=== PATIENT | female | born 1955 | race Caucasian/White ===

== ENCOUNTER 2019-04-07 22:53 | Inpatient (IN) | payer OTHER, SELFPAY ==
--- NOTE | ~2019-04-07 | CT_ITS ---
EXAMINATION: CT abdomen pelvis w con DATE: 04/08/2019 06:42 INDICATION: Generalized abdominal pain. TECHNIQUE: Computed tomography (CT) of the abdomen and pelvis was performed with 100 mL Omnipaque 350 intravenous contrast. Automated exposure control and iterative reconstruction technique were employe d. The dose-length product was 931.82 mGy-cm. COMPARISON: CT abdomen and pelvis 07/30/2013 FINDINGS: The visualized portions of the lung bases demonstrate mild atelectasis. No pleural effusion . The heart size is normal. No pericardial effusion. There is diffuse hepatic steatosis. There are ch anges of cholecystectomy. The spleen, pancreas, and adrenal glands are normal. There is cortical thin kaylen of the kidneys. There is diverticulosis of the colon without evidence of diverticulitis. The smooth endix is not visualized. There is a small volume of ascites. There are no pathologically enlarged lym ph nodes. There is ectasia of distal descending aorta measuring 3.8 cm. There is moderate stenosis of right common iliac artery. There is a burst fracture of T12 with 2/5 loss of height and retropulsion of bone 2 mm into central spinal canal. IMPRESSION: 1. Small volume of ascites. 2. Moderate stenosis of right common iliac artery. 3. Burst fracture of T12, likely acute or subacute. 4. Diffuse hepatic steatosis. Reviewed, dictated and finalized at location A. LER OPERATOR
--- NOTE | ~2019-04-07 | XR_ITS ---
EXAMINATION: XR chest 1V portable 04/07/2019 23:25 INDICATION: Cough PROCEDURE: 2 view chest COMPARISON: Comparison to multiple prior studies sequentially, with oldest reviewed study dated 05/2009. FINDINGS: The lungs are clear. The cardiomediastinal silhouette is within normal limits. There are no pleural effusions. There is no pneumothorax suspected. There is side plate and screws transfixin g the proximal aspect of the left humerus. IMPRESSION: 1: NO ACUTE CARDIOPULMONARY DISEASE. Reviewed, dictated and finalized at location A. ERY PACKER
--- NOTE | ~2019-04-07 | US_ITS ---
EXAMINATION: US abdomen limited EXAM DATE: 04/10/2019 14:03 INDICATION: Bloating. Looking for ascites. TECHNIQUE: Frontal upright projection of the upper abdomen, frontal projection of the lower abdomen f or interpretation. Comparison is made to prior examination from 11/24/2017. FINDINGS: Small pocket of ascites demonstrated in the right lower quadrant, not enough for paracente sis. No fluid in the other 3 quadrants. IMPRESSION: Small pocket right lower quadrant ascites. Reviewed, dictated and finalized at location A. Y PLAN SALES DIRECTOR
[2019-04-07 22:54] VITALS: BP 137/118; PULSE 124; RESP 21; TEMP 36.9; O2SAT 98
--- NOTE | 2019-04-07 23:08 | ED.ABDPAIN ---
HPI - Abdominal Pain General Chief Complaint: Abdominal Pain Stated Complaint: abd Time Seen by Provider: 04/07/19 22:58 Source: patient and RN notes reviewed Mode of arrival: EMS Limitations: no limitations History of Present Illness HPI narrative: Pt is a 63 y/o female who presents to the ED, via EMS, with c/o constant upper abdominal pain that began yesterday (04/06/19). Pt has a hx of EtOH abuse and she notes that she drank an entire fifth of Fireball BEE RAISER. Pt also reports a cough and left chronic shoulder pain, but denies wheezing, nausea, and vomiting. Pt notes that she saw her PCP August 2018. MD elicited complaint: abdominal pain Pain Consistency: constant Location: other (upper abdomen) Associated symptoms: other (cough, left chronic shoulder pain) Related Data Home Medications Medication Instructions Recorded Confirmed ranitidine HCl 150 mg PO BID 01/05/19 04/08/19 Allergies Allergy/AdvReac Type Severity Reaction Status Date / Time No Known Allergies Allergy Unknown Unverified 01/04/19 05:39 Review of Systems Review of Systems: All systems reviewed & are unremarkable except as noted in HPI and below Respiratory: Respiratory: Reports cough and Denies wheezing Gastrointestinal: Gastrointestinal: Reports abdominal pain (upper), Denies nausea and Denies vomiting Musculoskeletal: Musculoskeletal: Reports other (chronic left shoulder pain) PMFSH Social History Social History Smoking packs per day: 1.5 Smoking cigarettes per day: 30.0 Years smoked: 40 Smoking pack-years: 60.00 Smoking status: Heavy tobacco smoker Tobacco type: cigarettes Second hand tobacco smoke exposure: Yes Alcohol intake: current Drinks per week: 1 Alcohol use details: Pt has a hx of EtOH abuse. Substance use: current Substance use type: does not use Other substance usage details: states she uses 1 pint a day Last use: 04/07/2019 Gender identity (if verbalized by the patient): Female Spiritual care concerns: No Agree to blood products: Yes Exam Const: General: healthy appearing and no acute distress Nutritional Appearance: well nourished HENMT: Mouth: Yes lip normal and Yes moist mucous membranes Eyes: Conjunctivae: conjunctivae normal Pupils: Equal, round and reactive pupils present Resp: Effort & Inspection: normal respiratory effort Auscultation: clear to auscultation bilaterally Cardio: Rate: tachycardic Rhythm: regular rhythm GI: Inspection: distended GI Palp: Yes abdominal tenderness (epigastric) and Yes Soft to palpation Auscultation: normal bowel sounds Back/Spine/Pelvis: Back: other (Full ROM) Skin: General skin exam: normal color, dry skin and other (warm) Neuro: General: patient oriented x3 and other (alert) Speech: normal speech Extrem: General: full ROM Left upper extremity: shoulder/upper arm (left axilla: ) abnormal to inspection other (skin breakdown with erythema to surrounding areas, thick white discharge) and swelling other (to surrounding areas) Psych: Mental Status: mental status grossly normal Affect: normal affect Course Consultations Consultation #1: Discussed case with Dr. Junior (Hospitalist). Accepts admission. Date: 04/08/19 Time: 03:11 Vital Signs Vital signs: Vital Signs Temperature 36.9 C 04/07/19 22:54 Pulse Rate 124 H 04/07/19 22:54 Respiratory Rate 21 H 04/07/19 22:54 Blood Pressure 137/118 H 04/07/19 22:54 Pulse Oximetry 98 04/07/19 22:54 Temperature 37.2 C 04/08/19 04:09 Pulse Rate 122 H 04/08/19 04:32 Respiratory Rate 22 H 04/08/19 04:09 Blood Pressure 122/99 H 04/08/19 04:09 Pulse Oximetry 96 04/08/19 04:09 MDM - Abdominal Pain Differential Diagnosis Differential diagnosis: Likely constipation, pancreatitis and other (cirrhosis, gastritis, cutaneous candidiasis, alcohol abuse) Medical Records Attestation: I reviewed the patient's medical records.
[2019-04-07] MEDS: MICONAZOLE NITRATE 2% CREAM 30 GM TUBE 1 APPLIC TOPICAL (23:41)
[2019-04-07 23:53] LABS: Basophils Percent Auto 0.3 % (0.2-1.2); Eosinophils Percent Auto 0.1 % (0-4.4); Hematocrit 31.2 % (37.0-47.0); Hemoglobin 10.7 g/dL (12.0-15.0); Immature Granulocyte Absolute 0.02 K/mm3 (0.00-0.031); Immature Granulocyte Percent A 0.3 % (0-0.5); Lymphocytes Absolute Auto 1.55 K/mm3 (0.9-3.2); Lymphocytes Percent Auto 21.8 % (18.3-44.2); Mean Corpuscular HGB Conc 34.3 g/dl (32-36); Mean Corpuscular Hemoglobin 36.6 pg (26-34); Mean Corpuscular Volume 106.8 fl (80-100); Mean Platelet Volume 9.5 fl (7.4-10.4); Monocytes Absolute Auto 0.6 K/mm3 (0.1-0.6); Monocytes Percent Auto 7.9 % (2.6-8.5); Neutrophils Percent Auto 69.6 % (45.5-73.1); Platelet Count Result 139 k/mm3 (150-375); Red Blood Count 2.92 M/mm3 (4.2-5.4); Red Cell Distribution Width 17.3 % (11.5-14.5); White Blood Count 7.1 K/mm3 (4.5-10.0)
[2019-04-08] VITALS (11 sets, daily range): BP systolic 98–183; BP diastolic 60–99; PULSE 61–122; RESP 12–22; TEMP 36.1–37.2; O2SAT 96–100; BMI 27.9
--- NOTE | 2019-04-08 | PC.NURSE ---
pt states she cannot use the bathroom at this time. edp notified
--- NOTE | 2019-04-08 | PC.NURSE ---
pt requesting something for anxiety and pain. edp notified.
[2019-04-08 00:23] LABS: Alanine Aminotransferase 30 U/L (4-35); Albumin Level 2.5 g/dL (3.5-5.1); Alkaline Phosphatase 378 U/L (38-126); Aspartate Amino Transferase 84 U/L (14-36); Bilirubin,Total 0.6 mg/dL (0.2-1.3); Calcium 7.7 mg/dL (8.4-10.2); Carbon Dioxide 25 mmol/L (22-30); Chloride 89 mmol/L (98-107); Estimated Glomerular Filt Rate > 60; Glucose 116 mg/dL (65-105); Lipase 121 U/L (23-300); Potassium 2.3 mmol/L (3.4-5.0); Sodium 132 mmol/L (137-145)
[2019-04-08 00:31] LABS: Blood Urea Nitrogen < 2 mg/dL (7-17)
[2019-04-08] MEDS: POTASSIUM CHLORIDE 20 MEQ PACKET (FOR LIQUID) 40 MEQ PO (00:48)
[2019-04-08] MEDS: SODIUM CHLORIDE 0.9% IV 1,000 ML 999 ML IV CONT (00:48)
[2019-04-08 00:55] LABS: Ethanol 329 mg/dL (<10)
--- NOTE | 2019-04-08 01:15 | PC.NURSE ---
pt requesting medication for pain and anxiety. edp notified. no further orders.
[2019-04-08 03:15] LABS: Add Urine Microscopic? YES; Appearance Urine Cloudy (Clear); Bacteria Urine 4+ /hpf; Bilirubin Urine Negative (Negative); Blood Urine 1+ (Negative); Color Urine Yellow (Yellow); Glucose Urine UA Negative (Negative); Ketones Urine Negative (Negative); Leukocyte Esterase Ur 3+ LEU/UL (Negative); Mucus Urine Rare /lpf; Nitrate Urine Negative (Negative); Protein Urine Negative (Negative); Specific Grav Ur 1.009 (1.001-1.035); Squamous Epithelial Cell Urine Few /hpf (Few); Urobilinogen Urine Negative mg/dL (<2.0); WBC Clumps Urine Present /HPF; WBC Urine >75 /hpf
[2019-04-08] MEDS: MORPHINE SULFATE 2 MG/ML INJ IV PUSH ×5 (05:16→20:27)
[2019-04-08 08:37] LABS: Albumin Level 2.2 g/dL (3.5-5.1); Calcium 7.1 mg/dL (8.4-10.2); Carbon Dioxide 23 mmol/L (22-30); Chloride 90 mmol/L (98-107); Estimated CRCL calculation 100 ml/min; Estimated Glomerular Filt Rate > 60; Glucose 98 mg/dL (65-105); Magnesium 1.2 mg/dL (1.6-2.3); Potassium 2.7 mmol/L (3.4-5.0); Sodium 128 mmol/L (137-145)
[2019-04-08 08:40] LABS: Blood Urea Nitrogen < 2 mg/dL (7-17)
[2019-04-08] MEDS: POTASSIUM CHLORIDE 20 MEQ TABLET 40 MEQ PO ×2 (10:39→17:12)
[2019-04-08] MEDS: PANTOPRAZOLE SODIUM IV 40 MG VIAL IV PUSH ×2 (10:41→20:20)
[2019-04-08] MEDS: THIAMINE HCL 200 MG/2 ML VIAL 100 MG IV PUSH (10:43)
[2019-04-08] MEDS: TOLNAFTATE 1% POWDER 45 GM BTL 1 APPLIC TOPICAL ×2 (10:44→20:20)
[2019-04-08] MEDS: MAGNESIUM SULFATE 3GM/D5W100ML 3 GM/100 ML BAG IVPB (12:11)
--- NOTE | 2019-04-08 12:32 | PM.IMHP ---
H&P: HPI History of Present Illness Chief complaint: hypokalemia, alcohol intoxication Narrative: Date of visit 04/08/2019. 1030. Shannon Rao is a 63 year old white female alcoholic smoker with hypertension presented to the emergency room with 1-2 day history brother sudden-onset med upper abdominal discomfort. Feels bloated and not eating. States she had some diarrhea but no vomiting no hematemesis no melena hematochezia States never had discomfort like this in the past. CT of the abdomen revealed a T12 compression fracture age indeterminate and she relates chronic back pain but no recent falls. Status post cholecystectomy in the distant past. With pain persisted and she is admitted for evaluation treatment of the same Review of Systems Review of Systems: Narrative: Constitutional: Weight is steady appetite unchanged no fever no chills Eye no double vision scotoma Mouth throat though sore Pulmonary no increased shortness of breath wheezing or cough CV no chest pain or palpitations or pedal edema GI as per present illness no dysuria no hematuria Muscle skeletal no particular joint discomfort as stated chronic back pain Integument no skin breakdown rashes Neuro no seizures no syncope Psych affect appears appropriate [facility] Social History Social History Smoking packs per day: 1.5 Smoking cigarettes per day: 30.0 Years smoked: 40 Smoking pack-years: 60.00 Smoking status: Heavy tobacco smoker Tobacco type: cigarettes Second hand tobacco smoke exposure: Yes Alcohol intake: current Drinks per week: 1 Alcohol use details: Pt has a hx of EtOH abuse. Substance use: current Substance use type: does not use Other substance usage details: states she uses 1 pint a day Last use: 04/07/2019 Gender identity (if verbalized by the patient): Female Spiritual care concerns: No Agree to blood products: Yes Meds Home Medications and Allergies Home Medications Medication Instructions Recorded Confirmed Type ranitidine HCl 150 mg PO BID 01/05/19 04/08/19 History albuterol sulfate [ProAir HFA] 1 - 2 puff INHALATION Q4H PRN #8.5 01/06/19 04/08/19 Rx gm fluticasone propion-salmeterol 1 inh INHALATION Q12H #1 device 01/06/19 04/08/19 Rx [Advair Diskus] lisinopril 10 mg PO DAILY #30 tablet 11/01/19 02/01/20 Rx sertraline 100 mg PO HS #30 tablet 01/06/19 04/08/19 Rx tolnaftate 1 applic TOPICAL Q12HR #45 gm 01/06/19 04/08/19 Rx trazodone 150 mg PO HS #30 tablet 01/06/19 04/08/19 Rx Allergies Allergy/AdvReac Type Severity Reaction Status Date / Time No Known Allergies Allergy Unknown Unverified 01/04/19 05:39 Vital Signs Vital Signs - 24 hr 04/07/19 22:54 04/08/19 01:00 04/08/19 03:18 Temperature 36.9 C Pulse Rate 124 H 115 H 120 H Respiratory Rate 21 H 12 20 Blood Pressure 137/118 H 108/65 98/83 L Pulse Oximetry 98 98 99 04/08/19 03:34 04/08/19 04:09 04/08/19 04:18 Temperature 37.2 C Pulse Rate 117 H 122 H 122 H Respiratory Rate 13 22 H Blood Pressure 109/67 122/99 H Pulse Oximetry 97 96 04/08/19 04:32 04/08/19 06:00 04/08/19 06:02 Temperature 37.2 C Pulse Rate 122 H 122 H Respiratory Rate 22 H Blood Pressure 122/99 H 120/60 Pulse Oximetry 96 Exam Narrative: Exam Narrative: Blood pressure 126/76 pulse is 110 saturating 96% on room air afebrile Pupils equal reactive to light sclera anicteric Mouth normal low bit erythema soft palate [place] mouth Neck supple no adenopathy thyromegaly carotid bruits Lungs are clear CV tachy no murmurs Abdomen is soft sounds are present there is diffuse tenderness in the upper abdomen and epigastric area primarily Extremities without edema dorsalis pedis posterior tibial 2+ symmetrical no clubbing Neuro alert oriented x3 no focal deficits Integument no skin breakdown or rashes Psych appears appropriate H&P: Results Labs Labs: Short CBC 04/07/19 Range/
[2019-04-08] MEDS: CHLORDIAZEPOXIDE 25 MG CAPSULE 50 MG PO ×3 (12:54→23:40)
[2019-04-08] MEDS: NICOTINE (*PBKC) 21 MG PATCH 1 PATCH TRANSDERM (12:54)
[2019-04-08] MEDS: SODIUM CHLORIDE 0.9% IV 1,000 ML 125 ML IV CONT ×2 (12:57→23:39)
[2019-04-08] MEDS: ENOXAPARIN 40 MG/0.4 ML SYRINGE SUB-Q (20:19)
[2019-04-08] MEDS: TOBRAMYCIN 0.3% OPHTH SOLN 5 ML 1 DROP EACH EYE ×2 (20:20→23:41)
[2019-04-09] MEDS: MORPHINE SULFATE 2 MG/ML INJ IV PUSH ×3 (00:55→12:39)
[2019-04-09] MEDS: CHLORDIAZEPOXIDE 25 MG CAPSULE 50 MG PO ×4 (05:48→23:56)
[2019-04-09] MEDS: TOBRAMYCIN 0.3% OPHTH SOLN 5 ML 1 DROP EACH EYE ×5 (05:48→21:56)
[2019-04-09 06:00] VITALS: BP 150/76; PULSE 110; RESP 18; TEMP 36.4; O2SAT 100
[2019-04-09 07:31] LABS: Basophils Percent Auto 0.2 % (0.2-1.2); Eosinophils Percent Auto 0.5 % (0-4.4); Hemoglobin 8.3 g/dL (12.0-15.0); Immature Granulocyte Absolute 0.03 K/mm3 (0.00-0.031); Immature Granulocyte Percent A 0.7 % (0-0.5); Lymphocytes Absolute Auto 1.38 K/mm3 (0.9-3.2); Lymphocytes Percent Auto 34.4 % (18.3-44.2); Mean Corpuscular HGB Conc 34.6 g/dl (32-36); Mean Corpuscular Hemoglobin 37.6 pg (26-34); Mean Corpuscular Volume 108.6 fl (80-100); Mean Platelet Volume 9.1 fl (7.4-10.4); Monocytes Absolute Auto 0.2 K/mm3 (0.1-0.6); Neutrophils Absolute Auto 2.3 K/mm3 (1.3-6.7); Neutrophils Percent Auto 58.2 % (45.5-73.1); Platelet Count Result 83 k/mm3 (150-375); Red Blood Count 2.21 M/mm3 (4.2-5.4)
[2019-04-09 07:46] LABS: Alanine Aminotransferase 25 U/L (4-35); Alkaline Phosphatase 340 U/L (38-126); Aspartate Amino Transferase 62 U/L (14-36); Bilirubin,Total 0.9 mg/dL (0.2-1.3); Blood Urea Nitrogen 3 mg/dL (7-17); Calcium 7.3 mg/dL (8.4-10.2); Carbon Dioxide 30 mmol/L (22-30); Chloride 94 mmol/L (98-107); Estimated CRCL calculation 122 ml/min; Estimated Glomerular Filt Rate > 60; Glucose 85 mg/dL (65-105); Magnesium 1.6 mg/dL (1.6-2.3); Potassium 3.5 mmol/L (3.4-5.0); Sodium 127 mmol/L (137-145)
[2019-04-09] MEDS: NICOTINE (*PBKC) 21 MG PATCH 1 PATCH TRANSDERM (09:16)
[2019-04-09] MEDS: THIAMINE HCL 100 MG TABLET PO (09:16)
[2019-04-09] MEDS: PANTOPRAZOLE SODIUM IV 40 MG VIAL IV PUSH ×2 (09:16→21:56)
[2019-04-09] MEDS: TOLNAFTATE 1% POWDER 45 GM BTL 1 APPLIC TOPICAL ×2 (09:17→21:57)
[2019-04-09] MEDS: SODIUM CHLORIDE 0.9% IV 1,000 ML 125 ML IV CONT (09:18)
[2019-04-09] MEDS: POTASSIUM CHLORIDE 20 MEQ TABLET 40 MEQ PO (09:32)
--- NOTE | 2019-04-09 13:29 | PM.IMPN ---
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 Pain is higher than would expect from a T12 compression and her abdomen is tender to palpation suggesting intra-abdominal process. She has good bowel sounds so will continue Q 12 hour proton pump inhibitor. Now history of dark stool and with Hgb dropping contact GI for probable EGD. Serial H&H and stool guaiacs (2) Alcohol abuse: Code(s): F10.10 - Alcohol abuse, uncomplicated Status: Acute Assessment and Plan: Thiamin and watch for signs of withdrawal. Empirically treat with the benzo diazepam with her tachycardia Still alert with no hallucinations or confusion (3) Hypokalemia: Code(s): E87.6 - Hypokalemia Status: Acute Assessment and Plan: Replace potassium , 3.5 this a.m.. Magnesium up to 1.6 (4) COPD (chronic obstructive pulmonary disease): Code(s): J44.9 - Chronic obstructive pulmonary disease, unspecified Status: Acute Assessment and Plan: P.rrasheed sidhu (5) Thrombocytopenia: Code(s): D69.6 - Thrombocytopenia, unspecified Status: Acute Assessment and Plan: Mild and been present in the past probably secondary to ETOH and/or ETOH liver disease. CT revealed fatty infiltration but no cirrhosis. Continue to monitor 83 K today (6) DVT prophylaxis: Code(s): Z29.9 - Encounter for prophylactic measures, unspecified Status: Acute Assessment and Plan: Changed to mechanical with probable GI blood loss and with lower platelets (7) Conjunctivitis: Code(s): H10.9 - Unspecified conjunctivitis Status: Acute Assessment and Plan: Started tobramycin eyedrops 04/08 (8) Hypertension, essential: Code(s): I10 - Essential (primary) hypertension Status: Acute Assessment and Plan: Pressure is slowly rising but continue to hold VELASQUEZ-inhibitor with the lower hemoglobin Subjective Date/time seen: 04/09/19 13:29 Interval history: Date of visit 04/09/2019. 63-year-old hypertensive alcoholic admitted with epigastric pain diarrhea rule last several days. Continues have pain no feels better than yesterday. CT abdomen unremarkable as is her lipase Has had some frequency of urination, stools last night were reported as dark Exam Narrative: Exam Narrative: Blood pressure 150/76 pulse is 110 saturating 96% on room air afebrile Pupils equal reactive to light sclera anicteric but conjunctiva erythematous and purelent crusting Mouth normal low bit erythema soft palate [place] mouth Neck supple Lungs are clear CV tachy no murmurs Abdomen is soft , bowel sounds are present there is diffuse tenderness in the upper abdomen and epigastric area primarily Extremities without edema dorsalis pedis posterior tibial 2+ symmetrical no clubbing Neuro alert oriented x3 no focal deficits Objective Data Vital Signs Vital Signs: Vital Signs - 24 hr 04/08/19 14:00 04/08/19 18:15 04/08/19 22:00 Temperature 36.3 C L 36.1 C L Pulse Rate 61 117 H 112 H Respiratory Rate 18 21 H Blood Pressure 183/86 H 128/66 Pulse Oximetry 96 100 04/09/19 06:00 Temperature 36.4 C Pulse Rate 110 H Respiratory Rate 18 Blood Pressure 150/76 H Pulse Oximetry 100 Intake/Output Intake/Output: Intake & Output 04/06/19 04/07/19 04/08/19 04/09/19 23:59 23:59 23:59 23:59 Intake Total 3350 1400 Output Total 1050 Balance 2300 1400 Meds/Results Medications: Active Medications Generic Name Dose Route Start Last Admin Trade Name Freq PRN Reason Stop Dose Admin Albuterol 5 mg 04/08/19 07:52 Albuterol Sulf Neb 2.5mg/0.5ml INHALATION Q
[2019-04-09 14:00] VITALS: BP 100/62; PULSE 114; RESP 22; TEMP 36.6; O2SAT 100
--- NOTE | 2019-04-09 14:09 | WPDGICN ---
Assessment and Plan Additional Plan This is a 63-year-old white female patient I am asked to see for abdominal pain. Patient presents to the emergency room complaining of a 2 day history of upper abdominal discomfort and bloating. She feels distended and has poor appetite. She describes some nausea. She denies any vomiting. In the emergency room and CT scan revealed at T12 compression fracture. And ascites. She had mets to rather frequent ongoing alcohol intake. Typically she will drink 1 pt of alcohol a day. Family history is noncontributory. Past medical history is significant for alcoholism, anxiety, COPD, GE reflux disease, hypertension,. She has previously had hepatitis and pancreatitis. Previous surgery includes cholecystectomy. Medications at home include albuterol. Lisinopril. Ranitidine. Sertraline. Trazodone. She has no known drug allergies. Physical exam reveals her to be alert. She has redness to her eyes consistent with a viral syndrome. She is anicteric. Lungs are clear to auscultation and percussion. Heart is without murmur or extra sounds. Abdominal exam bowel sounds are present soft nontender with no hepatosplenomegaly. Rectal exam is deferred. Laboratory findings reveal a white count of 4.0. Hemoglobin 8.3. Hematocrit 21. MCV 108. Total bilirubin 0.9. AST 62. ALT 25. Alk-phos 340. In CT scan of the abdomen suggest ascites. Impression 1. Abdominal distention. I suspect this is related to her ascites. Would recommend low-salt diet. Consider diuretics if possible such as Aldactone. 2. Alcoholism. 3. Elevated liver function test consistent with alcoholic liver disease. 4. Macrocytic anemia. This appears to be consistent with her known alcoholic liver disease. 5. Scleritis appears to suggest she has a viral syndrome. Plan is to continue supportive care low-salt diet is advised low-dose diuretics may be of some benefit. Diet can be advanced as tolerated. Alcohol avoidance strongly encourage. GI Consult Note Consult date/time: 04/09/19 14:09 HPI: Shannon Rao is a 63 year old female [facility] Social History Social History Smoking packs per day: 1.5 Smoking cigarettes per day: 30.0 Years smoked: 40 Smoking pack-years: 60.00 Smoking status: Heavy tobacco smoker Tobacco type: cigarettes Second hand tobacco smoke exposure: Yes Alcohol intake: current Drinks per week: 1 Alcohol use details: Pt has a hx of EtOH abuse. Substance use: current Substance use type: does not use Other substance usage details: states she uses 1 pint a day Last use: 04/07/2019 Gender identity (if verbalized by the patient): Female Spiritual care concerns: No Agree to blood products: Yes Meds Home Medications and Allergies Home Medications Medication Instructions Recorded Confirmed Type ranitidine HCl 150 mg PO BID 01/05/19 04/08/19 History albuterol sulfate [ProAir HFA] 1 - 2 puff INHALATION Q4H PRN #8.5 01/06/19 04/08/19 Rx gm fluticasone propion-salmeterol 1 inh INHALATION Q12H #1 device 01/06/19 04/08/19 Rx [Advair Diskus] lisinopril 10 mg PO DAILY #30 tablet 01/06/19 04/08/19 Rx sertraline 100 mg PO HS #30 tablet 01/06/19 04/08/19 Rx tolnaftate 1 applic TOPICAL Q12HR #45 gm 01/06/19 04/08/19 Rx trazodone 150 mg PO HS #30 tablet 01/06/19 04/08/19 Rx Allergies Allergy/AdvReac Type Severity Reaction Status Date / Time No Known Allergies Allergy Unknown Unverified 01/04/19 05:39 Vital Signs Vital Signs - 24 hr 04/08/19 18:15 04/08/19 22:00 04/09/19 06:00 Temperature 36.1 C L 36.4 C Pulse Rate 117 H 112 H 110 H Respiratory Rate 21 H 18 Blood Pressure 128/66 150/76 H Pulse Oximetry 100 100 Results Labs CBC & Chem 7: 04/09/19 07:26 04/09/19 07:26 Labs: Short CBC 04/09/19 Range/Units 07:26 WBC 4.0 L (4.5-10.0) K/mm3 Hgb 8.3 L (12.0-15.
[2019-04-09 16:08] LABS: Hematocrit 23.1 % (37.0-47.0); Hemoglobin 7.9 g/dL (12.0-15.0); Mean Corpuscular HGB Conc 34.2 g/dl (32-36); Mean Corpuscular Hemoglobin 38.2 pg (26-34); Mean Corpuscular Volume 111.6 fl (80-100); Mean Platelet Volume 9.9 fl (7.4-10.4); Platelet Count Result 94 k/mm3 (150-375); Red Blood Count 2.07 M/mm3 (4.2-5.4); Red Cell Distribution Width 17.9 % (11.5-14.5); White Blood Count 4.2 K/mm3 (4.5-10.0)
[2019-04-09 16:19] LABS: Albumin Level 1.9 g/dL (3.5-5.1); Blood Urea Nitrogen 2 mg/dL (7-17); Calcium 7.2 mg/dL (8.4-10.2); Carbon Dioxide 28 mmol/L (22-30); Chloride 98 mmol/L (98-107); Estimated CRCL calculation 100 ml/min; Estimated Glomerular Filt Rate > 60; Glucose 87 mg/dL (65-105); Phosphorus 2.1 mg/dL (2.5-4.5); Potassium 3.6 mmol/L (3.4-5.0); Sodium 130 mmol/L (137-145)
[2019-04-09 16:36] LABS: IFOB Positive Control Positive; Immunochemical Fecal Occult Bl Negative (N)
[2019-04-09] MEDS: SPIRONOLACTONE 25 MG TABLET PO (17:41)
[2019-04-09] MEDS: POTASSIUM CHLORIDE 20 MEQ TABLET PO (17:41)
[2019-04-09] MEDS: MORPHINE SULFATE 2 MG/ML INJ 1 MG IV PUSH (20:03)
[2019-04-09 21:52] VITALS: BP 117/56; PULSE 109; RESP 20; TEMP 36; O2SAT 99
[2019-04-10] VITALS (8 sets, daily range): BP systolic 110–115; BP diastolic 54–64; PULSE 99–107; RESP 16–18; TEMP 35.9–36.5; O2SAT 95–99
[2019-04-10] MEDS: TOBRAMYCIN 0.3% OPHTH SOLN 5 ML 1 DROP EACH EYE ×6 (01:15→20:09)
[2019-04-10] MEDS: MORPHINE SULFATE 2 MG/ML INJ 1 MG IV PUSH (04:14)
[2019-04-10] MEDS: GUAIFENESIN/DEXTROMETHORPHAN 10 ML UDC 5 ML PO (04:56)
[2019-04-10] MEDS: CHLORDIAZEPOXIDE 25 MG CAPSULE 50 MG PO ×3 (05:41→17:18)
[2019-04-10 07:27] LABS: Basophils Percent Auto 0.2 % (0.2-1.2); Eosinophils Percent Auto 0.4 % (0-4.4); Hematocrit 24.9 % (37.0-47.0); Hemoglobin 8.5 g/dL (12.0-15.0); Immature Granulocyte Absolute 0.03 K/mm3 (0.00-0.031); Immature Granulocyte Percent A 0.6 % (0-0.5); Lymphocytes Absolute Auto 1.55 K/mm3 (0.9-3.2); Lymphocytes Percent Auto 29.9 % (18.3-44.2); Mean Corpuscular HGB Conc 34.1 g/dl (32-36); Mean Corpuscular Hemoglobin 37.9 pg (26-34); Mean Corpuscular Volume 111.2 fl (80-100); Mean Platelet Volume 10.1 fl (7.4-10.4); Monocytes Absolute Auto 0.2 K/mm3 (0.1-0.6); Monocytes Percent Auto 4.6 % (2.6-8.5); Neutrophils Absolute Auto 3.3 K/mm3 (1.3-6.7); Neutrophils Percent Auto 64.3 % (45.5-73.1); Platelet Count Result 106 k/mm3 (150-375); Red Blood Count 2.24 M/mm3 (4.2-5.4); Red Cell Distribution Width 18.1 % (11.5-14.5); White Blood Count 5.2 K/mm3 (4.5-10.0)
[2019-04-10 07:33] LABS: Magnesium 1.4 mg/dL (1.6-2.3)
[2019-04-10 07:34] LABS: Albumin Level 2.3 g/dL (3.5-5.1); Blood Urea Nitrogen 2 mg/dL (7-17); Calcium 7.7 mg/dL (8.4-10.2); Carbon Dioxide 26 mmol/L (22-30); Chloride 96 mmol/L (98-107); Estimated CRCL calculation 100 ml/min; Estimated Glomerular Filt Rate > 60; Glucose 80 mg/dL (65-105); Potassium 3.4 mmol/L (3.4-5.0); Sodium 129 mmol/L (137-145)
[2019-04-10] MEDS: PANTOPRAZOLE SODIUM IV 40 MG VIAL IV PUSH ×2 (07:45→20:09)
[2019-04-10] MEDS: NICOTINE (*PBKC) 21 MG PATCH 1 PATCH TRANSDERM (07:45)
--- NOTE | 2019-04-10 07:46 | WPDGIPROGNO ---
Progress Note: A&P Additional Plan Patient alert this morning. She feels less bloated. She denies any evidence of GI blood loss. She does report dark his stools however. Physical exam reveals her to be alert. Bowel sounds are present. Abdomen is somewhat softer this morning. Laboratory work reveals CBC hemoglobin 8.5. Hematocrit 24.9. MCV 111.2. Hemoglobin has declined since admission. Impression 1. Epigastric pain. 2. Anemia. Progressive decline in hemoglobin noted. Suspicious for GI blood loss. 3. Abdominal distention. Ascites noted on CT scan. 4. Alcohol abuse. This is ongoing. She appears to have alcoholic liver disease. 5. Scleritis. Inflamed eyes appear most consistent with viral syndrome. Plan is for IV Protonix. Follow hematocrit. Guaiac stools. An EGD will be performed in the morning. Subjective Date/time seen: 04/10/19 07:46 Objective Data Vital Signs Vital Signs: Vital Signs - 24 hr 04/09/19 14:00 04/09/19 21:52 04/10/19 05:52 Temperature 36.6 C 36.0 C L 36.1 C L Pulse Rate 114 H 109 H 107 H Respiratory Rate 22 H 20 18 Blood Pressure 100/62 117/56 L 110/56 L Pulse Oximetry 100 99 99 Intake/Output Intake/Output: Intake & Output 04/07/19 04/08/19 04/09/19 04/10/19 23:59 23:59 23:59 23:59 Intake Total 3350 3000 950 Output Total 1050 1300 1600 Balance 2300 1700 -650 Meds/Results Medications: Active Medications Generic Name Dose Route Start Last Admin Trade Name Freq PRN Reason Stop Dose Admin Albuterol 5 mg 04/08/19 07:52 Albuterol Sulf Neb 2.5mg/0.5ml INHALATION Q6HRT PRN Shortness Of Breath Chlordiazepoxide HCl 50 mg 04/08/19 12:00 04/10/19 05:41 Librium Po PO 50 mg Q6HR ELLA Administration Guaifenesin/Dextromethorphan 5 ml 04/10/19 04:45 04/10/19 04:56 Robitussin-Dm Syrup PO 04/10/19 12:00 5 ml Q4H PRN Administration Cough Ceftriaxone Sodium/Dextrose 1 gm in 50 mls @ 100 mls/hr 04/09/19 06:00 04/10/19 05:41 Rocephin 1 Gm/D5w 50 Ml IVPB 100 mls/hr Q24H ELLA Administration Morphine Sulfate 1 mg 04/09/19 16:56 04/10/19 04:14 Morphine Sulfate Inj IV PUSH 1 mg Q6H PRN Administration Pain Rated 7-10 Nicotine 1 patch 04/08/19 09:00 04/09/19 09:16 Nicoderm Cq 21 Mg TRANSDERM 1 patch QAM ELLA Administration Ondansetron HCl 4 mg 04/08/19 03:12 Zofran Inj IV PUSH Q4H PRN Nausea Pantoprazole Sodium 40 mg 04/08/19 21:00 04/09/19 21:56 Protonix Iv IV PUSH 40 mg Q12HR ELLA Administration Fluticasone/Salmeterol 2 puff 04/08/19 08:00 04/09/19 20:12 Advair Hfa 115-21 Mcg Inhaler (*Sp) INHALATION 2 puff Q12HRT ELLA Administration Spironolactone 25 mg 04/09/19 17:00 04/09/19 17:41 Aldactone PO 25 mg BID ELLA Administration Thiamine HCl 100 mg 04/09/19 09:00 04/09/19 09:16 Vitamin B-1 PO 100 mg QAM ELLA Administration Tobramycin Sulfate 1 drop 04/08/19 21:00 04/10/19 04:56 Tobramycin Sulf Ophth Unique EACH EYE 1 drop Q4HR ELLA Administration Tolnaftate 1 applic 04/08/19 09:00 04/09/19 21:57 Tolnaftate 1% Powder TOPICAL 1 applic Q12HR ELLA Administration Radiology Results: ITS Impressions Chest X-Ray 04/07/19 23:33 IMPRESSION: 1: NO ACUTE CARDIOPULMONARY DISEASE. Abdomen/Pelvis CT 04/08/19 07:59 IMPRESSION: 1. Small volume of ascites. 2. Moderate stenosis of right common iliac artery. 3. Burst fracture of T12, likely acute or subacute. 4. Diffuse hepatic steatosis. Labs Labs: Laboratory Results - last 24 hr 04/09/19 04/09/19 04/09/19 07:26 07:26 11:34 WBC 4.0 L RBC 2.21 L Hgb 8.3 L Hct 24.0 L MCV 108.6 H MCH 37.6 H MCHC 34.6 RDW 18.0 H Plt Count 83 L MPV 9.1 Immature Gran % (Auto) 0.7 H Neut % (Auto) 58.2 Lymph % (Auto) 34.4 [place] % (Auto) 6.0 Eos % (Auto) 0.5 Baso % (Auto) 0.2 Lymph # (Auto) 1.38 [place] # (Auto) 0.2 Eos # (Auto
[2019-04-10] MEDS: THIAMINE HCL 100 MG TABLET PO (07:47)
[2019-04-10] MEDS: SPIRONOLACTONE 25 MG TABLET PO ×2 (07:48→17:18)
[2019-04-10] MEDS: TOLNAFTATE 1% POWDER 45 GM BTL 1 APPLIC TOPICAL ×2 (07:50→20:08)
[2019-04-10] MEDS: MAGNESIUM SULFATE 3GM/D5W100ML 3 GM/100 ML BAG IVPB (09:23)
[2019-04-10] MEDS: POTASSIUM PHOS,M-BASIC-D-BASIC 20 MMOL in SODIUM CHLORIDE 0.9% IV 250 ML 62.5 MMOL IVPB (10:29)
--- NOTE | 2019-04-10 15:08 | PM.IMPN ---
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 Pain is higher than would expect from a T12 compression and her abdomen is tender to palpation suggesting intra-abdominal process. She has good bowel sounds so will continue Q 12 hour proton pump inhibitor. Now history of dark stool and with Hgb dropped but stable today EGD 2/ per GI (2) Alcohol abuse: Code(s): F10.10 - Alcohol abuse, uncomplicated Status: Acute Assessment and Plan: Thiamin and watch for signs of withdrawal. Empirically treat with the benzo diazepam with her tachycardia Still alert with no hallucinations or confusion (3) Hypokalemia: Code(s): E87.6 - Hypokalemia Status: Acute Assessment and Plan: Replace potassium , 3.5 this a.m.. Magnesium and phos also (4) COPD (chronic obstructive pulmonary disease): Code(s): J44.9 - Chronic obstructive pulmonary disease, unspecified Status: Acute Assessment and Plan: P.rrasheed sidhu (5) Thrombocytopenia: Code(s): D69.6 - Thrombocytopenia, unspecified Status: Acute Assessment and Plan: Mild and been present in the past probably secondary to ETOH and/or ETOH liver disease. CT revealed fatty infiltration but no cirrhosis. Continue to monitor 106 K today (6) DVT prophylaxis: Code(s): Z29.9 - Encounter for prophylactic measures, unspecified Status: Acute Assessment and Plan: Changed to mechanical with probable GI blood loss and with lower platelets (7) Conjunctivitis: Code(s): H10.9 - Unspecified conjunctivitis Status: Acute Assessment and Plan: Started tobramycin eyedrops 04/08 (8) Hypertension, essential: Code(s): I10 - Essential (primary) hypertension Status: Acute Assessment and Plan: Pressure is slowly rising but continue to hold VELASQUEZ-inhibitor for now Subjective Date/time seen: 04/10/19 15:08 Interval history: Date of visit 04/10/2019. 63-year-old hypertensive alcoholic admitted with epigastric pain diarrhea last several days prior to admission. Continues have pain no feels better each. CT abdomen unremarkable as is her lipase Has had some frequency of urination, stools last 04/07 were reported as dark and hgb dropped some still complains of bloating Exam Narrative: Exam Narrative: Blood pressure 114/72 pulse is 94 saturating 96% on room air afebrile Pupils equal reactive to light sclera anicteric but conjunctiva erythematous and less crusting Mouth normal now Neck supple Lungs are clear CV tachy no murmurs Abdomen is soft , bowel sounds are present there is diffuse tenderness in the upper abdomen and epigastric area primarily and less so today Extremities without edema dorsalis pedis posterior tibial 2+ symmetrical no clubbing Neuro alert oriented x3 no focal deficits Objective Data Vital Signs Vital Signs: Vital Signs - 24 hr 04/09/19 21:52 04/10/19 05:52 04/10/19 08:00 Temperature 36.0 C L 36.1 C L Pulse Rate 109 H 107 H 107 H Respiratory Rate 20 18 18 Blood Pressure 117/56 L 110/56 L 110/56 L Pulse Oximetry 99 99 99 04/10/19 12:00 04/10/19 14:00 Temperature 36.5 C Pulse Rate 106 H Respiratory Rate 16 Blood Pressure 110/56 L 114/54 L Pulse Oximetry 97 Intake/Output Intake/Output: Intake & Output 04/07/19 04/08/19 04/09/19 04/10/19 23:59 23:59 23:59 23:59 Intake Total 3350 3000 1290 Output Total 1050 1300 1600 Balance 2300 1700 -310 Meds/Results Medications: Active Medications Generic Name Dose Route Start Last Admin Trade Name Antq PRN Reason Stop Dose Admin Albuterol 5 mg 04/08/19 07:52
--- NOTE | 2019-04-10 16:40 | ECG_ITS ---
Measurements Intervals [place] Rate: 105 P: 25 MS: 139 QRS: 16 QRSD: 77 T: 45 QT: 380 QTc: 502 Interpretive Statements SINUS TACHYCARDIA LOW QRS VOLTAGE IN PRECORDIAL LEADS ABNORMAL ECG Electronically Signed On 04-10-2019 16:57:52 RESERVATION MANAGER by Jose Garcia D.O.
--- NOTE | 2019-04-10 16:41 | WPDANESEPP ---
Anes - Eval Pre Procedure Procedure: EGD Operation Date: 04/11/19 08:30 Proposed Procedures p Esophagogastroduodenoscopy - Ricky Ricketts MD Date/Time: 04/10/19 16:41 Surgeon: Jamarcus Preop Diagnosis: Anemia Pre Op Diagnosis: hypokalemia, alcohol intoxication Patient Data Age: 63 Gender: F Height: 5 ft 6 in Weight: 78.6 kg Last Vital Signs Temp 97.7 F 04/10/19 14:00 Pulse 106 H 04/10/19 14:00 Resp 16 04/10/19 14:00 BP 114/54 L 04/10/19 14:00 Pulse Ox 97 04/10/19 14:00 Allergies Allergy/AdvReac Type Severity Reaction Status Date / Time No Known Allergies Allergy Unknown Unverified 01/04/19 05:39 Home Medications Medication Instructions Recorded Confirmed Type ranitidine HCl 150 mg PO BID 01/05/19 04/08/19 History albuterol sulfate [ProAir HFA] 1 - 2 puff INHALATION Q4H PRN #8.5 01/06/19 04/08/19 Rx gm fluticasone propion-salmeterol 1 inh INHALATION Q12H #1 device 01/06/19 04/08/19 Rx [Advair Diskus] lisinopril 10 mg PO DAILY #30 tablet 01/06/19 04/08/19 Rx sertraline 100 mg PO HS #30 tablet 01/06/19 04/08/19 Rx tolnaftate 1 applic TOPICAL Q12HR #45 gm 01/06/19 04/08/19 Rx trazodone 150 mg PO HS #30 tablet 01/06/19 04/08/19 Rx Laboratory Tests 04/10/19 04/10/19 04/10/19 07:15 07:15 07:15 WBC 5.2 K/mm3 K/mm3 (4.5-10.0) RBC 2.24 M/mm3 L M/mm3 (4.2-5.4) Hgb 8.5 g/dL L g/dL (12.0-15.0) Hct 24.9 % L % (37.0-47.0) MCV 111.2 fl H fl (80-100) MCH 37.9 pg H pg (26-34) MCHC 34.1 g/dl g/dl (32-36) RDW 18.1 % H % (11.5-14.5) Plt Count 106 k/mm3 L k/mm3 (150-375) MPV 10.1 fl fl (7.4-10.4) Immature Gran % (Auto) 0.6 % H % (0-0.5) Neut % (Auto) 64.3 % % (45.5-73.1) Lymph % (Auto) 29.9 % % (18.3-44.2) [place] % (Auto) 4.6 % % (2.6-8.5) Eos % (Auto) 0.4 % % (0-4.4) Baso % (Auto) 0.2 % % (0.2-1.2) Lymph # (Auto) 1.55 K/mm3 K/mm3 (0.9-3.2) [place] # (Auto) 0.2 K/mm3 K/mm3 (0.1-0.6) Eos # (Auto) 0.0 K/mm3 K/mm3 (0-0.3) Baso # (Auto) 0.0 K/mm3 K/mm3 (0.0-0.1) Abs Immat Gran (auto) 0.03 K/mm3 K/mm3 (0.00-0.031) Absolute Neuts (auto) 3.3 K/mm3 K/mm3 (1.3-6.7) Absolute Nucleated RBC 0.0 K/mm3 K/mm3 (0.0-0.012) Nucleated RBC % 0.0 % % (0.0-0.2) Sodium 129 mmol/L L mmol/L (137-145) Potassium 3.4 mmol/L mmol/L (3.4-5.0) Chloride 96 mmol/L L mmol/L (98-107) Carbon Dioxide 26 mmol/L mmol/L (22-30) BUN 2 mg/dL L mg/dL (7-17) Creatinine 0.50 mg/dL L mg/dL (0.7-1.0) Estim Creat Clear Calc 100 ml/min ml/min Estimated GFR > 60 (59 - ) Glucose 80 mg/dL mg/dL (65-105) Calcium 7.7 mg/dL L mg/dL (8.4-10.2) Phosphorus 2.0 mg/dL L mg/dL (2.5-4.5) Magnesium 1.4 mg/dL L mg/dL (1.6-2.3) Albumin 2.3 g/dL L g/dL (3.5-5.1) Patient hx anesthesia problems: none Family hx anesthesia problems: none [facility] Past Medical History Medical History Alcoholism Anxiety Arthritis Closed fracture of left proximal humerus COPD (chronic obstructive pulmonary disease) DDD (degenerative disc disease) Depression GERD (gastroesophageal reflux disease) Headache Hepatitis HTN (hypertension) Hypertension, essential Pancreatitis Previous known suicide attempt Rectal polyp Seasonal allergies Tobacco dependence Surgical History Surgical History History of tubal ligation Hx of cholecystectomy Hx of lumpectomy Social History Social History Smoking packs per day: 1.5 Smoking cigarettes per day: 30.0 Years smoked: 40 Smoking pack-years:
[2019-04-10] MEDS: POTASSIUM CHLORIDE 20 MEQ TABLET 40 MEQ PO (17:18)
[2019-04-11] VITALS (9 sets, daily range): BP systolic 95–153; BP diastolic 52–90; PULSE 84–103; RESP 16–28; TEMP 35.7–36.6; O2SAT 95–100
[2019-04-11] MEDS: CHLORDIAZEPOXIDE 25 MG CAPSULE 50 MG PO ×4 (00:08→18:21)
[2019-04-11] MEDS: TOBRAMYCIN 0.3% OPHTH SOLN 5 ML 1 DROP EACH EYE ×6 (00:08→20:14)
[2019-04-11 05:52] LABS: IFOB Positive Control Positive; Immunochemical Fecal Occult Bl Negative (N)
[2019-04-11 06:21] LABS: Eosinophils Percent Auto 0.5 % (0-4.4); Hematocrit 26.2 % (37.0-47.0); Hemoglobin 8.7 g/dL (12.0-15.0); Immature Granulocyte Absolute 0.03 K/mm3 (0.00-0.031); Immature Granulocyte Percent A 0.7 % (0-0.5); Lymphocytes Absolute Auto 1.41 K/mm3 (0.9-3.2); Lymphocytes Percent Auto 33.4 % (18.3-44.2); Mean Corpuscular HGB Conc 33.2 g/dl (32-36); Mean Corpuscular Hemoglobin 37.8 pg (26-34); Mean Corpuscular Volume 113.9 fl (80-100); Mean Platelet Volume 10.1 fl (7.4-10.4); Monocytes Absolute Auto 0.3 K/mm3 (0.1-0.6); Monocytes Percent Auto 6.4 % (2.6-8.5); Neutrophils Absolute Auto 2.5 K/mm3 (1.3-6.7); Platelet Count Result 102 k/mm3 (150-375); Red Cell Distribution Width 18.1 % (11.5-14.5); White Blood Count 4.2 K/mm3 (4.5-10.0)
[2019-04-11 06:32] LABS: Alanine Aminotransferase 23 U/L (4-35); Albumin Level 2.1 g/dL (3.5-5.1); Alkaline Phosphatase 270 U/L (38-126); Aspartate Amino Transferase 45 U/L (14-36); Bilirubin,Total 0.6 mg/dL (0.2-1.3); Calcium 7.6 mg/dL (8.4-10.2); Carbon Dioxide 27 mmol/L (22-30); Chloride 101 mmol/L (98-107); Estimated CRCL calculation 100 ml/min; Estimated Glomerular Filt Rate > 60; Glucose 75 mg/dL (65-105); Phosphorus 3.1 mg/dL (2.5-4.5); Potassium 3.5 mmol/L (3.4-5.0); Sodium 131 mmol/L (137-145)
[2019-04-11 06:33] LABS: Blood Urea Nitrogen < 2 mg/dL (7-17)
--- NOTE | 2019-04-11 07:23 | PC.NURSE ---
To GI lab per garo
--- NOTE | 2019-04-11 08:01 | WPDANESEPPF ---
Anes - Initial Pre Proc Eval Procedure: Operation Date: 04/11/19 08:30 Proposed Procedures p Esophagogastroduodenoscopy - Ricky Ricketts MD Date/Time: 04/11/19 08:01 Surgeon: Gurvinder Junior MD Pre Op Diagnosis: hypokalemia, alcohol intoxication Patient Data Age: 63 Gender: F Height: 1.68 m Weight: 78.6 kg Last Vital Signs Temp 36.6 C 04/11/19 07:30 Pulse 101 H 04/11/19 07:30 Resp 16 04/11/19 07:30 BP 142/90 H 04/11/19 07:30 Pulse Ox 99 04/11/19 07:30 Allergies Allergy/AdvReac Type Severity Reaction Status Date / Time No Known Allergies Allergy Unknown Unverified 04/11/19 07:43 Home Medications Medication Instructions Recorded Confirmed Type ranitidine HCl 150 mg PO BID 01/05/19 04/08/19 History albuterol sulfate [ProAir HFA] 1 - 2 puff INHALATION Q4H PRN #8.5 01/06/19 04/08/19 Rx gm fluticasone propion-salmeterol 1 inh INHALATION Q12H #1 device 01/06/19 04/08/19 Rx [Advair Diskus] lisinopril 10 mg PO DAILY #30 tablet 01/06/19 04/08/19 Rx sertraline 100 mg PO HS #30 tablet 01/06/19 04/08/19 Rx tolnaftate 1 applic TOPICAL Q12HR #45 gm 01/06/19 04/08/19 Rx trazodone 150 mg PO HS #30 tablet 01/06/19 04/08/19 Rx Laboratory Tests 04/11/19 04/11/19 04/11/19 05:08 05:27 05:27 WBC 4.2 K/mm3 L K/mm3 (4.5-10.0) RBC 2.30 M/mm3 L M/mm3 (4.2-5.4) Hgb 8.7 g/dL L g/dL (12.0-15.0) Hct 26.2 % L % (37.0-47.0) MCV 113.9 fl H fl (80-100) MCH 37.8 pg H pg (26-34) MCHC 33.2 g/dl g/dl (32-36) RDW 18.1 % H % (11.5-14.5) Plt Count 102 k/mm3 L k/mm3 (150-375) MPV 10.1 fl fl (7.4-10.4) Immature Gran % (Auto) 0.7 % H % (0-0.5) Neut % (Auto) 59.0 % % (45.5-73.1) Lymph % (Auto) 33.4 % % (18.3-44.2) [place] % (Auto) 6.4 % % (2.6-8.5) Eos % (Auto) 0.5 % % (0-4.4) Baso % (Auto) 0.0 % L % (0.2-1.2) Lymph # (Auto) 1.41 K/mm3 K/mm3 (0.9-3.2) [place] # (Auto) 0.3 K/mm3 K/mm3 (0.1-0.6) Eos # (Auto) 0.0 K/mm3 K/mm3 (0-0.3) Baso # (Auto) 0.0 K/mm3 K/mm3 (0.0-0.1) Abs Immat Gran (auto) 0.03 K/mm3 K/mm3 (0.00-0.031) Absolute Neuts (auto) 2.5 K/mm3 K/mm3 (1.3-6.7) Absolute Nucleated RBC 0.0 K/mm3 K/mm3 (0.0-0.012) Nucleated RBC % 0.0 % % (0.0-0.2) Sodium 131 mmol/L L mmol/L (137-145) Potassium 3.5 mmol/L mmol/L (3.4-5.0) Chloride 101 mmol/L mmol/L (98-107) Carbon Dioxide 27 mmol/L mmol/L (22-30) BUN < 2 mg/dL L mg/dL (7-17) Creatinine 0.50 mg/dL L mg/dL (0.7-1.0) Estim Creat Clear Calc 100 ml/min ml/min Estimated GFR > 60 (59 - ) Glucose 75 mg/dL mg/dL (65-105) Calcium 7.6 mg/dL L mg/dL (8.4-10.2) Phosphorus 3.1 mg/dL mg/dL (2.5-4.5) Total Bilirubin 0.6 mg/dL mg/dL (0.2-1.3) Direct Bilirubin 0.0 mg/dL mg/dL (0-0.3) AST 45 U/L H U/L (14-36) ALT 23 U/L U/L (4-35) Alkaline Phosphatase 270 U/L H U/L (38-126) Total Protein 5.0 g/dL L g/dL (6.3-8.2) Albumin 2.1 g/dL L g/dL (3.5-5.1) Stl Occult Blood (IFOB) Negative (N) Patient hx anesthesia problems: none Family hx anesthesia problems: none PMFSH Past Medical History Medical History Alcoholism Anxiety Arthritis Closed fracture of left proximal humerus COPD (chronic obstructive pulmonary disease) DDD (degenerative disc disease) Depression GERD (gastroesophageal reflux disease) Headache Hepatitis HTN (hypertension) Hypertension, essential Pancreatitis Previous known suicide attempt Rectal polyp Seasonal allergies Tobacco dependence Surgical History Surgical History (Reviewed 04/10/19 @ 16:43 by Guanaco Washburn
[2019-04-11] MEDS: LACTATED RINGERS 1,000 ML 150 ML IV CONT (08:30)
[2019-04-11] MEDS: SIMETHICONE ORAL SUSPENSION 20 MG/0.3 ML 30 ML BOTTLE 0.6 ML PO (09:07)
--- NOTE | 2019-04-11 09:55 | PC.NURSE ---
Return from GI lab per garo
[2019-04-11] MEDS: FAMOTIDINE 20 MG TABLET PO ×2 (10:05→20:15)
[2019-04-11] MEDS: NICOTINE (*PBKC) 21 MG PATCH 1 PATCH TRANSDERM (10:07)
[2019-04-11] MEDS: SPIRONOLACTONE 25 MG TABLET PO ×2 (10:07→18:21)
[2019-04-11] MEDS: THIAMINE HCL 100 MG TABLET PO (10:07)
[2019-04-11] MEDS: TOLNAFTATE 1% POWDER 45 GM BTL 1 APPLIC TOPICAL ×2 (10:09→20:13)
[2019-04-11 14:46] LABS: IFOB Positive Control Positive; Immunochemical Fecal Occult Bl Negative (N)
--- NOTE | 2019-04-11 16:59 | PM.IMPN ---
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 Pain is higher than would expect from a T12 compression and her abdomen is tender to palpation suggesting intra-abdominal process. She has good bowel sounds so will continue Q 12 hour proton pump inhibitor. Now history of dark stool and with Hgb dropped 04/07-04/09. EGD 04/11 with HH. No evidence of further bleeding. Likely discharge 04/12 with resources for alcohol rehab as well as PPI rx. (2) Alcohol abuse: Code(s): F10.10 - Alcohol abuse, uncomplicated Status: Acute Assessment and Plan: Thiamin and watch for signs of withdrawal. Empirically treat with the benzo diazepam with her tachycardia Still alert with no hallucinations or confusion Would benefit from rehab. (3) Hypokalemia: Code(s): E87.6 - Hypokalemia Status: Acute Assessment and Plan: 3.5 04/11. (4) COPD (chronic obstructive pulmonary disease): Qualifiers: COPD type: unspecified COPD Qualified Code(s): J44.9 - Chronic obstructive pulmonary disease, unspecified Code(s): J44.9 - Chronic obstructive pulmonary disease, unspecified Status: Acute Assessment and Plan: P.mauri sidhu (5) Thrombocytopenia: Code(s): D69.6 - Thrombocytopenia, unspecified Status: Acute Assessment and Plan: Mild and been present in the past probably secondary to ETOH and/or ETOH liver disease. CT revealed fatty infiltration but no cirrhosis. Continue to monitor: 04/11 102 (6) DVT prophylaxis: Code(s): Z29.9 - Encounter for prophylactic measures, unspecified Status: Acute Assessment and Plan: Changed to mechanical with probable GI blood loss and with lower platelets (7) Conjunctivitis: Qualifiers: Conjunctivitis type: unspecified Laterality: left Qualified Code(s): H10.9 - Unspecified conjunctivitis Code(s): H10.9 - Unspecified conjunctivitis Status: Acute Assessment and Plan: Started tobramycin eyedrops 04/08 (8) Hypertension, essential: Code(s): I10 - Essential (primary) hypertension Status: Acute Assessment and Plan: Pressure is slowly rising but continue to hold VELASQUEZ-inhibitor for now Subjective Date/time seen: 04/11/19 16:59 Interval history: Loose stools. Less abdominal pain, bloating. Tolerated diet. Review of Systems Review of Systems: All systems reviewed & are unremarkable except as noted in HPI and below Exam Narrative: Exam Narrative: HEENT: EOMI, PERRL, pharyngeal mucosa pink and intact NECK: No JVD CHEST: Coarse BS with incr APD HEART: NL S1/S2, regular, no murmur ABDOMEN: BS+, soft, mildly tender epigstric to upper quadrants, no mass or bruits EXTREMITIES: No cyanosis, edema, or clubbing NEUROLOGIC: CN intact and symmetric to inspection. MUSCULOSKELETAL: Tone and strength symmetric. PSYCH: Alert. Oriented to person, place, and time. Objective Data Vital Signs Vital Signs: Vital Signs - 24 hr 04/10/19 20:00 04/10/19 22:03 04/10/19 22:19 Temperature 96.7 F L Pulse Rate 106 H 99 Respiratory Rate 16 18 Blood Pressure 114/54 L 115/64 Pulse Oximetry 97 95 04/11/19 05:58 04/11/19 07:30 04/11/19 09:13 Temperature 96.3 F L 97.8 F Pulse Rate 101 H 101 H 99 Respiratory Rate 20 16 21 H Blood Pressure 139/67 142/90 H 97/52 L Pulse Oximetry 100 99 95 04/11/19 09:23 04/11/19 09:33 04/11/19 09:43 Temperature Pulse Rate 98 101 H 97 Respiratory Rate 21 H 23 H 21 H Blood Pressure 95/55 L 114/63 119/67 Pulse Oximetry 96 95 96 04/11/19 14:00 Temperature 97.8 F Pulse Rate 103 H Respiratory Rate 28 H Blood Pr
[2019-04-12] MEDS: CHLORDIAZEPOXIDE 25 MG CAPSULE 50 MG PO ×2 (05:14)
[2019-04-12] MEDS: TOBRAMYCIN 0.3% OPHTH SOLN 5 ML 1 DROP EACH EYE ×3 (05:14→08:17)
[2019-04-12 06:12] VITALS: BP 148/92; PULSE 106; RESP 20; TEMP 36.4; O2SAT 99
[2019-04-12 06:17] LABS: Alanine Aminotransferase 23 U/L (4-35); Albumin Level 2.2 g/dL (3.5-5.1); Alkaline Phosphatase 234 U/L (38-126); Aspartate Amino Transferase 44 U/L (14-36); Bilirubin,Total 0.6 mg/dL (0.2-1.3); Calcium 7.6 mg/dL (8.4-10.2); Carbon Dioxide 24 mmol/L (22-30); Chloride 102 mmol/L (98-107); Estimated CRCL calculation 122 ml/min; Estimated Glomerular Filt Rate > 60; Glucose 74 mg/dL (65-105); Potassium 3.4 mmol/L (3.4-5.0); Sodium 132 mmol/L (137-145)
--- NOTE | 2019-04-12 06:26 | WPDCDIQUERY2 ---
CDI Query Clarification Request 1) On 04/07 H&H 10.7/31.2. On 04/09 H&H 7.9/23.1. On 04/10 H&H 8.7/26.2 Please clarify if there is a corresponding diagnosis for above findings. 2) CT of the abdomen today is unremarkable showing old aneurysm and a T12 compression fracture. -Coders cannot code from documentation of Xray or CT findings. If you agree with CT findings of T12 compression fracture, please document as a diagnosis. <Dayan Solorio RN - Last Filed: 04/12/19 06:33>
[2019-04-12 06:58] LABS: Blood Urea Nitrogen < 2 mg/dL (7-17)
[2019-04-12] MEDS: FAMOTIDINE 20 MG TABLET PO (08:16)
[2019-04-12] MEDS: THIAMINE HCL 100 MG TABLET PO (08:16)
[2019-04-12] MEDS: SPIRONOLACTONE 25 MG TABLET PO (08:16)
[2019-04-12] MEDS: TOLNAFTATE 1% POWDER 45 GM BTL 1 APPLIC TOPICAL (08:17)
--- NOTE | 2019-04-12 08:37 | PM.DS ---
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 Pain is higher than would expect from a T12 compression and her abdomen is tender to palpation suggesting intra-abdominal process. She has good bowel sounds so will continue Q 12 hour proton pump inhibitor. Now history of dark stool but no observed bleeding or hme positive stool and with Hgb dropped 04/07-04/09. EGD 04/11 with HH. No evidence of further bleeding. Likely discharge 04/12 with resources for alcohol rehab as well as PPI rx. (2) Alcohol abuse: Code(s): F10.10 - Alcohol abuse, uncomplicated Status: Acute Assessment and Plan: Thiamin and watch for signs of withdrawal. Empirically treat with the benzo diazepam with her tachycardia Still alert with no hallucinations or confusion Would benefit from rehab. (3) Hypokalemia: Code(s): E87.6 - Hypokalemia Status: Acute Assessment and Plan: 3.5 04/11. (4) COPD (chronic obstructive pulmonary disease): Qualifiers: COPD type: unspecified COPD Qualified Code(s): J44.9 - Chronic obstructive pulmonary disease, unspecified Code(s): J44.9 - Chronic obstructive pulmonary disease, unspecified Status: Acute Assessment and Plan: P.rrasheed sidhu (5) Thrombocytopenia: Code(s): D69.6 - Thrombocytopenia, unspecified Status: Acute Assessment and Plan: Mild and been present in the past probably secondary to ETOH and/or ETOH liver disease. CT revealed fatty infiltration but no cirrhosis. Continue to monitor: 04/11 102 (6) DVT prophylaxis: Code(s): Z29.9 - Encounter for prophylactic measures, unspecified Status: Acute Assessment and Plan: Changed to mechanical with probable GI blood loss and with lower platelets (7) Conjunctivitis: Qualifiers: Conjunctivitis type: unspecified Laterality: left Qualified Code(s): H10.9 - Unspecified conjunctivitis Code(s): H10.9 - Unspecified conjunctivitis Status: Acute Assessment and Plan: Started tobramycin eyedrops 2/1 (8) Hypertension, essential: Code(s): I10 - Essential (primary) hypertension Status: Acute Assessment and Plan: resume meds per discharge orders (9) T12 compression fracture: Code(s): S22.080A - Wedge compression fracture of T11-T12 vertebra, initial encounter for closed fracture Status: Acute Assessment and Plan: likely old (10) Anemia, unspecified: Code(s): D64.9 - Anemia, unspecified Status: Acute Assessment and Plan: likely due to dilution and phlebotomies, without sign of acute blood loss or hemolysis DS: Summary Hospital Course Reason for hospitalization: abdominal pain Hospital Course: Admitted due to abdominal pain. CT as noted. Treated with bowel rest, ivf, PPI iv. Pain gradually improved. EGD 04/11 revealed HH w/o gastritis or PUD. Pt was counselled on alcohol and smoking cessation. Phone numbers for rehab provided. By day of discharge she was up and about without difficulty, without pain, tolerating diet, and wished to go home. Status at Discharge Functional status at discharge: independent ambulation Overall status at discharge: patient is back to baseline Time Spent with Patient Time attestation: Total time spent providing and/or coordinating discharge services:35 min Time spent: Greater than 30 minutes Exam Narrative: Exam Narrative: HEENT: EOMI, PERRL, pharyngeal mucosa pink and intact NECK: No JVD CHEST: Coarse BS with incr APD HEART: NL S1/S2, regular, no murmur ABDOMEN: BS+, sof
== END 2019-04-12 08:53 | disposition home or self-care (01) | DRG 392 ==
LOC: ANHED 04-08 03:16 → ANH2MED 04-10 07:25
PROVIDERS: Internal Medicine; Internal Medicine Gastroenterology; Admitting Provider Family Medicine; Emergency Provider Emergency Medicine; PCP Family Medicine; Visit Provider Internal Medicine
PROC: 0DJ08ZZ Inspection of Upper Intestinal Tract, Via Natural or Artificial Opening Endoscopic (ICD-10-PCS; CPT 43235; principal; 2019-04-11 08:30)
DX: R10.84 Generalized abdominal pain (principal); F10.10 Alcohol abuse, uncomplicated; E87.6 Hypokalemia; J44.9 Chronic obstructive pulmonary disease, unspecified; D69.6 Thrombocytopenia, unspecified; H10.9 Unspecified conjunctivitis; I10 Essential (primary) hypertension; Z90.49 Acquired absence of other specified parts of digestive tract; K21.9 Gastro-esophageal reflux disease without esophagitis; H15.093 Other scleritis, bilateral; F41.8 Other specified anxiety disorders; Z87.19 Personal history of other diseases of the digestive system; Z91.5 Personal history of self-harm; M19.90 Unspecified osteoarthritis, unspecified site; F17.210 Nicotine dependence, cigarettes, uncomplicated; K44.9 Diaphragmatic hernia without obstruction or gangrene; M43.9 Deforming dorsopathy, unspecified; D64.9 Anemia, unspecified
CPT/HCPCS: 36415; 51701; 71045; 74177; 76705; 80048; 80053; 80069; 80076; 80307; 81001; 82274; 82607; 83690; 83735; 85025; 85027; 87081; 87086; 87088; 93005; 94640; 96360; 96361; 99285; A9270; C9113; J0696; J1650; J2270; J2704; J3411; J3475; J3480; J7030; J7050; J7120; Q9967

== ENCOUNTER 2019-08-13 18:40 | Inpatient (IN) | payer OTHER, SELFPAY ==
[2019-08-13] VITALS (8 sets, daily range): BP systolic 105–119; BP diastolic 51–64; PULSE 88–118; RESP 12–20; TEMP 36.7–36.8; O2SAT 94–95; BMI 22.8
--- NOTE | ~2019-08-13 | US_ITS ---
EXAMINATION: US venous doppler UE LT DATE: 08/19/2019 14:02 INDICATION: Left upper extremity swelling TECHNIQUE: Grayscale ultrasound images without and with compression and Doppler ultrasound images of the left upper extremity veins were obtained. COMPARISON: None. FINDINGS: The left internal jugular vein, subclavian vein, axillary vein, brachial veins, basilic vein, cephali c vein, radial vein, and ulnar vein are patent. IMPRESSION: 1. No evidence of deep venous thrombosis. Reviewed, dictated and finalized at location A.
--- NOTE | ~2019-08-13 | XR_ITS ---
EXAMINATION: XR chest 2V EXAM DATE: 08/13/2019 19:19 INDICATION: Weakness, high blood pressure, COPD. Unable to lift left arm. TECHNIQUE: Frontal and lateral projections of the chest obtained and reviewed. Comparison is made to prior examination from 04/07/2019. Correlation was made with chest CT 12/11/2016. FINDINGS: There is thoracic aortic arch aneurysm, was determined to be 4.6 cm on a prior chest CT in 2017. Diameter appears to be large enough to consider surgical treatment. Patient should be schedule d for a nonemergent follow-up CT chest with contrast. No confluent consolidation, pneumothorax or pleural effusion suspected. Heart is normal in size. Left humeral hardware bridging humeral neck fracture. IMPRESSION: 1. No acute cardiac pulmonary findings. 2. Aortic arch aneurysm; patient is due for follow-up assuming this has not been reimaged at outside institution. Reviewed, dictated and finalized at location A. IMPRESSION: 1. No acute cardiac pulmonary findings. 2. Aortic arch aneurysm; patient is due for follow-up assuming this has not be en reimaged at outside institution.
--- NOTE | ~2019-08-13 | CT_ITS ---
EXAMINATION: CT abdomen pelvis wo con DATE: 08/14/2019 12:31 INDICATION: Abdominal pain. Pancytopenia. Diarrhea. TECHNIQUE: Computed tomography (CT) of the abdomen and pelvis was performed without intravenous contr ast. Automated exposure control and iterative reconstruction technique were employed. The dose-length product was 583.22 mGy-cm. COMPARISON: 04/08/2019 FINDINGS: Mild bronchial wall thickening along with small centrilobular nodules and groundglass opacity along w ith tree-in-bud pattern in the right lower lobe consistent with endobronchial spread of disease. Mild compressive atelectasis in the medial left lower lobe along side the tortuous thoracic aorta. Aorta is ectatic at the thoracic hiatus where it measures up to 3.6 cm in maximal diameter. Heart size is n ormal. No pericardial or pleural effusion. Decreased attenuation of the blood pool relative to the my ocardium consistent with anemia. Diffuse hepatic steatosis. Cholecystectomy clips at the gallbladder fossa. Couple splenic calcifications consistent with old granulomatous disease. Bilateral adrenal gla nds and kidneys are normal. Inflammatory stranding and haziness to the fat surrounding the pancreas c onsistent with acute interstitial pancreatitis. Normal appendix. There is mild colonic diverticulosis with a sigmoid predominance. There is no adjacent inflammatory change to suggest diverticulitis. N o obstruction. 4.5 x 3.4 x 4.3 cm chronic loculated retroperitoneal fluid collection along the anteri or margin of the right ureter and psoas muscle. Bladder, anteverted uterus and bilateral adnexa are u nremarkable. Small amount of ascites in the pelvis. No abscess or free intraperitoneal gas. No pathol ogically enlarged abdominal or pelvic lymphadenopathy. Mild lumbar dextroscoliosis. Chronic T12 compr ession fracture with one third anterior vertebral body height loss. IMPRESSION: 1. Peripancreatic stranding suspicious for acute interstitial pancreatitis. Correlate with amylase an d lipase levels. 2. Small amount of ascites. 3. Bronchial wall thickening and centrilobular groundglass nodules and tree-in-bud opacities in the r ight lower lobe consistent with endobronchial spread of disease including pneumonia and aspiration. 4. Chronic 4.5 x 3.4 x 4.3 cm loculated right retroperitoneal fluid collection which could represent a pseudocyst, seroma or lymphangioma. 5. No significant change in a 3.6 cm suprarenal aortic aneurysm. 6. Diffuse hepatic steatosis. Reviewed, dictated and finalized at location A. IMPRESSION: 1. Peripancreatic stranding suspicious for acute interstitial pancreatitis. Cor relate with amylase and lipase levels. 2. Small amount of ascites. 3. Bronchial wall thickening and centrilobular groundglass nodules and tree-in- bud opacities in the right lower lobe consistent with endobronchial spread of d isease including pneumonia and aspiration. 4. Chronic 4.5 x 3.4 x 4.3 cm loculated right retroperitoneal fluid collection which could represent a pseudocyst, seroma or lymphangioma. 5. No significant change in a 3.6 cm suprarenal aortic aneurysm. 6. Diffuse hepatic steatosis.
--- NOTE | 2019-08-13 18:48 | ECG_ITS ---
Measurements Intervals [place] Rate: 109 P: 63 [place]: 245 QRS: 11 QRSD: 92 T: 95 QT: 384 QTc: 518 Interpretive Statements SINUS TACHYCARDIA BORDERLINE ST-T WAVE ABNORMALITY- DIFFUSE LEADS ABNORMAL ECG Electronically Signed On 08-13-2019 19:34:42 CDT by Jose Garcia D.O.
[2019-08-13 19:05] LABS: Basophils Percent Auto 0.2 % (0.2-1.2); Eosinophils Percent Auto 0.4 % (0-4.4); Hematocrit 24.7 % (37.0-47.0); Hemoglobin 8.5 g/dL (12.0-15.0); Immature Granulocyte Absolute 0.03 K/mm3 (0.00-0.031); Immature Granulocyte Percent A 0.6 % (0-0.5); Immature Platelet Fraction Pct 3.5 % (0.9-11.2); Lymphocytes Absolute Auto 1.42 K/mm3 (0.9-3.2); Mean Corpuscular HGB Conc 34.4 g/dl (32-36); Mean Corpuscular Volume 92.9 fl (80-100); Mean Platelet Volume 11.7 fl (7.4-10.4); Monocytes Absolute Auto 0.4 K/mm3 (0.1-0.6); Monocytes Percent Auto 7.8 % (2.6-8.5); Neutrophils Absolute Auto 3.4 K/mm3 (1.3-6.7); Platelet Count Result 34 k/mm3 (150-375); Red Blood Count 2.66 M/mm3 (4.2-5.4); White Blood Count 5.3 K/mm3 (4.5-10.0)
--- NOTE | 2019-08-13 19:10 | PC.NURSE ---
Called lab to add on PT INR, C-Reactive Prot, ESR
[2019-08-13 19:18] LABS: Ethanol 267 mg/dL (<10)
[2019-08-13 19:23] LABS: Alanine Aminotransferase 10 U/L (4-35); Albumin Level 2.6 g/dL (3.5-5.1); Alkaline Phosphatase 239 U/L (38-126); Aspartate Amino Transferase 26 U/L (14-36); Bilirubin,Total 0.5 mg/dL (0.2-1.3); Blood Urea Nitrogen 6 mg/dL (7-17); Calcium 7.9 mg/dL (8.4-10.2); Carbon Dioxide 33 mmol/L (22-30); Chloride 86 mmol/L (98-107); Estimated CRCL calculation 64 ml/min; Estimated Glomerular Filt Rate > 60; Glucose 93 mg/dL (65-105); Potassium 2.4 mmol/L (3.4-5.0); Sodium 132 mmol/L (137-145)
[2019-08-13 19:25] LABS: Prothrombin Time 13.2 Seconds (11.1-14.7)
--- NOTE | 2019-08-13 19:29 | ED.WEAKNESS ---
HPI - Weakness General Chief complaint: Weakness Stated complaint: weak Time Seen by Provider: 08/13/19 19:01 History of Present Illness HPI Narrative: Patient presents via EMS for generalized weakness, left shoulder pain, bilateral foot pain. She lives alone and drinks whiskey daily. She has been having trouble walking because she says her feet hurt too much. She had shoulder surgery a year ago and she said it has not healed up well. She takes medication for wheezing and blood pressure. She continues to smoke and drink alcohol. She gets up twice a night to urinate. She has not been having stools because she has not been eating. She denies illness fever chills or sweats. She denies urinary urgency or pain. Complaint: generalized weakness Onset (ago): day(s) Duration: constant Location: generalized Severity scale (1-10): 8 Related Data Allergies Allergy/AdvReac Type Severity Reaction Status Date / Time No Known Allergies Allergy Unknown Verified 08/13/19 18:54 Review of Systems Review of Systems: Narrative: CONSTITUTIONAL: Denies fever, chills, or sweats. EYES: Denies visual changes, redness, or discharge. ENT: Denies rhinorrhea, congestion, sore throat, or otalgia. CARDIOVASCULAR: Denies chest pain, palpitations, or edema. RESPIRATORY: Denies cough or dyspnea. GASTROINTESTINAL: Denies abdominal pain, nausea, vomiting, or diarrhea. GENITOURINARY: Denies dysuria or hematuria. SKIN: Denies rash or itching. MUSCULOSKELETAL: Denies back pain, but she does have left shoulder pain and bilateral foot pain. NEUROLOGIC: She has numbness in both feet. PSYCHIATRIC: Denies anxiety or depression. [facility] Past Medical History Medical History Alcoholism Anxiety Arthritis Closed fracture of left proximal humerus COPD (chronic obstructive pulmonary disease) DDD (degenerative disc disease) Depression GERD (gastroesophageal reflux disease) Headache Hepatitis HTN (hypertension) Hypertension, essential Pancreatitis Previous known suicide attempt Rectal polyp Seasonal allergies T12 compression fracture Tobacco dependence Surgical History Surgical History History of tubal ligation Hx of cholecystectomy Hx of lumpectomy Social History Social History Smoking packs per day: 1.5 Smoking cigarettes per day: 30.0 Years smoked: 40 Smoking pack-years: 60.00 Smoking status: Heavy tobacco smoker Tobacco type: cigarettes Second hand tobacco smoke exposure: Yes Alcohol intake: current Drinks per week: 1 Substance use: current Substance use type: does not use Other substance usage details: states she uses 1 pint a day Last use: 04/07/2019 Gender identity (if verbalized by the patient): Female Spiritual care concerns: No Agree to blood products: Yes Exam Narrative: Exam Narrative: GENERAL: Disheveled, dry,, diffuse wheezing, bilateral foot swelling. HEAD: Normocephalic, atraumatic. EYES: PERRLA and EOMI. ENT: Nares clear, no rhinorrhea or epistaxis. Mucous membranes moist. NECK: Supple. CHEST: Diffuse wheezing and mild retractions. HEART: Regular rate and rhythm. No murmur heard. Normal peripheral pulses. ABDOMEN: Soft, nontender, nondistended, normal active bowel sounds. EXTREMITIES: Normal range of motion. No edema. Well-healed scars on the left shoulder. SKIN: Warm, dry, no rash. NEURO: No focal deficits. Alert and oriented x3. PSYCH: Normal mood and affect. Course Consultations Consultation #1: Call Dr. Junior and he accepts the patient. Date: 08/13/19 Time: 20:43 Vital Signs Vital signs: Vital Signs Temperature 98.3 F 08/13/19 18:48 Pulse Rate 118 H 08/13/19 18:48 Respiratory Rate 20 08/13/19 18:48 Blood Pressure 105/59 L 08/13/19 18:48 Pulse Oximetry 95 08/13/19 18:48 Temperature 98.3 F 08/13/19 18:48 Puls
[2019-08-13 19:39] LABS: Erythrocyte Sedimentation Rate 58 mm/hr (0-20)
[2019-08-13] MEDS: ALBUTEROL SULFATE NEB 2.5 MG/0.5 ML INH 5 MG INHALATION (19:51)
[2019-08-13] MEDS: KCL 20 MEQ/SW 100 ML 100 ML 50 MEQ IVPB ×2 (20:11→22:50)
[2019-08-13] MEDS: POTASSIUM CHLORIDE 20 MEQ PACKET (FOR LIQUID) PO (20:26)
--- NOTE | 2019-08-13 22:05 | ADMGEN ---
This patient, Shannon Rao, was admitted to Medical Room 344-01. Patient/family oriented to hospital policies and general routines including ID bracelet, bed and alarms, visiting hours, pain management, procedures, bathroom and other care routines, personal items, smoking policy, room service/diet, and visiting hours. Valuables list has been completed. Information on how to activate the Rapid Response Team has been discussed. Patient/Family are encouraged to report perceived risks to care and to ask questions if they do not understand what they are told or what they should do.
[2019-08-13] MEDS: SODIUM CHLORIDE 0.9% IV 1,000 ML 125 ML IV CONT (22:50)
--- NOTE | 2019-08-13 23:13 | PM.IMHP ---
H&P: HPI History of Present Illness Chief complaint: weakness, hypokalemia, alcoholic, dehydration Narrative: Shannon Rao is a 63 year old female with a long history of alcoholism. The patient came to the emergency room for generalized weakness and left shoulder pain. The patient stated she was having difficulty walking today. The patient stated that her legs gave out and she fell today. She the patient is wheezing today and coughing and her blood pressures up as well. She the patient had diarrhea today. She last drank whiskey this morning. She also has been urinating on herself. Patient stated she is a binge drinker. Her H&H is 8.5 and 24.7. Potassium is 2.4. Platelets are 34. Was read as no acute cardiopulmonary findings. Aortic arch aneurysm. The patient was ordered [place], and 2 max of potassium. She was also given a banana bag. Patient is complaining of having some numbness and tingling to her feet and that she cannot walk on her feet. She also has a history of depression. She stated that she has been drinking more that she is depressed. She is depressed over the situation with the right eye it is and covid 19. Date of service 08/13/2019 Review of Systems Review of Systems: All systems reviewed & are unremarkable except as noted in HPI and below Constitutional: Constitutional: Reports as per HPI and Reports no additional constitutional complaints Eyes: Eyes: Reports as per HPI and Reports no additional eye complaints ENT: Reports system reviewed and no additional complaints, except as documented and Reports Normal hearing present Cardiovascular: Cardiovascular: Reports no additional cardiovascular complaints Respiratory: Respiratory: Reports no additional respiratory complaints and Reports no additional respiratory complaints Gastrointestinal: Gastrointestinal: Reports as per HPI and Reports no additional gastrointestinal complaints Musculoskeletal: Musculoskeletal: Reports no additional musculoskeletal complaints Integumentary/Breasts: Skin/Breast: Reports system reviewed and no additional complaints, except as docu and Reports as per HPI Neurologic: Reports system reviewed and no additional complaints, except as documented, Reports as per HPI and Reports Normal hearing present Psychiatric: Psychiatric: Reports no additional psychiatric complaints and Reports as per HPI Endocrine: Endocrine: Reports no additional endocrine complaints Hematologic/Lymphatic: Hematologic/Lymphatic: Reports no additional hematologic/lymphatic complaints Allergic/Immunologic: Allergic/Immunologic: Reports no additional allergic/immunologic complaints FORMERLY [facility], 1928–1983 Past Medical History Medical History (Updated 08/13/19 @ 23:30 by Lizzy Payne NP) Alcohol intoxication Alcoholism Anxiety Arthritis Closed fracture of left proximal humerus Conjunctivitis COPD (chronic obstructive pulmonary disease) DDD (degenerative disc disease) Depression Elevated sed rate GERD (gastroesophageal reflux disease) Headache Hepatitis Hiatal hernia HTN (hypertension) Hypertension, essential Hypokalemia Hypokalemia Left humeral fracture Pancreatitis Previous known suicide attempt Patient denies Rectal polyp S/P ORIF (open reduction internal fixation) fracture Left humerus fracture Seasonal allergies Skin yeast infection T12 compression fracture Tobacco dependence Surgical History Surgical History History of tubal ligation Hx of cholecystectomy Hx of lumpectomy Family History Family History (Updated 08/13/19 @ 23:25 by Lizzy Payne NP) Mother Chronic kidney disease Alzheimer's dementia Father Cerebrovascular accident Brain cancer Sibling Cancer Social History Social History (Updated 08/13/19 @ 23:26 by Lizzy Payne NP) Social History: The patient stated that she is from her . She has 2 children. Her 1 son who is 40 years old is living with
[2019-08-13] MEDS: LORAZEPAM INJ 2 MG/ML VIAL 0.5 MG IV PUSH (23:38)
[2019-08-13] MEDS: GABAPENTIN 100 MG CAPSULE PO (23:39)
[2019-08-13] MEDS: NICOTINE (*PBKC) 21 MG PATCH 1 PATCH TRANSDERM (23:39)
[2019-08-13] MEDS: SERTRALINE HCL 50 MG TABLET 100 MG PO (23:39)
[2019-08-14] VITALS (18 sets, daily range): BP systolic 105–136; BP diastolic 60–74; PULSE 68–111; RESP 12–19; TEMP 36.6–37.1; O2SAT 92–99; BMI 22.8
[2019-08-14] MEDS: CHLORDIAZEPOXIDE 25 MG CAPSULE PO ×5 (00:30→23:12)
[2019-08-14 01:02] LABS: Add Urine Microscopic? YES; Appearance Urine Clear (Clear); Bacteria Urine Trace /hpf; Bilirubin Urine Negative (Negative); Blood Urine 1+ (Negative); Color Urine Yellow (Yellow); Glucose Urine UA Negative (Negative); Ketones Urine Negative (Negative); Leukocyte Esterase Ur 2+ LEU/UL (Negative); Nitrate Urine Negative (Negative); Protein Urine Negative (Negative); Specific Grav Ur 1.009 (1.001-1.035); Squamous Epithelial Cell Urine Occasional /hpf (Few); Urobilinogen Urine Negative mg/dL (<2.0); WBC Urine 0-3 /hpf
[2019-08-14 02:15] LABS: Basophils Percent Auto 0.2 % (0.2-1.2); Eosinophils Percent Auto 0.2 % (0-4.4); Immature Granulocyte Absolute 0.02 K/mm3 (0.00-0.031); Immature Granulocyte Percent A 0.5 % (0-0.5); Immature Platelet Fraction Pct 3.5 % (0.9-11.2); Lymphocytes Absolute Auto 1.09 K/mm3 (0.9-3.2); Lymphocytes Percent Auto 27.1 % (18.3-44.2); Mean Corpuscular HGB Conc 34.3 g/dl (32-36); Mean Corpuscular Hemoglobin 32.4 pg (26-34); Mean Corpuscular Volume 94.4 fl (80-100); Mean Platelet Volume 9.9 fl (7.4-10.4); Monocytes Absolute Auto 0.3 K/mm3 (0.1-0.6); Monocytes Percent Auto 7.2 % (2.6-8.5); Neutrophils Absolute Auto 2.6 K/mm3 (1.3-6.7); Neutrophils Percent Auto 64.8 % (45.5-73.1); Red Blood Count 2.13 M/mm3 (4.2-5.4)
[2019-08-14 02:30] LABS: Sodium 129 mmol/L (137-145)
[2019-08-14 02:36] LABS: Blood Urea Nitrogen 6 mg/dL (7-17); Calcium 7.1 mg/dL (8.4-10.2); Carbon Dioxide 29 mmol/L (22-30); Chloride 91 mmol/L (98-107); Estimated CRCL calculation 75 ml/min; Estimated Glomerular Filt Rate > 60; Glucose 83 mg/dL (65-105); Hematocrit 20.1 % (37.0-47.0); Hemoglobin 6.9 g/dL (12.0-15.0); Magnesium 1.8 mg/dL (1.6-2.3); Platelet Count Result 23 k/mm3 (150-375); Potassium 2.6 mmol/L (3.4-5.0)
[2019-08-14 02:37] LABS: Hypochromasia 1+ (NORMAL); Platelet Estimate Decreased (Adequate)
[2019-08-14] MEDS: SODIUM CHLORIDE 0.9% IV 1,000 ML 125 ML IV CONT (05:39)
[2019-08-14] MEDS: FLUTICASONE/SALMETEROL 230-21 MCG INHALER 1 PUFF 2 PUFF INHALATION ×2 (07:13→19:56)
[2019-08-14] MEDS: SODIUM CHLORIDE 0.9% IV 250 ML 30 ML IV CONT (08:40)
[2019-08-14] MEDS: POTASSIUM CHLORIDE 20 MEQ TABLET 40 MEQ PO ×2 (08:40→15:48)
[2019-08-14] MEDS: lisinopriL 10 MG TABLET PO (08:41)
[2019-08-14] MEDS: NICOTINE (*PBKC) 21 MG PATCH 1 PATCH TRANSDERM (08:41)
[2019-08-14] MEDS: THIAMINE HCL 100 MG TABLET PO (08:41)
[2019-08-14] MEDS: GABAPENTIN 100 MG CAPSULE PO ×3 (08:41→17:45)
[2019-08-14] MEDS: FOLIC ACID 1 MG TABLET PO (08:43)
[2019-08-14 10:45] LABS: IFOB Positive Control Positive; Immunochemical Fecal Occult Bl Negative (N)
[2019-08-14 10:45] LABS: Lactate Dehydrogenase 339 U/L (313-618)
[2019-08-14 10:52] LABS: Transferrin 110 mg/dL (206-381)
[2019-08-14 11:11] LABS: Iron 137 ug/dL (37-170)
--- NOTE | 2019-08-14 11:12 | PM.IMPN ---
Progress Note: A&P Assessment and Plan (1) Anemia, unspecified: Qualifiers: Anemia type: unspecified type Qualified Code(s): D64.9 - Anemia, unspecified Code(s): D64.9 - Anemia, unspecified Status: Acute Assessment and Plan: H&H 6.9, 20.1% this AM. Receiving 1 unit packed RBC; repeat Hgb after transfusion 7.7. Acute on chronic anemia, may be GI loss? Alcoholism likely contributing to chronic component. Patient reports black bowel movements and diffuse abdominal cramping. Start IV protonix. Obtain stool occult blood; iron studies. LDH is normal. Obtain Vitamin B12 and Folate levels. Last EGD/colonoscopy in 2015. Dr Ricketts consulted in the setting of questionable GI bleeding - appreciate his recommendations. (2) Thrombocytopenia: Code(s): D69.6 - Thrombocytopenia, unspecified Status: Chronic Assessment and Plan: Platelets noted to be chronically low based on review of old labs, but down to 28,000 today. Hepatic dysfunction from alcoholism likely contributes to this but given her pancytopenia, will consult heme. Dr Grove consulted in this setting - appreciate any input. (3) Abdominal pain: Qualifiers: Abdominal location: generalized Qualified Code(s): R10.84 - Generalized abdominal pain Code(s): R10.9 - Unspecified abdominal pain Status: Acute Assessment and Plan: Patient's abdomen is diffusely tender. She says bloating and pain comes and goes . Has been eating less lately, weight loss noted compared to April in the EMR and if these weights are accurate it's about 30 lbs lost. Loose BM today without vomiting. Will obtain abd/pelv CT to evaluate for any underlying malignancy or other etiologies contributing to symptoms. Edit: Abdominal CT demonstrates evidence of acute pancreatitis, lipase is pending. Cut back to NPO and continue supportive care with IV hydration and antiemetics. Chronic retroperitoneal fluid collection is noted, discussed case with Dr Angulo who noted this collection dating back to 2013 and would not be appropriate for any type of drainage. (4) Pneumonia: Qualifiers: Pneumonia type: due to unspecified organism Laterality: right Lung location: unspecified part of lung Qualified Code(s): J18.9 - Pneumonia, unspecified organism Code(s): J18.9 - Pneumonia, unspecified organism Status: Acute Assessment and Plan: Not appreciated on CXR but noted on abdominal CT. Will cover for aspiration pneumonia, start IV zosyn. Can draw blood cultures first. ST bedside eval appreciated. (5) Hypokalemia: Code(s): E87.6 - Hypokalemia Status: Acute Assessment and Plan: Potassium 2.4 on arrival; replaced IV and orally. Mag 1.8. GI loss may be contributing. Repeat BMP + Mg after next K rider finished and continue to replace as needed. (6) Hypertension, essential: Code(s): I10 - Essential (primary) hypertension Status: Chronic Assessment and Plan: Blood pressure low normal/stable on home lisinopril. Monitor BP and adjust treatment as needed. (7) Alcohol abuse: Code(s): F10.10 - Alcohol abuse, uncomplicated Status: Acute Assessment and Plan: Patient drinks 1 pint per day of whiskey. Monitor with CIWA protocol; scheduled Librium, folic acid and thiamine. Tremor noted this AM, will monitor for further withdrawal symptoms. She notes she has had withdrawal symptoms in the past but has never experienced a seizure. (8) Anxiety: Code(s): F41.9 - Anxiety disorder, unspecified Status: Chronic Assessment and Plan: Depression and anxiety. Flat. Continue with her home medications. Told another provider she has been drinking more lately due to feeling
[2019-08-14 11:22] LABS: Percent Iron Saturation 86 % (20-50)
[2019-08-14 11:52] LABS: Folic Acid 6.5 ng/mL (2.76->20)
[2019-08-14] MEDS: PANTOPRAZOLE SODIUM IV 40 MG VIAL IV PUSH (11:54)
[2019-08-14 14:08] LABS: Blood Urea Nitrogen 7 mg/dL (7-17); Calcium 7.4 mg/dL (8.4-10.2); Carbon Dioxide 33 mmol/L (22-30); Chloride 93 mmol/L (98-107); Estimated CRCL calculation 89 ml/min; Estimated Glomerular Filt Rate > 60; Glucose 90 mg/dL (65-105); Magnesium 1.6 mg/dL (1.6-2.3); Potassium 3.5 mmol/L (3.4-5.0); Sodium 129 mmol/L (137-145)
[2019-08-14 15:33] LABS: Hematocrit 22.4 % (37.0-47.0); Hemoglobin 7.7 g/dL (12.0-15.0); Immature Platelet Fraction Pct 4.7 % (0.9-11.2); Mean Corpuscular HGB Conc 34.4 g/dl (32-36); Mean Corpuscular Hemoglobin 31.8 pg (26-34); Mean Corpuscular Volume 92.6 fl (80-100); Mean Platelet Volume 10.8 fl (7.4-10.4); Red Blood Count 2.42 M/mm3 (4.2-5.4); Red Cell Distribution Width 16.4 % (11.5-14.5); White Blood Count 4.8 K/mm3 (4.5-10.0)
[2019-08-14 15:41] LABS: Lipase 220 U/L (23-300)
[2019-08-14 15:47] LABS: Platelet Count Result 22 k/mm3 (150-375)
[2019-08-14] MEDS: MAGNESIUM SULF 2 GM/WATER 50ML 2 GM/50 ML BAG IVPB (15:49)
--- NOTE | 2019-08-14 16:33 | WPDGICN ---
Assessment and Plan Assessment and plan (1) Alcoholism: Code(s): F10.20 - Alcohol dependence, uncomplicated Status: Chronic Assessment and Plan: Long history of alcoholism. Patient has been drinking up until the time of admission. We need to watch for signs of alcohol withdrawal in this patient. Agree with sedation as or already ordered. It is quite likely pancytopenia and peripheral neuropathy in fatty liver all around the basis of alcoholism. Alcohol rehab strongly encouraged after discharge. (2) Thrombocytopenia: Code(s): D69.6 - Thrombocytopenia, unspecified Status: Chronic Assessment and Plan: Patient has pancytopenia but very low platelet count. Agree with Hematology evaluation. Suspect this is from alcohol affect. Enlarged spleen not described on the CT scan but could contribute. (3) Pancytopenia: Code(s): D61.818 - Other pancytopenia Status: Acute Assessment and Plan: Pancytopenia is suspected to be on the basis of alcohol toxic of fat to the bone marrow. Agree with Hematology evaluation to exclude other conditions. No obvious signs of GI blood loss. In fact stool Hemoccult is negative. EGD earlier this year was unremarkable. Is been several years since colonoscopy. Plan is to continue to monitor hemoglobin closely. At the present time no invasive testing is anticipated. (4) Alcohol abuse: Code(s): F10.10 - Alcohol abuse, uncomplicated Status: Acute (5) COPD (chronic obstructive pulmonary disease): Qualifiers: COPD type: unspecified COPD Qualified Code(s): J44.9 - Chronic obstructive pulmonary disease, unspecified Code(s): J44.9 - Chronic obstructive pulmonary disease, unspecified Status: Chronic (6) Fatty liver, alcoholic: Code(s): K70.0 - Alcoholic fatty liver Status: Acute Assessment and Plan: Fatty liver identified on CT scan most consistent with secondary to alcohol effect. There is no description of cirrhosis but alcoholic liver disease is strongly suspected. (7) Pancreatitis: Code(s): K85.90 - Acute pancreatitis without necrosis or infection, unspecified Status: Acute Assessment and Plan: CT scan suggest inflammation around the pancreas. Patient does have epigastric discomfort. Pancreatitis on the basis of alcoholic ingestion is felt likely. Agree with conservative therapy. Advance diet slowly as tolerated. Will continue to monitor. At the present time lipase level is normal. GI Consult Note Consult date/time: 08/14/19 16:33 HPI: Shannon Rao is a 63 year old female seen in evaluation at the request of the hospitalist service. Patient is long history of alcoholism. She presented to the hospital because of difficulty ambulating in now with numbness in her feet over the last several weeks. She drinks heavily on a daily basis. I was asked to see her because of a decline in hemoglobin and a history of dark stools. Upon questioning patient denies any obvious signs of bleeding. She denies any blood in her stools nor bruises nor blood in her urine no evidence of nose bleeds et cetera. She does notice vague abdominal discomfort. Patient states she has been very depressed with her home situation which contributes to drinking heavily. Patient last had a colonoscopy in 2016. An EGD performed in April of this year was unremarkable. Her family history is noncontributory. Review of Systems Review of Systems: All systems reviewed & are unremarkable except as noted in HPI and below PMFSH Past Medical History Medical History Alcohol intoxication Alcoholism Anxiety Arthritis Closed fracture of left proximal humerus Conjunctivitis COPD (chronic obstructive pulmonary disease) DDD (degenerative disc disease) Depression Elevated sed rate GERD (gastroesophageal reflux disease) Headache Hepatitis Hiatal hernia HTN (hype
--- NOTE | 2019-08-14 20:27 | CONS_ITS ---
DATE OF CONSULTATION: 08/14/2019 REASON FOR CONSULTATION: Pancytopenia. HISTORY OF PRESENTING ILLNESS: This is a 63-year-old female with history of alcohol abuse along with history of depression and COPD, came into the hospital with generalized weakness to the degree that she could not walk. She has been having episode of binge drinking. She also had episode of diarrhea prior to coming to the hospital. She has a history of intermittent heavy drinking. Her hemoglobin was found to be 8.5 and platelets were 34,000. She denies any history of malignancy, but has a history of liver disease secondary to previous history of drinking. She denies any bleeding and bruising. She denies any other new complaints. REVIEW OF SYSTEMS: A 12-point review of system was reviewed and as per HPI and otherwise negative. PAST MEDICAL HISTORY: History of alcoholism, anxiety, arthritis, COPD, degenerative disk disease, depression, GERD, hypertension, left humeral fracture, and T12 compression fracture. PAST SURGICAL HISTORY: History of cholecystectomy, tubal ligation, lumpectomy, and ORIF of left humerus fracture. FAMILY HISTORY: Father had stroke and brain cancer. SOCIAL HISTORY: The patient is from her , has 1 son and 1 daughter, but lives by herself. She has a history of intermittent heavy drinking. She also has a history of smoking one and half pack per day for more than 30 years duration. She is retired and is on disability. HOME MEDICATIONS: Reviewed. ALLERGIES: REVIEWED. PHYSICAL EXAMINATION: GENERAL: This patient is a well-developed, well-nourished female, alert and oriented. VITAL SIGNS: Per nursing note. HEENT: Normocephalic and atraumatic. Clear oropharynx. LUNGS: Clear to auscultation bilaterally. CARDIOVASCULAR: Regular rate and rhythm. No murmurs. ABDOMEN: Soft, nontender, and nondistended. Bowel sounds are positive in all 4 quadrants. No hepatosplenomegaly. EXTREMITIES: No edema. NEUROLOGIC: Grossly intact. LABORATORY DATA: Creatinine 0.5, iron 137, iron saturation 86%, ferritin 566, vitamin B12 of 973, LDH 339, WBC 4.8, hemoglobin 7.7, MCV 92.6, platelet 22,000, neutrophils 64%, and lymphocytes 27%. ASSESSMENT AND PLAN: Normocytic anemia with thrombocytopenia. The patient is a 63-year-old female, who has a history of alcoholism with episode of intermittent binge drinking as well as history of chronic obstructive pulmonary disease and depression. She has been with her and lives by herself. Came into the hospital with extreme weakness with particular weakness in the lower extremities. She denies any bleeding and bruising. Denies any fevers and chills. She has episodes of diarrhea as well. CT abdomen and pelvis done on August 13 showed diffuse hepatic steatosis. There was finding of acute interstitial pancreatitis, bronchial wall thickening, and ground-glass nodules in the right lower lobe consistent with pneumonia. There was 4.5 x 3.4 x 4.3 cm right retroperitoneal fluid collection representing pseudocysts/seroma or lymphangioma. I have discussed this finding with the patient. These findings are quite consistent with alcohol-induced bone marrow suppression and hepatic steatosis and possible splenic sequestration contributing to thrombocytopenia and anemia. Labs showed elevated iron levels, which are again consistent with liver disease and alcoholism. No indication of hemolysis on the lab. I would continue to transfuse as needed. No need for blood transfusion and platelet transfusion at this moment. I do not see need for bone marrow aspiration and biopsy at this time. We will continue to observe. I have discussed this with the patient in detail.
[2019-08-14] MEDS: SERTRALINE HCL 50 MG TABLET 100 MG PO (20:45)
[2019-08-14 23:14] LABS: Hematocrit 22.6 % (37.0-47.0); Hemoglobin 7.8 g/dL (12.0-15.0)
[2019-08-15] VITALS (13 sets, daily range): BP systolic 114–132; BP diastolic 60–72; PULSE 68–103; RESP 14–18; TEMP 36.6–37.1; O2SAT 98–99
[2019-08-15] MEDS: LORAZEPAM INJ 2 MG/ML VIAL 0.5 MG IV PUSH (00:34)
[2019-08-15] MEDS: SODIUM CHLORIDE 0.9% IV 1,000 ML 80 ML IV CONT ×2 (02:40→15:06)
[2019-08-15 03:05] LABS: Sodium Urine Random 99 meq/L
[2019-08-15] MEDS: CHLORDIAZEPOXIDE 25 MG CAPSULE PO ×4 (05:05→23:21)
[2019-08-15 06:27] LABS: Alanine Aminotransferase 8 U/L (4-35); Albumin Level 2.3 g/dL (3.5-5.1); Alkaline Phosphatase 183 U/L (38-126); Ammonia < 9 umol/L (9-30); Aspartate Amino Transferase 24 U/L (14-36); Bilirubin,Total 1.3 mg/dL (0.2-1.3); Blood Urea Nitrogen 5 mg/dL (7-17); Calcium 7.5 mg/dL (8.4-10.2); Carbon Dioxide 30 mmol/L (22-30); Chloride 97 mmol/L (98-107); Estimated CRCL calculation 89 ml/min; Estimated Glomerular Filt Rate > 60; Glucose 90 mg/dL (65-105); Lipase 108 U/L (23-300); Magnesium 1.8 mg/dL (1.6-2.3); Phosphorus 2.1 mg/dL (2.5-4.5); Potassium 3.3 mmol/L (3.4-5.0); Sodium 127 mmol/L (137-145)
[2019-08-15] MEDS: FLUTICASONE/SALMETEROL 230-21 MCG INHALER 1 PUFF 2 PUFF INHALATION (07:20)
[2019-08-15 08:40] LABS: Basophils Percent Auto 0.5 % (0.2-1.2); Eosinophils Absolute Auto 0.1 K/mm3 (0-0.3); Eosinophils Percent Auto 2.7 % (0-4.4); Hematocrit 23.2 % (37.0-47.0); Hemoglobin 7.7 g/dL (12.0-15.0); Immature Granulocyte Absolute 0.01 K/mm3 (0.00-0.031); Immature Granulocyte Percent A 0.2 % (0-0.5); Lymphocytes Absolute Auto 1.39 K/mm3 (0.9-3.2); Lymphocytes Percent Auto 34.2 % (18.3-44.2); Mean Corpuscular HGB Conc 33.2 g/dl (32-36); Mean Corpuscular Hemoglobin 31.2 pg (26-34); Mean Corpuscular Volume 93.9 fl (80-100); Mean Platelet Volume 11.8 fl (7.4-10.4); Monocytes Absolute Auto 0.3 K/mm3 (0.1-0.6); Monocytes Percent Auto 7.4 % (2.6-8.5); Neutrophils Absolute Auto 2.2 K/mm3 (1.3-6.7); Red Blood Count 2.47 M/mm3 (4.2-5.4); Red Cell Distribution Width 17.1 % (11.5-14.5); White Blood Count 4.1 K/mm3 (4.5-10.0)
[2019-08-15 08:42] LABS: Platelet Count Result 25 k/mm3 (150-375)
[2019-08-15] MEDS: POTASSIUM PHOS,M-BASIC-D-BASIC 20 MMOL in SODIUM CHLORIDE 0.9% IV 250 ML 64 MMOL IVPB (09:44)
--- NOTE | 2019-08-15 09:48 | WPDGIPROGNO ---
Progress Note: A&P Additional Plan Patient is alert more comfortable today. No signs of GI blood loss. Tolerating liquid diet. Physical exam reveals patient to be alert. Vital signs are stable. She is anicteric. Lungs are clear to auscultation and percussion. Heart is without murmur or extra sounds. Abdominal exam bowel sounds are present soft nontender with no organomegaly. Labs reveal hemoglobin 7.7, hematocrit 23, MCV 93. Platelets are pending. WBC 4.1 K. LFTs are normal. Impression 1. Alcohol abuse. Patient likely will need alcohol rehab. 2. Pancytopenia. Etiology unclear. His stool is heme-negative. Hematology service is following patient. I suspect bone marrow suppression secondary to alcohol use. 3. Fatty liver on CT scan most likely from alcohol use. Suspect underlying alcoholic liver disease. Her albumin is quite low and elevated iron is supportive of this. Subjective Date/time seen: 08/15/19 09:48 Objective Data Vital Signs Vital Signs: Vital Signs - 24 hr 08/14/19 10:10 08/14/19 10:25 08/14/19 11:25 Temperature 36.8 C 36.8 C 37.1 C Pulse Rate 109 H 111 H 107 H Pulse Rate [Right Radial Palpation] Respiratory Rate 18 18 18 Blood Pressure 105/60 113/63 110/69 Pulse Oximetry 98 99 96 08/14/19 11:54 08/14/19 12:00 08/14/19 12:25 Temperature 37.1 C Pulse Rate 104 H 85 Pulse Rate [Right Radial Palpation] 100 Respiratory Rate 18 Blood Pressure 112/74 Pulse Oximetry 96 08/14/19 13:10 08/14/19 14:00 08/14/19 16:00 Temperature 36.8 C 36.8 C Pulse Rate 100 100 100 Pulse Rate [Right Radial Palpation] Respiratory Rate 18 18 Blood Pressure 116/72 116/72 Pulse Oximetry 98 98 08/14/19 16:11 08/14/19 19:42 08/14/19 19:57 Temperature 37.1 C Pulse Rate 94 91 Pulse Rate [Right Radial Palpation] 68 Respiratory Rate 18 12 Blood Pressure 107/63 Pulse Oximetry 94 08/14/19 20:00 08/14/19 20:48 08/15/19 00:00 Temperature Pulse Rate 96 95 Pulse Rate [Right Radial Palpation] 91 Respiratory Rate Blood Pressure Pulse Oximetry 08/15/19 00:06 08/15/19 04:15 08/15/19 04:19 Temperature Pulse Rate 97 Pulse Rate [Right Radial Palpation] 95 98 Respiratory Rate Blood Pressure Pulse Oximetry 08/15/19 05:16 Temperature 37.1 C Pulse Rate 99 Pulse Rate [Right Radial Palpation] Respiratory Rate 18 Blood Pressure 125/68 Pulse Oximetry 99 Intake/Output Intake/Output: Intake & Output 08/12/19 08/13/19 08/14/19 08/15/19 23:59 23:59 23:59 23:59 Intake Total 1113.2 3602 2000 Output Total 1175 100 Balance 1113.2 7362 1900 Meds/Results Medications: Active Medications Generic Name Dose Route Start Last Admin Trade Name Freq PRN Reason Stop Dose Admin Albuterol 2 puff 08/14/19 16:26 Proventil Hfa INHALATION QIDRT PRN Shortness Of Breath Chlordiazepoxide HCl 25 mg 08/14/19 00:00 08/15/19 05:05 Librium Po PO 25 mg Q6HR ELLA Administration Folic Acid 1 mg 08/14/19 09:00 08/14/19 08:43 Folic Acid PO 1 mg DAILY ELLA Administration Gabapentin 100 mg 08/13/19 23:10 08/14/19 17:45 Neurontin PO 100 mg TID ELLA Administration Sodium Chloride 1,000 mls @ 80 mls/hr 08/13/19 20:20 08/15/19 02:40 Normal Saline Iv IV CONT 80 mls/hr .[id number] ELLA Administration Piperacillin/Tazobactam/Dextrose 3.375 gm in 50 mls @ 100 mls/hr 08/14/19 18:00 08/15/19 05:35 Zosyn 3.375 Gm/D5w 50ml Pm IVPB Infused Q6H ELLA Infusion Potassium Phosphate 20 mmol/ 256.6667 mls @ 64 mls/hr 08/15/19 08:24 Sodium Chloride IVPB 08/15/19 12:24 ONCE ONE Lisinopril 10 mg 08/14/19 09:00 08/14/19 08:41 Prinivil PO 10 mg DAILY ELLA Administration Lorazepam 0.5 mg 08/13/19 23:03 08/15/19 00:34 Ativan Inj IV PUSH 0.5 mg Q6H PRN Administration Anxiety Magnesium Oxide 200 mg 08/15/19 09:00 Mag-Ox PO Q12HR ELLA Nicotine 1 patch 08/13/19 23
[2019-08-15] MEDS: FOLIC ACID 1 MG TABLET PO (09:49)
[2019-08-15] MEDS: GABAPENTIN 100 MG CAPSULE PO ×3 (09:49→17:23)
[2019-08-15] MEDS: MAGNESIUM OXIDE 200 MG TABLET PO ×2 (09:49→21:01)
[2019-08-15] MEDS: lisinopriL 10 MG TABLET PO (09:49)
[2019-08-15] MEDS: THIAMINE HCL 100 MG TABLET PO (09:49)
[2019-08-15] MEDS: PANTOPRAZOLE SODIUM IV 40 MG VIAL IV PUSH (09:50)
[2019-08-15] MEDS: NICOTINE (*PBKC) 21 MG PATCH 1 PATCH TRANSDERM (09:50)
[2019-08-15] MEDS: POTASSIUM CHLORIDE 20 MEQ TABLET 40 MEQ PO (09:53)
[2019-08-15 10:31] LABS: Hypochromasia 2+ (NORMAL); Platelet Estimate Decreased (Adequate)
[2019-08-15 10:32] LABS: Stomatocytes 2+ (NORMAL)
--- NOTE | 2019-08-15 15:50 | PM.IMPN ---
Progress Note: A&P Assessment and Plan (1) Anemia, unspecified: Qualifiers: Anemia type: unspecified type Qualified Code(s): D64.9 - Anemia, unspecified Code(s): D64.9 - Anemia, unspecified Status: Acute Assessment and Plan: H&H 6.9, 20.1% this AM. Receiving 1 unit packed RBC; repeat Hgb after transfusion 7.7. Acute on chronic anemia, may be GI loss? Alcoholism likely contributing to chronic component. Patient reports black bowel movements and diffuse abdominal cramping. Start IV protonix. Obtain stool occult blood; iron studies. LDH is normal. Obtain Vitamin B12 and Folate levels. Last EGD/colonoscopy in 2016. Dr Ricketts consulted in the setting of questionable GI bleeding - appreciate his recommendations. Patient is 63-year-old female with history of alcohol abuse, history of depression and his symptoms have been worse since he has been from her and lives alone, is states he drinks on and off and sometime heavily on average patient drinks 15 drinks a week, patient presented emergency department with a complaint of feeling tired difficulty with ambulation fell nausea poor appetite, patient is found to anemia, thrombocytopenia, and alcoholic hepatitis as well as hyponatremia, patient was seen by stamper blocker suspect thrombocytopenia as well anemia most likely secondary to alcohol abuse resulting in bone marrow suppression, liver cirrhosis and splenomegaly. Patient is being treated with CIWA protocol with Librium and Ativan as needed Today patient states feeling little better her appetite is improving, patient denies any bleeding or bruising. (2) Thrombocytopenia: Code(s): D69.6 - Thrombocytopenia, unspecified Status: Chronic Assessment and Plan: Platelets noted to be chronically low based on review of old labs, but down to 28,000 today. Hepatic dysfunction from alcoholism likely contributes to this but given her pancytopenia, will consult heme. Dr Grove consulted in this setting - appreciate any input. (3) Abdominal pain: Qualifiers: Abdominal location: generalized Qualified Code(s): R10.84 - Generalized abdominal pain Code(s): R10.9 - Unspecified abdominal pain Status: Acute Assessment and Plan: Patient's abdomen is diffusely tender. She says bloating and pain comes and goes . Has been eating less lately, weight loss noted compared to April in the EMR and if these weights are accurate it's about 30 lbs lost. Loose BM today without vomiting. Will obtain abd/pelv CT to evaluate for any underlying malignancy or other etiologies contributing to symptoms. Edit: Abdominal CT demonstrates evidence of acute pancreatitis, lipase is pending. Cut back to NPO and continue supportive care with IV hydration and antiemetics. Chronic retroperitoneal fluid collection is noted, discussed case with Dr Angulo who noted this collection dating back to 2013 and would not be appropriate for any type of drainage. (4) Pneumonia: Qualifiers: Pneumonia type: due to unspecified organism Laterality: right Lung location: unspecified part of lung Qualified Code(s): J18.9 - Pneumonia, unspecified organism Code(s): J18.9 - Pneumonia, unspecified organism Status: Acute Assessment and Plan: Not appreciated on CXR but noted on abdominal CT. Will cover for aspiration pneumonia, start IV zosyn. Can draw blood cultures first. ST bedside eval appreciated. (5) Hypokalemia: Code(s): E87.6 - Hypokalemia Status: Acute Assessment and Plan: Potassium 2.4 on arrival; replaced IV and orally. Mag 1.8. GI loss may be contributing. Repeat BMP + Mg after next K rider finished and continue to replace as needed. (6) Hypertension, essential: Code(s): I10 - Essential (primary) hypertens
--- NOTE | 2019-08-15 18:02 | WPDONCPN ---
Progress Note: A/P - Additional Plan Pancytopenia. 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 No need for bone marrow biopsy testing. Platelet count is slowly improving. Hemoglobin is stable. I have provided patient my office information. She will follow-up with me in the office for repeat blood check. - Time Spent With Patient Total time spent is greater than 50% in coordination of care (as documented) at patient's floor/unit and/or counseling patient: 15 - 25 minutes Subjective Interval history: Pancytopenia Alcohol abuse Review of Systems - Review of Systems Patient is feeling better today. she denies any bleeding and bruising. She denies any fevers and chills. She has mild mid abdominal pain. - Neurologic Reports system reviewed and no additional complaints, except as documented, Reports hearing normal Exam Vital signs: Temp Pulse Resp BP Pulse Ox 36.6 C 98 14 125/68 98 08/15/19 14:00 08/15/19 16:00 08/15/19 14:00 08/15/19 16:00 08/15/19 14:00 Lungs are clear to auscultation bilaterally Cardiovascular regular rate rhythm no murmurs Abdomen mild epigastric tenderness bowel sounds are positive Extremities no edema PN: Objective Data - Labs CBC & Chem 7: 08/15/19 08:28 08/15/19 06:04 Labs: Laboratory Results - last 24 hr 08/14/19 08/14/19 08/15/19 05:08 23:08 02:13 WBC RBC Hgb 7.8 L Hct 22.6 L MCV MCH MCHC RDW Plt Count MPV Immature Gran % (Auto) Neut % (Auto) Lymph % (Auto) [place] % (Auto) Eos % (Auto) Baso % (Auto) Lymph # (Auto) [place] # (Auto) Eos # (Auto) Baso # (Auto) Abs Immat Gran (auto) Absolute Neuts (auto) Absolute Nucleated RBC Nucleated RBC % Platelet Estimate % Immature Plt Fraction Hypochromasia Stomatocytes Sodium Potassium Chloride Carbon Dioxide BUN Creatinine Estim Creat Clear Calc Estimated GFR Glucose Calcium Phosphorus Magnesium Total Bilirubin AST ALT Alkaline Phosphatase Ammonia Total Protein Albumin Lipase Ur Random Sodium 99 Crossmatch See Detail 08/15/19 08/15/19 08/15/19 06:04 06:04 08:28 WBC 4.1 L RBC 2.47 L Hgb 7.7 L Hct 23.2 L MCV 93.9 MCH 31.2 MCHC 33.2 RDW 17.1 H Plt Count 25 L MPV 11.8 H Immature Gran % (Auto) 0.2 Neut % (Auto) 55.0 Lymph % (Auto) 34.2 [place] % (Auto) 7.4 Eos % (Auto) 2.7 Baso % (Auto) 0.5 Lymph # (Auto) 1.39 [place] # (Auto) 0.3 Eos # (Auto) 0.1 Baso # (Auto) 0.0 Abs Immat Gran (auto) 0.01 Absolute Neuts (auto) 2.2 Absolute Nucleated RBC 0.0 Nucleated RBC % 0.0 Platelet Estimate Decreased % Immature Plt Fraction 5.0 Hypochromasia 2+ Stomatocytes 2+ Sodium 127 L Potassium 3.3 L Chloride 97 L Carbon Dioxide 30 BUN 5 L Creatinine 0.50 L Estim Creat Clear Calc 89 Estimated GFR > 60 Glucose 90 Calcium 7.5 L Phosphorus 2.1 L Magnesium 1.8 Total Bilirubin 1.3 AST 24 ALT 8 Alkaline Phosphatase 183 H Ammonia < 9 L Total Protein 5.0 L Albumin 2.3 L Lipase 108 Ur Random Sodium Crossmatch
[2019-08-15] MEDS: SERTRALINE HCL 50 MG TABLET 100 MG PO (21:01)
[2019-08-16] VITALS (21 sets, daily range): BP systolic 112–126; BP diastolic 52–72; PULSE 68–105; RESP 12–18; TEMP 36.2–37.3; O2SAT 93–100
[2019-08-16] MEDS: SODIUM CHLORIDE 0.9% IV 1,000 ML 80 ML IV CONT (04:26)
[2019-08-16] MEDS: LORAZEPAM INJ 2 MG/ML VIAL 0.5 MG IV PUSH (04:28)
[2019-08-16] MEDS: CHLORDIAZEPOXIDE 25 MG CAPSULE PO ×3 (05:35→21:24)
[2019-08-16 06:23] LABS: Alanine Aminotransferase 8 U/L (4-35); Albumin Level 2.1 g/dL (3.5-5.1); Alkaline Phosphatase 155 U/L (38-126); Aspartate Amino Transferase 20 U/L (14-36); Bilirubin,Total 0.5 mg/dL (0.2-1.3); Blood Urea Nitrogen 3 mg/dL (7-17); Calcium 7.6 mg/dL (8.4-10.2); Carbon Dioxide 26 mmol/L (22-30); Chloride 101 mmol/L (98-107); Estimated CRCL calculation 89 ml/min; Estimated Glomerular Filt Rate > 60; Glucose 85 mg/dL (65-105); Magnesium 1.4 mg/dL (1.6-2.3); Potassium 3.6 mmol/L (3.4-5.0); Sodium 128 mmol/L (137-145)
[2019-08-16 06:29] LABS: Basophils Percent Auto 0.2 % (0.2-1.2); Eosinophils Absolute Auto 0.1 K/mm3 (0-0.3); Eosinophils Percent Auto 3.1 % (0-4.4); Hematocrit 21.3 % (37.0-47.0); Hemoglobin 7.4 g/dL (12.0-15.0); Immature Granulocyte Absolute 0.02 K/mm3 (0.00-0.031); Immature Granulocyte Percent A 0.5 % (0-0.5); Lymphocytes Absolute Auto 1.32 K/mm3 (0.9-3.2); Lymphocytes Percent Auto 31.7 % (18.3-44.2); Mean Corpuscular HGB Conc 34.7 g/dl (32-36); Mean Corpuscular Hemoglobin 31.9 pg (26-34); Mean Corpuscular Volume 91.8 fl (80-100); Mean Platelet Volume 13.2 fl (7.4-10.4); Monocytes Absolute Auto 0.3 K/mm3 (0.1-0.6); Neutrophils Absolute Auto 2.4 K/mm3 (1.3-6.7); Neutrophils Percent Auto 57.5 % (45.5-73.1); Red Blood Count 2.32 M/mm3 (4.2-5.4); Red Cell Distribution Width 16.8 % (11.5-14.5); White Blood Count 4.2 K/mm3 (4.5-10.0)
[2019-08-16 06:54] LABS: Platelet Count Result 16 k/mm3 (150-375)
[2019-08-16] MEDS: SODIUM CHLORIDE 0.9% IV 250 ML 30 ML IV CONT ×2 (08:09→13:56)
[2019-08-16] MEDS: GABAPENTIN 100 MG CAPSULE PO ×3 (08:34→16:52)
[2019-08-16] MEDS: FOLIC ACID 1 MG TABLET PO (08:34)
[2019-08-16] MEDS: MAGNESIUM OXIDE 200 MG TABLET PO ×2 (08:34→20:30)
[2019-08-16] MEDS: THIAMINE HCL 100 MG TABLET PO (08:34)
[2019-08-16] MEDS: lisinopriL 10 MG TABLET PO (08:34)
[2019-08-16] MEDS: NICOTINE (*PBKC) 21 MG PATCH 1 PATCH TRANSDERM (08:35)
[2019-08-16] MEDS: FLUTICASONE/SALMETEROL 230-21 MCG INHALER 1 PUFF 2 PUFF INHALATION ×2 (09:36→20:11)
[2019-08-16] MEDS: PANTOPRAZOLE 40 MG TABLET PO (09:56)
[2019-08-16] MEDS: POTASSIUM CHLORIDE 20 MEQ TABLET 40 MEQ PO (09:56)
--- NOTE | 2019-08-16 10:32 | WPDGIPROGNO ---
Progress Note: A&P Additional Plan Patient continues to complain of diarrhea. Diarrhea started after admission the hospital. He did she denies any blood loss. Physical exam reveals her to be alert. HEENT exam unremarkable. She is anicteric. Lungs are clear. Heart without murmur. Abdomen is soft and nontender. Stool has been heme-negative. Impression 1. Alcohol abuse. Fatty liver on CT scan. Patient likely has underlying alcoholic liver disease. 2. Pancytopenia. Likely related to bone marrow suppression from alcohol. 3. Profound thrombocytopenia. Hematology service is following. 4. Diarrhea. Etiology unclear. Will repeat stool cultures. Try Lomotil to control her diarrhea. Subjective Date/time seen: 08/16/19 10:32 Objective Data Vital Signs Vital Signs: Vital Signs - 24 hr 08/15/19 12:00 08/15/19 14:00 08/15/19 16:00 Temperature 36.6 C Pulse Rate 103 H 68 90 Pulse Rate [Right Radial Palpation] 98 98 Respiratory Rate 14 Blood Pressure 125/68 132/60 125/68 Pulse Oximetry 98 08/15/19 19:44 08/15/19 20:00 08/15/19 20:22 Temperature 36.6 C Pulse Rate 91 101 H Pulse Rate [Right Radial Palpation] 94 Respiratory Rate 16 Blood Pressure 114/72 Pulse Oximetry 99 08/16/19 00:00 08/16/19 00:41 08/16/19 03:29 Temperature Pulse Rate 97 Pulse Rate [Right Radial Palpation] 105 H 93 Respiratory Rate Blood Pressure Pulse Oximetry 08/16/19 04:00 08/16/19 05:42 08/16/19 08:00 Temperature 37.1 C Pulse Rate 100 96 105 H Pulse Rate [Right Radial Palpation] Respiratory Rate 18 Blood Pressure 114/72 Pulse Oximetry 99 08/16/19 08:15 Temperature 36.9 C Pulse Rate 103 H Pulse Rate [Right Radial Palpation] Respiratory Rate 16 Blood Pressure 112/66 Pulse Oximetry 100 Intake/Output Intake/Output: Intake & Output 08/13/19 08/14/19 08/15/19 08/16/19 23:59 23:59 23:59 23:59 Intake Total 1113.2 3602 4631.9997 1648 Output Total 1175 550 2 Balance 1113.2 2427 4081.9997 1646 Meds/Results Medications: Active Medications Generic Name Dose Route Start Last Admin Trade Name Freq PRN Reason Stop Dose Admin Albuterol 2 puff 08/14/19 16:26 Proventil Hfa INHALATION QIDRT PRN Shortness Of Breath Chlordiazepoxide HCl 25 mg 08/14/19 00:00 08/16/19 05:35 Librium Po PO 25 mg Q6HR ELLA Administration Folic Acid 1 mg 08/14/19 09:00 08/16/19 08:34 Folic Acid PO 1 mg DAILY ELLA Administration Gabapentin 100 mg 08/13/19 23:10 08/16/19 08:34 Neurontin PO 100 mg TID ELLA Administration Sodium Chloride 1,000 mls @ 80 mls/hr 08/13/19 20:20 08/16/19 08:08 Normal Saline Iv IV CONT 0 mls/hr .[id number] ELLA Infusion Piperacillin/Tazobactam/Dextrose 3.375 gm in 50 mls @ 100 mls/hr 08/14/19 18:00 08/16/19 06:05 Zosyn 3.375 Gm/D5w 50ml Pm IVPB Infused Q6H ELLA Infusion Sodium Chloride 250 mls @ 30 mls/hr 08/16/19 07:08 08/16/19 08:09 Normal Saline Iv IV CONT 08/16/19 15:27 30 mls/hr .[id number] STA Administration Lisinopril 10 mg 08/14/19 09:00 08/16/19 08:34 Prinivil PO 10 mg DAILY ELLA Administration Lorazepam 0.5 mg 08/13/19 23:03 08/16/19 04:28 Ativan Inj IV PUSH 0.5 mg Q6H PRN Administration Anxiety Magnesium Oxide 200 mg 08/15/19 09:00 08/16/19 08:34 Mag-Ox PO 200 mg Q12HR ELLA Administration Magnesium Oxide 400 mg 08/17/19 09:00 Mag-Ox PO QAM ELLA Nicotine 1 patch 08/13/19 23:10 08/16/19 08:35 Nicoderm Cq 21 Mg TRANSDERM 1 patch QAM ELLA Administration Ondansetron HCl 4 mg 08/13/19 20:16 Zofran Inj IV PUSH Q4H PRN Nausea Pantoprazole Sodium 40 mg 08/16/19 09:00 08/16/19 09:56 Protonix PO 40 mg QAM ELLA Administration Fluticasone/Salmeterol 2 puff 08/14/19 08:00 08/16/19 09:36 Advair Hfa 230-21 Mcg Inhaler (*Sp) INHALATION 2 puff Q12HRT ELLA Administration Sertraline HCl 100 mg
[2019-08-16] MEDS: MAGNESIUM SULF 2 GM/WATER 50ML 2 GM/50 ML BAG IVPB (11:12)
[2019-08-16 12:32] LABS: Immature Platelet Fraction Pct 3.5 % (0.9-11.2); Mean Corpuscular HGB Conc 33.2 g/dl (32-36); Mean Corpuscular Hemoglobin 32.1 pg (26-34); Mean Corpuscular Volume 96.7 fl (80-100); Mean Platelet Volume 10.5 fl (7.4-10.4); Platelet Count Result 80 k/mm3 (150-375); Red Blood Count 2.12 M/mm3 (4.2-5.4); Red Cell Distribution Width 17.1 % (11.5-14.5); White Blood Count 5.8 K/mm3 (4.5-10.0)
[2019-08-16 12:35] LABS: Hematocrit 20.5 % (37.0-47.0); Hemoglobin 6.8 g/dL (12.0-15.0)
--- NOTE | 2019-08-16 15:54 | PM.IMPN ---
Progress Note: A&P Assessment and Plan (1) Anemia, unspecified: Qualifiers: Anemia type: unspecified type Qualified Code(s): D64.9 - Anemia, unspecified Code(s): D64.9 - Anemia, unspecified Status: Acute Assessment and Plan: 08/16/19 15:54 H&H 6.9, 20.1% this AM. Receiving 1 unit packed RBC; repeat Hgb after transfusion 7.7. Acute on chronic anemia, may be GI loss? Alcoholism likely contributing to chronic component. Patient reports black bowel movements and diffuse abdominal cramping. Start IV protonix. Obtain stool occult blood; iron studies. LDH is normal. Obtain Vitamin B12 and Folate levels. Last EGD/colonoscopy in 2016. Dr Ricketts consulted in the setting of questionable GI bleeding - appreciate his recommendations. Patient is 63-year-old female with history of alcohol abuse, history of depression and his symptoms have been worse since he has been from her and lives alone, is states he drinks on and off and sometime heavily on average patient drinks 15 drinks a week, patient presented emergency department with a complaint of feeling tired difficulty with ambulation fell nausea poor appetite, patient is found to anemia, thrombocytopenia, and alcoholic hepatitis as well as hyponatremia, patient was seen by architect intern suspect thrombocytopenia as well anemia most likely secondary to alcohol abuse resulting in bone marrow suppression, liver cirrhosis and splenomegaly. Patient is being treated with CIWA protocol with Librium 25mg q6 and Ativan as needed, ealier today nursing staff staff called that patient has more bruising and developing hematoma and her platelets count is 16, will give 1 units of platelates and monitor, currently stats feeling better has several loose BM seen by GI, etiology is uncetain, lomitil is ordered will monitor, patient is clinically stable and does not show any sign of withdrawl will taper librium to q8 from q6 will monitor and aidan her librium. (2) Thrombocytopenia: Code(s): D69.6 - Thrombocytopenia, unspecified Status: Chronic Assessment and Plan: Platelets noted to be chronically low based on review of old labs, but down to 16,000 today. and brusing and has developed hematoma, will give 1 unit of platlets, Hepatic dysfunction from alcoholism likely contributes to this but given her pancytopenia, will consult heme. Dr Grove consulted in this setting - appreciate any input. (3) Abdominal pain: Qualifiers: Abdominal location: generalized Qualified Code(s): R10.84 - Generalized abdominal pain Code(s): R10.9 - Unspecified abdominal pain Status: Acute Assessment and Plan: Patient's abdomen is diffusely tender. She says bloating and pain comes and goes . Has been eating less lately, weight loss noted compared to April in the EMR and if these weights are accurate it's about 30 lbs lost. Loose BM today without vomiting. Will obtain abd/pelv CT to evaluate for any underlying malignancy or other etiologies contributing to symptoms. Edit: Abdominal CT demonstrates evidence of acute pancreatitis, lipase is pending. Cut back to NPO and continue supportive care with IV hydration and antiemetics. Chronic retroperitoneal fluid collection is noted, discussed case with Dr Angulo who noted this collection dating back to 2013 and would not be appropriate for any type of drainage. (4) Pneumonia: Qualifiers: Laterality: right Lung location: unspecified part of lung Pneumonia type: due to unspecified organism Qualified Code(s): J18.9 - Pneumonia, unspecified organism Code(s): J18.9 - Pneumonia, unspecified organism Status: Acute Assessment and Plan: Not appreciated on CXR but noted on abdominal CT. Will cover for aspiration pneumonia, start IV zosyn. Can draw blood cultures first. ST bedside eval appreciated.
[2019-08-16 16:15] LABS: Immunochemical Fecal Occult Bl Positive (N)
[2019-08-16 16:19] LABS: IFOB Positive Control Positive
[2019-08-16 20:01] LABS: Hematocrit 24.7 % (37.0-47.0); Hemoglobin 8.5 g/dL (12.0-15.0)
[2019-08-16] MEDS: SERTRALINE HCL 50 MG TABLET 100 MG PO (20:30)
[2019-08-17] VITALS (10 sets, daily range): BP systolic 138–144; BP diastolic 80–83; PULSE 88–109; RESP 16–20; TEMP 35.9–36.6; O2SAT 99–100
[2019-08-17] MEDS: SODIUM CHLORIDE 0.9% IV 1,000 ML 80 ML IV CONT (01:44)
[2019-08-17] MEDS: CHLORDIAZEPOXIDE 25 MG CAPSULE PO ×3 (05:04→21:10)
[2019-08-17 05:30] LABS: Basophils Percent Auto 0.5 % (0.2-1.2); Eosinophils Absolute Auto 0.2 K/mm3 (0-0.3); Eosinophils Percent Auto 2.6 % (0-4.4); Hematocrit 27.1 % (37.0-47.0); Hemoglobin 9.2 g/dL (12.0-15.0); Immature Granulocyte Absolute 0.04 K/mm3 (0.00-0.031); Immature Granulocyte Percent A 0.7 % (0-0.5); Lymphocytes Absolute Auto 1.33 K/mm3 (0.9-3.2); Lymphocytes Percent Auto 23.3 % (18.3-44.2); Mean Corpuscular HGB Conc 33.9 g/dl (32-36); Mean Corpuscular Hemoglobin 30.7 pg (26-34); Mean Corpuscular Volume 90.3 fl (80-100); Mean Platelet Volume 9.9 fl (7.4-10.4); Monocytes Absolute Auto 0.4 K/mm3 (0.1-0.6); Monocytes Percent Auto 7.5 % (2.6-8.5); Neutrophils Absolute Auto 3.7 K/mm3 (1.3-6.7); Neutrophils Percent Auto 65.4 % (45.5-73.1); Platelet Count Result 92 k/mm3 (150-375); Red Cell Distribution Width 17.4 % (11.5-14.5); White Blood Count 5.7 K/mm3 (4.5-10.0)
[2019-08-17 05:56] LABS: Alanine Aminotransferase 9 U/L (4-35); Albumin Level 2.6 g/dL (3.5-5.1); Alkaline Phosphatase 171 U/L (38-126); Aspartate Amino Transferase 24 U/L (14-36); Bilirubin,Total 0.4 mg/dL (0.2-1.3); Calcium 8.1 mg/dL (8.4-10.2); Carbon Dioxide 24 mmol/L (22-30); Chloride 103 mmol/L (98-107); Estimated CRCL calculation 89 ml/min; Estimated Glomerular Filt Rate > 60; Glucose 85 mg/dL (65-105); Magnesium 1.7 mg/dL (1.6-2.3); Potassium 3.3 mmol/L (3.4-5.0); Sodium 129 mmol/L (137-145)
[2019-08-17 06:00] LABS: Blood Urea Nitrogen < 2 mg/dL (7-17)
[2019-08-17] MEDS: NICOTINE (*PBKC) 21 MG PATCH 1 PATCH TRANSDERM (08:51)
[2019-08-17] MEDS: GABAPENTIN 100 MG CAPSULE PO ×3 (08:52→16:27)
[2019-08-17] MEDS: MAGNESIUM OXIDE 200 MG TABLET PO ×2 (08:52→21:11)
[2019-08-17] MEDS: FOLIC ACID 1 MG TABLET PO (08:52)
[2019-08-17] MEDS: THIAMINE HCL 100 MG TABLET PO (08:52)
[2019-08-17] MEDS: MAGNESIUM OXIDE 400 MG TABLET PO (08:52)
[2019-08-17] MEDS: PANTOPRAZOLE 40 MG TABLET PO (08:52)
[2019-08-17] MEDS: POTASSIUM CHLORIDE 20 MEQ TABLET 40 MEQ PO (08:57)
[2019-08-17] MEDS: lisinopriL 10 MG TABLET PO (09:00)
--- NOTE | 2019-08-17 10:33 | WPDGIPROGNO ---
Progress Note: A&P Additional Plan Patient remains weak. She denies any obvious blood in her stools. States she strained at stools yesterday. Physical exam reveals patient to be alert. Lungs are clear. Heart without murmur. Abdomen is soft and nontender. Labs reveal stool Hemoccult positive. All previous testing was negative. Pancytopenia appreciated on laboratory testing. Platelet count now 92 K. After platelet transfusion yesterday. Heme low been 9.2 after transfusion. Impression 1. Pancytopenia. Suspect this is from bone marrow suppression from alcohol use. Hematology following. 2. Occult blood in stool. May be related to hemorrhoidal bleeding given her low platelet count. Plan is to proceed with GI evaluation because of severe anemia. To exclude GI blood loss. 3. Alcohol abuse. 4. Alcoholic liver disease. Fatty liver identified on CT scan. Subjective Date/time seen: 08/17/19 10:33 Objective Data Vital Signs Vital Signs: Vital Signs - 24 hr 08/16/19 10:40 08/16/19 10:50 08/16/19 12:00 Temperature 36.8 C 37.2 C Pulse Rate 98 102 H 100 Respiratory Rate 16 16 Blood Pressure 126/62 126/65 Pulse Oximetry 96 99 08/16/19 14:00 08/16/19 14:30 08/16/19 15:30 Temperature 37.3 C 37.3 C 37.0 C Pulse Rate 100 100 98 Respiratory Rate 14 14 16 Blood Pressure 117/71 117/71 113/67 Pulse Oximetry 100 100 100 08/16/19 16:00 08/16/19 16:16 08/16/19 16:30 Temperature 37.1 C 37.1 C Pulse Rate 103 H 68 101 H Respiratory Rate 14 14 Blood Pressure 112/52 L 118/72 Pulse Oximetry 100 100 08/16/19 17:35 08/16/19 20:00 08/16/19 20:04 Temperature 37.0 C 36.2 C L Pulse Rate 100 94 93 Respiratory Rate 14 12 Blood Pressure 112/70 118/67 Pulse Oximetry 100 100 08/17/19 00:00 08/17/19 03:56 08/17/19 04:00 Temperature 36.6 C Pulse Rate 94 88 91 Respiratory Rate 16 Blood Pressure 140/80 Pulse Oximetry 100 08/17/19 08:00 Temperature Pulse Rate 101 H Respiratory Rate Blood Pressure Pulse Oximetry Intake/Output Intake/Output: Intake & Output 08/14/19 08/15/19 08/16/19 08/17/19 23:59 23:59 23:59 23:59 Intake Total 3602 4631.9997 5864 840 Output Total 1175 550 102 400 Balance 2427 4081.9993 5762 440 Meds/Results Medications: Active Medications Generic Name Dose Route Start Last Admin Trade Name Freq PRN Reason Stop Dose Admin Albuterol 2 puff 08/14/19 16:26 Proventil Hfa INHALATION QIDRT PRN Shortness Of Breath Chlordiazepoxide HCl 25 mg 08/16/19 22:00 08/17/19 05:04 Librium Po PO 25 mg Q8HR ELLA Administration Diphenoxylate HCl/Atropine 1 tablet 08/16/19 10:35 08/17/19 07:38 Lomotil Tab 2.5 Mg PO 1 tablet PRN PRN Administration diarrhea Folic Acid 1 mg 08/14/19 09:00 08/17/19 08:52 Folic Acid PO 1 mg DAILY ELLA Administration Gabapentin 100 mg 08/13/19 23:10 08/17/19 08:52 Neurontin PO 100 mg TID ELLA Administration Sodium Chloride 1,000 mls @ 80 mls/hr 08/13/19 20:20 08/17/19 05:05 Normal Saline Iv IV CONT 80 mls/hr .[id number] ELLA Infusion Lisinopril 10 mg 08/14/19 09:00 08/17/19 09:00 Prinivil PO 10 mg DAILY ELLA Administration Lorazepam 0.5 mg 08/13/19 23:03 08/16/19 04:28 Ativan Inj IV PUSH 0.5 mg Q6H PRN Administration Anxiety Magnesium Oxide 200 mg 08/15/19 09:00 08/17/19 08:52 Mag-Ox PO 200 mg Q12HR ELLA Administration Magnesium Oxide 400 mg 08/17/19 09:00 08/17/19 08:52 Mag-Ox PO 400 mg QAM ELLA Administration Nicotine 1 patch 08/13/19 23:10 08/17/19 08:51 Nicoderm Cq 21 Mg TRANSDERM 1 patch QAM ELLA Administration Ondansetron HCl 4 mg 08/13/19 20:16 Zofran Inj IV PUSH Q4H PRN Nausea Pantoprazole Sodium 40 mg 08/16/19 09:00 08/17/19 08:52 Protonix PO 40 mg QAM ELLA Administration Fluticasone/Salmeterol 2 puff 08/14/19 08:00 08/16/19 20:11 Advair Hfa 230-21 Mcg Inhaler (*Sp) IN
[2019-08-17] MEDS: PEG (High)/E-LYTE SOLN 4,000 ML BTL 4000 ML PO (12:46)
--- NOTE | 2019-08-17 14:31 | PCPTNOTE ---
The PT treatment was held today due to patient prepping for procedure tomorrow. Will continue per Plan of Care frequency and duration.
--- NOTE | 2019-08-17 17:12 | PM.IMPN ---
Progress Note: A&P Assessment and Plan (1) Anemia, unspecified: Qualifiers: Anemia type: unspecified type Qualified Code(s): D64.9 - Anemia, unspecified Code(s): D64.9 - Anemia, unspecified Status: Acute Assessment and Plan: 08/17/19 17:12 H&H 6.9, 20.1% this AM. Receiving 1 unit packed RBC; repeat Hgb after transfusion 7.7. Acute on chronic anemia, may be GI loss? Alcoholism likely contributing to chronic component. Patient reports black bowel movements and diffuse abdominal cramping. Start IV protonix. Obtain stool occult blood; iron studies. LDH is normal. Obtain Vitamin B12 and Folate levels. Last EGD/colonoscopy in 2016. Dr Ricketts consulted in the setting of questionable GI bleeding - appreciate his recommendations. Patient is 63-year-old female with history of alcohol abuse, history of depression and his symptoms have been worse since he has been from her and lives alone, is states he drinks on and off and sometime heavily on average patient drinks 15 drinks a week, patient presented emergency department with a complaint of feeling tired difficulty with ambulation fell nausea poor appetite, patient is found to anemia, thrombocytopenia, and alcoholic hepatitis as well as hyponatremia, patient was seen by architecture instructor suspect thrombocytopenia as well anemia most likely secondary to alcohol abuse resulting in bone marrow suppression, liver cirrhosis and splenomegaly. Patient is being treated with CIWA protocol with Librium 25mg q6 and Ativan as needed, ealier today nursing staff staff called that patient has more bruising and developing hematoma and her platelets count is 16, will give 1 units of platelates and monitor, currently stats feeling better has several loose BM seen by GI, etiology is uncetain, lomitil is ordered will monitor, on 08/15 patient was clinically stable and does not show any sign of withdrawl tapered librium to q8 from q6, today patient states feeling better however 1 of the stool sample is positive for blood patient is seen by GI recommending EGD further evaluate, patient will have EGD tomorrow, patient platelets have improved substantially and hemoglobin is stable will continue to monitor.____ (2) Thrombocytopenia: Code(s): D69.6 - Thrombocytopenia, unspecified Status: Chronic Assessment and Plan: Platelets noted to be chronically low based on review of old labs, but down to 16,000 today. and brusing and has developed hematoma, will give 1 unit of platlets, Hepatic dysfunction from alcoholism likely contributes to this but given her pancytopenia, will consult heme. Dr Grove consulted in this setting - appreciate any input. plan is above (3) Abdominal pain: Qualifiers: Abdominal location: generalized Qualified Code(s): R10.84 - Generalized abdominal pain Code(s): R10.9 - Unspecified abdominal pain Status: Acute Assessment and Plan: Patient's abdomen is diffusely tender. She says bloating and pain comes and goes . Has been eating less lately, weight loss noted compared to April in the EMR and if these weights are accurate it's about 30 lbs lost. Loose BM today without vomiting. Will obtain abd/pelv CT to evaluate for any underlying malignancy or other etiologies contributing to symptoms. Edit: Abdominal CT demonstrates evidence of acute pancreatitis, lipase is pending. Cut back to NPO and continue supportive care with IV hydration and antiemetics. Chronic retroperitoneal fluid collection is noted, discussed case with Dr Angulo who noted this collection dating back to 2013 and would not be appropriate for any type of drainage. Patient is seen GI and is scheduled for EGD tomorrow (4) Pneumonia: Qualifiers: Pneumonia type: due to unspecified organism Laterality: right Lung location: unspecified part of lung Qualified Code(s): J18.9 - Pneumonia, unspe
--- NOTE | 2019-08-17 17:14 | PCDIET ---
Nutrition Follow-Up Complete: Inadequate Oral Intake as related to Ab Pain/Diarrhea as evidenced by reported poor po intake. Adequate Intake of at least 50% of meals Goal:Goal met. Continue goal. Pt current nutrition is Regular. Nutrition recommendation: Agree Last recorded weight is 64.4 kg (recommend new wt) Bowel Motility: 08/16 (currently prepping for colonoscopy) Labs Reviewed:Protein 6.0, K 3.3 Albumin 2.6 Meds Noted: Additional Notes: Pt prepping for colonoscopy tomorrow. She is eating better, with average of 68% of meals. Denies pain with eating. Pt was drinking ensure clear and liking. Continued PO intake encouraged to meet needs while inpatient. With fatty liver, pt may benefit from reduced carb intake. We will continue to follow every five days.
[2019-08-17] MEDS: FLUTICASONE/SALMETEROL 230-21 MCG INHALER 1 PUFF 2 PUFF INHALATION (20:36)
[2019-08-17] MEDS: SERTRALINE HCL 50 MG TABLET 100 MG PO (21:10)
[2019-08-18] VITALS (12 sets, daily range): BP systolic 97–138; BP diastolic 53–78; PULSE 80–104; RESP 14–20; TEMP 36.1–37.2; O2SAT 97–100
--- NOTE | 2019-08-18 04:58 | PC.NURSE ---
Addendum entered by CHIDI Linder 08/18/19 04:59: pt has bowel prep Original Note: intake before midnoc
[2019-08-18] MEDS: CHLORDIAZEPOXIDE 25 MG CAPSULE PO ×3 (05:14→21:08)
[2019-08-18 05:43] LABS: Basophils Percent Auto 0.4 % (0.2-1.2); Eosinophils Absolute Auto 0.1 K/mm3 (0-0.3); Eosinophils Percent Auto 2.2 % (0-4.4); Hematocrit 26.5 % (37.0-47.0); Hemoglobin 9.1 g/dL (12.0-15.0); Immature Granulocyte Absolute 0.04 K/mm3 (0.00-0.031); Immature Granulocyte Percent A 0.7 % (0-0.5); Lymphocytes Absolute Auto 1.05 K/mm3 (0.9-3.2); Lymphocytes Percent Auto 19.4 % (18.3-44.2); Mean Corpuscular HGB Conc 34.3 g/dl (32-36); Mean Corpuscular Hemoglobin 30.7 pg (26-34); Mean Corpuscular Volume 89.5 fl (80-100); Mean Platelet Volume 10.1 fl (7.4-10.4); Monocytes Absolute Auto 0.5 K/mm3 (0.1-0.6); Monocytes Percent Auto 9.1 % (2.6-8.5); Neutrophils Absolute Auto 3.7 K/mm3 (1.3-6.7); Neutrophils Percent Auto 68.2 % (45.5-73.1); Platelet Count Result 112 k/mm3 (150-375); Red Blood Count 2.96 M/mm3 (4.2-5.4); Red Cell Distribution Width 17.5 % (11.5-14.5); White Blood Count 5.4 K/mm3 (4.5-10.0)
[2019-08-18 06:19] LABS: Alanine Aminotransferase 10 U/L (4-35); Albumin Level 2.6 g/dL (3.5-5.1); Alkaline Phosphatase 165 U/L (38-126); Aspartate Amino Transferase 21 U/L (14-36); Bilirubin,Total 0.3 mg/dL (0.2-1.3); Calcium 8.3 mg/dL (8.4-10.2); Carbon Dioxide 23 mmol/L (22-30); Chloride 102 mmol/L (98-107); Estimated CRCL calculation 108 ml/min; Estimated Glomerular Filt Rate > 60; Glucose 85 mg/dL (65-105); Magnesium 1.5 mg/dL (1.6-2.3); Potassium 2.8 mmol/L (3.4-5.0); Sodium 132 mmol/L (137-145)
[2019-08-18 06:30] LABS: Blood Urea Nitrogen < 2 mg/dL (7-17)
[2019-08-18] MEDS: MAGNESIUM SULF 4 GM/WATER100ML 4 GM/100 ML BAG IVPB (08:10)
[2019-08-18] MEDS: NICOTINE (*PBKC) 21 MG PATCH 1 PATCH TRANSDERM (08:17)
[2019-08-18] MEDS: FLUTICASONE/SALMETEROL 230-21 MCG INHALER 1 PUFF 2 PUFF INHALATION ×2 (08:52→21:19)
--- NOTE | 2019-08-18 09:30 | WPDANESEPPF ---
Anes - Initial Pre Proc Eval Procedure: Operation Date: 08/18/19 10:00 Proposed Procedures p Esophagogastroduodenoscopy & Colonoscopy - Ricky Ricketts MD Date/Time: 08/18/19 09:30 Surgeon: Isabelle Veronica PA-C Pre Op Diagnosis: weakness, hypokalemia, alcoholic, dehydration Patient Data Age: 63 Gender: F Height: 5 ft 6 in Weight: 64.4 kg Last Vital Signs Temp 36.7 C 08/18/19 05:00 Pulse 91 08/18/19 08:00 Resp 16 08/18/19 05:00 BP 138/78 08/18/19 05:00 Pulse Ox 100 08/18/19 05:00 Allergies Allergy/AdvReac Type Severity Reaction Status Date / Time No Known Allergies Allergy Unknown Verified 08/13/19 18:54 Home Medications Medication Instructions Recorded Confirmed Type lisinopril 10 mg PO DAILY #30 tablet 01/06/19 08/13/19 Rx sertraline 100 mg PO HS #30 tablet 01/06/19 08/13/19 Rx fluticasone propion-salmeterol 2 inh INHALATION BID 08/13/19 08/13/19 History [Advair HFA] Laboratory Tests 08/18/19 08/18/19 05:01 05:01 WBC 5.4 K/mm3 K/mm3 (4.5-10.0) RBC 2.96 M/mm3 L M/mm3 (4.2-5.4) Hgb 9.1 g/dL L g/dL (12.0-15.0) Hct 26.5 % L % (37.0-47.0) MCV 89.5 fl fl (80-100) MCH 30.7 pg pg (26-34) MCHC 34.3 g/dl g/dl (32-36) RDW 17.5 % H % (11.5-14.5) Plt Count 112 k/mm3 L k/mm3 (150-375) MPV 10.1 fl fl (7.4-10.4) Immature Gran % (Auto) 0.7 % H % (0-0.5) Neut % (Auto) 68.2 % % (45.5-73.1) Lymph % (Auto) 19.4 % % (18.3-44.2) [place] % (Auto) 9.1 % H % (2.6-8.5) Eos % (Auto) 2.2 % % (0-4.4) Baso % (Auto) 0.4 % % (0.2-1.2) Lymph # (Auto) 1.05 K/mm3 K/mm3 (0.9-3.2) [place] # (Auto) 0.5 K/mm3 K/mm3 (0.1-0.6) Eos # (Auto) 0.1 K/mm3 K/mm3 (0-0.3) Baso # (Auto) 0.0 K/mm3 K/mm3 (0.0-0.1) Abs Immat Gran (auto) 0.04 K/mm3 H K/mm3 (0.00-0.031) Absolute Neuts (auto) 3.7 K/mm3 K/mm3 (1.3-6.7) Absolute Nucleated RBC 0.0 K/mm3 K/mm3 (0.0-0.012) Nucleated RBC % 0.0 % % (0.0-0.2) Sodium 132 mmol/L L mmol/L (137-145) Potassium 2.8 mmol/L L* mmol/L (3.4-5.0) Chloride 102 mmol/L mmol/L (98-107) Carbon Dioxide 23 mmol/L mmol/L (22-30) BUN < 2 mg/dL L mg/dL (7-17) Creatinine 0.40 mg/dL L mg/dL (0.7-1.0) Estim Creat Clear Calc 108 ml/min ml/min Estimated GFR > 60 (59 - ) Glucose 85 mg/dL mg/dL (65-105) Calcium 8.3 mg/dL L mg/dL (8.4-10.2) Magnesium 1.5 mg/dL L mg/dL (1.6-2.3) Total Bilirubin 0.3 mg/dL mg/dL (0.2-1.3) AST 21 U/L U/L (14-36) ALT 10 U/L U/L (4-35) Alkaline Phosphatase 165 U/L H U/L (38-126) Total Protein 6.0 g/dL L g/dL (6.3-8.2) Albumin 2.6 g/dL L g/dL (3.5-5.1) Patient hx anesthesia problems: none Family hx anesthesia problems: none [facility] [place] Past Medical History Medical History Alcohol intoxication Alcoholism Anxiety Arthritis Closed fracture of left proximal humerus Conjunctivitis COPD (chronic obstructive pulmonary disease) DDD (degenerative disc disease) Depression Elevated sed rate GERD (gastroesophageal reflux disease) Headache Hepatitis Hiatal hernia HTN (hypertension) Hypertension, essential Hypokalemia Hypokalemia Left humeral fracture Pancreatitis Previous known suicide attempt Patient denies Rectal polyp S/P ORIF (open reduction internal fixation) fracture Left humerus fracture Seasonal allergies Skin yeast infection T12 compression fracture Tobacco dependence Surgical History Surgical History History of tubal ligation Hx of cholecystectomy Hx of lumpectomy Family History Family History Mother Chronic kidney disease Alzheimer's d
[2019-08-18] MEDS: LACTATED RINGERS 1,000 ML 150 ML IV CONT (09:42)
[2019-08-18] MEDS: BENZOCAINE (*SP) 60 ML SPRAY CAN (HURRICAINE) 1 SPRAY MUCOUS MEM (10:37)
--- NOTE | 2019-08-18 10:50 | PCOTNOTE ---
Attempted to see patient this am, however patient off floor for testing.
[2019-08-18] MEDS: SIMETHICONE ORAL SUSPENSION 20 MG/0.3 ML 30 ML BOTTLE 0.6 ML PO (10:56)
[2019-08-18] MEDS: GABAPENTIN 100 MG CAPSULE PO ×2 (12:04→16:38)
[2019-08-18] MEDS: THIAMINE HCL 100 MG TABLET PO (12:04)
[2019-08-18] MEDS: lisinopriL 10 MG TABLET PO (12:04)
[2019-08-18] MEDS: MAGNESIUM OXIDE 400 MG TABLET PO (12:05)
[2019-08-18] MEDS: MAGNESIUM OXIDE 200 MG TABLET PO ×2 (12:05→20:38)
[2019-08-18] MEDS: FOLIC ACID 1 MG TABLET PO (12:05)
[2019-08-18] MEDS: POTASSIUM CHLORIDE 20 MEQ TABLET 40 MEQ PO ×2 (13:02→18:49)
--- NOTE | 2019-08-18 13:41 | PM.IMPN ---
Progress Note: A&P Assessment and Plan (1) Anemia, unspecified: Qualifiers: Anemia type: unspecified type Qualified Code(s): D64.9 - Anemia, unspecified Code(s): D64.9 - Anemia, unspecified Status: Acute Assessment and Plan: 08/18/19 13:41 H&H 6.9, 20.1% this AM. Receiving 1 unit packed RBC; repeat Hgb after transfusion 7.7. Acute on chronic anemia, may be GI loss? Alcoholism likely contributing to chronic component. Patient reports black bowel movements and diffuse abdominal cramping. Start IV protonix. Obtain stool occult blood; iron studies. LDH is normal. Obtain Vitamin B12 and Folate levels. Last EGD/colonoscopy in 2016. Dr Ricketts consulted in the setting of questionable GI bleeding - appreciate his recommendations. Patient is 63-year-old female with history of alcohol abuse, history of depression and his symptoms have been worse since he has been from her and lives alone, is states he drinks on and off and sometime heavily on average patient drinks 15 drinks a week, patient presented emergency department with a complaint of feeling tired difficulty with ambulation fell nausea poor appetite, patient is found to anemia, thrombocytopenia, and alcoholic hepatitis as well as hyponatremia, patient was seen by ammunition storekeeper suspect thrombocytopenia as well anemia most likely secondary to alcohol abuse resulting in bone marrow suppression, liver cirrhosis and splenomegaly. Patient is being treated with CIWA protocol with Librium 25mg q6 and Ativan as needed, ealier today nursing staff staff called that patient has more bruising and developing hematoma and her platelets count is 16, will give 1 units of platelates and monitor, currently stats feeling better has several loose BM seen by GI, etiology is uncetain, lomitil is ordered will monitor, on 08/15 patient was clinically stable and does not show any sign of withdrawl tapered librium to q8 from q6, today patient states feeling better however 1 of the stool sample is positive for blood, on 08/16 patient was seen by GI recommending EGD further evaluate, patient will have EGD and colonoscopy, today patient was seen by GI and taken to the GI lab had a EGD a and colonoscopy he did not show any source of bleeding, patient is clinically stable patient platelets have improved substantially and hemoglobin is stable will continue to monitor. Will taper patient Librium to 25 mg b.i.d. ____ (2) Thrombocytopenia: Code(s): D69.6 - Thrombocytopenia, unspecified Status: Chronic Assessment and Plan: Platelets noted to be chronically low based on review of old labs, but down to 16,000 today. and brusing and has developed hematoma, will give 1 unit of platlets, Hepatic dysfunction from alcoholism likely contributes to this but given her pancytopenia, will consult heme. Dr Grove consulted in this setting - appreciate any input. plan is above (3) Abdominal pain: Qualifiers: Abdominal location: generalized Qualified Code(s): R10.84 - Generalized abdominal pain Code(s): R10.9 - Unspecified abdominal pain Status: Acute Assessment and Plan: Patient's abdomen is diffusely tender. She says bloating and pain comes and goes . Has been eating less lately, weight loss noted compared to April in the EMR and if these weights are accurate it's about 30 lbs lost. Loose BM today without vomiting. Will obtain abd/pelv CT to evaluate for any underlying malignancy or other etiologies contributing to symptoms. Edit: Abdominal CT demonstrates evidence of acute pancreatitis, lipase is pending. Cut back to NPO and continue supportive care with IV hydration and antiemetics. Chronic retroperitoneal fluid collection is noted, discussed case with Dr Angulo who noted this collection dating back to 2013 and would not be appropriate for any type of drainage. Patient is seen GI and is scheduled for EGD tomorrow
--- NOTE | 2019-08-18 13:51 | PCOTNOTE ---
Attempted to see patient this pm, however patient just starting with physical therapy.
[2019-08-18 15:01] LABS: Calcium 7.9 mg/dL (8.4-10.2); Carbon Dioxide 23 mmol/L (22-30); Chloride 101 mmol/L (98-107); Estimated CRCL calculation 108 ml/min; Estimated Glomerular Filt Rate > 60; Glucose 107 mg/dL (65-105); Magnesium 2.1 mg/dL (1.6-2.3); Potassium 2.9 mmol/L (3.4-5.0); Sodium 130 mmol/L (137-145)
[2019-08-18 15:08] LABS: Blood Urea Nitrogen < 2 mg/dL (7-17)
[2019-08-18 17:19] LABS: Potassium 2.9 mmol/L (3.4-5.0)
[2019-08-18] MEDS: SERTRALINE HCL 50 MG TABLET 100 MG PO (20:39)
[2019-08-19] VITALS (8 sets, daily range): BP systolic 112–140; BP diastolic 75–78; PULSE 77–96; RESP 15–18; TEMP 36.1–36.5; O2SAT 99–100
[2019-08-19] MEDS: CHLORDIAZEPOXIDE 25 MG CAPSULE PO ×3 (05:24→22:56)
[2019-08-19 06:45] LABS: Basophils Percent Auto 0.8 % (0.2-1.2); Eosinophils Absolute Auto 0.1 K/mm3 (0-0.3); Eosinophils Percent Auto 2.1 % (0-4.4); Hematocrit 27.5 % (37.0-47.0); Hemoglobin 8.9 g/dL (12.0-15.0); Immature Granulocyte Absolute 0.02 K/mm3 (0.00-0.031); Immature Granulocyte Percent A 0.5 % (0-0.5); Lymphocytes Absolute Auto 0.96 K/mm3 (0.9-3.2); Mean Corpuscular HGB Conc 32.4 g/dl (32-36); Mean Corpuscular Hemoglobin 30.3 pg (26-34); Mean Corpuscular Volume 93.5 fl (80-100); Mean Platelet Volume 9.9 fl (7.4-10.4); Monocytes Absolute Auto 0.5 K/mm3 (0.1-0.6); Neutrophils Absolute Auto 2.3 K/mm3 (1.3-6.7); Neutrophils Percent Auto 58.6 % (45.5-73.1); Platelet Count Result 131 k/mm3 (150-375); Red Blood Count 2.94 M/mm3 (4.2-5.4); Red Cell Distribution Width 18.6 % (11.5-14.5); White Blood Count 3.8 K/mm3 (4.5-10.0)
[2019-08-19 06:59] LABS: Alanine Aminotransferase 10 U/L (4-35); Albumin Level 2.6 g/dL (3.5-5.1); Alkaline Phosphatase 149 U/L (38-126); Aspartate Amino Transferase 20 U/L (14-36); Bilirubin,Total 0.4 mg/dL (0.2-1.3); Calcium 8.4 mg/dL (8.4-10.2); Carbon Dioxide 23 mmol/L (22-30); Chloride 103 mmol/L (98-107); Estimated CRCL calculation 108 ml/min; Estimated Glomerular Filt Rate > 60; Glucose 88 mg/dL (65-105); Magnesium 1.8 mg/dL (1.6-2.3); Potassium 3.4 mmol/L (3.4-5.0); Sodium 130 mmol/L (137-145)
[2019-08-19 07:39] LABS: Blood Urea Nitrogen < 2 mg/dL (7-17)
[2019-08-19] MEDS: FLUTICASONE/SALMETEROL 230-21 MCG INHALER 1 PUFF 2 PUFF INHALATION ×2 (07:49→21:18)
--- NOTE | 2019-08-19 07:56 | WPDGIPROGNO ---
Progress Note: A&P Additional Plan Patient alert and comfortable this morning. She remains very weak. Physical exam reveals her to be alert. Comfortable at rest. Tolerating diet. Passing stools. Physical exam reveals abdomen to be soft and nontender with no organomegaly. Impression 1. Alcohol abuse. 2. Pancytopenia. Improving. Likely from alcohol abuse. GI endoscopy revealed internal hemorrhoids which may account for occult blood in stool. Plan to increase activity and ambulation. She may need some assistance. Regular diet. Outpatient follow-up encourage. She needs to abstain from alcohol. Subjective Date/time seen: 08/19/19 07:56 Objective Data Vital Signs Vital Signs: Vital Signs - 24 hr 08/18/19 08:00 08/18/19 09:37 08/18/19 11:09 Temperature 37.2 C Pulse Rate 91 88 82 Respiratory Rate 20 14 Blood Pressure 132/72 97/53 L Pulse Oximetry 99 98 08/18/19 11:19 08/18/19 11:29 08/18/19 12:00 Temperature Pulse Rate 91 91 88 Respiratory Rate 20 20 Blood Pressure 116/70 136/78 Pulse Oximetry 97 100 08/18/19 16:00 08/18/19 20:00 08/18/19 21:49 Temperature 36.1 C L Pulse Rate 80 87 88 Respiratory Rate 18 Blood Pressure 126/68 Pulse Oximetry 100 08/19/19 00:00 08/19/19 04:00 08/19/19 06:00 Temperature 36.1 C L Pulse Rate 88 90 96 Respiratory Rate 18 Blood Pressure 140/78 Pulse Oximetry 100 Intake/Output Intake/Output: Intake & Output 08/16/19 08/17/19 08/18/19 08/19/19 23:59 23:59 23:59 23:59 Intake Total 5864 5522 2010 350 Output Total 102 475 252 0454 Balance 5764 8002 1410 1150 Meds/Results Medications: Active Medications Generic Name Dose Route Start Last Admin Trade Name Freq PRN Reason Stop Dose Admin Albuterol 2 puff 08/14/19 16:26 Proventil Hfa INHALATION QIDRT PRN Shortness Of Breath Chlordiazepoxide HCl 25 mg 08/16/19 22:00 08/19/19 05:24 Librium Po PO 25 mg Q8HR ELLA Administration Diphenoxylate HCl/Atropine 1 tablet 08/16/19 10:35 08/19/19 07:54 Lomotil Tab 2.5 Mg PO 1 tablet PRN PRN Administration diarrhea Folic Acid 1 mg 08/14/19 09:00 08/18/19 12:05 Folic Acid PO 1 mg DAILY ELLA Administration Gabapentin 100 mg 08/13/19 23:10 08/18/19 16:38 Neurontin PO 100 mg TID ELLA Administration Lisinopril 10 mg 08/14/19 09:00 08/18/19 12:04 Prinivil PO 10 mg DAILY ELLA Administration Lorazepam 0.5 mg 08/13/19 23:03 08/16/19 04:28 Ativan Inj IV PUSH 0.5 mg Q6H PRN Administration Anxiety Magnesium Oxide 200 mg 08/15/19 09:00 08/18/19 20:38 Mag-Ox PO 200 mg Q12HR ELLA Administration Magnesium Oxide 400 mg 08/17/19 09:00 08/18/19 12:05 Mag-Ox PO 400 mg QAM ELLA Administration Nicotine 1 patch 08/13/19 23:10 08/18/19 08:17 Nicoderm Cq 21 Mg TRANSDERM 1 patch QAM ELLA Administration Ondansetron HCl 4 mg 08/13/19 20:16 Zofran Inj IV PUSH Q4H PRN Nausea Fluticasone/Salmeterol 2 puff 08/14/19 08:00 08/19/19 07:49 Advair Hfa 230-21 Mcg Inhaler (*Sp) INHALATION 2 puff Q12HRT ELLA Administration Sertraline HCl 100 mg 08/13/19 23:15 08/18/19 20:39 Zoloft PO 100 mg HS [facility] Administration Simethicone 0.6 ml 08/18/19 10:56 08/18/19 10:56 Mylicon Infants Drops PO 0.6 ml ONCE PRN Administration Gas Discomfort Thiamine HCl 100 mg 08/14/19 09:00 08/18/19 12:04 Vitamin B-1 PO 100 mg QAM ELLA Administration Tramadol HCl 25 mg 08/13/19 23:12 08/19/19 06:02 Ultram PO 25 mg Q4H PRN Administration Pain Rated 4-6 Radiology Results: ITS Impressions Chest X-Ray 08/13/19 19:25 IMPRESSION: 1. No acute cardiac pulmonary findings. 2. Aortic arch aneurysm; patient is due for follow-up assuming this has not been reimaged at outside institution. Abdomen/Pelvis CT 08/14/19 14:35 IMPRESSION: 1. Peripancreatic stranding suspicious for
[2019-08-19] MEDS: GABAPENTIN 100 MG CAPSULE PO ×3 (07:57→17:12)
[2019-08-19] MEDS: FOLIC ACID 1 MG TABLET PO (07:58)
[2019-08-19] MEDS: THIAMINE HCL 100 MG TABLET PO (07:58)
[2019-08-19] MEDS: MAGNESIUM OXIDE 200 MG TABLET PO ×2 (07:58→20:54)
[2019-08-19] MEDS: lisinopriL 10 MG TABLET PO (07:58)
[2019-08-19] MEDS: MAGNESIUM OXIDE 400 MG TABLET PO (07:59)
[2019-08-19] MEDS: NICOTINE (*PBKC) 21 MG PATCH 1 PATCH TRANSDERM (07:59)
[2019-08-19] MEDS: POTASSIUM CHLORIDE 20 MEQ TABLET 40 MEQ PO (10:28)
--- NOTE | 2019-08-19 10:53 | WPDANESPN ---
Anes - Prog Note Post-Op Date/Time: 08/19/19 10:53 Cardiovascular status: normal Respiratory status: normal Airway patency: baseline Mental status: baseline Post-Op hydration status: normal Vital Signs: Last Vital Signs Temp 36.1 C L 08/19/19 06:00 Pulse 96 08/19/19 06:00 Resp 18 08/19/19 06:00 BP 140/78 08/19/19 06:00 Pulse Ox 100 08/19/19 06:00 I/O: Intake & Output 08/18/19 08/19/19 08/19/19 23:59 07:59 15:59 Intake Total 1560 350 240 Output Total 600 1500 Balance 960 -1150 240 Laboratory Tests 08/19/19 06:24 08/19/19 06:24 08/18/19 08/18/19 08/19/19 14:42 16:49 06:24 WBC 3.8 L RBC 2.94 L Hgb 8.9 L Hct 27.5 L MCV 93.5 MCH 30.3 MCHC 32.4 RDW 18.6 H Plt Count 131 L MPV 9.9 Immature Gran % (Auto) 0.5 Neut % (Auto) 58.6 Lymph % (Auto) 25.0 [place] % (Auto) 13.0 H Eos % (Auto) 2.1 Baso % (Auto) 0.8 Lymph # (Auto) 0.96 [place] # (Auto) 0.5 Eos # (Auto) 0.1 Baso # (Auto) 0.0 Abs Immat Gran (auto) 0.02 Absolute Neuts (auto) 2.3 Absolute Nucleated RBC 0.0 Nucleated RBC % 0.0 Sodium 130 L Potassium 2.9 L 2.9 L Chloride 101 Carbon Dioxide 23 BUN < 2 L Creatinine 0.40 L Estim Creat Clear Calc 108 Estimated GFR > 60 Glucose 107 H Calcium 7.9 L Magnesium 2.1 Total Bilirubin AST ALT Alkaline Phosphatase Total Protein Albumin 08/19/19 06:24 WBC RBC Hgb Hct MCV MCH MCHC RDW Plt Count MPV Immature Gran % (Auto) Neut % (Auto) Lymph % (Auto) [place] % (Auto) Eos % (Auto) Baso % (Auto) Lymph # (Auto) [place] # (Auto) Eos # (Auto) Baso # (Auto) Abs Immat Gran (auto) Absolute Neuts (auto) Absolute Nucleated RBC Nucleated RBC % Sodium 130 L Potassium 3.4 Chloride 103 Carbon Dioxide 23 BUN < 2 L Creatinine 0.40 L Estim Creat Clear Calc 108 Estimated GFR > 60 Glucose 88 Calcium 8.4 Magnesium 1.8 Total Bilirubin 0.4 AST 20 ALT 10 Alkaline Phosphatase 149 H Total Protein 6.0 L Albumin 2.6 L Microbiology 08/16/19 15:57 Stool Stool for WBCs - Final 08/16/19 15:57 Stool Escherichia coli Shiga Toxins - Final 08/16/19 15:57 Stool Salmonella/Shigella Culture - Final 08/16/19 15:57 Stool Cryptosporidium Exam - Final 08/16/19 15:57 Stool Giardia Antigen (HATTIE) - Final Post-procedural complaints: none Patient Feedback: Patient satisfied with anesthetic care.
--- NOTE | 2019-08-19 14:59 | PM.IMPN ---
Progress Note: A&P Assessment and Plan (1) Anemia, unspecified: Qualifiers: Anemia type: unspecified type Qualified Code(s): D64.9 - Anemia, unspecified Code(s): D64.9 - Anemia, unspecified Status: Acute Assessment and Plan: 08/19/19 14:59 H&H 6.9, 20.1% this AM. Receiving 1 unit packed RBC; repeat Hgb after transfusion 7.7. Acute on chronic anemia, may be GI loss? Alcoholism likely contributing to chronic component. Patient reports black bowel movements and diffuse abdominal cramping. Start IV protonix. Obtain stool occult blood; iron studies. LDH is normal. Obtain Vitamin B12 and Folate levels. Last EGD/colonoscopy in 2015. Dr Ricketts consulted in the setting of questionable GI bleeding - appreciate his recommendations. 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 Patient is being treated with CIWA protocol with Librium 25mg q6 and Ativan as needed, ealier today nursing staff staff called that patient has more bruising and developing hematoma and her platelets count is 16, will give 1 units of platelates and monitor, currently stats feeling better has several loose BM seen by GI, etiology is uncetain, lomitil is ordered will monitor, on 08/15 patient was clinically stable and does not show any sign of withdrawl tapered librium to q8 from q6, today patient states feeling better however 1 of the stool sample is positive for blood, on 08/16 patient was seen by GI recommending EGD further evaluate, patient will have EGD and colonoscopy, on 08/17 patient was seen by GI and taken to the GI lab had a EGD a and colonoscopy did show internal hemorrhoid possible source of bleeding, however patient hemoglobin is now stable, today patient complains of left upper arm swelling most likely IV infiltrates however to further evaluate will do the upper extremity Doppler rule out DVT, patient is clinically stable patient platelets have improved substantially and hemoglobin is stable will continue to monitor. Will taper patient Librium to 25 mg b.i.d. (2) Thrombocytopenia: Code(s): D69.6 - Thrombocytopenia, unspecified Status: Chronic Assessment and Plan: Platelets noted to be chronically low based on review of old labs, but down to 16,000 today. and brusing and has developed hematoma, will give 1 unit of platlets, Hepatic dysfunction from alcoholism likely contributes to this but given her pancytopenia, will consult heme. Dr Grove consulted in this setting - appreciate any input. plan is above (3) Abdominal pain: Qualifiers: Abdominal location: generalized Qualified Code(s): R10.84 - Generalized abdominal pain Code(s): R10.9 - Unspecified abdominal pain Status: Acute Assessment and Plan: Patient's abdomen is diffusely tender. She says bloating and pain comes and goes . Has been eating less lately, weight loss noted compared to April in the EMR and if these weights are accurate it's about 30 lbs lost. Loose BM today without vomiting. Will obtain abd/pelv CT to evaluate for any underlying malignancy or other etiologies contributing to symptoms. Edit: Abdominal CT demonstrates evidence of acute pancreatitis, lipase is pending. Cut back to NPO and continue supportive care with IV hydration and antiemetics. Chronic retroperitoneal fluid co
--- NOTE | 2019-08-19 16:19 | PCPTNOTE ---
The patient treatment was not able to be completed on 08/19/19 due to beiong of the floor for test. Will plan to continue treatment per plan of care.
[2019-08-19] MEDS: SERTRALINE HCL 50 MG TABLET 100 MG PO (20:14)
[2019-08-20] VITALS: PULSE 75
[2019-08-20 04:24] VITALS: BP 126/76; PULSE 89; RESP 16; TEMP 36.1; O2SAT 100
[2019-08-20 04:35] VITALS: PULSE 80
--- NOTE | 2019-08-20 07:51 | WPDGIPROGNO ---
Progress Note: A&P Additional Plan Patient alert comfortable this morning. Still somewhat weak. Remains in the chair most of the day. No signs of significant bleeding. No abdominal pain. Tolerating diet. Physical exam reveals patient to be alert. Vital signs stable. Lungs are clear. Heart without murmur. Abdomen is soft and nontender. Labs revealed WBC 3.8, hemoglobin 8.9, platelets 131 K. Impression 1. Alcohol abuse. 2. Pancytopenia. [place] to be secondary to bone marrow suppression. Hematology following. 3. Pancreatitis suspected by CT scan. Not evident clinically. Lipase is normal. She may benefit from a follow-up CT scan in several months. No additional therapy warranted at this time. 4. Occult blood in stool. Likely secondary to hemorrhoids. No significant GI bleeding evident. GI workup endoscopy otherwise unremarkable. Plan is for rehab. She needs to be stronger. She may be discharged with assistance at home from my perspective. Subjective Date/time seen: 08/20/19 07:51 Objective Data Vital Signs Vital Signs: Vital Signs - 24 hr 08/19/19 08:00 08/19/19 12:00 08/19/19 14:00 Temperature 36.5 C Pulse Rate 92 95 92 Respiratory Rate 16 16 Blood Pressure 112/75 Pulse Oximetry 100 100 08/19/19 19:28 08/19/19 20:00 08/20/19 00:00 Temperature 36.2 C L Pulse Rate 88 77 75 Respiratory Rate 15 Blood Pressure 139/75 Pulse Oximetry 99 08/20/19 04:24 08/20/19 04:35 Temperature 36.1 C L Pulse Rate 89 80 Respiratory Rate 16 Blood Pressure 126/76 Pulse Oximetry 100 Intake/Output Intake/Output: Intake & Output 08/17/19 08/18/19 08/19/19 08/20/19 23:59 23:59 23:59 23:59 Intake Total 5522 2009 1929 450 Output Total 203 083 0188 Balance 5122 1410 -220 450 Meds/Results Medications: Active Medications Generic Name Dose Route Start Last Admin Trade Name Freq PRN Reason Stop Dose Admin Albuterol 2 puff 08/14/19 16:26 Proventil Hfa INHALATION QIDRT PRN Shortness Of Breath Chlordiazepoxide HCl 25 mg 08/16/19 22:00 08/19/19 22:56 Librium Po PO 25 mg Q8HR ELLA Administration Diphenoxylate HCl/Atropine 1 tablet 08/16/19 10:35 08/19/19 07:54 Lomotil Tab 2.5 Mg PO 1 tablet PRN PRN Administration diarrhea Folic Acid 1 mg 08/14/19 09:00 08/19/19 07:58 Folic Acid PO 1 mg DAILY ELLA Administration Gabapentin 100 mg 08/13/19 23:10 08/19/19 17:12 Neurontin PO 100 mg TID ELLA Administration Lidocaine 2 patch 08/20/19 09:00 Lidoderm TRANSDERM DAILY ELLA Lisinopril 10 mg 08/14/19 09:00 08/19/19 07:58 Prinivil PO 10 mg DAILY ELLA Administration Lorazepam 0.5 mg 08/13/19 23:03 08/16/19 04:28 Ativan Inj IV PUSH 0.5 mg Q6H PRN Administration Anxiety Magnesium Oxide 200 mg 08/15/19 09:00 08/19/19 20:54 Mag-Ox PO 200 mg Q12HR ELLA Administration Magnesium Oxide 400 mg 08/17/19 09:00 08/19/19 07:59 Mag-Ox PO 400 mg QAM ELLA Administration Nicotine 1 patch 08/13/19 23:10 08/19/19 07:59 Nicoderm Cq 21 Mg TRANSDERM 1 patch QAM [facility] Administration Ondansetron HCl 4 mg 08/13/19 20:16 Zofran Inj IV PUSH Q4H PRN Nausea Fluticasone/Salmeterol 2 puff 08/14/19 08:00 08/19/19 21:18 Advair Hfa 230-21 Mcg Inhaler (*Sp) INHALATION 2 puff Q12HRT ELLA Administration Sertraline HCl 100 mg 08/13/19 23:15 08/19/19 20:14 Zoloft PO 100 mg HS [facility] Administration Simethicone 0.6 ml 08/18/19 10:56 08/18/19 10:56 Mylicon Infants Drops PO 0.6 ml ONCE PRN Administration Gas Discomfort Thiamine HCl 100 mg 08/14/19 09:00 08/19/19 07:58 Vitamin B-1 PO 100 mg QAM [facility] Administration Tramadol HCl 25 mg 08/13/19 23:12 08/20/19 07:33 Ultram PO 25 mg Q4H PRN Administration Pain Rated 4-6 Radiology Results: ITS Impressions Chest X-Ray 08/13/19 19:25 IMPRESSION: 1. No acute cardiac
[2019-08-20 08:00] VITALS: PULSE 80; RESP 16; O2SAT 100
[2019-08-20] MEDS: CHLORDIAZEPOXIDE 25 MG CAPSULE PO (08:09)
[2019-08-20] MEDS: LIDOCAINE 5% PATCH 2 PATCH TRANSDERM (08:14)
[2019-08-20] MEDS: MAGNESIUM OXIDE 400 MG TABLET PO (08:19)
[2019-08-20] MEDS: NICOTINE (*PBKC) 21 MG PATCH 1 PATCH TRANSDERM (08:19)
[2019-08-20] MEDS: THIAMINE HCL 100 MG TABLET PO (08:20)
[2019-08-20] MEDS: FOLIC ACID 1 MG TABLET PO (08:21)
[2019-08-20] MEDS: GABAPENTIN 100 MG CAPSULE PO ×2 (08:21→12:50)
[2019-08-20] MEDS: lisinopriL 10 MG TABLET PO (08:22)
[2019-08-20 09:54] LABS: Basophils Percent Auto 0.2 % (0.2-1.2); Eosinophils Absolute Auto 0.1 K/mm3 (0-0.3); Eosinophils Percent Auto 1.7 % (0-4.4); Hematocrit 25.6 % (37.0-47.0); Hemoglobin 8.3 g/dL (12.0-15.0); Immature Granulocyte Absolute 0.01 K/mm3 (0.00-0.031); Immature Granulocyte Percent A 0.2 % (0-0.5); Lymphocytes Absolute Auto 1.01 K/mm3 (0.9-3.2); Lymphocytes Percent Auto 24.3 % (18.3-44.2); Mean Corpuscular HGB Conc 32.4 g/dl (32-36); Mean Corpuscular Hemoglobin 30.4 pg (26-34); Mean Corpuscular Volume 93.8 fl (80-100); Mean Platelet Volume 9.9 fl (7.4-10.4); Monocytes Absolute Auto 0.6 K/mm3 (0.1-0.6); Monocytes Percent Auto 13.5 % (2.6-8.5); Neutrophils Absolute Auto 2.5 K/mm3 (1.3-6.7); Neutrophils Percent Auto 60.1 % (45.5-73.1); Platelet Count Result 133 k/mm3 (150-375); Red Blood Count 2.73 M/mm3 (4.2-5.4); Red Cell Distribution Width 19.2 % (11.5-14.5); White Blood Count 4.2 K/mm3 (4.5-10.0)
[2019-08-20] MEDS: FLUTICASONE/SALMETEROL 230-21 MCG INHALER 1 PUFF 2 PUFF INHALATION (09:57)
[2019-08-20 10:11] LABS: Alanine Aminotransferase 11 U/L (4-35); Albumin Level 2.5 g/dL (3.5-5.1); Alkaline Phosphatase 130 U/L (38-126); Aspartate Amino Transferase 22 U/L (14-36); Bilirubin,Total 0.3 mg/dL (0.2-1.3); Calcium 8.1 mg/dL (8.4-10.2); Carbon Dioxide 25 mmol/L (22-30); Chloride 105 mmol/L (98-107); Estimated CRCL calculation 89 ml/min; Estimated Glomerular Filt Rate > 60; Glucose 91 mg/dL (65-105); Magnesium 1.7 mg/dL (1.6-2.3); Potassium 3.6 mmol/L (3.4-5.0); Sodium 133 mmol/L (137-145)
[2019-08-20 10:35] LABS: Blood Urea Nitrogen < 2 mg/dL (7-17)
[2019-08-20] MEDS: POTASSIUM CHLORIDE 20 MEQ TABLET 40 MEQ PO (11:07)
--- NOTE | 2019-08-20 14:04 | PM.DS ---
DS: Admitting Diagnosis Admitting Diagnosis Admitting Diagnosis: Hypokalemia DS: Discharge Diagnosis Discharge Diagnosis (1) Anemia, unspecified: Qualifiers: Anemia type: unspecified type Qualified Code(s): D64.9 - Anemia, unspecified Code(s): D64.9 - Anemia, unspecified Status: Acute Assessment and Plan: 08/19/19 14:59 H&H 6.9, 20.1% this AM. Receiving 1 unit packed RBC; repeat Hgb after transfusion 7.7. Acute on chronic anemia, may be GI loss? Alcoholism likely contributing to chronic component. Patient reports black bowel movements and diffuse abdominal cramping. Start IV protonix. Obtain stool occult blood; iron studies. LDH is normal. Obtain Vitamin B12 and Folate levels. Last EGD/colonoscopy in 2015. Dr Ricketts consulted in the setting of questionable GI bleeding - appreciate his recommendations. Patient is 63-year-old female with history of alcohol abuse, history of depression and his symptoms have been worse since he has been from her and lives alone, is states he drinks on and off and sometime heavily on average patient drinks 15 drinks a week, patient presented emergency department with a complaint of feeling tired difficulty with ambulation fell nausea poor appetite, patient is found to anemia, thrombocytopenia, and alcoholic hepatitis as well as hyponatremia, patient was seen by field director suspect thrombocytopenia as well anemia most likely secondary to alcohol abuse resulting in bone marrow suppression, liver cirrhosis and splenomegaly. Patient is being treated with CIWA protocol with Librium 25mg q6 and Ativan as needed, ro[place] today nursing staff staff called that patient has more bruising and developing hematoma and her platelets count is 16, will give 1 units of platelates and monitor, currently stats feeling better has several loose BM seen by GI, etiology is uncetain, lomitil is ordered will monitor, on 08/15 patient was clinically stable and does not show any sign of withdrawl tapered librium to q8 from q6, today patient states feeling better however 1 of the stool sample is positive for blood, on 08/16 patient was seen by GI recommending EGD further evaluate, patient will have EGD and colonoscopy, on 08/17 patient was seen by GI and taken to the GI lab had a EGD a and colonoscopy did show internal hemorrhoid possible source of bleeding, however patient hemoglobin is now stable, today patient complains of left upper arm swelling most likely IV infiltrates however to further evaluate will do the upper extremity Doppler rule out DVT, patient is clinically stable patient platelets have improved substantially and hemoglobin is stable will continue to monitor. Will taper patient Librium to 25 mg b.i.d. (2) Thrombocytopenia: Code(s): D69.6 - Thrombocytopenia, unspecified Status: Chronic Assessment and Plan: Platelets noted to be chronically low based on review of old labs, but down to 16,000 today. and brusing and has developed hematoma, will give 1 unit of platlets, Hepatic dysfunction from alcoholism likely contributes to this but given her pancytopenia, will consult heme. Dr Grove consulted in this setting - appreciate any input. plan is above (3) Abdominal pain: Qualifiers: Abdominal location: generalized Qualified Code(s): R10.84 - Generalized abdominal pain Code(s): R10.9 - Unspecified abdominal pain Status: Acute Assessment and Plan: Patient's abdomen is diffusely tender. She says bloating and pain comes and goes . Has been eating less lately, weight loss noted compared to April in the EMR and if these weights are accurate it's about 30 lbs lost. Loose BM today without vomiting. Will obtain abd/pelv CT to evaluate for any underlying malignancy or other etiologies contributing to symptoms. Edit: Abdominal CT demonstrates evidence of acute pancreatitis, lipase is pending. Cut back to NPO and con
[2019-08-20 14:15] VITALS: BP 125/69; PULSE 93; RESP 16; TEMP 36.4; O2SAT 100
--- NOTE | 2019-08-21 06:30 | WPDCDIQUERY2 ---
CDI Query Clarification Request - Abdominal pain on problem list - Edit: Abdominal CT demonstrates evidence of acute pancreatitis, lipase is pending. Cut back to NPO and continue supportive care with IV hydration and antiemetics. Documented - Coders cannot code from CT findings Please clarify if acute pancreatitis was ruled in or ruled out. <Dayan Solorio RN - Last Filed: 08/21/19 06:31> Clarified Diagnosis (1) Pancreatitis: Code(s): K85.90 - Acute pancreatitis without necrosis or infection, unspecified <Dayan Solorio RN - Last Filed: 08/21/19 06:31> Status: Acute <Dayan Solorio RN - Last Filed: 08/21/19 06:31> Assessment and Plan: Patient CT scan showed interstitial pancreatitis however there was no elevation of amylase or lipase patient remained clinically stable acute pancreatitis was ruled out <Lara Pierce MD - Last Filed: 08/25/19 17:53>
== END 2019-08-20 15:10 | disposition home or self-care (01) | DRG 808 ==
LOC: ANHED 20:43 → ANH3MED 20:49
PROVIDERS: Emergency Medicine; Internal Medicine Gastroenterology; Nurse Practitioner; Physician Assistant; Admitting Provider Family Medicine; Emergency Provider Emergency Medicine; PCP Family Medicine; Visit Provider Family Medicine
PROC: 0DJ08ZZ Inspection of Upper Intestinal Tract, Via Natural or Artificial Opening Endoscopic (ICD-10-PCS; CPT 43235; principal; 2019-08-18 10:00)
DX: D61.818 Other pancytopenia (principal); K85.20 Alcohol induced acute pancreatitis without necrosis or infection; E87.1 Hypo-osmolality and hyponatremia; K70.30 Alcoholic cirrhosis of liver without ascites; K64.8 Other hemorrhoids; D62 Acute posthemorrhagic anemia; K70.10 Alcoholic hepatitis without ascites; K70.0 Alcoholic fatty liver; E87.6 Hypokalemia; F10.20 Alcohol dependence, uncomplicated; K44.9 Diaphragmatic hernia without obstruction or gangrene; K57.30 Diverticulosis of large intestine without perforation or abscess without bleeding; R19.5 Other fecal abnormalities; J44.9 Chronic obstructive pulmonary disease, unspecified; G62.9 Polyneuropathy, unspecified; F32.9 Major depressive disorder, single episode, unspecified; F41.9 Anxiety disorder, unspecified; M19.90 Unspecified osteoarthritis, unspecified site; K21.9 Gastro-esophageal reflux disease without esophagitis; I10 Essential (primary) hypertension; F17.210 Nicotine dependence, cigarettes, uncomplicated; Z90.49 Acquired absence of other specified parts of digestive tract
CPT/HCPCS: 36415; 36430; 71046; 74176; 80048; 80053; 80307; 81001; 82140; 82274; 82607; 82728; 82746; 83540; 83550; 83615; 83690; 83735; 84100; 84132; 84300; 84443; 84466; 85014; 85018; 85025; 85027; 85055; 85610; 85652; 86140; 86850; 86900; 86901; 86923; 87015; 87040; 87045; 87046; 87269; 87272; 87427; 89055; 93005; 93971; 94640; 96361; 96365; 96366; 96368; 96375; 97110; 97116; 97161; 97165; 97530; 97535; 99285; A9270; C9113; G0378; J2060; J2543; J2704; J3411; J3475; J3480; J7030; J7050; J7120; P9016; P9034

== ENCOUNTER 2019-11-12 17:16 | Inpatient (IN) | payer MEDICARE, MEDICAID, SELFPAY ==
[2019-11-12] VITALS (8 sets, daily range): BP systolic 81–118; BP diastolic 42–68; PULSE 71–122; RESP 18–29; TEMP 37.4; O2SAT 93–100
--- NOTE | ~2019-11-12 | XR_ITS ---
EXAMINATION: XR chest 1V portable DATE: 11/16/2019 06:16 INDICATION: COPD exacerbation. Pneumonia. TECHNIQUE: frontal view of the chest was obtained. COMPARISON: Chest radiograph dated 11/13/2019 FINDINGS: Interval progression of scattered patchy airspace opacities throughout both lungs. No pleural effusio n or pneumothorax. Heart size is normal. Tortuous thoracic aorta with aneurysmal arch measuring up to 4.8 cm in diameter. Plate and screw fixation of an old healed proximal left humeral fracture. There are also a few old left-sided rib fractures. IMPRESSION: 1. Worsening bilateral lung disease consistent with given history of pneumonia with differential incl uding pulmonary edema. 2. Aneurysmal aortic arch measuring up to 4.8 cm diameter. Reviewed, dictated and finalized at location A. IMPRESSION: 1. Worsening bilateral lung disease consistent with given history of pneumonia with differential including pulmonary edema. 2. Aneurysmal aortic arch measuring up to 4.8 cm diameter.
--- NOTE | ~2019-11-12 | CT_ITS ---
EXAMINATION: CT cervical spine wo con DATE: 11/13/2019 15:48 INDICATION: Fall. Neck pain. TECHNIQUE: Computed tomography (CT) of the cervical spine was performed without intravenous contrast. Automated exposure control and iterative reconstruction technique were employed. Exam dose: 194.94 mGy-cm total exam DLP. COMPARISON: None FINDINGS: C1 and C2 are normally aligned and the odontoid process is intact. No fracture or dislocati on or locked facet or prevertebral soft tissue swelling. There is reversal of cervical curvature. There is severe degenerative disc disease at C3-4, C4-5, C5-6. There is associated minimal retrolisth esis at C5-6. There is degenerative change at the apophyseal joints and at the uncovertebral joints at C3-4, C4-5, C5-6. Incidentally noted is groundglass infiltrate and/or scarring in the right apical area and mild left a pical scarring.. IMPRESSION: Reversal of cervical curvature Degenerative changes No fracture or dislocation Reviewed, dictated and finalized at Location [facility]. Reviewed, dictated and finalized at location A.
--- NOTE | ~2019-11-12 | XR_ITS ---
EXAMINATION: XR chest 1V portable EXAM DATE: 11/21/2019 05:51 INDICATION: Respiratory failure. TECHNIQUE: Portable AP frontal chest x-ray was obtained. Comparison is made to prior examination from 11/20/2019. FINDINGS: Endotracheal tube tip is 1-2 centimeters above the karissa (ideal range is between 2 to 5 cm ). There is right-sided subclavian venous line. There is a nasogastric tube seen with tip collimated off the study, but below the left hemidiaphragm. There is moderate amount of bilateral acute airspace disease, probably edema and/or infection There are no sizable pleural effusions. There is no pneumothorax suspected. Cardiomediastinal silhouett e is normal. Left humeral hardware. There is no significant interval change compared to prior exam. IMPRESSION: 1. ET tube aerating both lungs but could safely be retracted 1 cm. 2. Stable moderate acute airspace disease. Reviewed, dictated and finalized at location A.
--- NOTE | ~2019-11-12 | XR_ITS ---
EXAMINATION: XR chest ET placement, XR abdomen NG/feed tube insert DATE: 11/17/2019 09:52 INDICATION: Endotracheal tube placement. Orogastric tube placement. TECHNIQUE: 1. Frontal view of the chest was obtained. 2. Portable AP upright view of the abdomen was obtained. COMPARISON: Chest radiograph dated 11/17/2019 at 8:13 AM FINDINGS: Chest: Endotracheal tube tip 2.8 cm above the karissa. Right subclavian central venous catheter with distal t ip at the caudal superior vena cava. Diffuse bilateral interstitial and groundglass opacities throughout both lungs. No pleural effusion o r pneumothorax. Heart size is normal. Tortuous and atherosclerotic thoracic aorta. Plate and screw fi xation of a comminuted fractures of the proximal left humerus. ABDOMEN: Nasogastric tube with distal tip in proximal side port in the body of the stomach. Cholecystectomy c lips in right upper quadrant. Normal bowel gas pattern. Mild S-shaped thoracolumbar scoliosis with mo derate spondylosis. IMPRESSION: 1. Lines and tubes in expected position. 2. Diffuse bilateral interstitial and airspace opacities which could represent pneumonia and/or pulmo nary edema. Reviewed, dictated and finalized at location A. IMPRESSION: 1. Lines and tubes in expected position. 2. Diffuse bilateral interstitial and airspace opacities which could represent pneumonia and/or pulmonary edema.
--- NOTE | ~2019-11-12 | XR_ITS ---
XR chest 1V portable 11/18/2019 07:01 Indication: Pneumonia. Acute respiratory failure. Procedure: AP portable chest Comparison: Comparison to multiple prior studies sequentially, with oldest reviewed study dated 09/2019. Findings: Endotracheal tube tip 1.9 cm above the karissa. NG tube in the stomach, tip not evaluated. C entral line tip in the SVC. No pneumothorax. Diffuse bilateral airspace disease unchanged. Stable car diomediastinal silhouette. There is atherosclerosis of the aorta. Side plate and screws transfixing t he left humeral neck. No acute osseous abnormality. Impression: 1: Persistent diffuse bilateral airspace disease, edema versus pneumonia. Reviewed, dictated and finalized at location A. Impression: 1: Persistent diffuse bilateral airspace disease, edema versus pneumonia.
--- NOTE | ~2019-11-12 | XR_ITS ---
XR chest 1V portable 11/19/2019 06:00 Indication: Acute respiratory failure. Pneumonia. Procedure: AP portable chest Comparison: Comparison to multiple prior studies sequentially, with oldest reviewed study dated 11/15. Findings: Endotracheal tube tip 1.7 cm above the karissa. NG tube in the stomach, tip not evaluated. R ight subclavian central line tip in the SVC. Cardiomegaly. Persistent bilateral interstitial infiltra tion, slightly improved. No pleural effusion or pneumothorax. Impression: 1: Persistent bilateral airspace disease, slightly improved, most likely edema. Pneumonia less favore d. Reviewed, dictated and finalized at location A. Impression: 1: Persistent bilateral airspace disease, slightly improved, most likely edema. Pneumonia less favored.
--- NOTE | ~2019-11-12 | XR_ITS ---
XR chest 1V portable DATE: 11/20/2019 05:57 INDICATION: Acute respiratory failure, pneumonia TECHNIQUE: Portable AP chest on 11/20/2019 at 0529 hours COMPARISON: 11/19/2019 portable AP chest at 0535 hours FINDINGS: ET tube tip is approximately 1 cm above karissa; ideal range is 205 cm. NG tube in stomach. Right subclavian central venous catheter tip overlies the superior vena cava. No pneumothorax. Borderline or increased heart size. Aortic calcification, ectasia and unfolding. There is pulmonary vascular congestion. There are bilateral central and lower lung zone infiltrates s uggesting pulmonary edema and/or pneumonia. Infiltrates are increased since 11/19/2019. Plate and screws of the proximal left humerus. Diffuse osteopenia. IMPRESSION: Increased bilateral pulmonary infiltrates since 11/19/2019, suggesting pulmonary edema and /or pneumonia ET tube tip 1 cm above karissa; ideal range is 2-5 cm Reviewed, dictated and finalized at location A. IMPRESSION: Increased bilateral pulmonary infiltrates since 11/19/2019, suggesti ng pulmonary edema and/or pneumonia ET tube tip 1 cm above karissa; ideal range is 2-5 cm
--- NOTE | ~2019-11-12 | XR_ITS ---
EXAMINATION: XR chest 1V portable DATE: 11/27/2019 06:43 INDICATION: Respiratory failure. TECHNIQUE: A single frontal view of the chest was obtained. COMPARISON: Chest single view 11/26/2019 FINDINGS: There is mild elevation of right hemidiaphragm. There are airspace and interstitial opaciti es throughout the lungs bilaterally. No pleural effusion or pneumothorax. The heart size is normal. T he endotracheal tube tip is 5.7 cm above the karissa. The nasogastric tube tip is in the stomach. Surg ical clips in the right upper quadrant are likely from cholecystectomy. A right subclavian central ve nous catheter is seen with tip in the superior vena cava. There is plate and screw fixation of proxim al left humerus. IMPRESSION: 1. Worsened severe diffuse lung disease, consistent with pulmonary edema versus pneumonia versus acut e respiratory distress syndrome (ARDS). Reviewed, dictated and finalized at location A. IMPRESSION: 1. Worsened severe diffuse lung disease, consistent with pulmonary edema versus pneumonia versus acute respiratory distress syndrome (ARDS).
--- NOTE | ~2019-11-12 | XR_ITS ---
EXAMINATION: XR chest 1V portable EXAM DATE: 11/22/2019 05:54 INDICATION: Respiratory failure. TECHNIQUE: Portable AP frontal chest x-ray was obtained. Comparison is made to prior examination from 11/21/2019, 11/19, 11/18. FINDINGS: Endotracheal tube tip is 3 centimeters above the karissa (ideal range is between 2 to 5 cm). There is right-sided subclavian venous line. There is a nasogastric tube seen with tip collimated o ff the study, but below the left hemidiaphragm. There is moderate amount of bilateral acute airspace disease, probably edema and/or infection There are no sizable pleural effusions. There is no pneumothorax suspected. Cardiomediastinal silhouett e is normal. Left humeral hardware. Comparing to last several days, slightly more opacification heather pected in the affected areas, mild progression of disease. IMPRESSION: 1. Tubes and line in position. 2. Mild interval progression in moderate amount of bilateral acute airspace disease. Reviewed, dictated and finalized at location A. IMPRESSION: 1. Tubes and line in position. 2. Mild interval progression in moderate amount of bilateral acute airspace di sease.
--- NOTE | ~2019-11-12 | XR_ITS ---
XR chest 1V portable DATE: 11/26/2019 05:35 INDICATION: Respiratory failure TECHNIQUE: Portable AP chest on 11/26/2019 0523 hours COMPARISON: 07/25/2019 portable AP chest at 1915 hours FINDINGS: There are extensive diffuse patchy bilateral pulmonary infiltrates, increased since 11/25/19 20 at 1915 hours. No pleural effusion or pneumothorax is evident. ET tube is in satisfactory position 2.5 cm above karissa. NG tube in stomach. Right-sided central veno us catheter tip overlies the superior vena cava near the superior cavoatrial junction. Aortic calcification. Diffuse osteopenia. Plate and screws of the proximal left humerus. IMPRESSION: Increased extensive bilateral infiltrates since 11/25/2019 Reviewed, dictated and finalized at location A.
--- NOTE | ~2019-11-12 | XR_ITS ---
XR abdomen NG/feed tube insert INDICATION: Evaluate NG tube position. TECHNIQUE: Limited KUB perform for evaluating NG tube . COMPARISON: 11/17/2019 FINDINGS: NG tube tip in the stomach. Visualized bowel gas pattern is unremarkable. IMPRESSION: 1: NG tube tip in the stomach. Reviewed, dictated and finalized at location B.
--- NOTE | ~2019-11-12 | XR_ITS ---
EXAMINATION: XR chest 1V portable INDICATION: Tachypnea TECHNIQUE: Portable AP chest at 0813 hours COMPARISON: 11/16/2019 FINDINGS: A right subclavian central venous catheter ends with its tip at the distal superior vena ca va. Patchy opacities throughout all lung zones persist without significant change. There is no pleura l effusion or pneumothorax. The cardiomediastinal silhouette is normal. Surgical changes are noted in the proximal left humerus. IMPRESSION: 1. Diffuse lung disease without significant change, consistent with atelectasis and/or pneumonia and/ or pulmonary edema. Reviewed, dictated and finalized at location B. IMPRESSION: 1. Diffuse lung disease without significant change, consistent with atelectasis and/or pneumonia and/or pulmonary edema.
--- NOTE | ~2019-11-12 | XR_ITS ---
XR chest 1V portable DATE: 11/12/2019 19:08 INDICATION: Shortness of breath, paresis. Unable to walk. Found on ground today. TECHNIQUE: Portable supine AP view on 11/12/2019 at 1900 hours COMPARISON: 08/13/2019 AP and lateral chest FINDINGS: Heart size is within normal range. There is aortic calcification, ectasia and tortuosity. There is infiltrate and/atelectasis in the lower lung zones. There is moderate elevation of the right leaf of the diaphragm. Diffuse osteopenia. Hardware is noted in the proximal left humerus. IMPRESSION: Bilateral lower lung infiltrate and/or atelectasis Aortic calcification, ectasia and tortuosity Reviewed, dictated and finalized at location A.
--- NOTE | ~2019-11-12 | XR_ITS ---
EXAMINATION: XR chest port-a-cath/central INDICATION: Central line insertion TECHNIQUE: Portable AP chest at 0101 hours COMPARISON: 11/12/2019 FINDINGS: A right subclavian central venous catheter has been inserted. No pneumothorax is identified . Airspace opacities have developed in the right lung base. There is a questionable right pleural eff usion. The cardiomediastinal silhouette is normal. Internal stabilization hardware is noted in the le ft humerus. IMPRESSION: 1. Right subclavian central venous catheter insertion. No pneumothorax. 2. Development of right basilar airspace opacity, likely atelectasis. 3. Questionable right pleural effusion. Reviewed, dictated and finalized at location A.
--- NOTE | ~2019-11-12 | XR_ITS ---
XR chest 1V portable DATE: 11/25/2019 06:12 INDICATION: Respiratory failure TECHNIQUE: Portable AP chest on 11/25/2019 at 0530 hours COMPARISON: 11/22/2019 portable AP chest at 0527 hours FINDINGS: ET tube tip is 2.1 cm above karissa, in satisfactory position. Nasogastric tube is noted in the distal stomach. Right-sided central venous catheter tip overlies the superior vena cava. No pneumothorax is evident. Extensive bilateral pulmonary infiltrates, more prominent centrally, suggesting pulmonary edema. Pneu monia is another consideration. The infiltrates are stable or mildly increased since 11/22/2019. Surgical clips, right upper quadrant, consistent with cholecystectomy. IMPRESSION: Extensive bilateral pulmonary infiltrates, stable or mildly increased since 11/22/2019 Reviewed, dictated and finalized at location A. IMPRESSION: Extensive bilateral pulmonary infiltrates, stable or mildly increas ed since 11/22/2019
--- NOTE | ~2019-11-12 | CT_ITS ---
EXAMINATION: CT brain wo con DATE: 11/13/2019 15:48 INDICATION: Fall. Head and neck pain. TECHNIQUE: Computed tomography (CT) of the head was performed without intravenous contrast. The mA wa s adjusted according to patient size. Iterative reconstruction technique was employed. Exam dose: 60 5.33 mGy-cm total exam DLP. COMPARISON: None FINDINGS: No intracranial mass lesion or hemorrhage or cerebrovascular accident is evident. There is no midline shift or mass effect. There is no subdural or epidural hematoma. There is moderate cerebra l cortical atrophy, predominating in the frontal regions. No fracture or bone destruction of the cranial vault. There is a small mucus retention cyst or polyp in the posterior aspect of the lower left sphenoid sin us. The included paranasal sinuses and mastoid air cells are otherwise unremarkable. No fracture or bone destruction of the cranial vault. IMPRESSION: No skull fracture or acute intracranial finding Reviewed, dictated and finalized at Location A. Reviewed, dictated and finalized at location A.
--- NOTE | ~2019-11-12 | XR_ITS ---
MODIFIED ESOPHAGRAM HISTORY: Dysphagia. TECHNIQUE: Modified barium esophagram was performed on 11/14/2019. I administered fluoroscopy and perfo rmed the exam with speech pathologist. Patient was seated for lateral fluoroscopic imaging for inges tion of thin liquids, pudding, solids and quantified amounts, followed by thin liquids in uncontrolle d amounts. This was recorded on tape. A single fluoroscopic spot image was also recorded. The DAP for this procedure was 2.4 Gycm2. The amount of fluoroscopy time used during this procedure was 3.3 renato cathy. FINDINGS: Oral stage: Adequate function. Pharyngeal stage: Laryngeal penetration reaching the cords but without fay aspiration. Cervical/esophageal stage: Single episode of brief reflux of esophageal contrast into the hypopharynx suggesting possibility of esophageal dysmotility. IMPRESSION: 1. Laryngeal penetration without fay aspiration. Please correlate with speech pathologist findings and specific feeding recommendations. 2. Single episode of brief reflux of esophageal contrast into the hypopharynx suggesting possibility of esophageal dysmotility. Reviewed, dictated and finalized at location A. IMPRESSION: 1. Laryngeal penetration without fay aspiration. Please correlate with speec h pathologist findings and specific feeding recommendations. 2. Single episode of brief reflux of esophageal contrast into the hypopharynx s uggesting possibility of esophageal dysmotility.
--- NOTE | ~2019-11-12 | XR_ITS ---
EXAMINATION: XR chest ET placement DATE: 11/25/2019 19:19 INDICATION: Intubation. TECHNIQUE: A single frontal view of the chest was obtained. COMPARISON: Chest single view at 5:28 AM FINDINGS: The patient is rotated to her right. There are airspace and interstitial opacities in all l sudha zones bilaterally. No pleural effusion or pneumothorax. The heart size is normal. The endotrachea l tube tip is 3.5 cm above the karissa. The nasogastric tube tip is beyond the inferior margin of the radiograph, but at least to the stomach. A right subclavian central venous catheter is seen with tip in the superior vena cava. There is plate and screw fixation of proximal left humerus. IMPRESSION: 1. Diffuse lung disease with slight improvement, consistent with pulmonary edema versus pneumonia. Reviewed, dictated and finalized at location A. IMPRESSION: 1. Diffuse lung disease with slight improvement, consistent with pulmonary cathy a versus pneumonia.
--- NOTE | 2019-11-12 17:23 | ECG_ITS ---
Measurements Intervals [place] Rate: 125 P: 45 DE: 145 QRS: 15 QRSD: 94 T: 59 QT: 403 QTc: 582 Interpretive Statements SINUS TACHYCARDIA ST-T WAVE ABNORMALITY IN ANTEROLATERAL LEADS- CONSIDER ISCHEMIA BASELINE WANDER- V1, V4-V6 ABNORMAL ECG Electronically Signed On 11-13-2019 8:17:47 CDT by Jose Garcia D.O.
[2019-11-12 17:52] LABS: Basophils Absolute Auto 0.1 K/mm3 (0.0-0.1); Basophils Percent Auto 0.2 % (0.2-1.2); Hematocrit 35.4 % (37.0-47.0); Hemoglobin 12.1 g/dL (12.0-15.0); Immature Granulocyte Absolute 0.33 K/mm3 (0.00-0.031); Immature Granulocyte Percent A 1.1 % (0-0.5); Lymphocytes Absolute Auto 3.12 K/mm3 (0.9-3.2); Lymphocytes Percent Auto 10.6 % (18.3-44.2); Mean Corpuscular HGB Conc 34.2 g/dl (32-36); Mean Corpuscular Hemoglobin 30.5 pg (26-34); Mean Corpuscular Volume 89.2 fl (80-100); Mean Platelet Volume 9.9 fl (7.4-10.4); Monocytes Absolute Auto 1.7 K/mm3 (0.1-0.6); Monocytes Percent Auto 5.8 % (2.6-8.5); Neutrophils Absolute Auto 24.2 K/mm3 (1.3-6.7); Neutrophils Percent Auto 82.3 % (45.5-73.1); Platelet Count Result 258 k/mm3 (150-375); Red Blood Count 3.97 M/mm3 (4.2-5.4); Red Cell Distribution Width 15.9 % (11.5-14.5); White Blood Count 29.4 K/mm3 (4.5-10.0)
[2019-11-12] MEDS: dilTIAZem HCl INJ 25 MG/5 ML VIAL 20 MG IV PUSH (18:04)
[2019-11-12] MEDS: FUROSEMIDE INJ 40 MG/4 ML VIAL IV PUSH (18:05)
--- NOTE | 2019-11-12 18:08 | PC.NURSE ---
Called lab to add on BNP
[2019-11-12 18:10] LABS: Alanine Aminotransferase 22 U/L (4-35); Albumin Level 2.9 g/dL (3.5-5.1); Alkaline Phosphatase 147 U/L (38-126); Anion Gap 14 mmol/L (8-16); Aspartate Amino Transferase 54 U/L (14-36); Bilirubin,Total 1.6 mg/dL (0.2-1.3); Blood Urea Nitrogen 9 mg/dL (7-17); Calcium 7.6 mg/dL (8.4-10.2); Carbon Dioxide 24 mmol/L (22-30); Chloride 94 mmol/L (98-107); Estimated CRCL calculation 46 ml/min; Estimated Glomerular Filt Rate 56; Glucose 158 mg/dL (65-105); Potassium < 2.0 mmol/L (3.4-5.0); Sodium 132 mmol/L (137-145)
[2019-11-12] MEDS: MORPHINE SULFATE 4 MG/ML INJ IV PUSH (18:11)
[2019-11-12] MEDS: IPRATROPIUM BR 0.02% INH SOLN 0.5 MG/2.5 ML VIAL INHALATION (18:12)
[2019-11-12] MEDS: ALBUTEROL SULFATE NEB 2.5 MG/0.5 ML INH 5 MG INHALATION (18:12)
[2019-11-12 18:13] LABS: NT Pro B Type Natriuretic Pept 463 PG/ML (5-100)
--- NOTE | 2019-11-12 18:20 | ECG_ITS ---
Measurements Intervals [place] Rate: 110 P: 33 NC: 145 QRS: 32 QRSD: 86 T: 141 QT: 355 QTc: 481 Interpretive Statements SINUS TACHYCARDIA ATRIAL PREMATURE COMPLEXES LOW QRS VOLTAGE IN PRECORDIAL LEADS ST-T WAVE ABNORMALITY IN ANTEROLATERAL LEADS- CONSIDER ISCHEMIA BASELINE ARTIFACT- I, III, AVR, AVL, AVF, V1-V2 ABNORMAL ECG Electronically Signed On 11-17-2019 12:41:54 CDT by Jose Garcia D.O.
[2019-11-12 18:40] LABS: Alveolar/Arterial O2 Gradient 94.6 mmHg; Base Excess ABG -0.8 mEq/l (+/-2.0); Fractional Inspired Oxygen 32 %; HCO3 ABG 26.9 mEq/l (22.0-26.0); Oxygen Content ABG 14.9 %vol (16.0-22.0); Oxygen Saturation ABG 90.1 % (95.0-100.0); Oxyhemoglobin 84.7 % THb (90.0-100.0); PCO2 ABG 58.1 mmHg (35.0-45.0); PO2 ABG 65.6 mmHg (80.0-100.0); PO2 FiO2 Ratio Arterial Blood 2.05 %; Total Hemoglobin 12.5 g/dL (12.0-18.0)
[2019-11-12 18:43] LABS: Device NASAL CANNULA; Site Drawn LEFT BRACHIAL; pH ABG 7.283 (7.350-7.450)
--- NOTE | 2019-11-12 19:01 | PC.NURSE ---
Guilherme DURBIN and technology methodology consultant tried to straight cath pt. No urine output. Xray here to do chest xray
[2019-11-12 19:33] LABS: Magnesium 1.1 mg/dL (1.6-2.3)
[2019-11-12] MEDS: SODIUM CHLORIDE 0.9% IV 1,000 ML 999 ML IV CONT (19:35)
--- NOTE | 2019-11-12 21:33 | ED.GENADULT ---
HPI - General Adult General Chief complaint: Weakness Stated complaint: WEAKNESS Time Seen by Provider: 11/12/19 17:18 Source: patient Mode of arrival: EMS Limitations: no limitations History of Present Illness HPI narrative: 64-year-old with a history of hypertension, COPD, alcoholism, hypokalemia and hypomagnesemia here with complaints of marked weakness, chest pain, shortness of breath for past few days. She denies any fever. She states that the pain in the chest is constant in nature. No history of nausea or vomiting. She denies any abdominal pain or rectal bleeding. Onset (ago): day(s) (1) Severity: moderate Pain Consistency: constant Exacerbating factors: none Related Data Home Medications Medication Instructions Recorded Confirmed Advair HFA 2 inh INHALATION BID 08/13/19 08/13/19 Allergies Allergy/AdvReac Type Severity Reaction Status Date / Time No Known Allergies Allergy Unknown Verified 08/18/19 09:33 Review of Systems Review of Systems: All systems reviewed & are unremarkable except as noted in HPI and below Constitutional: Constitutional: Reports no additional constitutional complaints Eyes: Eyes: Reports no additional eye complaints ENT: Reports system reviewed and no additional complaints, except as documented Cardiovascular: Cardiovascular: Reports no additional cardiovascular complaints Respiratory: Respiratory: Reports no additional respiratory complaints Gastrointestinal: Gastrointestinal: Reports no additional gastrointestinal complaints Musculoskeletal: Musculoskeletal: Reports no additional musculoskeletal complaints PMF Surgical History Surgical History History of tubal ligation Hx of cholecystectomy Hx of lumpectomy Family History Family History Mother Chronic kidney disease Alzheimer's dementia Father Cerebrovascular accident Brain cancer Sibling Cancer Social History Social History Social History: The patient stated that she is from her . She has 2 children. Her 1 son who is 40 years old is living with her. She told me that she drinks fire balls up to a pt a day. Patient does not have a durable power regulatory attorney and wishes to be a full code. She smokes up to a pack and half a cigarettes a day. She desires a nicotine patch. She denies any marijuana or street drugs. She is not working and states that she does not get disability but is on SSI Smoking packs per day: 1.5 Smoking cigarettes per day: 30.0 Years smoked: 40 Smoking pack-years: 60.00 Smoking status: Current every day smoker Tobacco type: cigarettes Second hand tobacco smoke exposure: Yes Alcohol intake: current Drinks per week: 10 Substance use: current Substance use type: does not use Other substance usage details: STATES DRANK HALF PINT OF VODKA AND WHISKEY THIS A.M. INTERMITTENT BINGEING Last use: 04/07/2019 Gender identity (if verbalized by the patient): Female Spiritual care concerns: No Agree to blood products: Yes Exam Narrative: Exam Narrative: GENERAL:Ill-appearing, in mild respiratory distress HEAD: Normocephalic, atraumatic. EYES: PERRLA and EOMI. ENT: Nares clear, no rhinorrhea or epistaxis. Mucous membranes moist. NECK: Supple. CHEST: Crackles , Mild resp distress. HEART: Tachycardic ABDOMEN: Soft, nontender, nondistended, normal active bowel sounds. EXTREMITIES: Normal range of motion. No edema. SKIN: Warm, dry, no rash. NEURO: No focal deficits. Alert and oriented x3. PSYCH: Normal mood and affect. Course Vital Signs Vital signs: Vital Signs Temperature 37.4 C 11/12/19 17:13 Pulse Rate 122 H 11/12/19 17:13 Respiratory Rate 24 H 11/12/19 17:13 Pulse Oximetry 93 11/12/19 17:13 Temperature 37.4 C 11/12/19 17:13 Pulse Rate 71 11/12/19 20:35 Resp
[2019-11-12 21:57] LABS: Add Urine Microscopic? YES; Amorphous Sediment Urine Few; Appearance Urine Cloudy (Clear); Bacteria Urine 1+ /hpf; Bilirubin Urine Negative (Negative); Blood Urine 1+ (Negative); Color Urine Yellow (Yellow); Glucose Urine UA Negative (Negative); Ketones Urine Negative (Negative); Leukocyte Esterase Ur 3+ LEU/UL (Negative); Mucus Urine Rare /lpf; Nitrate Urine Negative (Negative); Protein Urine Negative (Negative); RBC Urine 0-2 /hpf (0-2); Specific Grav Ur 1.009 (1.001-1.035); Squamous Epithelial Cell Urine Many /hpf (Few); Urobilinogen Urine Negative mg/dL (<2.0); WBC Clumps Urine Present /HPF; WBC Urine 51-75 /hpf
[2019-11-12 22:19] LABS: Prothrombin Time 12.4 Seconds (11.1-14.7)
--- NOTE | 2019-11-12 22:36 | PM.IMHP ---
H&P: HPI History of Present Illness Date/Time: 11/12/19 21:40 Chief complaint: chest pain, shortness of breath Narrative: The patient reports that she has been short of breath for a couple of days. She has developed chest pain that is worse with deep breathing. She has had a mild cough that is nonproductive mid and is largely unchanged from baseline. She has continued to smoke a pack and half a cigarettes per day. She denies any recent ill contacts and lives at home with her adult son. She has had marked weakness and has been unable to get out of bed Zoila Rao is a 64 year old female with a past medical history of alcoholism, hypokalemia, hypo magnesium E a, and COPD who presented to the ER complaining of shortness of breath and chest pain. she reports that the pain is there even without the deep breathing. She has not had any nausea or vomiting , hematemesis or coffee-ground emesis. She denies any palpitations. She has continued to drink alcohol in drink 3 shots of whiskey prior to coming to the ER. she has been having intermittent black stools on and off for the last week or so. She has been having 2-3 loose stools a day that are watery and or mushy. she has been taking ibuprofen for her body aches and chest discomfort. she denies having any fevers or chills. She denies any dysuria or changes in urinary frequency. She has been lightheaded with standing up. Review of Systems Review of Systems: Narrative: 12 systems were reviewed with pertinent positives and negatives per HPI. Except as documented in the HPI, all other systems were reviewed and are negative. [facility] Past Medical History Medical History (Updated 11/13/19 @ 01:30 by Yara Farley DO) Alcoholism Anxiety Arthritis COPD (chronic obstructive pulmonary disease) DDD (degenerative disc disease) Depression Fatty liver, alcoholic GERD (gastroesophageal reflux disease) Hepatitis Hiatal hernia Hypertension, essential Hyponatremia chronic with sodiums ranging between 127 and 132 Pancreatitis Pancytopenia chronic Peripheral neuropathy Previous known suicide attempt Patient denies Rectal polyp Seasonal allergies T12 compression fracture Tobacco dependence Surgical History Surgical History (Updated 11/13/19 @ 01:30 by Yara Farley DO) Closed fracture of left proximal humerus status post ORIF History of tubal ligation Hx of cholecystectomy Hx of lumpectomy Family History Family History Mother Chronic kidney disease Alzheimer's dementia Father Cerebrovascular accident Brain cancer Sibling Cancer Social History Social History (Updated 11/13/19 @ 01:34 by Yara Farley DO) Social History: The patient stated that she is from her . She has 2 sons. Her 1 son who is 40 years old is living with her. She told me that she drinks fire balls up to a pt a day. She smokes up to a pack and half a cigarettes a day. She denies any marijuana or street drugs. She is not working and states that she does not get disability but is on SSI. Primary care physician: Dr. Nura Puente Code status: Full code She does not have a durable power of corporate attorney for healthcare. Smoking packs per day: 1.5 Smoking cigarettes per day: 30.0 Years smoked: 40 Smoking pack-years: 60.00 Smoking status: Heavy tobacco smoker Tobacco type: cigarettes Second hand tobacco smoke exposure: Yes Alcohol intake: current Alcohol use details: The patient has a long history of alcohol abuse. She states that she drinks whiskey, usually fireball. Substance use: never Additional occupation/education comments: She was a homemaker And raised 2 sons. Gender identity (if verbalized by the patient): Female Spiritual care concerns: No Agree to blood products: Yes Meds Home Medications and Allergies Home Medications Medication Instructions Recor
[2019-11-12] MEDS: MAGNESIUM SULF 4 GM/WATER100ML 4 GM/100 ML BAG IVPB (22:40)
[2019-11-12 22:49] LABS: Reflex Lactic Acid Yes or No Add Lactic
[2019-11-12 23:11] LABS: Lactic Acid 3.3 mmol/L (0.7-2.1)
[2019-11-12 23:19] LABS: NT Pro B Type Natriuretic Pept 827 PG/ML (5-100)
[2019-11-13] VITALS (42 sets, daily range): BP systolic 79–134; BP diastolic 46–73; PULSE 81–105; RESP 16–28; TEMP 36.4–37.1; O2SAT 94–100; BMI 22.7
--- NOTE | 2019-11-13 00:16 | ADMIMU ---
This patient, Shannon Rao, was admitted to ICU status, and placed in Intensive Care Unit-1 at 2353. Patient/family oriented to hospital policies and general routines including ID bracelet, bed and alarms, visiting hours, pain management, procedures, bathroom and other care routines, personal items, smoking policy, room service/diet, and visiting hours. Valuables list has been completed. Information on how to activate the Rapid Response Team has been discussed. Patient/Family are encouraged to report perceived risks to care and to ask questions if they do not understand what they are told or what they should do.
--- NOTE | 2019-11-13 00:30 | ADMGEN ---
This patient, Shannon Rao, was admitted to Intensive Care Unit-1. Patient/family oriented to hospital policies and general routines including ID bracelet, bed and alarms, visiting hours, pain management, procedures, bathroom and other care routines, personal items, smoking policy, room service/diet, and visiting hours. Valuables list has been completed. Information on how to activate the Rapid Response Team has been discussed. Patient/Family are encouraged to report perceived risks to care and to ask questions if they do not understand what they are told or what they should do.
[2019-11-13] MEDS: NOREPINEPHRINE 8 MG/D5W 250 ML 8 MG/250 ML BAG 7.5 MG IV CONT ×2 (01:00→23:36)
[2019-11-13] MEDS: POTASSIUM CHLORIDE 20 MEQ PACKET (FOR LIQUID) 40 MEQ PO (01:34)
[2019-11-13] MEDS: SODIUM CHLORIDE 0.9% IV 1,000 ML 100 ML IV CONT ×2 (01:55→17:28)
[2019-11-13 02:00] LABS: Lactic Acid Reflex 2.8 mmol/L (0.7-2.1)
[2019-11-13 02:11] LABS: Anion Gap 4 mmol/L (8-16); Blood Urea Nitrogen 10 mg/dL (7-17); Calcium 6.4 mg/dL (8.4-10.2); Carbon Dioxide 28 mmol/L (22-30); Chloride 99 mmol/L (98-107); Estimated CRCL calculation 46 ml/min; Estimated Glomerular Filt Rate 56; Glucose 134 mg/dL (65-105); Magnesium 2.2 mg/dL (1.6-2.3); Potassium < 2.0 mmol/L (3.4-5.0); Sodium 131 mmol/L (137-145)
[2019-11-13 02:19] LABS: Troponin I 0.225 ng/mL (0.000-0.034)
--- NOTE | 2019-11-13 02:30 | P.PCNBED_ITS ---
Procedures Central Line Placement Right SC: Central Line Date: 11/13/19 Central Line Time: 00:06 Discussed w/ the patient/family/POA,the placement of a central venous catheter, including its clinical necessity/indication & associated potential risks, benifits and alternatives.: Yes The patient/family/POA understand(s) and acknowledge(s) the need to proceed with central venous catheter insertion as an important element of the patient's clinical management.: Yes Time Out Performed: Yes Patient Position: trendelenburg Patient placed on monitor/pulse ox: Yes Provider Prep: mask, sterile gown, sterile gloves, Max. sterile barrier precautions, cap and hand hygiene with conventional soap/water or alcohol based hand rub Central line prep: 2% Chlorhexidine scrub Local anesthesia used: lidocaine 1% Amount of anesthesia used (ml): 3 Sterile US Technique with sterile gel/sterile probe covers: No ( Landmarks used for placement) Central line lumen inserted: triple Ukrainian: 7 Length (cm): 16 Depth of Insertion (cm): 15 Post procedure: sutured in place, good blood return, all ports aspirated, flushed, capped, tegaderm, hemostatic disc and aseptic technique maintained throughout procedure Post procedure x-ray: tip of catheter in good position and no pneumothorax seen Patient tolerated procedure: well Complications: none
[2019-11-13] MEDS: POTASSIUM CHLORIDE 20 MEQ PACKET (FOR LIQUID) 80 MEQ PO (02:43)
[2019-11-13] MEDS: ACETAMINOPHEN 325 MG TABLET 650 MG PO (04:18)
[2019-11-13] MEDS: THIAMINE HCL 200 MG/2 ML VIAL 100 MG IV PUSH (04:18)
[2019-11-13 07:15] LABS: Anion Gap 4 mmol/L (8-16); Blood Urea Nitrogen 11 mg/dL (7-17); Calcium 6.4 mg/dL (8.4-10.2); Carbon Dioxide 26 mmol/L (22-30); Chloride 101 mmol/L (98-107); Estimated CRCL calculation 46 ml/min; Estimated Glomerular Filt Rate 56; Glucose 135 mg/dL (65-105); Phosphorus 1.7 mg/dL (2.5-4.5); Potassium 2.4 mmol/L (3.4-5.0); Sodium 131 mmol/L (137-145)
[2019-11-13 07:27] LABS: Troponin I 0.162 ng/mL (0.000-0.034)
[2019-11-13 07:34] LABS: Basophils Absolute Auto 0.1 K/mm3 (0.0-0.1); Basophils Percent Auto 0.2 % (0.2-1.2); Hematocrit 27.3 % (37.0-47.0); Hemoglobin 9.7 g/dL (12.0-15.0); Immature Granulocyte Absolute 0.65 K/mm3 (0.00-0.031); Immature Granulocyte Percent A 2.8 % (0-0.5); Lymphocytes Absolute Auto 1.92 K/mm3 (0.9-3.2); Lymphocytes Percent Auto 8.1 % (18.3-44.2); Mean Corpuscular HGB Conc 35.5 g/dl (32-36); Mean Corpuscular Hemoglobin 30.8 pg (26-34); Mean Corpuscular Volume 86.7 fl (80-100); Mean Platelet Volume 9.8 fl (7.4-10.4); Monocytes Absolute Auto 1.2 K/mm3 (0.1-0.6); Monocytes Percent Auto 5.1 % (2.6-8.5); Neutrophils Absolute Auto 19.8 K/mm3 (1.3-6.7); Neutrophils Percent Auto 83.8 % (45.5-73.1); Platelet Count Result 204 k/mm3 (150-375); Red Blood Count 3.15 M/mm3 (4.2-5.4); Red Cell Distribution Width 15.9 % (11.5-14.5); White Blood Count 23.6 K/mm3 (4.5-10.0)
[2019-11-13] MEDS: POTASSIUM CHLORIDE 20 MEQ TABLET 40 MEQ PO (08:21)
[2019-11-13] MEDS: CALCIUM GLUC 2,000 MG/NS 100ML 2,000 MG/100 ML BAG 100 MG IVPB (08:22)
[2019-11-13] MEDS: PANTOPRAZOLE SODIUM IV 40 MG VIAL IV PUSH ×2 (08:28→19:58)
[2019-11-13] MEDS: NICOTINE (*PBKC) 21 MG PATCH 1 PATCH TRANSDERM (08:31)
--- NOTE | 2019-11-13 09:22 | WPDCNINT ---
Assessment and Plan Assessment and plan (1) Septic shock: Code(s): A41.9 - Sepsis, unspecified organism; R65.21 - Severe sepsis with septic shock Status: Acute Assessment and Plan: Septic shock secondary to pneumonia and UTI culture sent and pending IV fluid bolus administered on admission will continue infusion continue Levophed Continue fluid resuscitation and frequent evaluation for titration of the vasopressors to maintain perfusion of vital organs and prevent end organ ischemia and Goal MAP > 65 Blood culture and urine culture pending COVID-19 testing pending patient is on airborne isolation. A right subclavian central line has been placed in the patient has been initiated on Levophed. She is currently on 4 mics with blood pressures a 96/58 them map of 71. monitor lactic acid level (2) Urinary tract infection: Qualifiers: Hematuria presence: without hematuria Urinary tract infection type: site unspecified Qualified Code(s): N39.0 - Urinary tract infection, site not specified Code(s): N39.0 - Urinary tract infection, site not specified Status: Acute Assessment and Plan: Patient is on broad-spectrum antibiotic therapy Will narrow antibiotic coverage depending on culture results (3) Pneumonia: Qualifiers: Laterality: bilateral Lung location: unspecified part of lung Pneumonia type: due to unspecified organism Qualified Code(s): J18.9 - Pneumonia, unspecified organism Code(s): J18.9 - Pneumonia, unspecified organism Status: Acute Assessment and Plan: community-acquired pneumonia versus aspiration continue vancomycin switch cefepime to Zosyn (4) Candidiasis of breast: Code(s): B37.89 - Other sites of candidiasis Status: Acute Assessment and Plan: Antifungal cream has been ordered (5) Electrolyte abnormality: Code(s): E87.8 - Other disorders of electrolyte and fluid balance, not elsewhere classified Status: Acute Assessment and Plan: will give IV potassium phosphate, calcium gluconate. Recheck electrolytes later in the day (6) COPD exacerbation: Code(s): J44.1 - Chronic obstructive pulmonary disease with (acute) exacerbation Status: Acute Assessment and Plan: steroids bronchodilators (7) Alcoholism: Code(s): F10.20 - Alcohol dependence, uncomplicated Status: Chronic Assessment and Plan: patient has history of chronic alcohol abuse and dependence folic acid and thiamine monitor for signs and symptoms of withdrawal (8) Dysphagia: Code(s): R13.10 - Dysphagia, unspecified Status: Acute Assessment and Plan: Patient failed her bedside swallow eval. Continue NPO modified barium swallow (9) Suspected COVID-19 virus infection: Code(s): Z20.828 - Contact with and (suspected) exposure to other viral communicable diseases Status: Acute Assessment and Plan: COVID-19 suspected. SARS-CoV-2 PCR sent and results pending Patient is in Airborne, Droplet and Contact Isolation (10) Neck pain: Code(s): M54.2 - Cervicalgia Status: Acute Assessment and Plan: checked CT of C-spine Patient also has chronic it is cervical spine related pain which is worse now. Patient has had this pain for few days now and has no evidence on history suggestive of spinal cord injury. I do not think cervical immobilization with C-collar is indicated at this time (11) Fall: Code(s): W19.XXXA - Unspecified fall, initial encounter Status: Acute Assessment and Plan: check head CT (12) Chest pain: Code(s): R07.9 - Chest pain, unspecified Status: Acute (13) Elevated troponin: Code(s): R79.89 - Other specified abnormal findings of blood chemistry Status: Acute Assessment and Plan: patient's chest pain appears to be pleuritic in nature fro
[2019-11-13] MEDS: ALBUTEROL SULFATE (*SP) AEROSOL 1 PUFF 6 PUFF INHALATION (09:45)
--- NOTE | 2019-11-13 09:59 | PCSTNOTE ---
Spoke with Nursing; wait for MBS until tomorrow (11/13) due to patient's medical condition.
--- NOTE | 2019-11-13 10:36 | PM.CNCAR ---
Assessment and Plan Assessment and plan (1) Elevated troponin: Code(s): R79.89 - Other specified abnormal findings of blood chemistry Status: Acute Assessment and Plan: likely type 2 infarction. She was hypotensive and troponins are likely secondary to sepsis. She does not describe pain to me but she was markedly short of breath. COVID workup pending. Continue antibiotics. Continue to trend troponins. 2D echocardiogram with Doppler. No aspirin because she is guaiac-positive. Resume lisinopril when able. continue pressors for now (2) Electrolyte abnormality: Code(s): E87.8 - Other disorders of electrolyte and fluid balance, not elsewhere classified Status: Acute Assessment and Plan: Will repeat an EKG now. Continue to replace electrolytes to a potassium greater than 4 and magnesium greater than 2. Magnesium is replaced at this point but potassium is still low. She did have aggressive potassium supplementation earlier today though. Repeat potassium at noon and replace accordingly. (3) Alcoholism: Code(s): F10.20 - Alcohol dependence, uncomplicated Status: Chronic Assessment and Plan: Ongoing (4) Septic shock: Code(s): A41.9 - Sepsis, unspecified organism; R65.21 - Severe sepsis with septic shock Status: Acute Assessment and Plan: urosepsis +/- pneumonia COVID pending History of Present Illness History of Present Illness Consult date/time: 11/13/19 10:36 Requesting physician: Dequan Beard MD Consult reason: Other (NSTEMi) Reason For Visit: chest pain, shortness of breath Narrative: date of service 11/13/2019 Reason for consultation: Positive troponins, non-STEMI, shortness of breath History: Patient is a 64-year-old female who has a history of alcoholism, COPD, tobacco abuse, hypertension, pancytopenia is who presented to the hospital because of severe weakness, shortness of breath. View of the history, there was some complaints of chest pain that was pleuritic in nature. I personally talked to the patient today and she states that she did not have any chest pain at all and she predominantly with describing shortness of breath. She states she was quite short of breath starting about 2:00 p.m. yesterday afternoon. She is coughing also. She is severely hypokalemic and severely hypomagnesemic. As she also shows signs of sepsis. Possible pneumonia and definitely UTI. She denies any recent syncope, paroxysmal nocturnal dyspnea, orthopnea. She does have intermittent swelling which comes and goes and is nothing new. She has some symptoms of orthostasis if she stands up too quickly. No COVID contacts that she is aware of Review of Systems Review of Systems: All systems reviewed & are unremarkable except as noted in HPI and below Constitutional: Constitutional: Reports fatigue, Reports lethargy and Reports weakness Eyes: Eyes: Denies blurry vision ENT: Reports Normal hearing present Cardiovascular: Cardiovascular: Denies chest pain Respiratory: Respiratory: Reports cough and Reports dyspnea Gastrointestinal: Gastrointestinal: Denies abdominal pain Genitourinary: Genitourinary: Denies hematuria Musculoskeletal: Musculoskeletal: Denies neck pain Integumentary/Breasts: Skin/Breast: Denies dry skin Neurologic: Denies confusion Psychiatric: Psychiatric: Denies behavioral changes Endocrine: Endocrine: Denies excessive sweating Hematologic/Lymphatic: Hematologic/Lymphatic: Denies easy bleeding Allergic/Immunologic: Allergic/Immunologic: Denies GI upset with certain foods PMFSH Past Medical History Medical History Alcoholism Anxiety Arthritis COPD (chronic obstructive pulmonary disease) DDD (degenerative disc disease) Depression Fatty liver, alcoholic GERD (gastroesophageal reflux disease) Hepatitis Hiatal hernia Hypertension, essential Hyponatremia chr
[2019-11-13] MEDS: methylPREDNISolone SOD SUCC 125 MG VIAL 60 MG IV PUSH (10:53)
[2019-11-13 11:39] LABS: SARS-CoV-2 RNA PCR Negative
--- NOTE | 2019-11-13 12:00 | ECG_ITS ---
Measurements Intervals [place] Rate: 96 P: 7 WA: 97 QRS: 31 QRSD: 86 T: 52 QT: 452 QTc: 573 Interpretive Statements SINUS RHYTHM WITH SHORT WA INTERVAL LOW QRS VOLTAGE IN PRECORDIAL LEADS ST-T WAVE ABNORMALITY IN ANTEROLATERAL LEADS- CONSIDER ISCHEMIA BASELINE ARTIFACT- I, II, III, AVF, V4-V6 ABNORMAL ECG Electronically Signed On 11-13-2019 15:49:48 CDT by Jose Garcia D.O.
[2019-11-13 13:46] LABS: Hematocrit 26.9 % (37.0-47.0); Hemoglobin 9.4 g/dL (12.0-15.0)
[2019-11-13 13:57] LABS: Magnesium 1.7 mg/dL (1.6-2.3); Phosphorus 4.7 mg/dL (2.5-4.5)
[2019-11-13 14:23] LABS: Anion Gap 5 mmol/L (8-16); Blood Urea Nitrogen 11 mg/dL (7-17); Calcium 6.9 mg/dL (8.4-10.2); Carbon Dioxide 25 mmol/L (22-30); Chloride 104 mmol/L (98-107); Estimated CRCL calculation 46 ml/min; Estimated Glomerular Filt Rate 56; Glucose 140 mg/dL (65-105); Potassium 2.7 mmol/L (3.4-5.0); Sodium 134 mmol/L (137-145)
--- NOTE | 2019-11-13 15:08 | WPDGICN ---
Assessment and Plan Assessment and plan (1) Anemia, unspecified: Qualifiers: Anemia type: unspecified type Qualified Code(s): D64.9 - Anemia, unspecified Code(s): D64.9 - Anemia, unspecified Status: Acute Assessment and Plan: Patient with anemia. Current hemoglobin is very similar to the last several admissions. Appears that she has chronic anemia. Likely secondary to alcoholism bone marrow suppression. Hemoglobin was slightly elevated at the time admission which may be from volume contraction. Given her occult blood in stool follow-up EGD will be planned. tomorrow or within the next several days patient will be maintained on proton pump inhibitor therapy. Previous GI workup in August was essentially unremarkable however a hiatal hernia diverticulosis and hemorrhoids were identified. Plan is to continue monitor hemoglobin. Will follow with you. (2) Occult blood in stools: Code(s): R19.5 - Other fecal abnormalities Status: Acute Assessment and Plan: Patient with occult positive stool. Stool is brown in nature. No obvious bleeding noted occult blood was also identified in August of this year. Attributed to hemorrhoids at that time. Plan is to continue to monitor hemoglobin. No overt bleeding noted currently. (3) Pneumonia: Qualifiers: Laterality: bilateral Lung location: unspecified part of lung Pneumonia type: due to unspecified organism Qualified Code(s): J18.9 - Pneumonia, unspecified organism Code(s): J18.9 - Pneumonia, unspecified organism Status: Acute Assessment and Plan: Patient admitted with shortness of breath active pneumonia. Significant leukocytosis. Likely accounts for her septic shock at the time of presentation. (4) Alcoholism: Code(s): F10.20 - Alcohol dependence, uncomplicated Status: Chronic Assessment and Plan: Patient has ongoing alcohol abuse. Heavy intake noted. Elevated LFTs pancytopenia last admission was attributed to alcoholism. Anemia likely on this basis. Will continue to encourage alcohol rehab. (5) COPD (chronic obstructive pulmonary disease): Qualifiers: COPD type: unspecified COPD Qualified Code(s): J44.9 - Chronic obstructive pulmonary disease, unspecified Code(s): J44.9 - Chronic obstructive pulmonary disease, unspecified Status: Chronic GI Consult Note Consult date/time: 11/13/19 15:08 HPI: Shannon Rao is a 64 year old female Seen in evaluation at the request of the academic advisement director service. Patient Was found to be chronically anemic with Hemoccult-positive stools. Patient has a long history of alcoholism. she states she has been progressively short of breath and upon presenting to the emergency room found to be anemic. Ultimately felt to be in septic shock and transferred to the intensive care unit with low blood pressure. she denies any obvious signs of GI bleeding although stool was found to be Hemoccult positive. Her current hemoglobin is very similar to previous admissions most recently in August of this year. In August patient was found to have anemia with occult blood in the stools an EGD revealed a hiatal hernia colonoscopy revealed internal hemorrhoids and diverticulosis. Patient has no significant active bleeding. She denies any bruising. She has had no visible blood in her urine or stools. Patient admits to ongoing heavy regular alcohol use. Family history is noncontributory. Review of Systems Review of Systems: All systems reviewed & are unremarkable except as noted in HPI and below PMFSH Past Medical History Medical History Alcoholism Anxiety Arthritis COPD (chronic obstructive pulmonary disease) DDD (degenerative disc disease) Depression Fatty liver, alcoholic GERD (gastroesophageal reflux disease) Hepatitis Hiatal hernia Hypertension, essential Hyponatremia chronic with sodi
[2019-11-13] MEDS: CALCIUM CHLOR 1,000MG/100ML NS 1,000 MG/100 ML BAG 100 MG IVPB (15:17)
--- NOTE | 2019-11-13 16:01 | PM.IMPN ---
Progress Note: A&P Assessment and Plan (1) Septic shock: Code(s): A41.9 - Sepsis, unspecified organism; R65.21 - Severe sepsis with septic shock Status: Acute Assessment and Plan: Septic shock supported by clinical factors of hypotension unresponsive to IV fluids, persistent lactic acidosis, elevated bilirubin, marked leukocytosis, and initial tachycardia that has subsequently resolved. possibly due to pneumonia or UTI. Blood culture and urine culture pending COVID-19 testing pending patient is on airborne isolation. The patient received 3 L of isotonic fluids in the ER which is nearly double her 30 mL/kilos recommended amount. Her cheetah score was 1.9 % indicating she is not fluid responsive. She remains hypotensive. A right subclavian central line has been placed in the patient has been initiated on Levophed. She is currently on 4 mics with blood pressures a 96/58 them map of 71. The patient is usually pancytopenic but has marked leukocytosis at this time. She continues to have lactic acidosis a repeat lactic acid level has been ordered. 11/13/19 16:01 patient is 64-year-old female with a history of alcohol abuse and had a 3 drinks before coming to emergency department with complaint of tired fatigue was unable to ambulate patient also complains of chest pain and black tarry stools and has anemia initially patient was admitted in IMU however patient developed hypotension most likely secondary to severe sepsis as patient has elevated leukocytosis, and lactic acid tachycardia tachypnea and possibly source of infection pneumonia and UTI, patient is on Levophed patient is ICU seen by plate mill hand, patient with complaint of chest and elevated tropes seen by Cardiology service suspect type 2 moderately infarcts most likely secondary to shortness of breath and sepsis unlikely secondary to acute coronary syndrome,, and patient with anemia black tarry stool she is seen by GI to further evaluate recommending EGD possibly and couple of days once clinically stable. (2) Urinary tract infection: Qualifiers: Hematuria presence: without hematuria Urinary tract infection type: site unspecified Qualified Code(s): N39.0 - Urinary tract infection, site not specified Code(s): N39.0 - Urinary tract infection, site not specified Status: Acute Assessment and Plan: Patient is on broad-spectrum antibiotic therapy with cefepime and vancomycin. Will narrow antibiotic coverage depending on culture results (3) Pneumonia: Qualifiers: Laterality: bilateral Lung location: unspecified part of lung Pneumonia type: due to unspecified organism Qualified Code(s): J18.9 - Pneumonia, unspecified organism Code(s): J18.9 - Pneumonia, unspecified organism Status: Acute Assessment and Plan: after IV fluid hydration the patient's right lower lobe looks much more suspicious for pneumonia compared to previous. (4) Candidiasis of breast: Code(s): B37.89 - Other sites of candidiasis Status: Acute Assessment and Plan: Antifungal cream has been ordered (5) Hypomagnesemia: Code(s): E83.42 - Hypomagnesemia Status: Acute Assessment and Plan: the patient received to 4 gram magnesium sulfate rider in the ER. Stat repeat labs have been ordered. (6) Hypokalemia: Code(s): E87.6 - Hypokalemia Status: Acute Assessment and Plan: Severe hypokalemia most likely due to the patient's heavy alcohol use and poor nutrition. The patient has already received 40 mEq of potassium chloride IV and 40 mEq p.o.. Repeat potassium levels pending. Additional Plan 75 minutes spent in critical care activities excluding procedures. Due to a high probability of clinically significant, life threatening deterioration, the patient required my highest level of preparedness to intervene emergently and I personally spent this critical ca
[2019-11-13] MEDS: MAGNESIUM SULF 2 GM/WATER 50ML 2 GM/50 ML BAG IVPB (17:05)
[2019-11-13 19:46] LABS: IFOB Positive Control Positive; Immunochemical Fecal Occult Bl Positive (N)
[2019-11-13] MEDS: ALBUTEROL SULFATE NEB 2.5 MG/0.5 ML INH INHALATION (21:06)
[2019-11-13 21:18] LABS: Hematocrit 23.8 % (37.0-47.0); Hemoglobin 8.3 g/dL (12.0-15.0)
[2019-11-13 21:31] LABS: Anion Gap 1 mmol/L (8-16); Blood Urea Nitrogen 11 mg/dL (7-17); Calcium 7.6 mg/dL (8.4-10.2); Carbon Dioxide 24 mmol/L (22-30); Chloride 109 mmol/L (98-107); Estimated CRCL calculation 51 ml/min; Estimated Glomerular Filt Rate > 60; Glucose 133 mg/dL (65-105); Potassium 3.4 mmol/L (3.4-5.0); Sodium 134 mmol/L (137-145)
[2019-11-14] VITALS (24 sets, daily range): BP systolic 92–117; BP diastolic 49–79; PULSE 20–114; RESP 11–83; TEMP 36.3–36.6; O2SAT 93–100; BMI 23.5
--- NOTE | 2019-11-14 | ECHO_ITS ---
Patient Info Name: Shannon Rao Age: 64 years : 1955 Gender: Female Ht: 66 in Wt: 142 lbs BSA: 1.74 m2 HR: 97 bpm BP: 117 / 62 mmHg Heart Rhythm: Sinus Rhythm Technical Quality: Good Exam Date: 11/14/2019 9:38 AM Exam Location: [facility] Patient Status: Inpatient Admit Date: 11/12/2019 Staff Ordering Physician: Dequan Beard MD Blister Pack Operator: Trell Mccurdy RDCS, RT Attending Provider: Yara Farley DO Exam Type: CA echo dop color flow w con Study Info Indications I50.9 - Heart failure, unspecified Complete two-dimensional, color flow and Doppler transthoracic echocardiogram is performed with contrast to opacify the left ventricle and to improve the deliniation of the left ventricle endocardial borders. Summary 1. Left ventricular systolic function is normal, estimated at 60-65%. 2. There is mildly increased left ventricular wall thickness. 3. The left ventricular diastolic function is grade I diastolic dysfunction. 4. 1.5 x 1.2 cm fixed echogenic mass within the right atrium on the interatrial septum. Consider KENDALL. Clinical correlation advised. 5. There is trace mitral valve regurgitation. 6. There is mild tricuspid valve regurgitation. 7. No pulmonary hypertension, estimated pulmonary arterial systolic pressure is 33 mmHg. 8. There is small pericardial effusion. Left Ventricle Left ventricular chamber dimension is normal. Left ventricular systolic function is normal, estimated at 60-65%. There is mildly increased left ventricular wall thickness. The left ventricular diastolic function is grade I diastolic dysfunction. Right Ventricle Right ventricular chamber dimension is normal. Right ventricular systolic function is normal. Left Atria Left atrial chamber dimension is normal. Right Atria Right atrial chamber dimension is normal. Atrial Septum 1.5 x 1.2 cm fixed echogenic mass within the right atrium on the interatrial septum. Consider KENDALL. Clinical correlation advised. Aortic Valve The aortic valve is not well visualized. There is no aortic valve stenosis. There is no aortic valve regurgitation. Pulmonic Valve The pulmonic valve is not well visualized. Mitral Valve The mitral valve has normal leaflets. There is trace mitral valve regurgitation. There is mild mitral valve calcification. Tricuspid Valve The tricuspid valve leaflets are normal. There is mild tricuspid valve regurgitation. No pulmonary hypertension, estimated pulmonary arterial systolic pressure is 33 mmHg. Pericardium/Pleural The pericardium appears normal. There is small pericardial effusion. Inferior Vena Cava Normal inferior vena cava with >50% collapse upon inspiration consistent with normal right atrial pressure, 5 mmHg. Aorta The aortic root size at the sinus of Valsalva is normal. Left Ventricular Outflow Tract Name Value Normal LVOT 2D LVOT Diameter 2.09 cm LVOT Doppler LVOT Peak Gradient 3 mmHg LVOT Mean Gradient 1 mmHg LVOT VTI 14.68 cm LVOT VTI/AV VTI Ratio 0.
[2019-11-14] MEDS: ALBUTEROL SULFATE NEB 2.5 MG/0.5 ML INH INHALATION ×4 (02:16→21:36)
[2019-11-14] MEDS: SODIUM CHLORIDE 0.9% IV 1,000 ML 100 ML IV CONT (03:18)
[2019-11-14 03:30] LABS: Hematocrit 23.9 % (37.0-47.0); Hemoglobin 8.4 g/dL (12.0-15.0); Mean Corpuscular HGB Conc 35.1 g/dl (32-36); Mean Corpuscular Hemoglobin 31.2 pg (26-34); Mean Corpuscular Volume 88.8 fl (80-100); Mean Platelet Volume 10.1 fl (7.4-10.4); Platelet Count Result 153 k/mm3 (150-375); Red Blood Count 2.69 M/mm3 (4.2-5.4); Red Cell Distribution Width 16.3 % (11.5-14.5)
[2019-11-14 03:48] LABS: Alanine Aminotransferase 16 U/L (4-35); Albumin Level 1.9 g/dL (3.5-5.1); Alkaline Phosphatase 105 U/L (38-126); Anion Gap 3 mmol/L (8-16); Aspartate Amino Transferase 21 U/L (14-36); Bilirubin,Total 1.1 mg/dL (0.2-1.3); Blood Urea Nitrogen 11 mg/dL (7-17); Calcium 7.4 mg/dL (8.4-10.2); Carbon Dioxide 24 mmol/L (22-30); Chloride 108 mmol/L (98-107); Estimated CRCL calculation 51 ml/min; Estimated Glomerular Filt Rate > 60; Glucose 108 mg/dL (65-105); Magnesium 2.1 mg/dL (1.6-2.3); Phosphorus 2.6 mg/dL (2.5-4.5); Potassium 2.8 mmol/L (3.4-5.0); Sodium 135 mmol/L (137-145)
--- NOTE | 2019-11-14 08:08 | WPDGIPROGNO ---
Progress Note: A&P Additional Plan Patient alert this morning. Breathing easier. Still remains on pressor agents. No obvious active bleeding described by nursing staff. Physical exam reveals patient to be alert. She is anicteric. Lungs with few rhonchi. Heart without murmur. Abdomen soft nontender with no hepatosplenomegaly. Labs reveal hemoglobin 8.4, hematocrit 23.9,. Stool heme positive. Impression 1. Chronic anemia. Slight decline in hemoglobin identified. Stool Hemoccult positive. EGD 2 months ago unremarkable. Will plan to repeat EGD over the next 1-2 days hopefully when she no longer requires pressor agents. 2. Pneumonia. Patient with septic shock apparently on this basis. Remains on pressor agents at this time. 3. Alcohol abuse. Patient will need to avoid alcohol. Subjective Date/time seen: 11/14/19 08:08 Objective Data Vital Signs Vital Signs: Vital Signs - 24 hr 11/13/19 10:00 11/13/19 10:14 11/13/19 11:00 Temperature Pulse Rate 99 Pulse Rate [Bilateral Pedal (Dorsalis Pedis) Palpation] Pulse Rate [Monitor] Respiratory Rate 20 Blood Pressure 103/59 L 83/52 L Pulse Oximetry 99 96 11/13/19 12:00 11/13/19 13:00 11/13/19 14:00 Temperature 98 F Pulse Rate 98 93 Pulse Rate [Bilateral Pedal (Dorsalis Pedis) Palpation] Pulse Rate [Monitor] Respiratory Rate 18 18 Blood Pressure 94/57 L 106/65 100/55 L Pulse Oximetry 99 100 11/13/19 16:00 11/13/19 17:00 11/13/19 18:00 Temperature 98.8 F Pulse Rate 95 94 Pulse Rate [Bilateral Pedal (Dorsalis Pedis) Palpation] Pulse Rate [Monitor] Respiratory Rate 20 18 Blood Pressure 106/68 126/73 116/67 Pulse Oximetry 98 99 11/13/19 19:00 11/13/19 19:41 11/13/19 20:00 Temperature 97.5 F L Pulse Rate 94 90 Pulse Rate [Bilateral Pedal (Dorsalis Pedis) Palpation] 90 Pulse Rate [Monitor] 90 Respiratory Rate 21 H 21 H Blood Pressure 118/46 L 106/66 Pulse Oximetry 100 100 11/13/19 21:00 11/13/19 21:07 09/07/20 21:14 Temperature Pulse Rate 82 82 81 Pulse Rate [Bilateral Pedal (Dorsalis Pedis) Palpation] Pulse Rate [Monitor] Respiratory Rate 18 18 16 Blood Pressure 96/58 L Pulse Oximetry 100 11/13/19 21:15 11/13/19 22:00 11/13/19 22:01 Temperature Pulse Rate 82 Pulse Rate [Bilateral Pedal (Dorsalis Pedis) Palpation] Pulse Rate [Monitor] Respiratory Rate 17 Blood Pressure 82/52 L 82/52 L Pulse Oximetry 100 100 11/13/19 23:36 11/13/19 23:59 11/14/19 00:00 Temperature 97.7 F Pulse Rate 85 85 82 Pulse Rate [Bilateral Pedal (Dorsalis Pedis) Palpation] 83 Pulse Rate [Monitor] Respiratory Rate 19 83 H Blood Pressure 99/59 L 102/60 Pulse Oximetry 100 100 11/14/19 01:01 11/14/19 02:00 11/14/19 02:17 Temperature Pulse Rate 83 88 85 Pulse Rate [Bilateral Pedal (Dorsalis Pedis) Palpation] Pulse Rate [Monitor] Respiratory Rate 17 23 H 16 Blood Pressure 101/64 114/74 Pulse Oximetry 100 100 11/14/19 02:24 11/14/19 03:05 11/14/19 03:29 Temperature Pulse Rate 84 84 Pulse Rate [Bilateral Pedal (Dorsalis Pedis) Palpation] 81 Pulse Rate [Monitor] Respiratory Rate 16 16 Blood Pressure Pulse Oximetry 100 11/14/19 04:00 11/14/19 06:00 11/14/19 07:52 Temperature 97.9 F Pulse Rate 81 87 99 Pulse Rate [Bilateral Pedal (Dorsalis Pedis) Palpation] Pulse Rate [Monitor] Respiratory Rate 19 21 H 16 Blood Pressure 115/63 117/62 Pulse Oximetry 95 97 11/14/19 07:55 11/14/19 07:59 Temperature Pulse Rate 92 Pulse Rate [Bilateral Pedal (Dorsalis Pedis) Palpation] Pulse Rate [Monitor] Respiratory Rate 16 Blood Pressure Pulse Oximetry 99 Intake/Output Intake/Output: Intake & Output 11/11/19 11/12/19 11/13/19 11/14/19 23:59 23:59 23:59 23:59 Intake Total 1000 3480 1300 Output Total 550 420 Balance 1000 2930 880 Meds/Results Medications: Active Medications Generic Name
--- NOTE | 2019-11-14 08:58 | PCSTNOTE ---
Please refer to the Modified Barium Swallow Evaluation in the EMR.
[2019-11-14] MEDS: FOLIC ACID 1 MG/0.2 ML INJ IV PUSH (09:38)
[2019-11-14] MEDS: THIAMINE HCL 200 MG/2 ML VIAL 100 MG IV PUSH (09:38)
[2019-11-14] MEDS: LIDOCAINE 5% PATCH 1 PATCH TRANSDERM (09:38)
[2019-11-14] MEDS: PANTOPRAZOLE SODIUM IV 40 MG VIAL IV PUSH ×2 (09:39→20:07)
[2019-11-14] MEDS: methylPREDNISolone SOD SUCC 125 MG VIAL 60 MG IV PUSH (09:49)
[2019-11-14 10:01] LABS: Potassium 3.3 mmol/L (3.4-5.0)
[2019-11-14] MEDS: PERFLUTREN LIPID MICROSPHERES 1.5 ML VIAL DILUTED TO 10 ML TOTAL VOLUME IV PUSH (10:12)
--- NOTE | 2019-11-14 11:30 | WPDINTPN ---
Progress Note: A&P Assessment and Plan (1) Septic shock: Code(s): A41.9 - Sepsis, unspecified organism; R65.21 - Severe sepsis with septic shock Status: Acute Assessment and Plan: Septic shock secondary to pneumonia and UTI culture sent IV fluid bolus administered on admission will continue infusion continue Levophed Continue fluid resuscitation and frequent evaluation for titration of the vasopressors to maintain perfusion of vital organs and prevent end organ ischemia and Goal MAP > 65 urine cultures growing E coli. Blood and sputum cultures are negative as of now (2) Urinary tract infection: Qualifiers: Hematuria presence: without hematuria Urinary tract infection type: site unspecified Qualified Code(s): N39.0 - Urinary tract infection, site not specified Code(s): N39.0 - Urinary tract infection, site not specified Status: Acute Assessment and Plan: patient growing E coli from urine culture. Susceptibilities are pending. New Zosyn (3) Pneumonia: Qualifiers: Laterality: bilateral Lung location: unspecified part of lung Pneumonia type: due to unspecified organism Qualified Code(s): J18.9 - Pneumonia, unspecified organism Code(s): J18.9 - Pneumonia, unspecified organism Status: Acute Assessment and Plan: community-acquired pneumonia versus aspiration continue Zosyn. Will discontinue vancomycin as cultures are negative (4) Candidiasis of breast: Code(s): B37.89 - Other sites of candidiasis Status: Acute Assessment and Plan: Antifungal cream has been ordered (5) Electrolyte abnormality: Code(s): E87.8 - Other disorders of electrolyte and fluid balance, not elsewhere classified Status: Acute Assessment and Plan: potassium has improved although it is still abnormally low. Replacement ordered will also replace calcium Recheck electrolytes later in the day (6) COPD exacerbation: Code(s): J44.1 - Chronic obstructive pulmonary disease with (acute) exacerbation Status: Acute Assessment and Plan: steroids bronchodilators (7) Alcoholism: Code(s): F10.20 - Alcohol dependence, uncomplicated Status: Chronic Assessment and Plan: patient has history of chronic alcohol abuse and dependence folic acid and thiamine monitor for signs and symptoms of withdrawal (8) Dysphagia: Code(s): R13.10 - Dysphagia, unspecified Status: Acute Assessment and Plan: Patient failed her Barium swallow modified today modify diet order as per speech recommendations (9) Suspected COVID-19 virus infection: Code(s): Z20.828 - Contact with and (suspected) exposure to other viral communicable diseases Status: Acute Assessment and Plan: COVID-19 ruled out. SARS-CoV-2 PCR was negative Patient was on Airborne, Droplet and Contact Isolation which now has been discontinued. (10) Neck pain: Code(s): M54.2 - Cervicalgia Status: Acute Assessment and Plan: CT of C-spine IMPRESSION: Reversal of cervical curvature Degenerative changes No fracture or dislocation Patient also has chronic it is cervical spine related pain which is worse now. Lidoderm patch and p.r.n. analgesic (11) Fall: Code(s): W19.XXXA - Unspecified fall, initial encounter Status: Acute Assessment and Plan: head CT showed IMPRESSION: No skull fracture or acute intracranial finding (12) Chest pain: Code(s): R07.9 - Chest pain, unspecified Status: Acute (13) Elevated troponin: Code(s): R79.89 - Other specified abnormal findings of blood chemistry Status: Acute Assessment and Plan: patient's chest pain appears to be pleuritic in nature from history and has resolved now. Patient Did have abnormal EKG and slightly elevated troponin which could be secondary to sepsis and respirator
[2019-11-14] MEDS: POTASSIUM CHLORIDE 20 MEQ PACKET (FOR LIQUID) 40 MEQ PO ×2 (12:20→16:01)
[2019-11-14] MEDS: DEXTROSE 5%/0.45% SOD CHL 1,000 ML 50 ML IV CONT (12:25)
--- NOTE | 2019-11-14 12:25 | PM.PNCARD ---
Progress Note: A&P Assessment and Plan (1) Elevated troponin: Code(s): R79.89 - Other specified abnormal findings of blood chemistry Status: Acute Assessment and Plan: likely type 2 infarction secondary to hypotension and sepsis/shock. COVID negative. 2D echocardiogram with Doppler. No aspirin because she is guaiac-positive. Resume lisinopril when able. continue pressors for now. 2D echocardiogram today personally reviewed EF 60-65%, 1.5 x 1.2 cm fixed echogenic mass at the interatrial septum within the right atrium. Consider KENDALL. No evidence of valvular vegetation/endocarditis. (2) Electrolyte abnormality: Code(s): E87.8 - Other disorders of electrolyte and fluid balance, not elsewhere classified Status: Acute Assessment and Plan: Continue to replace electrolytes to a potassium greater than 4 and magnesium greater than 2. Magnesium is replaced at this point but potassium is still low. continue to replete. (3) Alcoholism: Code(s): F10.20 - Alcohol dependence, uncomplicated Status: Chronic Assessment and Plan: Ongoing , per primary service. (4) Septic shock: Code(s): A41.9 - Sepsis, unspecified organism; R65.21 - Severe sepsis with septic shock Status: Acute Assessment and Plan: urosepsis +/- pneumonia COVID Negative. Subjective Date/time seen: Date of service: 11/14/19 12:25 Follow-up for elevated troponin, shortness of breath patient states she is feeling better, still somewhat short of breath but improving. Denies chest pain. Feels weak. sitting up to eat this morning. Complains of soreness on her buttock which is being addressed. No new issues overnight. Remains on Levophed. Remains on antibiotics for pneumonia and UTI. Review of Systems Review of Systems: All systems reviewed & are unremarkable except as noted in HPI and below Constitutional: Constitutional: Denies excessive sweating, Reports fatigue, Reports lethargy and Reports weakness Eyes: Eyes: Denies blurry vision ENT: Reports Normal hearing present and Denies neck pain Cardiovascular: Cardiovascular: Denies chest pain and Reports dyspnea Respiratory: Respiratory: Reports cough and Reports dyspnea Gastrointestinal: Gastrointestinal: Denies abdominal pain Genitourinary: Genitourinary: Denies hematuria Musculoskeletal: Musculoskeletal: Denies neck pain Integumentary/Breasts: Skin/Breast: Denies dry skin Neurologic: Reports Normal hearing present, Denies behavioral changes, Denies confusion and Reports weakness Psychiatric: Psychiatric: Denies behavioral changes and Denies confusion Endocrine: Endocrine: Denies excessive sweating and Reports fatigue Hematologic/Lymphatic: Hematologic/Lymphatic: Denies easy bleeding Allergic/Immunologic: Allergic/Immunologic: Denies GI upset with certain foods Exam Narrative: Exam Narrative: alert oriented. Pleasant Const: General: comfortable and no acute distress; No confusion Orientation/consciousness: No confusion HENMT: General nose exam: Normal nares present Eyes: Sclera: sclerae normal Neck: Neck: no JVD Chest: Other: no reproducible chest wall pain to palpation Resp: Auscultation: wheezes and diminished lung sounds Cardio: Rate: regular rate Rhythm: regular rhythm Heart sounds: S1 normal heart sound present, S2 normal heart sound present and no murmurs Skin: General skin exam: normal color Neuro: General: No confusion Cranial nerves: Yes Normal hearing present Cognition (Neuro): normal cognition Speech: normal speech Extrem: General: normal to inspection and no edema Psych: Mental Status: mental status grossly normal Objective Data Vital Signs Vital Signs: Vital Signs - 24 hr 11/13/19 13:00 11/13/19 14:00 11/13/19 16:00 Temperature 37.1 C Pulse Rate 93 95 Pulse Rate [Bilateral Pedal (Dorsalis Pedis) Palpation] Pulse Rate [Monitor] Respiratory Rate 18 20
--- NOTE | 2019-11-14 13:29 | PM.IMPN ---
Progress Note: A&P Assessment and Plan (1) Septic shock: Code(s): A41.9 - Sepsis, unspecified organism; R65.21 - Severe sepsis with septic shock Status: Acute Assessment and Plan: Most likely due to PNA and UTI Continue zosyn, vancomycin was stopped. She still on vasopressors. (2) Pneumonia: Qualifiers: Laterality: bilateral Lung location: unspecified part of lung Pneumonia type: due to unspecified organism Qualified Code(s): J18.9 - Pneumonia, unspecified organism Code(s): J18.9 - Pneumonia, unspecified organism Status: Acute Assessment and Plan: On zosyn. (3) Urinary tract infection: Qualifiers: Hematuria presence: without hematuria Urinary tract infection type: site unspecified Qualified Code(s): N39.0 - Urinary tract infection, site not specified Code(s): N39.0 - Urinary tract infection, site not specified Status: Acute Assessment and Plan: Zosyn (4) GI bleed: Code(s): K92.2 - Gastrointestinal hemorrhage, unspecified Status: Acute Assessment and Plan: Occult blood was positive. GI planning to repeat upper endoscopy once she is off pressors. (5) Alcohol withdrawal: Qualifiers: Complication of substance-induced condition: uncomplicated Qualified Code(s): F10.230 - Alcohol dependence with withdrawal, uncomplicated Code(s): F10.239 - Alcohol dependence with withdrawal, unspecified Status: Acute Assessment and Plan: Not on severe withdrawal at this time. (6) Elevated troponin: Code(s): R79.89 - Other specified abnormal findings of blood chemistry Status: Acute Assessment and Plan: Likely demand ischemia due to sepsis and hypotension. Echocardiogram pending. (7) Suspected COVID-19 virus infection: Code(s): Z20.828 - Contact with and (suspected) exposure to other viral communicable diseases Status: Acute Assessment and Plan: Negative PCR Subjective Date/time seen: Pt seen and examined, still coughing significantly but no other complains. 11/14/19 13:29 Review of Systems Review of Systems: All systems reviewed & are unremarkable except as noted in HPI and below Exam Const: General: comfortable and no acute distress Other: Looks chronically ill. Neck: Neck: supple and no JVD Resp: Auscultation: crackles, rhonchi and wheezes Other: Coarse breath sounds, not using accessory muscles to breath. Cardio: Rate: regular rate Rhythm: regular rhythm GI: Other: Soft, non tender Objective Data Vital Signs Vital Signs: Vital Signs - 24 hr 11/13/19 14:00 11/13/19 16:00 11/13/19 17:00 Temperature 98.8 F Pulse Rate 93 95 Pulse Rate [Bilateral Pedal (Dorsalis Pedis) Palpation] Pulse Rate [Monitor] Respiratory Rate 18 20 Blood Pressure 100/55 L 106/68 126/73 Pulse Oximetry 100 98 11/13/19 18:00 11/13/19 19:00 11/13/19 19:41 Temperature Pulse Rate 94 94 Pulse Rate [Bilateral Pedal (Dorsalis Pedis) Palpation] 90 Pulse Rate [Monitor] 90 Respiratory Rate 18 21 H Blood Pressure 116/67 118/46 L Pulse Oximetry 99 100 11/13/19 20:00 11/13/19 21:00 11/13/19 21:07 Temperature 97.5 F L Pulse Rate 90 82 82 Pulse Rate [Bilateral Pedal (Dorsalis Pedis) Palpation] Pulse Rate [Monitor] Respiratory Rate 21 H 18 18 Blood Pressure 106/66 96/58 L Pulse Oximetry 100 100 11/13/19 21:14 11/13/19 21:15 11/13/19 22:00 Temperature Pulse Rate 81 82 Pulse Rate [Bilateral Pedal (Dorsalis Pedis) Palpation] Pulse Rate [Monitor] Respiratory Rate 16 17 Blood Pressure 82/52 L Pulse Oximetry 100 100 11/13/19 22:01 11/13/19 23:36 11/13/19 23:59 Temperature Pulse Rate 85 85 Pulse Rate [Bilateral Pedal (Dorsalis Pedis) Palpation] Pulse Rate [Monitor] Respiratory Rate 19 Blood Pressure 82/52 L 99/59 L Pulse Oximetry 100 11/14/19 00:00 11/14/19 01:01 11/14/19 02:
[2019-11-14 14:23] LABS: Hematocrit 23.7 % (37.0-47.0); Hemoglobin 8.1 g/dL (12.0-15.0)
[2019-11-14] MEDS: CALCIUM CARBONATE (OSCAL) 500 MG TABLET PO (16:00)
[2019-11-14] MEDS: chlordiazePOXIDE 25 MG CAPSULE PO (16:00)
[2019-11-14 18:29] LABS: Anion Gap 1 mmol/L (8-16); Blood Urea Nitrogen 9 mg/dL (7-17); Calcium 7.2 mg/dL (8.4-10.2); Carbon Dioxide 23 mmol/L (22-30); Chloride 114 mmol/L (98-107); Estimated CRCL calculation 57 ml/min; Estimated Glomerular Filt Rate > 60; Glucose 93 mg/dL (65-105); Magnesium 1.5 mg/dL (1.6-2.3); Potassium 3.8 mmol/L (3.4-5.0); Sodium 138 mmol/L (137-145)
[2019-11-14] MEDS: SERTRALINE HCL 50 MG TABLET 100 MG PO (20:06)
[2019-11-15] VITALS (23 sets, daily range): BP systolic 85–128; BP diastolic 50–84; PULSE 77–121; RESP 18–33; TEMP 35.9–36.9; O2SAT 87–99
[2019-11-15] MEDS: ALBUTEROL SULFATE NEB 2.5 MG/0.5 ML INH INHALATION ×4 (01:04→21:09)
[2019-11-15 04:45] LABS: Carboxyhemoglobin 0.3 % THb (0-2.0); Fractional Inspired Oxygen 28 %; HCO3 ABG 20.8 mEq/l (22.0-26.0); Methemoglobin ABG 0.6 %THb (0-1.5); Oxygen Saturation ABG 90.2 % (95.0-100.0); Oxyhemoglobin 87.7 % THb (90.0-100.0); PCO2 ABG 32.1 mmHg (35.0-45.0); PO2 ABG 55.8 mmHg (80.0-100.0); PO2 FiO2 Ratio Arterial Blood 1.99 %; Reduced Hemoglobin 11.4 %THb (0-5.0); Total Hemoglobin 8.9 g/dL (12.0-18.0); pH ABG 7.429 (7.350-7.450)
[2019-11-15 04:47] LABS: Device NASAL CANNULA; Modified Allen's Test Pass; Site Drawn RIGHT RADIAL
[2019-11-15 04:48] LABS: Hematocrit 23.6 % (37.0-47.0); Hemoglobin 8.1 g/dL (12.0-15.0); Mean Corpuscular HGB Conc 34.3 g/dl (32-36); Mean Corpuscular Hemoglobin 31.4 pg (26-34); Mean Corpuscular Volume 91.5 fl (80-100); Platelet Count Result 132 k/mm3 (150-375); Red Blood Count 2.58 M/mm3 (4.2-5.4); Red Cell Distribution Width 16.9 % (11.5-14.5); White Blood Count 13.9 K/mm3 (4.5-10.0)
[2019-11-15 05:00] LABS: Alanine Aminotransferase 15 U/L (4-35); Albumin Level 1.9 g/dL (3.5-5.1); Alkaline Phosphatase 99 U/L (38-126); Anion Gap 1 mmol/L (8-16); Aspartate Amino Transferase 21 U/L (14-36); Blood Urea Nitrogen 7 mg/dL (7-17); Calcium 7.1 mg/dL (8.4-10.2); Carbon Dioxide 23 mmol/L (22-30); Chloride 114 mmol/L (98-107); Estimated CRCL calculation 65 ml/min; Estimated Glomerular Filt Rate > 60; Glucose 98 mg/dL (65-105); Magnesium 1.3 mg/dL (1.6-2.3); Potassium 3.7 mmol/L (3.4-5.0); Sodium 138 mmol/L (137-145)
[2019-11-15] MEDS: LACTATED RINGERS 1,000 ML 150 ML IV CONT (08:33)
--- NOTE | 2019-11-15 08:41 | WPDANESEPPF ---
Anes - Initial Pre Proc Eval Procedure: Operation Date: 11/15/19 09:00 Proposed Procedures p Esophagogastroduodenoscopy - Ricky Ricketts MD Date/Time: 11/15/19 08:41 Surgeon: Yara Farley DO Pre Op Diagnosis: chest pain, shortness of breath Patient Data Age: 64 Gender: F Height: 5 ft 6 in Weight: 66 kg Last Vital Signs Temp 36.8 C 11/15/19 08:34 Pulse 105 H 11/15/19 08:34 Resp 18 11/15/19 08:34 BP 100/66 11/15/19 08:34 Pulse Ox 94 11/15/19 08:35 Allergies Allergy/AdvReac Type Severity Reaction Status Date / Time No Known Allergies Allergy Unknown Verified 08/18/19 09:33 Home Medications Medication Instructions Recorded Confirmed Type lisinopril 10 mg PO DAILY #30 tablet 01/06/19 11/13/19 Rx sertraline 100 mg PO HS #30 tablet 01/06/19 11/13/19 Rx Advair HFA 2 inh INHALATION BID 08/13/19 11/13/19 History albuterol sulfate [Proventil HFA] 2 puff INHALATION QIDRT PRN #1 inh 08/20/19 11/13/19 Rx folic acid 1 mg PO DAILY #100 tablet 08/20/19 11/13/19 Rx gabapentin 100 mg PO TID #90 cap 08/20/19 11/13/19 Rx lidocaine [Lidoderm] 2 patch TRANSDERMAL DAILY #20 ea 08/20/19 11/13/19 Rx magnesium oxide 400 mg PO QAM #30 tablet 08/20/19 11/13/19 Rx simethicone [Infants Gas Relief] 0.6 ml PO ONCE PRN #100 ml 08/20/19 11/13/19 Rx thiamine HCl (vitamin B1) [Vitamin 100 mg PO QAM #100 tablet 08/20/19 11/13/19 Rx B-1] Laboratory Tests 11/14/19 11/14/19 11/14/19 09:35 14:13 18:10 WBC RBC Hgb 8.1 g/dL L g/dL (12.0-15.0) Hct 23.7 % L % (37.0-47.0) MCV MCH MCHC RDW Plt Count MPV Puncture Site ABG pH ABG pCO2 ABG pO2 ABG PO2/FiO2 Ratio ABG HCO3 ABG O2 Saturation ABG O2 Content ABG Base Excess A-a Gradient Oxyhemoglobin Carboxyhemoglobin Methemoglobin Reduced Hemoglobin Total Hemoglobin O2 Delivery Device O2 Liters/Min FiO2 Sodium 138 mmol/L mmol/L (137-145) Potassium 3.3 mmol/L L mmol/L 3.8 mmol/L mmol/L (3.4-5.0) (3.4-5.0) Chloride 114 mmol/L H mmol/L (98-107) Carbon Dioxide 23 mmol/L mmol/L (22-30) Anion Gap 1 mmol/L L mmol/L (8-16) BUN 9 mg/dL mg/dL (7-17) Creatinine 0.80 mg/dL mg/dL (0.7-1.0) Estim Creat Clear Calc 57 ml/min ml/min Estimated GFR > 60 (59 - ) Glucose 93 mg/dL mg/dL (65-105) Calcium 7.2 mg/dL L mg/dL (8.4-10.2) Phosphorus Magnesium 1.5 mg/dL L mg/dL (1.6-2.3) Total Bilirubin AST ALT Alkaline Phosphatase Total Protein Albumin 11/15/19 11/15/19 11/15/19 04:25 04:42 04:42 WBC 13.9 K/mm3 H K/mm3 (4.5-10.0) RBC 2.58 M/mm3 L M/mm3 (4.2-5.4) Hgb 8.1 g/dL L g/dL (12.0-15.0) Hct 23.6 % L % (37.0-47.0) MCV 91.5 fl fl (80-100) MCH 31.4 pg pg (26-34) MCHC 34.3 g/dl g/dl (32-36) RDW 16.9 % H % (11.5-14.5) Plt Count 132 k/mm3 L k/mm3 (150-375) MPV 10.0 fl fl (7.4-10.4) Puncture Site Right radial ABG pH 7.429 (7.350-7.450) ABG pCO2 32.1 mmHg L mmHg (35.0-45.0) ABG pO2 55.8 mmHg L mmHg (80.0-100.0) ABG PO2/FiO2 Ratio 1.99 % % ABG HCO3 20.8 mEq/l L mEq/l (22.0-26.0) ABG O2 Saturation 90.2 % L % (95.0-100.0) ABG O2 Content 11.0 %vol L %vol (16.0-22.0) ABG Base Excess -3.0 mEq/l mEq/l (+/-2.0) A-a Gradient 106.0 mmHg mmHg Oxyhemoglobin 87.7 % THb L % THb (90.0-100.0) Carbo
--- NOTE | 2019-11-15 09:30 | WPDGIPROGNO ---
Progress Note: A&P Additional Plan Patient not alert not oriented this morning. No longer on pressor agents. Apparently became jittery throughout the night was placed on sedation. Physical exam reveals patient to be groggy unable to answer questions. Not oriented not alert. HEENT exam reveals her to be anicteric. Lungs reveal diffuse rhonchi and wheezing. Abdomen soft nontender. Labs reveal WBC 13.9, hemoglobin 8.1, hematocrit 23.6, MCV 91. Impression 1. Anemia with occult blood in stool. Suspect upper GI blood loss. Currently stable. Plan is to continue proton pump inhibitor. Defer EGD today. 2. Pneumonia. With sepsis. Continue antibiotics per canvas worker apprentice service. 3. Alcohol abuse. 4. Mental status changes. May be related to alcohol withdrawal. May be related to sedation given because of withdrawal. Plan to continue PPI. Defer EGD for now. Continue supportive care. Subjective Date/time seen: 11/15/19 09:30 Objective Data Vital Signs Vital Signs: Vital Signs - 24 hr 11/14/19 10:00 11/14/19 12:00 11/14/19 14:00 Temperature 97.6 F Pulse Rate 94 98 104 H Pulse Rate [Bilateral Pedal (Dorsalis Pedis) Palpation] Respiratory Rate 21 H 23 H 31 H Blood Pressure 102/58 L 106/67 108/65 Pulse Oximetry 97 98 94 11/14/19 14:30 11/14/19 14:38 11/14/19 16:00 Temperature 97.4 F L Pulse Rate 104 H 102 H 106 H Pulse Rate [Bilateral Pedal (Dorsalis Pedis) Palpation] Respiratory Rate 32 H 28 H 24 H Blood Pressure 105/54 L Pulse Oximetry 93 11/14/19 18:00 11/14/19 20:00 11/14/19 21:37 Temperature 97.9 F Pulse Rate 110 H 114 H 105 H Pulse Rate [Bilateral Pedal (Dorsalis Pedis) Palpation] 114 H Respiratory Rate 11 L 26 H 26 H Blood Pressure 100/71 113/79 Pulse Oximetry 100 98 11/14/19 21:50 11/14/19 22:00 11/15/19 00:00 Temperature 98.2 F Pulse Rate 105 H 110 H 109 H Pulse Rate [Bilateral Pedal (Dorsalis Pedis) Palpation] 109 H Respiratory Rate 34 H 33 H 30 H Blood Pressure 92/49 L 108/52 L Pulse Oximetry 99 98 98 11/15/19 01:04 11/15/19 01:12 11/15/19 02:00 Temperature Pulse Rate 107 H 109 H 112 H Pulse Rate [Bilateral Pedal (Dorsalis Pedis) Palpation] Respiratory Rate 24 H 25 H 24 H Blood Pressure 99/57 L Pulse Oximetry 94 11/15/19 04:00 11/15/19 06:00 11/15/19 08:34 Temperature 98.4 F 98.2 F Pulse Rate 113 H 109 H 105 H Pulse Rate [Bilateral Pedal (Dorsalis Pedis) Palpation] 113 H Respiratory Rate 30 H 30 H 18 Blood Pressure 110/72 104/74 100/66 Pulse Oximetry 91 94 94 11/15/19 08:35 11/15/19 08:50 11/15/19 09:00 Temperature Pulse Rate 101 H 92 Pulse Rate [Bilateral Pedal (Dorsalis Pedis) Palpation] Respiratory Rate 26 H 20 Blood Pressure Pulse Oximetry 94 93 Intake/Output Intake/Output: Intake & Output 11/12/19 11/13/19 11/14/19 11/15/19 23:59 23:59 23:59 23:59 Intake Total 1000 3480 1690 951 Output Total 550 920 650 Balance 1000 2930 770 301 Meds/Results Medications: Active Medications Generic Name Dose Route Start Last Admin Trade Name Freq PRN Reason Stop Dose Admin Acetaminophen 650 mg 11/12/19 21:42 11/13/19 04:18 Tylenol Tablet PO 650 mg Q4H PRN Administration Mild Pain (1-3) or Fever Albuterol 6 puff 11/13/19 08:00 11/14/19 22:09 Proventil Hfa INHALATION Not Given QIDRT ELLA Albuterol 2.5 mg 11/13/19 14:00 11/15/19 08:50 Albuterol Sulf Neb 2.5mg/0.5ml INHALATION 2.5 mg Q6HRT ELLA Administration Calcium Carbonate 500 mg 11/14/19 17:00 11/14/19 16:00 Oscal 500 Mg PO 500 mg BIDWM ELLA Administration Chlordiazepoxide HCl 25 mg 11/14/19 14:48 11/14/19 16:00 Librium Po PO 25 mg Q6H PRN Administration Withdrawal Folic Acid 1 mg 11/14/19 09:00 11/14/19 09:38 Folic Acid Inj IV PUSH 1 mg QAM ELLA Administration Norepinephrine Bitartrate 8 mg in 250 mls @ 0 mls/hr 11/13/19 00:10 11/14/19 15:22 Levophed 8 Mg/D5w 2
--- NOTE | 2019-11-15 09:49 | SUR.PREOP ---
Patient returned to ICU room 10 after cancellation of procedure per Dr Ricketts. BUSINESS CONTROL MANAGER notified. No acute distress noted.
[2019-11-15] MEDS: methylPREDNISolone SOD SUCC 125 MG VIAL 60 MG IV PUSH (10:05)
[2019-11-15] MEDS: FOLIC ACID 1 MG/0.2 ML INJ IV PUSH (10:05)
[2019-11-15] MEDS: DEXTROSE 5%/0.45% SOD CHL 1,000 ML 50 ML IV CONT (10:06)
[2019-11-15] MEDS: THIAMINE HCL 200 MG/2 ML VIAL 100 MG IV PUSH (10:06)
[2019-11-15] MEDS: PANTOPRAZOLE SODIUM IV 40 MG VIAL IV PUSH ×2 (10:06→21:42)
[2019-11-15] MEDS: LIDOCAINE 5% PATCH 1 PATCH TRANSDERM (10:06)
--- NOTE | 2019-11-15 12:44 | PCDIET ---
ICU Rounding Note: Patient NPO for planned EGD which has since been cancelled. RN reports patient not appropriate for oral feeding at this time. Last recorded weight is 66kg which is stable. Bowel Motility: Multiple BMs documented today. Labs Reviewed: Hgb (8.1), Hct (23.6), Cl (114), Alb (1.9), Mg (1.3) Meds Noted: Albuterol, Oscal, Librium, Precedex, D5/0.45NaCl at 50mL/hr, Folic Acid, Ativan, Solu Medrol, Protonix, Zosyn, Thiamine Additional Notes: Buttocks with Mepilex to open area. Groin with rash. If unable/unexpected to resume oral diet in the next few days, would begin to consider nutrition support. Following daily in ICU rounds. Assessing/reassessing every 3 days.
[2019-11-15] MEDS: NOREPINEPHRINE 8 MG/D5W 250 ML 8 MG/250 ML BAG 5.6 MG IV CONT (14:37)
--- NOTE | 2019-11-15 15:06 | WPDINTPN ---
Progress Note: A&P Assessment and Plan (1) Septic shock: Code(s): A41.9 - Sepsis, unspecified organism; R65.21 - Severe sepsis with septic shock Status: Acute Assessment and Plan: Septic shock secondary to pneumonia and UTI urine cultures growing E coli continue maintenance IV fluids Levophed was turned off on 11/14/2019, was restarted again today after starting her on Precedex infusion which dropped her pressures maintain MAP > 65 mmHg Blood and sputum cultures are negative as of now (2) Urinary tract infection: Qualifiers: Hematuria presence: without hematuria Urinary tract infection type: site unspecified Qualified Code(s): N39.0 - Urinary tract infection, site not specified Code(s): N39.0 - Urinary tract infection, site not specified Status: Acute Assessment and Plan: patient growing E coli from urine culture. resistant to ampicillin, quinolones. - continue Zosyn (3) Pneumonia: Qualifiers: Laterality: bilateral Lung location: unspecified part of lung Pneumonia type: due to unspecified organism Qualified Code(s): J18.9 - Pneumonia, unspecified organism Code(s): J18.9 - Pneumonia, unspecified organism Status: Acute Assessment and Plan: community-acquired pneumonia versus aspiration continue Zosyn. Will discontinue vancomycin as cultures are negative (4) Candidiasis of breast: Code(s): B37.89 - Other sites of candidiasis Status: Acute Assessment and Plan: Antifungal cream has been ordered (5) Electrolyte abnormality: Code(s): E87.8 - Other disorders of electrolyte and fluid balance, not elsewhere classified Status: Acute Assessment and Plan: potassium and phosphorus improved, low magnesium which will replace (6) COPD exacerbation: Code(s): J44.1 - Chronic obstructive pulmonary disease with (acute) exacerbation Status: Acute Assessment and Plan: steroids bronchodilators (7) Alcoholism: Code(s): F10.20 - Alcohol dependence, uncomplicated Status: Chronic Assessment and Plan: patient has history of chronic alcohol abuse and dependence folic acid and thiamine patient currently going through alcohol withdrawal with elevated CIWA scores, receiving multiple doses of Ativan which is causing her to be somnolent - will start Precedex infusion and maintain awakeness (8) Dysphagia: Code(s): R13.10 - Dysphagia, unspecified Status: Acute Assessment and Plan: Patient failed her Barium swallow modified today modify diet order as per speech recommendations, will perform when she is more awake (9) Suspected COVID-19 virus infection: Code(s): Z20.828 - Contact with and (suspected) exposure to other viral communicable diseases Status: Acute Assessment and Plan: COVID-19 ruled out. SARS-CoV-2 PCR was negative Patient was on Airborne, Droplet and Contact Isolation which now has been discontinued. (10) Neck pain: Code(s): M54.2 - Cervicalgia Status: Acute Assessment and Plan: CT of C-spine IMPRESSION: Reversal of cervical curvature Degenerative changes No fracture or dislocation Patient also has chronic it is cervical spine related pain which is worse now. Lidoderm patch and p.r.n. analgesic (11) Fall: Code(s): W19.XXXA - Unspecified fall, initial encounter Status: Acute Assessment and Plan: head CT showed IMPRESSION: No skull fracture or acute intracranial finding (12) Chest pain: Code(s): R07.9 - Chest pain, unspecified Status: Acute Assessment and Plan: echocardiogram showed EF of 60-65%, grade 1 diastolic dysfunction, 1.5 x 1.2 cm fixed echogenic mass within the right atrium on the inter-atrial septum. Discussed with Cardiology, patient currently not a candidate for KENDALL given her mental status. Not a candidate for anticoagulation
[2019-11-15] MEDS: MAGNESIUM SULF 2 GM/WATER 50ML 2 GM/50 ML BAG IVPB (15:39)
--- NOTE | 2019-11-15 17:24 | PM.IMPN ---
Progress Note: A&P Assessment and Plan (1) Septic shock: Code(s): A41.9 - Sepsis, unspecified organism; R65.21 - Severe sepsis with septic shock Status: Acute Assessment and Plan: Most likely due to PNA and UTI Continue zosyn, vancomycin was stopped. She was taken off pressors but restarted again after she received sedation for the EGD. (2) Pneumonia: Qualifiers: Laterality: bilateral Lung location: unspecified part of lung Pneumonia type: due to unspecified organism Qualified Code(s): J18.9 - Pneumonia, unspecified organism Code(s): J18.9 - Pneumonia, unspecified organism Status: Acute Assessment and Plan: On zosyn. (3) Urinary tract infection: Qualifiers: Hematuria presence: without hematuria Urinary tract infection type: site unspecified Qualified Code(s): N39.0 - Urinary tract infection, site not specified Code(s): N39.0 - Urinary tract infection, site not specified Status: Acute Assessment and Plan: Zosyn Cultures growing E.Coli (4) GI bleed: Code(s): K92.2 - Gastrointestinal hemorrhage, unspecified Status: Acute Assessment and Plan: Occult blood was positive. Egd is on hold forn now, her Hb seems stable, no active visible bleeding. (5) Alcohol withdrawal: Qualifiers: Complication of substance-induced condition: uncomplicated Qualified Code(s): F10.230 - Alcohol dependence with withdrawal, uncomplicated Code(s): F10.239 - Alcohol dependence with withdrawal, unspecified Status: Acute Assessment and Plan: Her withdrawals seems worse today, not a candidate for clonidine given the hypotension. (6) Elevated troponin: Code(s): R79.89 - Other specified abnormal findings of blood chemistry Status: Acute Assessment and Plan: Likely demand ischemia due to sepsis and hypotension. Echocardiogram pending. (7) Suspected COVID-19 virus infection: Code(s): Z20.828 - Contact with and (suspected) exposure to other viral communicable diseases Status: Acute Assessment and Plan: Negative PCR Additional Plan Subjective Date/time seen: She seems more confused today, having tremors. EGD was cancelled due to low blood pressure and lethargy. 11/15/19 17:24 Exam Const: General: comfortable and no acute distress Other: Looks chronically ill. Neck: Neck: supple and no JVD Resp: Auscultation: crackles, rhonchi and wheezes Other: Coarse breath sounds, not using accessory muscles to breath. Cardio: Rate: regular rate Rhythm: regular rhythm GI: Other: Soft, non tender Objective Data Vital Signs Vital Signs: Vital Signs - 24 hr 11/14/19 18:00 11/14/19 20:00 11/14/19 21:37 Temperature 97.9 F Pulse Rate 110 H 114 H 105 H Pulse Rate [Bilateral Pedal (Dorsalis Pedis) Palpation] 114 H Respiratory Rate 11 L 26 H 26 H Blood Pressure 100/71 113/79 Pulse Oximetry 100 98 11/14/19 21:50 11/14/19 22:00 11/15/19 00:00 Temperature 98.2 F Pulse Rate 105 H 110 H 109 H Pulse Rate [Bilateral Pedal (Dorsalis Pedis) Palpation] 109 H Respiratory Rate 34 H 33 H 30 H Blood Pressure 92/49 L 108/52 L Pulse Oximetry 99 98 98 11/15/19 01:04 11/15/19 01:12 11/15/19 02:00 Temperature Pulse Rate 107 H 109 H 112 H Pulse Rate [Bilateral Pedal (Dorsalis Pedis) Palpation] Respiratory Rate 24 H 25 H 24 H Blood Pressure 99/57 L Pulse Oximetry 94 11/15/19 04:00 11/15/19 06:00 11/15/19 08:00 Temperature 98.4 F 98.5 F Pulse Rate 113 H 109 H 106 H Pulse Rate [Bilateral Pedal (Dorsalis Pedis) Palpation] 113 H 106 H Respiratory Rate 30 H 30 H 26 H Blood Pressure 110/72 104/74 114/80 Pulse Oximetry 91 94 94 11/15/19 08:34 11/15/19 08:35 11/15/19 08:50 Temperature 98.2 F Pulse Rate 105 H 101 H Pulse Rate [Bilateral Pedal (Dorsalis Pedis) Palpation] Respiratory Rate 18 26 H Blood Pressure 100/66 Pulse Oximet
[2019-11-15] MEDS: TOLNAFTATE 1% POWDER 45 GM BTL 1 APPLIC TOPICAL (21:23)
[2019-11-16] VITALS (23 sets, daily range): BP systolic 87–134; BP diastolic 55–81; PULSE 73–95; RESP 20–28; TEMP 36.1–36.5; O2SAT 92–99
[2019-11-16] MEDS: ALBUTEROL SULFATE NEB 2.5 MG/0.5 ML INH INHALATION ×4 (02:38→20:29)
[2019-11-16 04:41] LABS: Base Excess ABG -2.4 mEq/l (+/-2.0); Carboxyhemoglobin 0.3 % THb (0-2.0); Fractional Inspired Oxygen 36 %; HCO3 ABG 21.2 mEq/l (22.0-26.0); Methemoglobin ABG 0.5 %THb (0-1.5); Oxyhemoglobin 81.4 % THb (90.0-100.0); PCO2 ABG 31.9 mmHg (35.0-45.0); Reduced Hemoglobin 17.8 %THb (0-5.0); Total Hemoglobin 8.7 g/dL (12.0-18.0); pH ABG 7.441 (7.350-7.450)
[2019-11-16 04:44] LABS: Device NASAL CANNULA; Modified Allen's Test Pass; Oxygen Saturation ABG 84.8 % (95.0-100.0); PO2 ABG 46.7 mmHg (80.0-100.0); Site Drawn RIGHT RADIAL
[2019-11-16 04:51] LABS: Hematocrit 22.8 % (37.0-47.0); Hemoglobin 7.8 g/dL (12.0-15.0); Mean Corpuscular HGB Conc 34.2 g/dl (32-36); Mean Corpuscular Hemoglobin 30.8 pg (26-34); Mean Corpuscular Volume 90.1 fl (80-100); Mean Platelet Volume 9.6 fl (7.4-10.4); Platelet Count Result 109 k/mm3 (150-375); Red Blood Count 2.53 M/mm3 (4.2-5.4); Red Cell Distribution Width 17.2 % (11.5-14.5); White Blood Count 12.2 K/mm3 (4.5-10.0)
[2019-11-16 05:11] LABS: Alanine Aminotransferase 13 U/L (4-35); Albumin Level 1.9 g/dL (3.5-5.1); Alkaline Phosphatase 97 U/L (38-126); Anion Gap 3 mmol/L (8-16); Aspartate Amino Transferase 17 U/L (14-36); Bilirubin,Total 0.6 mg/dL (0.2-1.3); Blood Urea Nitrogen 8 mg/dL (7-17); Calcium 7.2 mg/dL (8.4-10.2); Carbon Dioxide 23 mmol/L (22-30); Chloride 112 mmol/L (98-107); Estimated CRCL calculation 65 ml/min; Estimated Glomerular Filt Rate > 60; Glucose 109 mg/dL (65-105); Magnesium 1.7 mg/dL (1.6-2.3); Phosphorus 3.4 mg/dL (2.5-4.5); Potassium 3.3 mmol/L (3.4-5.0); Sodium 138 mmol/L (137-145)
[2019-11-16] MEDS: FUROSEMIDE INJ 40 MG/4 ML VIAL IV PUSH (09:05)
[2019-11-16] MEDS: MAGNESIUM SULF 2 GM/WATER 50ML 2 GM/50 ML BAG IVPB (09:14)
[2019-11-16] MEDS: TOLNAFTATE 1% POWDER 45 GM BTL 1 APPLIC TOPICAL ×2 (09:16→20:18)
[2019-11-16] MEDS: LIDOCAINE 5% PATCH 1 PATCH TRANSDERM (09:16)
[2019-11-16] MEDS: FOLIC ACID 1 MG/0.2 ML INJ IV PUSH (09:22)
[2019-11-16] MEDS: methylPREDNISolone SOD SUCC 125 MG VIAL 60 MG IV PUSH (09:22)
--- NOTE | 2019-11-16 09:45 | WPDGIPROGNO ---
Progress Note: A&P Additional Plan Patient remains lethargic today. No obvious bleeding reported. No abdominal pain noted still somewhat short of breath. Physical exam reveals significant dysarthria. HEENT exam she is anicteric. Lungs reveal rhonchi. Heart without murmur. Abdomen soft nontender. Modified barium swallow suggest aspiration risk. Labs revealed WBC 12.2, hemoglobin 7.8, hematocrit 22.8 stable. Impression 1. Occult blood in stool with chronic anemia. Suspect she could have had an upper GI bleed. No bleeding at present would plan EGD when she is more stable clinically. Perhaps tomorrow. 2. Dysphagia. Associated with dysarthria. May be related to confusion and mental status changes. Patient should not eat until it is safe. NG tube feeding suggested for now. 3. Pneumonia. Patient admitted with septic shock on this basis. Continue antibiotics. 4. Alcohol abuse. An ongoing problem. She needs rehab and alcohol avoidance. Subjective Date/time seen: 11/16/19 09:45 Objective Data Vital Signs Vital Signs: Vital Signs - 24 hr 11/15/19 10:00 11/15/19 12:00 11/15/19 14:00 Temperature 98.4 F Pulse Rate 105 H 100 91 Pulse Rate [Bilateral Pedal (Dorsalis Pedis) Palpation] 121 H Respiratory Rate 28 H 27 H 25 H Blood Pressure 108/75 105/62 85/50 L Pulse Oximetry 91 99 98 11/15/19 15:00 11/15/19 15:06 11/15/19 16:00 Temperature 98.5 F Pulse Rate 101 H 86 83 Pulse Rate [Bilateral Pedal (Dorsalis Pedis) Palpation] Respiratory Rate 33 H 24 H 29 H Blood Pressure 89/50 L Pulse Oximetry 94 11/15/19 18:00 11/15/19 20:00 11/15/19 21:10 Temperature 96.7 F L Pulse Rate 78 77 97 Pulse Rate [Bilateral Pedal (Dorsalis Pedis) Palpation] 77 Respiratory Rate 25 H 24 H 28 H Blood Pressure 124/70 128/84 Pulse Oximetry 95 97 98 11/15/19 21:16 11/15/19 21:45 11/15/19 22:00 Temperature Pulse Rate 80 86 Pulse Rate [Bilateral Pedal (Dorsalis Pedis) Palpation] Respiratory Rate 25 H 28 H Blood Pressure 128/84 Pulse Oximetry 87 L 89 L 11/16/19 00:00 11/16/19 02:00 11/16/19 02:39 Temperature 97.2 F L Pulse Rate 79 81 82 Pulse Rate [Bilateral Pedal (Dorsalis Pedis) Palpation] 79 Respiratory Rate 28 H 23 H 24 H Blood Pressure 111/71 89/73 L Pulse Oximetry 94 97 11/16/19 02:46 11/16/19 04:00 11/16/19 06:00 Temperature 97.2 F L Pulse Rate 81 78 80 Pulse Rate [Bilateral Pedal (Dorsalis Pedis) Palpation] 78 Respiratory Rate 25 H 26 H 25 H Blood Pressure 88/60 L 111/67 Pulse Oximetry 96 93 11/16/19 07:11 11/16/19 07:14 11/16/19 08:00 Temperature 97.7 F Pulse Rate 78 79 86 Pulse Rate [Bilateral Pedal (Dorsalis Pedis) Palpation] Respiratory Rate 24 H 26 H Blood Pressure 98/57 L 108/70 Pulse Oximetry 99 11/16/19 08:19 11/16/19 08:28 Temperature Pulse Rate 78 80 Pulse Rate [Bilateral Pedal (Dorsalis Pedis) Palpation] Respiratory Rate 26 H 24 H Blood Pressure Pulse Oximetry Intake/Output Intake/Output: Intake & Output 11/13/19 11/14/19 11/15/19 11/16/19 23:59 23:59 23:59 23:59 Intake Total 3480 1690 1566 784 Output Total 550 920 950 250 Balance 2930 770 616 534 Meds/Results Medications: Active Medications Generic Name Dose Route Start Last Admin Trade Name Freq PRN Reason Stop Dose Admin Acetaminophen 650 mg 11/12/19 21:42 11/13/19 04:18 Tylenol Tablet PO 650 mg Q4H PRN Administration Mild Pain (1-3) or Fever Albuterol 6 puff 11/13/19 08:00 11/14/19 22:09 Proventil Hfa INHALATION Not Given QIDRT ELLA Albuterol 2.5 mg 11/13/19 14:00 11/16/19 08:19 Albuterol Sulf Neb 2.5mg/0.5ml INHALATION 2.5 mg Q6HRT ELLA Administration Calcium Carbonate 500 mg 11/14/19 17:00 11/16/19 09:05 Oscal 500 Mg PO Not Given BIDWM ELLA Chlordiazepoxide HCl 25 mg 11/14/19 14:48 11/14/19 16:00 Librium Po PO 25 mg Q6H PRN Administration Withdrawal Folic Acid 1
[2019-11-16] MEDS: PANTOPRAZOLE SODIUM IV 40 MG VIAL IV PUSH ×2 (11:02→20:18)
[2019-11-16] MEDS: THIAMINE HCL 200 MG/2 ML VIAL 100 MG IV PUSH (11:02)
--- NOTE | 2019-11-16 12:06 | PM.PNCARD ---
Progress Note: A&P Assessment and Plan (1) Elevated troponin: Code(s): R79.89 - Other specified abnormal findings of blood chemistry Status: Acute Assessment and Plan: Pt anemic. relatively stable. continue to monitor likely type 2 infarction secondary to hypotension and sepsis/shock. COVID negative. 2D echocardiogram with Doppler. No aspirin because she is guaiac-positive. Resume lisinopril when able. continue pressors for now. 2D echocardiogram today personally reviewed EF 60-65%, 1.5 x 1.2 cm fixed echogenic mass at the interatrial septum within the right atrium. Consider KENDALL. No evidence of valvular vegetation/endocarditis. (2) Cardiac mass: Code(s): I51.89 - Other ill-defined heart diseases Status: Acute Assessment and Plan: Noted on surface echocardiogram fixed echogenic mass on the interatrial septum right atrial wall. While vegetation cannot be excluded this appears to be more consistent with a fixed mass. KENDALL for further clarification, however, pt is not a candidate at this time as she will likely require intubation with sedation given current status. (3) Alcoholism: Code(s): F10.20 - Alcohol dependence, uncomplicated Status: Chronic Assessment and Plan: Ongoing , per primary service. (4) Septic shock: Code(s): A41.9 - Sepsis, unspecified organism; R65.21 - Severe sepsis with septic shock Status: Acute Assessment and Plan: urosepsis +/- pneumonia COVID Negative. (5) Electrolyte abnormality: Code(s): E87.8 - Other disorders of electrolyte and fluid balance, not elsewhere classified Status: Acute Assessment and Plan: Continue to replace electrolytes to a potassium greater than 4 and magnesium greater than 2. Low this AM 3.3, repleted, Mg 1.7. Subjective Date/time seen: Date of service: 11/16/19 12:06 Follow-up for elevated troponin, shortness of breath being managed in the ICU for alcohol withdrawal and sepsis/septic shock. patient lethargic, difficult to arouse but answering questions slowly. Patient remains on Precedex for alcohol withdrawal and Levophed due to hypotension likely due to Precedex. Patient denies chest pain, denies significant shortness of breath. Review of Systems Review of Systems: All systems reviewed & are unremarkable except as noted in HPI and below Constitutional: Constitutional: Denies excessive sweating, Reports fatigue, Reports lethargy and Reports weakness Eyes: Eyes: Denies blurry vision ENT: Reports Normal hearing present and Denies neck pain Cardiovascular: Cardiovascular: Denies chest pain and Reports dyspnea Respiratory: Respiratory: Reports cough and Reports dyspnea Gastrointestinal: Gastrointestinal: Denies abdominal pain Genitourinary: Genitourinary: Denies hematuria Musculoskeletal: Musculoskeletal: Denies neck pain Integumentary/Breasts: Skin/Breast: Denies dry skin Neurologic: Reports Normal hearing present, Denies behavioral changes, Denies confusion and Reports weakness Psychiatric: Psychiatric: Denies behavioral changes and Denies confusion Endocrine: Endocrine: Denies excessive sweating and Reports fatigue Hematologic/Lymphatic: Hematologic/Lymphatic: Denies easy bleeding Allergic/Immunologic: Allergic/Immunologic: Denies GI upset with certain foods Exam Narrative: Exam Narrative: Lethargic, somewhat difficult to arouse but arousable. Once awake answering questions appropriately, but delayed. NAD Const: General: comfortable and no acute distress; No confusion Orientation/consciousness: No confusion HENMT: General nose exam: Normal nares present Eyes: Sclera: sclerae normal Neck: Neck: no JVD Chest: Other: no reproducible chest wall pain to palpation Resp: Effort & Inspection: normal respiratory effort Auscultation: wheezes and diminished lung sounds Cardio: Rate: regular rate Rhythm: regular rhythm Heart sounds: S1 normal
--- NOTE | 2019-11-16 14:45 | PCDIET ---
ICU Rounding Note: Patient remains NPO. Last recorded weight is 70.1kg which is increased from last review. +I/O. Bowel Motility: BM x 2 on 11/15/19. Labs Reviewed: Hgb (7.8), Hct (22.8), Glu (109), K (3.3), Cl (112), Alb (1.9) Meds Noted: Albuterol, Oscal, Precedex, Folic Acid, Magnesium Sulfate, Solu Medrol, Levophed, Protonix, Zosyn, KCl, Thiamine, Lasix Additional Notes: Buttock and medial back macerated. Following daily in ICU rounds. Assessing/reassessing every 3 days.
--- NOTE | 2019-11-16 15:03 | WPDINTPN ---
Progress Note: A&P Assessment and Plan (1) Septic shock: Code(s): A41.9 - Sepsis, unspecified organism; R65.21 - Severe sepsis with septic shock Status: Acute Assessment and Plan: Septic shock secondary to pneumonia and UTI, now probably secondary to Precedex infusion urine cultures growing E coli will DC IV fluid this patient has bilateral infiltrates likely related to pulmonary edema Levophed was restarted after starting her Precedex infusion on 11/15/2019, maintain MAP > 65 mmHg Blood and sputum cultures are negative as of now (2) Urinary tract infection: Qualifiers: Hematuria presence: without hematuria Urinary tract infection type: site unspecified Qualified Code(s): N39.0 - Urinary tract infection, site not specified Code(s): N39.0 - Urinary tract infection, site not specified Status: Acute Assessment and Plan: patient growing E coli from urine culture. Susceptible to Zosyn - continue Zosyn (3) Pneumonia: Qualifiers: Laterality: bilateral Lung location: unspecified part of lung Pneumonia type: due to unspecified organism Qualified Code(s): J18.9 - Pneumonia, unspecified organism Code(s): J18.9 - Pneumonia, unspecified organism Status: Acute Assessment and Plan: community-acquired pneumonia versus aspiration continue Zosyn. Will discontinue vancomycin as cultures are negative (4) Candidiasis of breast: Code(s): B37.89 - Other sites of candidiasis Status: Acute Assessment and Plan: Antifungal cream has been ordered (5) COPD exacerbation: Code(s): J44.1 - Chronic obstructive pulmonary disease with (acute) exacerbation Status: Acute Assessment and Plan: steroids bronchodilators (6) Alcoholism: Code(s): F10.20 - Alcohol dependence, uncomplicated Status: Chronic Assessment and Plan: patient has history of chronic alcohol abuse and dependence folic acid and thiamine patient currently going through alcohol withdrawal with elevated CIWA scores, receiving multiple doses of Ativan which is causing her to be somnolent - continue Precedex infusion (7) Dysphagia: Code(s): R13.10 - Dysphagia, unspecified Status: Acute Assessment and Plan: Patient failed her Barium swallow modified today modify diet order as per speech recommendations, will perform when she is more awake (8) Suspected COVID-19 virus infection: Code(s): Z20.828 - Contact with and (suspected) exposure to other viral communicable diseases Status: Acute Assessment and Plan: COVID-19 ruled out. SARS-CoV-2 PCR was negative Patient was on Airborne, Droplet and Contact Isolation which now has been discontinued. (9) Neck pain: Code(s): M54.2 - Cervicalgia Status: Acute Assessment and Plan: CT of C-spine IMPRESSION: Reversal of cervical curvature Degenerative changes No fracture or dislocation Patient also has chronic it is cervical spine related pain which is worse now. Lidoderm patch and p.r.n. analgesic (10) Fall: Code(s): W19.XXXA - Unspecified fall, initial encounter Status: Acute Assessment and Plan: head CT showed IMPRESSION: No skull fracture or acute intracranial finding (11) Chest pain: Code(s): R07.9 - Chest pain, unspecified Status: Acute Assessment and Plan: echocardiogram showed EF of 60-65%, grade 1 diastolic dysfunction, 1.5 x 1.2 cm fixed echogenic mass within the right atrium on the inter-atrial septum. Discussed with Cardiology, patient currently not a candidate for KENDALL given her mental status. Not a candidate for anticoagulation given her GI bleed and anemia (12) Elevated troponin: Code(s): R79.89 - Other specified abnormal findings of blood chemistry Status: Acute Assessment and Plan: patient's chest pain appears to be pleuritic in nature from
--- NOTE | 2019-11-16 16:29 | PM.IMPN ---
Progress Note: A&P Assessment and Plan (1) Septic shock: Code(s): A41.9 - Sepsis, unspecified organism; R65.21 - Severe sepsis with septic shock Status: Acute Assessment and Plan: Most likely due to PNA and UTI Continue zosyn, vancomycin was stopped. She was taken off pressors but restarted again after she received sedation for the EGD. (2) Pneumonia: Qualifiers: Laterality: bilateral Lung location: unspecified part of lung Pneumonia type: due to unspecified organism Qualified Code(s): J18.9 - Pneumonia, unspecified organism Code(s): J18.9 - Pneumonia, unspecified organism Status: Acute Assessment and Plan: On zosyn. (3) Urinary tract infection: Qualifiers: Hematuria presence: without hematuria Urinary tract infection type: site unspecified Qualified Code(s): N39.0 - Urinary tract infection, site not specified Code(s): N39.0 - Urinary tract infection, site not specified Status: Acute Assessment and Plan: Zosyn Cultures growing E.Coli (4) Elevated troponin: Code(s): R79.89 - Other specified abnormal findings of blood chemistry Status: Acute Assessment and Plan: Likely demand ischemia due to sepsis and hypotension. Echocardiogram showed a fixed inter atrial mass however she is not a candidate for a KENDALL for now. (5) GI bleed: Code(s): K92.2 - Gastrointestinal hemorrhage, unspecified Status: Acute Assessment and Plan: Occult blood was positive. Egd is on hold forn now, her Hb seems stable, no active visible bleeding. (6) Alcohol withdrawal: Qualifiers: Complication of substance-induced condition: uncomplicated Qualified Code(s): F10.230 - Alcohol dependence with withdrawal, uncomplicated Code(s): F10.239 - Alcohol dependence with withdrawal, unspecified Status: Acute Assessment and Plan: Her withdrawals seems worse today, not a candidate for clonidine given the hypotension. (7) Suspected COVID-19 virus infection: Code(s): Z20.828 - Contact with and (suspected) exposure to other viral communicable diseases Status: Acute Assessment and Plan: Negative PCR Subjective Date/time seen: Still confused on and off, having dome tremors. 11/16/19 16:29 Exam Const: General: comfortable and no acute distress Other: Looks chronically ill. Neck: Neck: supple and no JVD Resp: Auscultation: crackles, rhonchi and wheezes Other: Coarse breath sounds, not using accessory muscles to breath. Cardio: Rate: regular rate Rhythm: regular rhythm GI: Other: Soft, non tender Objective Data Vital Signs Vital Signs: Vital Signs - 24 hr 11/15/19 18:00 11/15/19 20:00 11/15/19 21:10 Temperature 96.7 F L Pulse Rate 78 77 97 Pulse Rate [Bilateral Pedal (Dorsalis Pedis) Palpation] 77 Respiratory Rate 25 H 24 H 28 H Blood Pressure 124/70 128/84 Pulse Oximetry 95 97 98 11/15/19 21:16 11/15/19 21:45 11/15/19 22:00 Temperature Pulse Rate 80 86 Pulse Rate [Bilateral Pedal (Dorsalis Pedis) Palpation] Respiratory Rate 25 H 28 H Blood Pressure 128/84 Pulse Oximetry 87 L 89 L 11/16/19 00:00 11/16/19 02:00 11/16/19 02:39 Temperature 97.2 F L Pulse Rate 79 81 82 Pulse Rate [Bilateral Pedal (Dorsalis Pedis) Palpation] 79 Respiratory Rate 28 H 23 H 24 H Blood Pressure 111/71 89/73 L Pulse Oximetry 94 97 11/16/19 02:46 11/16/19 04:00 11/16/19 06:00 Temperature 97.2 F L Pulse Rate 81 78 80 Pulse Rate [Bilateral Pedal (Dorsalis Pedis) Palpation] 78 Respiratory Rate 25 H 26 H 25 H Blood Pressure 88/60 L 111/67 Pulse Oximetry 96 93 11/16/19 07:11 11/16/19 07:14 11/16/19 08:00 Temperature 97.7 F Pulse Rate 78 79 86 Pulse Rate [Bilateral Pedal (Dorsalis Pedis) Palpation] Respiratory Rate 24 H 26 H Blood Pressure 98/57 L 108/70 Pulse Oximetry 99 11/16/19 08:19 11/16/19 08:28 11/16/19 10:00 Te
[2019-11-17] VITALS (46 sets, daily range): BP systolic 77–160; BP diastolic 42–99; PULSE 75–103; RESP 17–37; TEMP 36.1–37.4; O2SAT 91–100
[2019-11-17] MEDS: ALBUTEROL SULFATE NEB 2.5 MG/0.5 ML INH INHALATION ×4 (02:01→20:22)
[2019-11-17 04:12] LABS: Base Excess ABG -3.5 mEq/l (+/-2.0); Carboxyhemoglobin 0.3 % THb (0-2.0); Fractional Inspired Oxygen 32 %; HCO3 ABG 20.4 mEq/l (22.0-26.0); Methemoglobin ABG 0.4 %THb (0-1.5); Oxygen Content ABG 10.6 %vol (16.0-22.0); Oxygen Saturation ABG 92.7 % (95.0-100.0); Oxyhemoglobin 89.2 % THb (90.0-100.0); PCO2 ABG 32.2 mmHg (35.0-45.0); PO2 ABG 62.5 mmHg (80.0-100.0); PO2 FiO2 Ratio Arterial Blood 1.95 %; Reduced Hemoglobin 10.1 %THb (0-5.0); Total Hemoglobin 8.4 g/dL (12.0-18.0)
[2019-11-17 04:13] LABS: Device NASAL CANNULA; Modified Allen's Test Pass; Site Drawn LEFT RADIAL
[2019-11-17 05:59] LABS: Hematocrit 22.3 % (37.0-47.0); Hemoglobin 7.3 g/dL (12.0-15.0); Mean Corpuscular HGB Conc 32.7 g/dl (32-36); Mean Corpuscular Hemoglobin 29.9 pg (26-34); Mean Corpuscular Volume 91.4 fl (80-100); Mean Platelet Volume 9.7 fl (7.4-10.4); Platelet Count Result 101 k/mm3 (150-375); Red Blood Count 2.44 M/mm3 (4.2-5.4); Red Cell Distribution Width 17.6 % (11.5-14.5)
[2019-11-17 06:05] LABS: Alanine Aminotransferase 11 U/L (4-35); Albumin Level 1.9 g/dL (3.5-5.1); Alkaline Phosphatase 80 U/L (38-126); Anion Gap 6 mmol/L (8-16); Aspartate Amino Transferase 20 U/L (14-36); Bilirubin,Total 0.6 mg/dL (0.2-1.3); Blood Urea Nitrogen 13 mg/dL (7-17); Calcium 7.2 mg/dL (8.4-10.2); Carbon Dioxide 21 mmol/L (22-30); Chloride 113 mmol/L (98-107); Estimated CRCL calculation 51 ml/min; Estimated Glomerular Filt Rate > 60; Glucose 68 mg/dL (65-105); Magnesium 1.7 mg/dL (1.6-2.3); Phosphorus 4.3 mg/dL (2.5-4.5); Potassium 3.7 mmol/L (3.4-5.0); Sodium 140 mmol/L (137-145)
[2019-11-17] MEDS: THIAMINE HCL 200 MG/2 ML VIAL 100 MG IV PUSH (08:15)
[2019-11-17] MEDS: methylPREDNISolone SOD SUCC 125 MG VIAL 60 MG IV PUSH (08:16)
[2019-11-17] MEDS: PANTOPRAZOLE SODIUM IV 40 MG VIAL IV PUSH ×2 (08:16→20:55)
[2019-11-17] MEDS: LIDOCAINE 5% PATCH 1 PATCH TRANSDERM (08:16)
[2019-11-17] MEDS: TOLNAFTATE 1% POWDER 45 GM BTL 1 APPLIC TOPICAL ×2 (08:17→20:54)
[2019-11-17] MEDS: FUROSEMIDE INJ 40 MG/4 ML VIAL IV PUSH (08:29)
[2019-11-17] MEDS: CALCIUM GLUC 2,000 MG/NS 100ML 2,000 MG/100 ML BAG 100 MG IVPB (08:31)
[2019-11-17 09:27] LABS: Glucose Point of Care 71 (65-105)
[2019-11-17] MEDS: FOLIC ACID 1 MG/0.2 ML INJ IV PUSH (10:31)
--- NOTE | 2019-11-17 10:49 | PCDIET ---
Nutrition Follow-Up Complete: Nutrition Diagnosis: Suboptimal oral intake related to decreased appetite as evidenced by intakes 0-50%. Nutrition Goal: Patient to consume 50% of meals/supplements or greater. Goal not met. Patient intubated earlier today with plan to begin tube feedings. Recommend Vital 1.2 at 55mL/hr goal rate x 22 hours/day for 1452kcal, 90g protein and 981mL free water. Recommend 30mL water flush every 4 hours. Last recorded weight is 66.9 kg which is down from last review. -I/O. Bowel Motility: BM x 2 documented today. Labs Reviewed: Hgb (7.3), Hct (22.3), Cl (113), Ca (7.2), González Ca (8.88) Meds Noted: Albuterol, Oscal, Cefepime, Precedex, Fentanyl, Folic Acid, Solu Medrol, Versed, Protonix, Thiamine, Vancomycin Additional Notes: Estimated kcal needs 9570-6386 (22-25kcal/kg). Back and buttocks macerated. Nutrition Monitoring and Evaluation: Follow up every Wednesday/Wednesday. Follow daily in ICU rounds.
--- NOTE | 2019-11-17 10:56 | WPDGIPROGNO ---
Progress Note: A&P Additional Plan Patient alert today. Continues to have dysarthria. Somewhat difficult to understand her speech. She apparently has failed modified barium swallow. Obvious bleeding reported. She denies abdominal pain. Physical exam reveals patient to be alert. Still lethargic. Lungs are few reveal a few rhonchi. Heart without murmur. Abdomen soft nontender with no organomegaly. Labs reveal hemoglobin 7.3, hematocrit 22.3, MCV 91. Decline in hemoglobin overnight noted. No obvious bleeding described. Impression 1. Anemia. With occult blood in stool. Recent GI evaluation unremarkable. Repeat EGD anticipated went patient clinically stable. Plan is to monitor hemoglobin transfuse to a stable hemoglobin if necessary. Continue proton pump inhibitor empirically. 2. Pneumonia. Septic shock felt to be on this basis. Clinically slowly improving. 3. History of alcohol abuse. Subjective Date/time seen: 11/17/19 10:56 Objective Data Vital Signs Vital Signs: Vital Signs - 24 hr 11/16/19 12:00 11/16/19 14:00 11/16/19 14:30 Temperature 97.0 F L Pulse Rate 74 95 76 Pulse Rate [Bilateral Pedal (Dorsalis Pedis) Palpation] Respiratory Rate 23 H 28 H 22 H Blood Pressure 131/77 126/75 Pulse Oximetry 96 92 11/16/19 16:00 11/16/19 18:00 11/16/19 20:00 Temperature 97.5 F L 97.4 F L 97 F L Pulse Rate 78 77 73 Pulse Rate [Bilateral Pedal (Dorsalis Pedis) Palpation] 73 Respiratory Rate 25 H 23 H 23 H Blood Pressure 134/81 134/80 125/72 Pulse Oximetry 98 96 95 11/16/19 20:25 11/16/19 20:31 11/16/19 22:00 Temperature Pulse Rate 77 77 76 Pulse Rate [Bilateral Pedal (Dorsalis Pedis) Palpation] Respiratory Rate 26 H 26 H 20 Blood Pressure 113/80 Pulse Oximetry 97 96 11/16/19 22:22 11/16/19 23:30 11/17/19 00:00 Temperature 97 F L Pulse Rate 76 75 75 Pulse Rate [Bilateral Pedal (Dorsalis Pedis) Palpation] 75 Respiratory Rate 20 22 H 23 H Blood Pressure 97/65 L Pulse Oximetry 97 11/17/19 01:50 11/17/19 02:00 11/17/19 02:03 Temperature Pulse Rate 77 85 77 Pulse Rate [Bilateral Pedal (Dorsalis Pedis) Palpation] Respiratory Rate 20 23 H 20 Blood Pressure 105/72 Pulse Oximetry 100 11/17/19 04:00 11/17/19 05:34 11/17/19 06:00 Temperature 96.9 F L Pulse Rate 88 85 82 Pulse Rate [Bilateral Pedal (Dorsalis Pedis) Palpation] 88 Respiratory Rate 32 H 27 H 25 H Blood Pressure 100/64 98/58 L Pulse Oximetry 91 95 11/17/19 08:00 11/17/19 08:40 11/17/19 08:48 Temperature 97.4 F L Pulse Rate 85 90 92 Pulse Rate [Bilateral Pedal (Dorsalis Pedis) Palpation] 87 Respiratory Rate 37 H 28 H 30 H Blood Pressure 82/53 L Pulse Oximetry 92 92 11/17/19 09:30 11/17/19 10:00 11/17/19 10:11 Temperature 98.4 F Pulse Rate 90 90 88 Pulse Rate [Bilateral Pedal (Dorsalis Pedis) Palpation] Respiratory Rate 30 H 32 H Blood Pressure 121/74 148/95 H Pulse Oximetry 100 100 100 11/17/19 10:26 Temperature 98.4 F Pulse Rate 79 Pulse Rate [Bilateral Pedal (Dorsalis Pedis) Palpation] Respiratory Rate 25 H Blood Pressure 121/74 Pulse Oximetry 100 Intake/Output Intake/Output: Intake & Output 11/14/19 11/15/19 11/16/19 11/17/19 23:59 23:59 23:59 23:59 Intake Total 1690 1566 1141 200 Output Total 150 015 0693 375 Balance [facility] 616 -9 -175 Meds/Results Medications: Active Medications Generic Name Dose Route Start Last Admin Trade Name Freq PRN Reason Stop Dose Admin Acetaminophen 650 mg 11/12/19 21:42 11/13/19 04:18 Tylenol Tablet PO 650 mg Q4H PRN Administration Mild Pain (1-3) or Fever Albuterol 6 puff 11/13/19 08:00 11/14/19 22:09 Proventil Hfa INHALATION Not Given QIDRT ELLA Albuterol 2.5 mg 11/13/19 14:00 11/17/19 08:43 Albuterol Sulf Neb 2.5mg/0.5ml INHALATION 2.5 mg Q6HRT ELLA Administration Calcium Carbonate 500 mg 11/14/19 17:00 11/17/19 08:17 Oscal 500 Mg PO Not Given
[2019-11-17] MEDS: RAPID SEQUENCE INTUBATION KIT 1 EACH (11:09)
[2019-11-17] MEDS: DEXTROSE 50% 25 GM/50 ML SYRINGE (11:09)
[2019-11-17 12:16] LABS: Alveolar/Arterial O2 Gradient 254.4 mmHg; Base Excess ABG -6.6 mEq/l (+/-2.0); Fractional Inspired Oxygen 100 %; HCO3 ABG 17.2 mEq/l (22.0-26.0); Oxygen Content ABG 19.7 %vol (16.0-22.0); Oxygen Saturation ABG 99.8 % (95.0-100.0); Oxyhemoglobin 98.7 % THb (90.0-100.0); PCO2 ABG 29.8 mmHg (35.0-45.0); PO2 ABG 428.8 mmHg (80.0-100.0); PO2 FiO2 Ratio Arterial Blood 4.29 %; Total Hemoglobin 13.4 g/dL (12.0-18.0)
[2019-11-17 12:29] LABS: Arterial Blood Gas PEEP 8 cmH2O; Arterial Blood Gas Tidal Volume 420 ml; Arterial Blood Gas Vent Mode ASSIST CONTROL; Arterial Blood Gas Ventilator rate 18 /MIN; Device VENTILATOR; Modified Allen's Test Pass; Site Drawn RIGHT RADIAL
[2019-11-17 13:13] LABS: Hematocrit 28.2 % (37.0-47.0); Hemoglobin 9.3 g/dL (12.0-15.0); Mean Platelet Volume 10.2 fl (7.4-10.4); Platelet Count Result 105 k/mm3 (150-375); Red Cell Distribution Width 17.1 % (11.5-14.5); White Blood Count 12.6 K/mm3 (4.5-10.0)
--- NOTE | 2019-11-17 14:32 | WPDINTPN ---
Progress Note: A&P Assessment and Plan (1) Respiratory failure: Code(s): J96.90 - Respiratory failure, unspecified, unspecified whether with hypoxia or hypercapnia Status: Acute Assessment and Plan: acute respiratory failure likely related to bilateral infiltrates, secondary pneumonia, acute lung injury /ARDS - intubated on 11/17/2019 - continue CMV mode of ventilation, ABGs reviewed post intubation, will wean FiO2 to maintain O2 sats greater than 92% - switch antibiotics to cefepime and vancomycin (2) Septic shock: Code(s): A41.9 - Sepsis, unspecified organism; R65.21 - Severe sepsis with septic shock Status: Acute Assessment and Plan: currently off Levophed. - Septic shock secondary to pneumonia and UTI, - Continue cefepime, added vancomycin - urine cultures growing E coli, blood and sputum cultures are negative (3) Urinary tract infection: Qualifiers: Hematuria presence: without hematuria Urinary tract infection type: site unspecified Qualified Code(s): N39.0 - Urinary tract infection, site not specified Code(s): N39.0 - Urinary tract infection, site not specified Status: Acute Assessment and Plan: patient growing E coli from urine culture. miller susceptible, - ABX switched to cefepime and vancomycin (4) Pneumonia: Qualifiers: Laterality: bilateral Lung location: unspecified part of lung Pneumonia type: due to unspecified organism Qualified Code(s): J18.9 - Pneumonia, unspecified organism Code(s): J18.9 - Pneumonia, unspecified organism Status: Acute Assessment and Plan: community-acquired pneumonia versus aspiration continue antibiotics as above (5) Candidiasis of breast: Code(s): B37.89 - Other sites of candidiasis Status: Acute Assessment and Plan: Antifungal cream has been ordered (6) COPD exacerbation: Code(s): J44.1 - Chronic obstructive pulmonary disease with (acute) exacerbation Status: Acute Assessment and Plan: steroids bronchodilators (7) Alcoholism: Code(s): F10.20 - Alcohol dependence, uncomplicated Status: Chronic Assessment and Plan: patient has history of chronic alcohol abuse and dependence folic acid and thiamine (8) Dysphagia: Code(s): R13.10 - Dysphagia, unspecified Status: Acute Assessment and Plan: currently intubated, will start tube feeds (9) Suspected COVID-19 virus infection: Code(s): Z20.828 - Contact with and (suspected) exposure to other viral communicable diseases Status: Acute Assessment and Plan: COVID-19 ruled out. SARS-CoV-2 PCR was negative Patient was on Airborne, Droplet and Contact Isolation which now has been discontinued. (10) Neck pain: Code(s): M54.2 - Cervicalgia Status: Acute Assessment and Plan: CT of C-spine IMPRESSION: Reversal of cervical curvature Degenerative changes No fracture or dislocation Patient also has chronic it is cervical spine related pain which is worse now. Lidoderm patch and p.r.n. analgesic (11) Fall: Code(s): W19.XXXA - Unspecified fall, initial encounter Status: Acute Assessment and Plan: head CT showed IMPRESSION: No skull fracture or acute intracranial finding (12) Chest pain: Code(s): R07.9 - Chest pain, unspecified Status: Acute Assessment and Plan: echocardiogram showed EF of 60-65%, grade 1 diastolic dysfunction, 1.5 x 1.2 cm fixed echogenic mass within the right atrium on the inter-atrial septum. Discussed with Cardiology, patient currently not a candidate for KENDALL given her mental status. Not a candidate for anticoagulation given her GI bleed and anemia (13) Elevated troponin: Code(s): R79.89 - Other specified abnormal findings of blood chemistry Status: Acute Assessment and Plan: patient's chest pain appears to be pleu
--- NOTE | 2019-11-17 14:40 | WPDPROCEDUR ---
Procedures Intubation Intubation Date: 11/17/19 Intubation Time: 09:40 A pre-procedural Time-Out was completed immediately before starting the procedure and confirmed: Patient Identification, Site, Procedure, Patient Position and the Availability of Requisite Equipment: Yes Sedative: etomidate Paralytic: succinylcholine Laryngoscope: fiber optic video scope Assist device used: fiber optic device ET tube size: 7.5 Tube secured depth (cm): 23 Tube secured location: lips Tube placement confirmation: visualized tube passing through cords, equal breath sounds bilaterally, no breath sounds over epigastrium and confirmation by capnometry Patient tolerated procedure: well Intubation complications: none Additional comments: After obtaining consent from the patient and explaining the rationale for intubation. it was decided to go ahead and intubate the patient. The patient was lying in the supine position. Preoxygenation via BVM was provided for a minimum of 3 minutes. The patient had continuous cardiac as well as pulse oximetry monitoring during the procedure. Rapid sequence induction was provided by administration of Etomidate and Succinylcholine. A Glidescope blade 4 was used to directly visualize the vocal cords. A 7.5 mm endotracheal tube was visualized advancing between the cords to a level of 23 cm at the lip. The stylette was then removed. Tube placement was also noted by fogging in the tube, equal and bilateral breath sounds, no sounds over the epigastrium, and end-tidal colorimetric monitoring. The cuff was then inflated with 10 ml of air and the tube secured using a commercially available device. A good pulse oximetry wave form was seen on the monitor throughout the procedure. The patient was then connected to the ventilator at a tidal volume of 420 ml; rate of 18; FiO2 of 100%; and PEEP of 8. A portable chest x-ray has been ordered for placement. Continued sedation will be provided by [Fentanyl and Versed] continuous infusion titrated to a RASS of -2. The patient tolerated the procedure well.
[2019-11-17 15:15] LABS: Glucose Point of Care 111 (65-105)
--- NOTE | 2019-11-17 15:32 | PM.IMPN ---
Progress Note: A&P Assessment and Plan (1) Acute hypoxemic respiratory failure: Code(s): J96.01 - Acute respiratory failure with hypoxia Status: Acute Assessment and Plan: She was intubated again today. Possibly due to PNA, ARDS. (2) Septic shock: Code(s): A41.9 - Sepsis, unspecified organism; R65.21 - Severe sepsis with septic shock Status: Acute Assessment and Plan: Most likely due to PNA and UTI On cefepime and vancomycin now, urine cultures growing E.Coli. (3) Pneumonia: Qualifiers: Laterality: bilateral Lung location: unspecified part of lung Pneumonia type: due to unspecified organism Qualified Code(s): J18.9 - Pneumonia, unspecified organism Code(s): J18.9 - Pneumonia, unspecified organism Status: Acute Assessment and Plan: On antibiotics and intubated as detailed above. (4) Urinary tract infection: Qualifiers: Hematuria presence: without hematuria Urinary tract infection type: site unspecified Qualified Code(s): N39.0 - Urinary tract infection, site not specified Code(s): N39.0 - Urinary tract infection, site not specified Status: Acute Assessment and Plan: Cultures growing E.Coli (5) Elevated troponin: Code(s): R79.89 - Other specified abnormal findings of blood chemistry Status: Acute Assessment and Plan: Likely demand ischemia due to sepsis and hypotension. Echocardiogram showed a fixed inter atrial mass however she is not a candidate for a KENDALL for now. (6) GI bleed: Code(s): K92.2 - Gastrointestinal hemorrhage, unspecified Status: Acute Assessment and Plan: Occult blood was positive. Egd is on hold forn now, her Hb seems stable, no active visible bleeding. (7) Alcohol withdrawal: Qualifiers: Complication of substance-induced condition: uncomplicated Qualified Code(s): F10.230 - Alcohol dependence with withdrawal, uncomplicated Code(s): F10.239 - Alcohol dependence with withdrawal, unspecified Status: Acute (8) Suspected COVID-19 virus infection: Code(s): Z20.828 - Contact with and (suspected) exposure to other viral communicable diseases Status: Acute Assessment and Plan: Negative PCR Additional Plan Subjective Date/time seen: Pt was intubated again today. 11/17/19 15:32 Exam Const: General: comfortable and no acute distress Other: Looks chronically ill, now intubated and sedated. Neck: Neck: no JVD Resp: Auscultation: crackles, rhonchi and wheezes Other: Coarse breath sounds with rhonchi and crackles Cardio: Rate: regular rate Rhythm: regular rhythm GI: Other: Soft, non tender Neuro: Other: Intubated, sedated Extrem: General: edema Objective Data Vital Signs Vital Signs: Vital Signs - 24 hr 11/16/19 16:00 11/16/19 18:00 11/16/19 20:00 Temperature 97.5 F L 97.4 F L 97 F L Pulse Rate 78 77 73 Pulse Rate [Bilateral Pedal (Dorsalis Pedis) Palpation] 73 Respiratory Rate 25 H 23 H 23 H Blood Pressure 134/81 134/80 125/72 Pulse Oximetry 98 96 95 11/16/19 20:25 11/16/19 20:31 11/16/19 22:00 Temperature Pulse Rate 77 77 76 Pulse Rate [Bilateral Pedal (Dorsalis Pedis) Palpation] Respiratory Rate 26 H 26 H 20 Blood Pressure 113/80 Pulse Oximetry 97 96 11/16/19 22:22 11/16/19 23:30 11/17/19 00:00 Temperature 97 F L Pulse Rate 76 75 75 Pulse Rate [Bilateral Pedal (Dorsalis Pedis) Palpation] 75 Respiratory Rate 20 22 H 23 H Blood Pressure 97/65 L Pulse Oximetry 97 11/17/19 01:50 11/17/19 02:00 11/17/19 02:03 Temperature Pulse Rate 77 85 77 Pulse Rate [Bilateral Pedal (Dorsalis Pedis) Palpation] Respiratory Rate 20 23 H 20 Blood Pressure 105/72 Pulse Oximetry 100 11/17/19 04:00 11/17/19 05:34 11/17/19 06:00 Temperature 96.9 F L Pulse Rate 88 85 82 Pulse Rate [Bilateral Pedal (Dorsalis Pedis) Palpation] 88 Respira
[2019-11-17] MEDS: CALCIUM CARBONATE (OSCAL) 500 MG TABLET PO (18:21)
[2019-11-17] MEDS: IPRATROPIUM BR 0.02% INH SOLN 0.5 MG/2.5 ML VIAL INHALATION (20:22)
[2019-11-17] MEDS: SERTRALINE HCL 50 MG TABLET 100 MG PO (20:54)
[2019-11-18] VITALS (37 sets, daily range): BP systolic 78–119; BP diastolic 50–76; PULSE 77–110; RESP 16–27; TEMP 36.2–36.8; O2SAT 94–100
[2019-11-18] MEDS: ALBUTEROL SULFATE NEB 2.5 MG/0.5 ML INH INHALATION ×4 (02:04→20:42)
[2019-11-18] MEDS: IPRATROPIUM BR 0.02% INH SOLN 0.5 MG/2.5 ML VIAL INHALATION ×3 (02:05→20:43)
[2019-11-18 04:05] LABS: Alveolar/Arterial O2 Gradient 79.3 mmHg; Base Excess ABG -2.1 mEq/l (+/-2.0); Carboxyhemoglobin 0.3 % THb (0-2.0); Fractional Inspired Oxygen 30 %; HCO3 ABG 22.4 mEq/l (22.0-26.0); Methemoglobin ABG 0.2 %THb (0-1.5); Oxygen Content ABG 13.6 %vol (16.0-22.0); Oxyhemoglobin 95.6 % THb (90.0-100.0); PO2 ABG 91.1 mmHg (80.0-100.0); PO2 FiO2 Ratio Arterial Blood 3.04 %; Reduced Hemoglobin 3.9 %THb (0-5.0)
[2019-11-18 04:06] LABS: Arterial Blood Gas Ventilator rate 18 /MIN; Device VENTILATOR; Modified Allen's Test Pass; Site Drawn RIGHT RADIAL
[2019-11-18 04:07] LABS: Arterial Blood Gas PEEP 8 cmH2O; Arterial Blood Gas Tidal Volume 420 ml; Arterial Blood Gas Vent Mode CMV
[2019-11-18 06:29] LABS: Hemoglobin 9.7 g/dL (12.0-15.0); Mean Corpuscular HGB Conc 33.4 g/dl (32-36); Mean Corpuscular Hemoglobin 30.4 pg (26-34); Mean Corpuscular Volume 90.9 fl (80-100); Mean Platelet Volume 9.7 fl (7.4-10.4); Platelet Count Result 147 k/mm3 (150-375); Red Blood Count 3.19 M/mm3 (4.2-5.4); Red Cell Distribution Width 17.7 % (11.5-14.5); White Blood Count 13.8 K/mm3 (4.5-10.0)
[2019-11-18 07:25] LABS: Alanine Aminotransferase 12 U/L (4-35); Albumin Level 2.3 g/dL (3.5-5.1); Alkaline Phosphatase 103 U/L (38-126); Anion Gap 3 mmol/L (8-16); Aspartate Amino Transferase 20 U/L (14-36); Bilirubin,Total 0.4 mg/dL (0.2-1.3); Blood Urea Nitrogen 16 mg/dL (7-17); Calcium 7.5 mg/dL (8.4-10.2); Carbon Dioxide 25 mmol/L (22-30); Chloride 110 mmol/L (98-107); Estimated CRCL calculation 51 ml/min; Estimated Glomerular Filt Rate > 60; Glucose 102 mg/dL (65-105); Magnesium 1.6 mg/dL (1.6-2.3); Potassium 3.1 mmol/L (3.4-5.0); Sodium 138 mmol/L (137-145)
--- NOTE | 2019-11-18 07:40 | WPDGIPROGNO ---
Progress Note: A&P Additional Plan Patient had progressive respiratory decline yesterday intubated and yesterday now on the ventilator. Nursing staff reports no additional blood loss. Physical exam reveals patient on ventilator. Lungs reveal rhonchi. Heart without murmur. Abdomen is soft nontender with no organomegaly. Labs reveal hemoglobin 9.7, hematocrit 29.8 after transfusion. Impression 1. Respiratory failure. Patient known to have pneumonia. Admitted with septic shock. Ventilator management per cream ripener service. Continue antibiotics. 2. Anemia. With occult blood loss. Concern over possible GI bleeding. Rule EGD at last admission was unremarkable. Plan at the present time is to treat with proton pump inhibitors for possible stress ulceration. There were no varices noted at time of last endoscopy. 3. Alcohol abuse. This has been an ongoing problem. Rehab strongly encourage. 4. Oropharyngeal dysphagia has been noted the last several days. Plan is for nutrition via NG tube. Further evaluation when she is off the ventilator. Subjective Date/time seen: 11/18/19 07:40 Objective Data Vital Signs Vital Signs: Vital Signs - 24 hr 11/17/19 08:00 11/17/19 08:40 11/17/19 08:48 Temperature 97.4 F L Pulse Rate 91 90 92 Pulse Rate [Bilateral Pedal (Dorsalis Pedis) Palpation] 87 Respiratory Rate 33 H 28 H 30 H Blood Pressure 82/53 L Pulse Oximetry 92 92 11/17/19 09:30 11/17/19 10:00 11/17/19 10:11 Temperature 98.4 F Pulse Rate 90 83 88 Pulse Rate [Bilateral Pedal (Dorsalis Pedis) Palpation] Respiratory Rate 30 H 32 H Blood Pressure 121/74 148/95 H Pulse Oximetry 100 100 100 11/17/19 10:26 11/17/19 10:27 11/17/19 11:07 Temperature 98.4 F 99.4 F Pulse Rate 79 85 83 Pulse Rate [Bilateral Pedal (Dorsalis Pedis) Palpation] Respiratory Rate 25 H 18 29 H Blood Pressure 121/74 105/63 Pulse Oximetry 100 100 11/17/19 11:08 11/17/19 11:15 11/17/19 11:29 Temperature Pulse Rate 83 83 87 Pulse Rate [Bilateral Pedal (Dorsalis Pedis) Palpation] Respiratory Rate 29 H 22 H Blood Pressure Pulse Oximetry 100 11/17/19 11:31 11/17/19 12:00 11/17/19 12:01 Temperature 97.4 F L Pulse Rate 85 94 83 Pulse Rate [Bilateral Pedal (Dorsalis Pedis) Palpation] 86 Respiratory Rate 23 H 18 21 H Blood Pressure 100/64 Pulse Oximetry 100 100 11/17/19 12:50 11/17/19 13:59 11/17/19 14:35 Temperature 99.1 F Pulse Rate 83 80 80 Pulse Rate [Bilateral Pedal (Dorsalis Pedis) Palpation] Respiratory Rate 17 18 18 Blood Pressure 98/62 L 100/64 Pulse Oximetry 100 100 100 11/17/19 14:45 11/17/19 16:00 11/17/19 17:35 Temperature Pulse Rate 86 90 84 Pulse Rate [Bilateral Pedal (Dorsalis Pedis) Palpation] Respiratory Rate 18 18 Blood Pressure 103/61 Pulse Oximetry 99 100 11/17/19 18:00 11/17/19 20:00 11/17/19 20:23 Temperature 97.9 F Pulse Rate 91 80 77 Pulse Rate [Bilateral Pedal (Dorsalis Pedis) Palpation] Respiratory Rate 18 18 Blood Pressure 106/66 106/63 Pulse Oximetry 99 100 100 11/17/19 20:25 11/17/19 20:35 11/17/19 21:32 Temperature Pulse Rate 77 81 96 Pulse Rate [Bilateral Pedal (Dorsalis Pedis) Palpation] Respiratory Rate 18 18 Blood Pressure 77/42 L Pulse Oximetry 11/17/19 21:47 11/17/19 22:00 11/17/19 22:03 Temperature Pulse Rate 94 93 94 Pulse Rate [Bilateral Pedal (Dorsalis Pedis) Palpation] Respiratory Rate 17 Blood Pressure 82/43 L 87/47 L 87/47 L Pulse Oximetry 98 11/17/19 22:23 11/17/19 22:34 11/17/19 22:50 Temperature Pulse Rate 92 101 H 94 Pulse Rate [Bilateral Pedal (Dorsalis Pedis) Palpation] Respiratory Rate Blood Pressure 147/89 H 160/99 H 158/85 H Pulse Oximetry 11/17/19 23:00 11/17/19 23:01 11/17/19 23:30 Temperature Pulse Rate 103 H 101 H 76 Pulse Rate [Bilateral Pedal (Dorsalis Pedis) Palpation] Respiratory Rate 19 Blood Pressure 147/95 H Pulse Oxime
[2019-11-18] MEDS: TOLNAFTATE 1% POWDER 45 GM BTL 1 APPLIC TOPICAL ×2 (08:01→20:13)
[2019-11-18] MEDS: PANTOPRAZOLE SODIUM IV 40 MG VIAL IV PUSH ×2 (08:01→20:14)
[2019-11-18] MEDS: methylPREDNISolone SOD SUCC 125 MG VIAL 60 MG IV PUSH (08:01)
[2019-11-18] MEDS: FOLIC ACID 1 MG/0.2 ML INJ IV PUSH (08:01)
[2019-11-18] MEDS: THIAMINE HCL 200 MG/2 ML VIAL 100 MG IV PUSH (08:02)
--- NOTE | 2019-11-18 09:49 | PM.PNCARD ---
Progress Note: A&P Additional Plan at this point aggressive supportive care is being provided. There are no active cardiac problems I have no recommendations specific to her cardiac status at this time. Once again she has a interesting right atrial mass which is not going to create any hemodynamic issues and therefore is clearly unrelated to her current illness. If she recovers and appears to have a reasonable prognosis a cardiac MRI of this would probably be the ideal next imaging option. Denis Awad MD [facility] Subjective Date/time seen: 11/18/19 09:49 Interval history: reason for consult: septic shock, pneumonia and UTI, use urine culture growing E coli. Alcohol withdrawal, COPD exacerbation,, GI bleed - melena with anemia - SARS-CoV-2 PCR negative continued respiratory failure requiring re-intubation yesterday. Patient appears to be critically ill with a variety of noncardiac problems. Echocardiogram did not suggest this is primarily a cardiac event. She does have a small sessile right atrial mass which may need to be evaluated in the future depending on her recovery from her critical illness that is going on now. Obviously this right atrial mass has nothing to do with current hospitalization Exam Const: Other: intubated sedated patient in the ICU on ventilator support Eyes: Sclera: sclerae normal Neck: Neck: no JVD Thyroid: thyroid normal Other: carotid impulses are intact bilaterally Resp: Other: coarse breath sounds centrally Cardio: Rate: regular rate Rhythm: regular rhythm Skin: General skin exam: normal color Neuro: Other: patient sedated on ventilator support Objective Data Vital Signs Vital Signs: Vital Signs - 24 hr 11/17/19 10:00 11/17/19 10:11 11/17/19 10:26 Temperature 36.9 C 36.9 C Pulse Rate 83 88 79 Pulse Rate [Bilateral Pedal (Dorsalis Pedis) Palpation] Respiratory Rate 30 H 32 H 25 H Blood Pressure 121/74 148/95 H 121/74 Pulse Oximetry 100 100 100 11/17/19 10:27 11/17/19 11:07 11/17/19 11:08 Temperature 37.4 C Pulse Rate 85 83 83 Pulse Rate [Bilateral Pedal (Dorsalis Pedis) Palpation] Respiratory Rate 18 29 H 29 H Blood Pressure 105/63 Pulse Oximetry 100 11/17/19 11:15 11/17/19 11:29 11/17/19 11:31 Temperature Pulse Rate 83 87 85 Pulse Rate [Bilateral Pedal (Dorsalis Pedis) Palpation] Respiratory Rate 22 H 23 H Blood Pressure Pulse Oximetry 100 100 11/17/19 12:00 11/17/19 12:01 11/17/19 12:50 Temperature 36.3 C L 37.3 C Pulse Rate 94 83 83 Pulse Rate [Bilateral Pedal (Dorsalis Pedis) Palpation] 86 Respiratory Rate 18 21 H 17 Blood Pressure 100/64 98/62 L Pulse Oximetry 100 100 11/17/19 13:59 11/17/19 14:35 11/17/19 14:45 Temperature Pulse Rate 80 80 86 Pulse Rate [Bilateral Pedal (Dorsalis Pedis) Palpation] Respiratory Rate 18 18 18 Blood Pressure 100/64 Pulse Oximetry 100 100 11/17/19 16:00 11/17/19 17:35 11/17/19 18:00 Temperature Pulse Rate 90 84 91 Pulse Rate [Bilateral Pedal (Dorsalis Pedis) Palpation] Respiratory Rate 18 18 Blood Pressure 103/61 106/66 Pulse Oximetry 99 100 99 11/17/19 20:00 11/17/19 20:23 11/17/19 20:25 Temperature 36.6 C Pulse Rate 80 77 77 Pulse Rate [Bilateral Pedal (Dorsalis Pedis) Palpation] Respiratory Rate 18 18 Blood Pressure 106/63 Pulse Oximetry 100 100 11/17/19 20:35 11/17/19 21:32 11/17/19 21:47 Temperature Pulse Rate 81 96 94 Pulse Rate [Bilateral Pedal (Dorsalis Pedis) Palpation] Respiratory Rate 18 Blood Pressure 77/42 L 82/43 L Pulse Oximetry 11/17/19 22:00 11/17/19 22:03 11/17/19 22:23 Temperature Pulse Rate 93 94 92 Pulse Rate [Bilateral Pedal (Dorsalis Pedis) Palpation] Respiratory Rate 17 Blood Pressure 87/47 L 87/47 L 147/89 H Pulse Oximetry 98 11/17/19 22:34 11/17/19 22:50 11/17/19 23:00 Temperature Pulse Rate 101 H 94 103 H Pulse Rate [Bilateral Pedal (Dorsalis Pedis) Palp
--- NOTE | 2019-11-18 11:41 | WPDINTPN ---
Progress Note: A&P Assessment and Plan (1) Respiratory failure: Code(s): J96.90 - Respiratory failure, unspecified, unspecified whether with hypoxia or hypercapnia Status: Acute Assessment and Plan: acute respiratory failure likely related to bilateral infiltrates, secondary pneumonia, acute lung injury /ARDS - intubated on 11/17/2019 - continue CMV mode of ventilation, ABGs reviewed post intubation, will wean FiO2 to maintain O2 sats greater than 92% - continue cefepime and vancomycin (2) Septic shock: Code(s): A41.9 - Sepsis, unspecified organism; R65.21 - Severe sepsis with septic shock Status: Acute Assessment and Plan: likely related to pneumonia, sepsis /infection - Septic shock secondary to pneumonia and UTI, - continue cefepime and vancomycin - urine cultures growing E coli, blood and sputum cultures are negative (3) Urinary tract infection: Qualifiers: Hematuria presence: without hematuria Urinary tract infection type: site unspecified Qualified Code(s): N39.0 - Urinary tract infection, site not specified Code(s): N39.0 - Urinary tract infection, site not specified Status: Acute Assessment and Plan: patient growing E coli from urine culture. miller susceptible, - continue antibiotics as above (4) Pneumonia: Qualifiers: Laterality: bilateral Lung location: unspecified part of lung Pneumonia type: due to unspecified organism Qualified Code(s): J18.9 - Pneumonia, unspecified organism Code(s): J18.9 - Pneumonia, unspecified organism Status: Acute Assessment and Plan: community-acquired pneumonia versus aspiration continue antibiotics as above (5) Candidiasis of breast: Code(s): B37.89 - Other sites of candidiasis Status: Acute Assessment and Plan: Antifungal cream has been ordered (6) COPD exacerbation: Code(s): J44.1 - Chronic obstructive pulmonary disease with (acute) exacerbation Status: Acute Assessment and Plan: mechanical ventilation, antibiotics,bronchodilators (7) Alcoholism: Code(s): F10.20 - Alcohol dependence, uncomplicated Status: Chronic Assessment and Plan: patient has history of chronic alcohol abuse and dependence - continue folic acid and thiamine (8) Dysphagia: Code(s): R13.10 - Dysphagia, unspecified Status: Acute Assessment and Plan: currently intubated, on tube feeds (9) Suspected COVID-19 virus infection: Code(s): Z20.828 - Contact with and (suspected) exposure to other viral communicable diseases Status: Acute Assessment and Plan: COVID-19 ruled out. SARS-CoV-2 PCR was negative Patient was on Airborne, Droplet and Contact Isolation which now has been discontinued. (10) Neck pain: Code(s): M54.2 - Cervicalgia Status: Acute Assessment and Plan: CT of C-spine IMPRESSION: Reversal of cervical curvature Degenerative changes No fracture or dislocation Patient also has chronic it is cervical spine related pain which is worse now. Lidoderm patch and p.r.n. analgesic (11) Fall: Code(s): W19.XXXA - Unspecified fall, initial encounter Status: Acute Assessment and Plan: head CT showed IMPRESSION: No skull fracture or acute intracranial finding (12) Chest pain: Code(s): R07.9 - Chest pain, unspecified Status: Acute Assessment and Plan: echocardiogram showed EF of 60-65%, grade 1 diastolic dysfunction, 1.5 x 1.2 cm fixed echogenic mass within the right atrium on the inter-atrial septum. Discussed with Cardiology, patient currently not a candidate for KENDALL given her mental status. Not a candidate for anticoagulation given her GI bleed and anemia (13) Elevated troponin: Code(s): R79.89 - Other specified abnormal findings of blood chemistry Status: Acute Assessment and Plan: patient's
[2019-11-18] MEDS: NOREPINEPHRINE 8 MG/D5W 250 ML 8 MG/250 ML BAG 9.4 MG IV CONT (11:53)
--- NOTE | 2019-11-18 17:13 | PM.IMPN ---
Progress Note: A&P Assessment and Plan (1) Acute hypoxemic respiratory failure: Code(s): J96.01 - Acute respiratory failure with hypoxia Status: Acute Assessment and Plan: She was intubated again. Possibly due to PNA, ARDS. (2) Septic shock: Code(s): A41.9 - Sepsis, unspecified organism; R65.21 - Severe sepsis with septic shock Status: Acute Assessment and Plan: Most likely due to PNA and UTI On cefepime and vancomycin now, urine cultures growing E.Coli. (3) Pneumonia: Qualifiers: Laterality: bilateral Lung location: unspecified part of lung Pneumonia type: due to unspecified organism Qualified Code(s): J18.9 - Pneumonia, unspecified organism Code(s): J18.9 - Pneumonia, unspecified organism Status: Acute Assessment and Plan: On antibiotics and intubated as detailed above. (4) Urinary tract infection: Qualifiers: Hematuria presence: without hematuria Urinary tract infection type: site unspecified Qualified Code(s): N39.0 - Urinary tract infection, site not specified Code(s): N39.0 - Urinary tract infection, site not specified Status: Acute Assessment and Plan: Cultures growing E.Coli (5) Elevated troponin: Code(s): R79.89 - Other specified abnormal findings of blood chemistry Status: Acute Assessment and Plan: Likely demand ischemia due to sepsis and hypotension. Echocardiogram showed a fixed inter atrial mass however she is not a candidate for a KENDALL for now. (6) GI bleed: Code(s): K92.2 - Gastrointestinal hemorrhage, unspecified Status: Acute Assessment and Plan: Occult blood was positive. Egd is on hold forn now, her Hb seems stable, no active visible bleeding. (7) Alcohol withdrawal: Qualifiers: Complication of substance-induced condition: uncomplicated Qualified Code(s): F10.230 - Alcohol dependence with withdrawal, uncomplicated Code(s): F10.239 - Alcohol dependence with withdrawal, unspecified Status: Acute (8) Suspected COVID-19 virus infection: Code(s): Z20.828 - Contact with and (suspected) exposure to other viral communicable diseases Status: Acute Assessment and Plan: Negative PCR Additional Plan Subjective Date/time seen: Remains intubated, awake following basic commands. 11/18/19 17:13 Exam Const: General: comfortable and no acute distress Other: Looks chronically ill, now intubated but following commands. Neck: Neck: no JVD Resp: Auscultation: crackles, rhonchi and wheezes Other: Coarse breath sounds with rhonchi and crackles Cardio: Rate: regular rate Rhythm: regular rhythm GI: Other: Soft, non tender Neuro: Other: Intubated, able to follow basic commands. Extrem: General: edema Objective Data Vital Signs Vital Signs: Vital Signs - 24 hr 11/17/19 17:35 11/17/19 18:00 11/17/19 20:00 Temperature 97.9 F Pulse Rate 84 91 80 Respiratory Rate 18 18 Blood Pressure 106/66 106/63 Pulse Oximetry 100 99 100 11/17/19 20:23 11/17/19 20:25 11/17/19 20:35 Temperature Pulse Rate 77 77 81 Respiratory Rate 18 18 Blood Pressure Pulse Oximetry 100 11/17/19 21:32 11/17/19 21:47 11/17/19 22:00 Temperature Pulse Rate 96 94 93 Respiratory Rate 17 Blood Pressure 77/42 L 82/43 L 87/47 L Pulse Oximetry 98 11/17/19 22:03 11/17/19 22:23 11/17/19 22:34 Temperature Pulse Rate 94 92 101 H Respiratory Rate Blood Pressure 87/47 L 147/89 H 160/99 H Pulse Oximetry 11/17/19 22:50 11/17/19 23:00 11/17/19 23:01 Temperature Pulse Rate 94 103 H 101 H Respiratory Rate 19 Blood Pressure 158/85 H 147/95 H Pulse Oximetry 11/17/19 23:30 11/17/19 23:48 11/17/19 23:55 Temperature Pulse Rate 76 99 101 H Respiratory Rate 18 Blood Pressure 131/81 Pulse Oximetry 98 11/17/19 23:56 11/18/19 00:00 11/18/19 00:16 Temperatu
[2019-11-18] MEDS: SERTRALINE HCL 50 MG TABLET 100 MG PO (20:14)
[2019-11-19] VITALS (34 sets, daily range): BP systolic 78–130; BP diastolic 50–80; PULSE 85–118; RESP 9–18; TEMP 36.3–36.8; O2SAT 97–100
[2019-11-19] MEDS: IPRATROPIUM BR 0.02% INH SOLN 0.5 MG/2.5 ML VIAL INHALATION ×4 (02:31→19:06)
[2019-11-19] MEDS: ALBUTEROL SULFATE NEB 2.5 MG/0.5 ML INH INHALATION ×4 (02:31→19:06)
[2019-11-19 05:10] LABS: Alveolar/Arterial O2 Gradient 69.3 mmHg; Base Excess ABG -0.9 mEq/l (+/-2.0); Carboxyhemoglobin 0.3 % THb (0-2.0); Fractional Inspired Oxygen 30 %; HCO3 ABG 23.2 mEq/l (22.0-26.0); Methemoglobin ABG 0.4 %THb (0-1.5); Oxygen Content ABG 13.5 %vol (16.0-22.0); Oxygen Saturation ABG 97.8 % (95.0-100.0); Oxyhemoglobin 96.1 % THb (90.0-100.0); PCO2 ABG 36.1 mmHg (35.0-45.0); PO2 ABG 102.2 mmHg (80.0-100.0); PO2 FiO2 Ratio Arterial Blood 3.41 %; Reduced Hemoglobin 3.2 %THb (0-5.0); Total Hemoglobin 9.9 g/dL (12.0-18.0); pH ABG 7.425 (7.350-7.450)
[2019-11-19 05:11] LABS: Modified Allen's Test Pass; Site Drawn RIGHT RADIAL
[2019-11-19 05:12] LABS: Arterial Blood Gas PEEP 8 cmH2O; Arterial Blood Gas Tidal Volume 420 ml; Arterial Blood Gas Vent Mode CMV; Arterial Blood Gas Ventilator rate 18 /MIN; Device VENTILATOR
[2019-11-19 06:27] LABS: Hematocrit 26.8 % (37.0-47.0); Hemoglobin 8.9 g/dL (12.0-15.0); Mean Corpuscular HGB Conc 33.2 g/dl (32-36); Mean Corpuscular Hemoglobin 30.7 pg (26-34); Mean Corpuscular Volume 92.4 fl (80-100); Mean Platelet Volume 9.7 fl (7.4-10.4); Platelet Count Result 108 k/mm3 (150-375); Red Cell Distribution Width 17.7 % (11.5-14.5)
[2019-11-19 06:40] LABS: Alanine Aminotransferase 12 U/L (4-35); Albumin Level 2.1 g/dL (3.5-5.1); Alkaline Phosphatase 110 U/L (38-126); Anion Gap 1 mmol/L (8-16); Aspartate Amino Transferase 28 U/L (14-36); Bilirubin,Total 0.4 mg/dL (0.2-1.3); Blood Urea Nitrogen 16 mg/dL (7-17); Calcium 7.5 mg/dL (8.4-10.2); Carbon Dioxide 26 mmol/L (22-30); Chloride 112 mmol/L (98-107); Estimated CRCL calculation 57 ml/min; Estimated Glomerular Filt Rate > 60; Glucose 97 mg/dL (65-105); Magnesium 1.6 mg/dL (1.6-2.3); Phosphorus 3.1 mg/dL (2.5-4.5); Potassium 3.2 mmol/L (3.4-5.0); Sodium 139 mmol/L (137-145)
--- NOTE | 2019-11-19 06:55 | WPDGIPROGNO ---
Progress Note: A&P Additional Plan Patient remains on ventilator. Appears alert however. No evidence for additional bleeding. \physical exam reveals her to be alert. Lungs reveal some rhonchi. Heart without murmur. Abdomen is soft nontender with no organomegaly. Impression 1. Ventilator dependent respiratory failure. Patient with pneumonia in in sepsis at the time of admission continued antibiotic therapy. 2. Anemia with occult blood in stool. Concern over possible bleeding. No active bleeding noted since admission. Plan is to continue on proton pump inhibitor. EGD is being deferred because of other comorbidities. 3. Alcohol abuse. 4. Dysphagia. Subjective Date/time seen: 11/19/19 06:55 Objective Data Vital Signs Vital Signs: Vital Signs - 24 hr 11/18/19 07:47 11/18/19 07:49 11/18/19 08:00 Temperature 98.3 F Pulse Rate 89 88 88 Respiratory Rate 18 18 Blood Pressure 96/58 L Pulse Oximetry 95 94 11/18/19 09:09 11/18/19 09:11 11/18/19 09:20 Temperature Pulse Rate 89 89 88 Respiratory Rate 18 18 Blood Pressure Pulse Oximetry 97 11/18/19 10:00 11/18/19 10:57 11/18/19 11:09 Temperature Pulse Rate 91 88 92 Respiratory Rate 18 18 Blood Pressure 101/52 L Pulse Oximetry 98 97 11/18/19 11:53 11/18/19 11:54 11/18/19 12:00 Temperature 97.7 F Pulse Rate 96 91 87 Respiratory Rate 18 18 Blood Pressure 116/76 116/73 Pulse Oximetry 97 11/18/19 14:00 11/18/19 14:15 11/18/19 14:18 Temperature Pulse Rate 97 98 96 Respiratory Rate 18 18 Blood Pressure 112/74 Pulse Oximetry 99 99 11/18/19 16:00 11/18/19 16:25 11/18/19 17:42 Temperature 98 F Pulse Rate 109 H 110 H 96 Respiratory Rate 18 18 Blood Pressure 97/59 L 119/71 Pulse Oximetry 99 98 99 11/18/19 20:00 11/18/19 20:11 11/18/19 20:12 Temperature 97.2 F L Pulse Rate 100 104 H 102 H Respiratory Rate 18 19 18 Blood Pressure 88/60 L Pulse Oximetry 98 11/18/19 20:44 11/18/19 20:54 11/18/19 20:55 Temperature Pulse Rate 100 102 H 102 H Respiratory Rate 20 20 18 Blood Pressure Pulse Oximetry 99 11/18/19 22:00 11/18/19 23:35 11/19/19 00:00 Temperature 97.3 F L Pulse Rate 96 90 86 Respiratory Rate 18 18 Blood Pressure 108/65 105/62 Pulse Oximetry 100 100 100 11/19/19 01:17 11/19/19 02:00 11/19/19 02:35 Temperature Pulse Rate 90 85 87 Respiratory Rate 18 18 Blood Pressure 110/67 100/59 L Pulse Oximetry 100 100 11/19/19 02:45 11/19/19 04:00 11/19/19 04:46 Temperature 97.9 F Pulse Rate 91 86 86 Respiratory Rate 18 18 Blood Pressure 91/56 L Pulse Oximetry 100 100 11/19/19 05:52 11/19/19 05:53 11/19/19 05:55 Temperature Pulse Rate 88 88 88 Respiratory Rate 18 18 Blood Pressure 126/75 Pulse Oximetry 11/19/19 06:00 11/19/19 06:01 Temperature Pulse Rate 87 88 Respiratory Rate 18 Blood Pressure 78/50 L 78/50 L Pulse Oximetry 99 Intake/Output Intake/Output: Intake & Output 11/16/19 11/17/19 11/18/19 11/19/19 23:59 23:59 23:59 23:59 Intake Total 1141 1142 1413 915 Output Total 1150 1725 800 450 Balance -9 -583 613 465 Meds/Results Medications: Active Medications Generic Name Dose Route Start Last Admin Trade Name Freq PRN Reason Stop Dose Admin Acetaminophen 650 mg 11/12/19 21:42 11/13/19 04:18 Tylenol Tablet PO 650 mg Q4H PRN Administration Mild Pain (1-3) or Fever Albuterol 2.5 mg 11/13/19 14:00 11/19/19 02:31 Albuterol Sulf Neb 2.5mg/0.5ml INHALATION 2.5 mg Q6HRT ELLA Administration Calcium Carbonate 500 mg 11/14/19 17:00 11/17/19 18:21 Oscal 500 Mg PO 500 mg BIDWM ELLA Administration Folic Acid 1 mg 11/14/19 09:00 11/18/19 08:01 Folic Acid Inj IV PUSH 1 mg QAM ELAL Administration Norepinephrine Bitartrate 8 mg in 250 mls @ 1.9 mls/hr 11/15/19 15:45 11/19/19 06:01 Levophed 8 Mg/D5w 250 Ml IV CONT 1 mcg/min .Q72H ELLA 1.9 mls/hr Titrati
[2019-11-19] MEDS: FOLIC ACID 1 MG/0.2 ML INJ IV PUSH (08:42)
[2019-11-19] MEDS: TOLNAFTATE 1% POWDER 45 GM BTL 1 APPLIC TOPICAL ×2 (08:44→20:09)
[2019-11-19] MEDS: THIAMINE HCL 200 MG/2 ML VIAL 100 MG IV PUSH (08:44)
[2019-11-19] MEDS: PANTOPRAZOLE SODIUM IV 40 MG VIAL IV PUSH ×2 (08:44→20:09)
--- NOTE | 2019-11-19 10:39 | WPDINTPN ---
Progress Note: A&P Assessment and Plan (1) Respiratory failure: Code(s): J96.90 - Respiratory failure, unspecified, unspecified whether with hypoxia or hypercapnia Status: Acute Assessment and Plan: acute respiratory failure likely related to bilateral infiltrates, secondary pneumonia, acute lung injury /ARDS - intubated on 11/17/2019 - continue CMV mode of ventilation, ABGs reviewed post intubation, will wean FiO2 to maintain O2 sats greater than 92% - continue cefepime and vancomycin - sedated with fentanyl and Versed, maintain RASS of 0 to -2, daily sedation vacation (2) Septic shock: Code(s): A41.9 - Sepsis, unspecified organism; R65.21 - Severe sepsis with septic shock Status: Acute Assessment and Plan: likely related to pneumonia, sepsis /infection - Septic shock secondary to pneumonia and UTI, - continue cefepime and vancomycin - urine cultures growing E coli, blood and sputum cultures are negative (3) Urinary tract infection: Qualifiers: Hematuria presence: without hematuria Urinary tract infection type: site unspecified Qualified Code(s): N39.0 - Urinary tract infection, site not specified Code(s): N39.0 - Urinary tract infection, site not specified Status: Acute Assessment and Plan: patient growing E coli from urine culture. miller susceptible, - continue antibiotics as above (4) Pneumonia: Qualifiers: Laterality: bilateral Lung location: unspecified part of lung Pneumonia type: due to unspecified organism Qualified Code(s): J18.9 - Pneumonia, unspecified organism Code(s): J18.9 - Pneumonia, unspecified organism Status: Acute Assessment and Plan: community-acquired pneumonia versus aspiration continue antibiotics as above - sputum cultures negative so far (5) Candidiasis of breast: Code(s): B37.89 - Other sites of candidiasis Status: Acute Assessment and Plan: Antifungal cream has been ordered (6) COPD exacerbation: Code(s): J44.1 - Chronic obstructive pulmonary disease with (acute) exacerbation Status: Acute Assessment and Plan: mechanical ventilation, antibiotics,bronchodilators (7) Alcoholism: Code(s): F10.20 - Alcohol dependence, uncomplicated Status: Chronic Assessment and Plan: patient has history of chronic alcohol abuse and dependence - continue folic acid and thiamine (8) Dysphagia: Code(s): R13.10 - Dysphagia, unspecified Status: Acute Assessment and Plan: currently intubated, on tube feeds (9) Suspected COVID-19 virus infection: Code(s): Z20.828 - Contact with and (suspected) exposure to other viral communicable diseases Status: Acute Assessment and Plan: COVID-19 ruled out. SARS-CoV-2 PCR was negative Patient was on Airborne, Droplet and Contact Isolation which now has been discontinued. (10) Neck pain: Code(s): M54.2 - Cervicalgia Status: Acute Assessment and Plan: CT of C-spine IMPRESSION: Reversal of cervical curvature Degenerative changes No fracture or dislocation Patient also has chronic it is cervical spine related pain which is worse now. Lidoderm patch and p.r.n. analgesic (11) Fall: Code(s): W19.XXXA - Unspecified fall, initial encounter Status: Acute Assessment and Plan: head CT showed IMPRESSION: No skull fracture or acute intracranial finding (12) Chest pain: Code(s): R07.9 - Chest pain, unspecified Status: Acute Assessment and Plan: echocardiogram showed EF of 60-65%, grade 1 diastolic dysfunction, 1.5 x 1.2 cm fixed echogenic mass within the right atrium on the inter-atrial septum. Discussed with Cardiology, patient currently not a candidate for KENDALL given her mental status. Not a candidate for anticoagulation given her GI bleed and anemia (13) Elevated troponin: Code(s): R7
[2019-11-19] MEDS: METOCLOPRAMIDE HCL INJ 10 MG/2 ML VIAL IV PUSH ×3 (15:00→22:57)
--- NOTE | 2019-11-19 17:30 | PM.IMPN ---
Progress Note: A&P Assessment and Plan (1) Acute hypoxemic respiratory failure: Code(s): J96.01 - Acute respiratory failure with hypoxia Status: Acute Assessment and Plan: She is intubated, her chest x ray showing diffuse infiltrates probably ARDS however it looks slightly improved. Possibly due to PNA, ARDS. (2) Septic shock: Code(s): A41.9 - Sepsis, unspecified organism; R65.21 - Severe sepsis with septic shock Status: Acute Assessment and Plan: Most likely due to PNA and UTI On cefepime and vancomycin now, urine cultures growing E.Coli. (3) Pneumonia: Qualifiers: Laterality: bilateral Lung location: unspecified part of lung Pneumonia type: due to unspecified organism Qualified Code(s): J18.9 - Pneumonia, unspecified organism Code(s): J18.9 - Pneumonia, unspecified organism Status: Acute Assessment and Plan: On antibiotics and intubated as detailed above. (4) Urinary tract infection: Qualifiers: Hematuria presence: without hematuria Urinary tract infection type: site unspecified Qualified Code(s): N39.0 - Urinary tract infection, site not specified Code(s): N39.0 - Urinary tract infection, site not specified Status: Acute Assessment and Plan: Cultures growing E.Coli (5) Elevated troponin: Code(s): R79.89 - Other specified abnormal findings of blood chemistry Status: Acute Assessment and Plan: Likely demand ischemia due to sepsis and hypotension. Echocardiogram showed a fixed inter atrial mass however she is not a candidate for a KENDALL for now. (6) GI bleed: Code(s): K92.2 - Gastrointestinal hemorrhage, unspecified Status: Acute Assessment and Plan: Occult blood was positive. Egd is on hold forn now, her Hb seems stable, no active visible bleeding. (7) Alcohol withdrawal: Qualifiers: Complication of substance-induced condition: uncomplicated Qualified Code(s): F10.230 - Alcohol dependence with withdrawal, uncomplicated Code(s): F10.239 - Alcohol dependence with withdrawal, unspecified Status: Acute (8) Suspected COVID-19 virus infection: Code(s): Z20.828 - Contact with and (suspected) exposure to other viral communicable diseases Status: Acute Assessment and Plan: Negative PCR Additional Plan Subjective Date/time seen: Intubated but alert, following commands. 11/19/19 17:30 Exam Const: General: comfortable and no acute distress Other: Looks chronically ill, now intubated but following commands. Neck: Neck: no JVD Resp: Auscultation: crackles, rhonchi and wheezes Other: Coarse breath sounds with rhonchi and crackles Cardio: Rate: regular rate Rhythm: regular rhythm GI: Other: Soft, non tender Neuro: Other: Intubated, able to follow basic commands. Extrem: General: edema Objective Data Vital Signs Vital Signs: Vital Signs - 24 hr 11/18/19 17:42 11/18/19 20:00 11/18/19 20:11 Temperature 97.2 F L Pulse Rate 96 100 104 H Respiratory Rate 18 18 19 Blood Pressure 119/71 88/60 L Pulse Oximetry 99 98 11/18/19 20:12 11/18/19 20:44 11/18/19 20:54 Temperature Pulse Rate 102 H 100 102 H Respiratory Rate 18 20 20 Blood Pressure Pulse Oximetry 99 11/18/19 20:55 11/18/19 22:00 11/18/19 23:35 Temperature Pulse Rate 102 H 96 90 Respiratory Rate 18 18 Blood Pressure 108/65 Pulse Oximetry 100 100 11/19/19 00:00 11/19/19 01:17 11/19/19 02:00 Temperature 97.3 F L Pulse Rate 86 90 85 Respiratory Rate 18 18 Blood Pressure 105/62 110/67 100/59 L Pulse Oximetry 100 100 11/19/19 02:35 11/19/19 02:45 11/19/19 04:00 Temperature 97.9 F Pulse Rate 87 91 86 Respiratory Rate 18 18 18 Blood Pressure 91/56 L Pulse Oximetry 100 100 11/19/19 04:46 11/19/19 05:52 11/19/19 05:53 Temperature Pulse Rate 86 88 88 Respiratory Rate 18 Blood Pressur
[2019-11-19] MEDS: SERTRALINE HCL 50 MG TABLET 100 MG PO (20:09)
[2019-11-20] VITALS (51 sets, daily range): BP systolic 77–136; BP diastolic 49–85; PULSE 88–123; RESP 14–38; TEMP 36.6–36.8; O2SAT 94–100
[2019-11-20] MEDS: ALBUTEROL SULFATE NEB 2.5 MG/0.5 ML INH INHALATION ×4 (01:17→21:06)
[2019-11-20] MEDS: IPRATROPIUM BR 0.02% INH SOLN 0.5 MG/2.5 ML VIAL INHALATION ×4 (01:17→21:06)
[2019-11-20 04:15] LABS: Alveolar/Arterial O2 Gradient 76.3 mmHg; Base Excess ABG 0.5 mEq/l (+/-2.0); Carboxyhemoglobin 0.3 % THb (0-2.0); Fractional Inspired Oxygen 30 %; HCO3 ABG 24.9 mEq/l (22.0-26.0); Methemoglobin ABG 0.4 %THb (0-1.5); Oxygen Content ABG 12.8 %vol (16.0-22.0); Oxygen Saturation ABG 97.1 % (95.0-100.0); Oxyhemoglobin 95.5 % THb (90.0-100.0); PCO2 ABG 39.3 mmHg (35.0-45.0); PO2 ABG 91.4 mmHg (80.0-100.0); PO2 FiO2 Ratio Arterial Blood 3.05 %; Reduced Hemoglobin 3.8 %THb (0-5.0); Total Hemoglobin 9.4 g/dL (12.0-18.0)
[2019-11-20 04:17] LABS: Arterial Blood Gas PEEP 8 cmH2O; Arterial Blood Gas Tidal Volume 420 ml; Arterial Blood Gas Vent Mode CMV; Arterial Blood Gas Ventilator rate 18 /MIN; Device VENTILATOR; Modified Allen's Test Pass; Site Drawn RIGHT RADIAL
[2019-11-20] MEDS: METOCLOPRAMIDE HCL INJ 10 MG/2 ML VIAL IV PUSH ×2 (05:08→11:54)
[2019-11-20 05:10] LABS: Hematocrit 25.1 % (37.0-47.0); Hemoglobin 8.3 g/dL (12.0-15.0); Mean Corpuscular HGB Conc 33.1 g/dl (32-36); Mean Corpuscular Hemoglobin 30.5 pg (26-34); Mean Corpuscular Volume 92.3 fl (80-100); Mean Platelet Volume 10.1 fl (7.4-10.4); Platelet Count Result 104 k/mm3 (150-375); Red Blood Count 2.72 M/mm3 (4.2-5.4); Red Cell Distribution Width 17.6 % (11.5-14.5); White Blood Count 8.1 K/mm3 (4.5-10.0)
[2019-11-20 05:24] LABS: Alanine Aminotransferase 13 U/L (4-35); Albumin Level 2.1 g/dL (3.5-5.1); Alkaline Phosphatase 116 U/L (38-126); Anion Gap 3 mmol/L (8-16); Aspartate Amino Transferase 25 U/L (14-36); Bilirubin,Total 0.4 mg/dL (0.2-1.3); Blood Urea Nitrogen 18 mg/dL (7-17); Calcium 7.8 mg/dL (8.4-10.2); Carbon Dioxide 24 mmol/L (22-30); Chloride 113 mmol/L (98-107); Estimated CRCL calculation 65 ml/min; Estimated Glomerular Filt Rate > 60; Glucose 101 mg/dL (65-105); Magnesium 1.4 mg/dL (1.6-2.3); Phosphorus 2.5 mg/dL (2.5-4.5); Potassium 3.3 mmol/L (3.4-5.0); Sodium 140 mmol/L (137-145)
[2019-11-20] MEDS: FUROSEMIDE INJ 40 MG/4 ML VIAL 20 MG IV PUSH (08:19)
[2019-11-20] MEDS: POTASSIUM CHLORIDE 20 MEQ PACKET (FOR LIQUID) 40 MEQ PO (08:21)
[2019-11-20] MEDS: PANTOPRAZOLE SODIUM IV 40 MG VIAL IV PUSH ×2 (08:21→20:06)
[2019-11-20] MEDS: FOLIC ACID 1 MG/0.2 ML INJ IV PUSH (08:21)
[2019-11-20] MEDS: TOLNAFTATE 1% POWDER 45 GM BTL 1 APPLIC TOPICAL ×2 (08:22→20:06)
[2019-11-20] MEDS: THIAMINE HCL 200 MG/2 ML VIAL 100 MG IV PUSH (08:22)
--- NOTE | 2019-11-20 08:57 | WPDINTPN ---
Progress Note: A&P Assessment and Plan (1) Respiratory failure: Code(s): J96.90 - Respiratory failure, unspecified, unspecified whether with hypoxia or hypercapnia Status: Acute Assessment and Plan: acute respiratory failure likely related to bilateral infiltrates, secondary pneumonia, acute lung injury /ARDS - intubated on 11/17/2019 - chest x-ray and ABGs reviewed, will diurese today, - continue cefepime and vancomycin - will switch fentanyl and Versed infusion to Precedex, will place patient on SBT 1 more awake evaluate for extubation (2) Septic shock: Code(s): A41.9 - Sepsis, unspecified organism; R65.21 - Severe sepsis with septic shock Status: Acute Assessment and Plan: OFF LEVOPHED - likely related to pneumonia, sepsis /infection - Septic shock secondary to pneumonia and UTI, - continue cefepime and vancomycin - urine cultures growing E coli, blood and sputum cultures are negative (3) Urinary tract infection: Qualifiers: Hematuria presence: without hematuria Urinary tract infection type: site unspecified Qualified Code(s): N39.0 - Urinary tract infection, site not specified Code(s): N39.0 - Urinary tract infection, site not specified Status: Acute Assessment and Plan: patient growing E coli from urine culture. mliler susceptible, - continue antibiotics as above (4) Pneumonia: Qualifiers: Laterality: bilateral Lung location: unspecified part of lung Pneumonia type: due to unspecified organism Qualified Code(s): J18.9 - Pneumonia, unspecified organism Code(s): J18.9 - Pneumonia, unspecified organism Status: Acute Assessment and Plan: community-acquired pneumonia versus aspiration continue antibiotics as above - sputum cultures negative so far (5) Candidiasis of breast: Code(s): B37.89 - Other sites of candidiasis Status: Acute Assessment and Plan: Antifungal cream has been ordered (6) COPD exacerbation: Code(s): J44.1 - Chronic obstructive pulmonary disease with (acute) exacerbation Status: Acute Assessment and Plan: mechanical ventilation, antibiotics, bronchodilators (7) Alcoholism: Code(s): F10.20 - Alcohol dependence, uncomplicated Status: Chronic Assessment and Plan: patient has history of chronic alcohol abuse and dependence - continue folic acid and thiamine (8) Dysphagia: Code(s): R13.10 - Dysphagia, unspecified Status: Acute Assessment and Plan: currently intubated, on tube feeds (9) Suspected COVID-19 virus infection: Code(s): Z20.828 - Contact with and (suspected) exposure to other viral communicable diseases Status: Acute Assessment and Plan: COVID-19 ruled out. SARS-CoV-2 PCR was negative Patient was on Airborne, Droplet and Contact Isolation which now has been discontinued. (10) Neck pain: Code(s): M54.2 - Cervicalgia Status: Acute Assessment and Plan: CT of C-spine IMPRESSION: Reversal of cervical curvature Degenerative changes No fracture or dislocation Patient also has chronic it is cervical spine related pain which is worse now. Lidoderm patch and p.r.n. analgesic (11) Fall: Code(s): W19.XXXA - Unspecified fall, initial encounter Status: Acute Assessment and Plan: head CT showed IMPRESSION: No skull fracture or acute intracranial finding (12) Chest pain: Code(s): R07.9 - Chest pain, unspecified Status: Acute Assessment and Plan: echocardiogram showed EF of 60-65%, grade 1 diastolic dysfunction, 1.5 x 1.2 cm fixed echogenic mass within the right atrium on the inter-atrial septum. Discussed with Cardiology, patient currently not a candidate for KENDALL given her mental status. Not a candidate for anticoagulation given her GI bleed and anemia (13) Elevated troponin: Code(s): R79.89 - Other spec
[2019-11-20 09:07] LABS: Vancomycin Trough 12.5 ug/mL (10.0-20.0)
--- NOTE | 2019-11-20 11:01 | PCDIET ---
ICU Rounding Note: Tube feedings on hold for breathing trial. Previously tolerating Vital 1.2 at 55mL/hr without reported issues. Tube feedings to resume if unable to extubate. Last recorded weight is 67.9kg which is stable with last review. Bowel Motility: Multiple loose BMs today, per nursing. Labs Reviewed: Hgb (8.3), Hct (25.1), K (3.3), Alb (2.1), González Ca (9.32) Meds Noted: Albuterol, Oscal, Cefepime, Folic Acid, Atrovent, Precedex, Reglan, Protonix, KCl, Thiamine, Vancomycin Additional Notes: Buttocks/back macerated. Sacral deep tissue injury, per nursing. Wound nurse consulted. If medically appropriate, would consider medication for loose stools. Following daily in ICU rounds. Assessing/reassessing every Wednesday/Wednesday.
--- NOTE | 2019-11-20 11:17 | WPDGIPROGNO ---
Progress Note: A&P Assessment and Plan (1) Occult blood in stools: Code(s): R19.5 - Other fecal abnormalities Status: Acute Assessment and Plan: Occult blood noted in stool. No active bleeding described. GI evaluation for this month or 2 ago was not fruitful any follow-up studies are on hold now because of no active bleeding . EGD can be considered of electively at a later day. (2) Anemia, unspecified: Qualifiers: Anemia type: unspecified type Qualified Code(s): D64.9 - Anemia, unspecified Code(s): D64.9 - Anemia, unspecified Status: Acute Assessment and Plan: Continue to monitor closely. Currently hemoglobin has been stable. (3) COPD (chronic obstructive pulmonary disease): Qualifiers: COPD type: unspecified COPD Qualified Code(s): J44.9 - Chronic obstructive pulmonary disease, unspecified Code(s): J44.9 - Chronic obstructive pulmonary disease, unspecified Status: Chronic (4) Alcoholism: Code(s): F10.20 - Alcohol dependence, uncomplicated Status: Chronic (5) Pneumonia: Qualifiers: Pneumonia type: due to unspecified organism Laterality: right Lung location: unspecified part of lung Qualified Code(s): J18.9 - Pneumonia, unspecified organism Code(s): J18.9 - Pneumonia, unspecified organism Status: Acute Assessment and Plan: Patient with active pneumonia necessitating intubation and ventilator dependency because of respiratory failure. Manage by the oral surgery physician service at the present time period (6) Septic shock: Code(s): A41.9 - Sepsis, unspecified organism; R65.21 - Severe sepsis with septic shock Status: Acute (7) Cardiac mass: Code(s): I51.89 - Other ill-defined heart diseases Status: Acute Subjective Date/time seen: 11/20/19 11:17 Patient remains intubated on the ventilator. Unable to add any history. Nursing staff reports no bleeding. Exam Narrative: Exam Narrative: Patient on the ventilator. Lungs are clear. Heart without murmur. Abdomen soft nontender. Objective Data Vital Signs Vital Signs: Vital Signs - 24 hr 11/19/19 12:00 11/19/19 13:45 11/19/19 13:52 Temperature 97.9 F Pulse Rate 88 85 93 Respiratory Rate 18 18 18 Blood Pressure 114/68 Pulse Oximetry 99 100 11/19/19 14:00 11/19/19 15:02 11/19/19 16:00 Temperature Pulse Rate 99 105 H 105 H Respiratory Rate 18 18 18 Blood Pressure 114/80 107/61 Pulse Oximetry 100 99 11/19/19 16:48 11/19/19 17:12 11/19/19 18:00 Temperature Pulse Rate 103 H 99 107 H Respiratory Rate 18 16 Blood Pressure 125/75 Pulse Oximetry 97 98 11/19/19 19:06 11/19/19 19:12 11/19/19 19:17 Temperature Pulse Rate 105 H 105 H 106 H Respiratory Rate 18 18 Blood Pressure Pulse Oximetry 99 11/19/19 20:00 11/19/19 20:30 11/19/19 22:00 Temperature 98.3 F Pulse Rate 118 H 111 H 88 Respiratory Rate 18 18 18 Blood Pressure 130/76 100/59 L 95/54 L Pulse Oximetry 98 99 100 11/19/19 23:10 11/20/19 00:00 11/20/19 01:18 Temperature 98.2 F Pulse Rate 96 90 105 H Respiratory Rate 18 18 Blood Pressure 95/54 L Pulse Oximetry 99 99 11/20/19 01:21 11/20/19 01:23 11/20/19 02:00 Temperature Pulse Rate 105 H 91 92 Respiratory Rate 18 18 Blood Pressure 99/55 L Pulse Oximetry 99 98 11/20/19 04:00 11/20/19 04:31 11/20/19 04:50 Temperature 97.8 F Pulse Rate 104 H 107 H 105 H Respiratory Rate 18 Blood Pressure 97/69 L 77/55 L Pulse Oximetry 98 100 11/20/19 06:00 11/20/19 06:06 11/20/19 07:40 Temperature Pulse Rate 115 H 115 H 119 H Respiratory Rate 22 H 23 H Blood Pressure 136/85 136/85 Pulse Oximetry 98 99 11/20/19 08:00 11/20/19 09:08 11/20/19 09:11 Temperature 98 F Pulse Rate 122 H 123 H 118 H Respiratory Rate 14 18 22 H Blood Pressure 118/55 L Pulse Oximetry 98 11/20/19 09:12 11/20/19 09:30 11/20/19 10:00 Temperature
[2019-11-20] MEDS: PROPOFOL IV EMULSION 100 ML 2 MG IV CONT (12:36)
--- NOTE | 2019-11-20 14:17 | PM.IMPN ---
Progress Note: A&P Assessment and Plan (1) Acute hypoxemic respiratory failure: Code(s): J96.01 - Acute respiratory failure with hypoxia Status: Acute Assessment and Plan: She is intubated, her chest x ray showing diffuse infiltrates probably ARDS vs pulmonary edema. Possibly due to PNA, ARDS. She received one dose of lasix today. (2) Septic shock: Code(s): A41.9 - Sepsis, unspecified organism; R65.21 - Severe sepsis with septic shock Status: Acute Assessment and Plan: Most likely due to PNA and UTI On cefepime and vancomycin now, urine cultures growing E.Coli. (3) Pneumonia: Qualifiers: Laterality: bilateral Lung location: unspecified part of lung Pneumonia type: due to unspecified organism Qualified Code(s): J18.9 - Pneumonia, unspecified organism Code(s): J18.9 - Pneumonia, unspecified organism Status: Acute Assessment and Plan: On antibiotics and intubated as detailed above. (4) Urinary tract infection: Qualifiers: Hematuria presence: without hematuria Urinary tract infection type: site unspecified Qualified Code(s): N39.0 - Urinary tract infection, site not specified Code(s): N39.0 - Urinary tract infection, site not specified Status: Acute Assessment and Plan: Cultures growing E.Coli (5) Elevated troponin: Code(s): R79.89 - Other specified abnormal findings of blood chemistry Status: Acute Assessment and Plan: Likely demand ischemia due to sepsis and hypotension. Echocardiogram showed a fixed inter atrial mass however she is not a candidate for a KENDALL for now. (6) GI bleed: Code(s): K92.2 - Gastrointestinal hemorrhage, unspecified Status: Acute Assessment and Plan: Occult blood was positive. Egd is on hold forn now, her Hb seems stable, no active visible bleeding. (7) Alcohol withdrawal: Qualifiers: Complication of substance-induced condition: uncomplicated Qualified Code(s): F10.230 - Alcohol dependence with withdrawal, uncomplicated Code(s): F10.239 - Alcohol dependence with withdrawal, unspecified Status: Acute (8) Suspected COVID-19 virus infection: Code(s): Z20.828 - Contact with and (suspected) exposure to other viral communicable diseases Status: Acute Assessment and Plan: Negative PCR Additional Plan Subjective Date/time seen: Pt is intubated and sedated. 11/20/19 14:17 Exam Const: General: no acute distress Other: Looks chronically ill, now intubated and sedated. Neck: Neck: no JVD Resp: Auscultation: crackles, rhonchi and wheezes Other: Coarse breath sounds with rhonchi and crackles Cardio: Rate: regular rate Rhythm: regular rhythm GI: Other: Soft. Neuro: Other: Intubated, sedated today. Extrem: General: edema Objective Data Vital Signs Vital Signs: Vital Signs - 24 hr 11/19/19 15:02 11/19/19 16:00 11/19/19 16:48 Temperature Pulse Rate 105 H 105 H 103 H Respiratory Rate 18 18 Blood Pressure 107/61 Pulse Oximetry 99 97 11/19/19 17:12 11/19/19 18:00 11/19/19 19:06 Temperature Pulse Rate 99 107 H 105 H Respiratory Rate 18 16 18 Blood Pressure 125/75 Pulse Oximetry 98 11/19/19 19:12 11/19/19 19:17 11/19/19 20:00 Temperature 98.3 F Pulse Rate 105 H 106 H 118 H Respiratory Rate 18 18 Blood Pressure 130/76 Pulse Oximetry 99 98 11/19/19 20:30 11/19/19 22:00 11/19/19 23:10 Temperature Pulse Rate 111 H 88 96 Respiratory Rate 18 18 Blood Pressure 100/59 L 95/54 L Pulse Oximetry 99 100 99 11/20/19 00:00 11/20/19 01:18 11/20/19 01:21 Temperature 98.2 F Pulse Rate 90 105 H 105 H Respiratory Rate 18 18 Blood Pressure 95/54 L Pulse Oximetry 99 99 11/20/19 01:23 11/20/19 02:00 11/20/19 04:00 Temperature 97.8 F Pulse Rate 91 92 104 H Respiratory Rate 18 18 18 Blood Pressure 99/55 L 97/69 L Pulse Oxime
[2019-11-20] MEDS: PROPOFOL IV EMULSION 100 ML 10.2 MG IV CONT (18:44)
[2019-11-20] MEDS: SERTRALINE HCL 50 MG TABLET 100 MG PO (20:06)
[2019-11-21] VITALS (48 sets, daily range): BP systolic 85–118; BP diastolic 51–89; PULSE 76–116; RESP 14–35; TEMP 36.6–36.8; O2SAT 96–100
[2019-11-21] MEDS: METOCLOPRAMIDE HCL INJ 10 MG/2 ML VIAL IV PUSH ×3 (00:34→11:33)
[2019-11-21] MEDS: PROPOFOL IV EMULSION 100 ML 14.3 MG IV CONT (01:36)
[2019-11-21] MEDS: IPRATROPIUM BR 0.02% INH SOLN 0.5 MG/2.5 ML VIAL INHALATION ×4 (03:05→19:27)
[2019-11-21] MEDS: ALBUTEROL SULFATE NEB 2.5 MG/0.5 ML INH INHALATION ×4 (03:05→19:27)
[2019-11-21 04:49] LABS: Hematocrit 24.8 % (37.0-47.0); Hemoglobin 8.1 g/dL (12.0-15.0); Mean Corpuscular HGB Conc 32.7 g/dl (32-36); Mean Corpuscular Hemoglobin 30.7 pg (26-34); Mean Corpuscular Volume 93.9 fl (80-100); Mean Platelet Volume 10.3 fl (7.4-10.4); Platelet Count Result 94 k/mm3 (150-375); Red Blood Count 2.64 M/mm3 (4.2-5.4); Red Cell Distribution Width 17.3 % (11.5-14.5); White Blood Count 11.6 K/mm3 (4.5-10.0)
[2019-11-21 05:01] LABS: Alveolar/Arterial O2 Gradient 88.5 mmHg; Base Excess ABG -1.1 mEq/l (+/-2.0); Device VENTILATOR; Fractional Inspired Oxygen 30 %; Modified Allen's Test Unable to perform; Oxygen Content ABG 13.9 %vol (16.0-22.0); Oxygen Saturation ABG 97.3 % (95.0-100.0); Oxyhemoglobin 95.2 % THb (90.0-100.0); PCO2 ABG 31.2 mmHg (35.0-45.0); PO2 ABG 88.7 mmHg (80.0-100.0); PO2 FiO2 Ratio Arterial Blood 2.96 %; Site Drawn RIGHT RADIAL; Total Hemoglobin 10.3 g/dL (12.0-18.0); pH ABG 7.466 (7.350-7.450)
[2019-11-21 05:02] LABS: Arterial Blood Gas PEEP 5 cmH2O; Arterial Blood Gas Tidal Volume 420 ml; Arterial Blood Gas Vent Mode CMV; Arterial Blood Gas Ventilator rate 18 /MIN
[2019-11-21 05:03] LABS: Alanine Aminotransferase 14 U/L (4-35); Albumin Level 2.2 g/dL (3.5-5.1); Alkaline Phosphatase 135 U/L (38-126); Anion Gap 1 mmol/L (8-16); Aspartate Amino Transferase 30 U/L (14-36); Bilirubin,Total 0.6 mg/dL (0.2-1.3); Blood Urea Nitrogen 18 mg/dL (7-17); Carbon Dioxide 25 mmol/L (22-30); Chloride 115 mmol/L (98-107); Estimated CRCL calculation 65 ml/min; Estimated Glomerular Filt Rate > 60; Glucose 112 mg/dL (65-105); Magnesium 1.4 mg/dL (1.6-2.3); Phosphorus 1.7 mg/dL (2.5-4.5); Potassium 3.4 mmol/L (3.4-5.0); Sodium 141 mmol/L (137-145)
[2019-11-21] MEDS: PROPOFOL IV EMULSION 100 ML 20.4 MG IV CONT (07:28)
[2019-11-21] MEDS: POTASSIUM CHLORIDE 20 MEQ PACKET (FOR LIQUID) 40 MEQ FEED TUBE (08:11)
[2019-11-21] MEDS: SCOPOLAMINE 1.5 MG PATCH TRANSDERM (08:11)
[2019-11-21] MEDS: POTASSIUM PHOS,M-BASIC-D-BASIC 20 MMOL in SODIUM CHLORIDE 0.9% IV 250 ML 62.5 ML IVPB (08:11)
[2019-11-21] MEDS: TOLNAFTATE 1% POWDER 45 GM BTL 1 APPLIC TOPICAL ×2 (08:12→20:44)
[2019-11-21] MEDS: THIAMINE HCL 200 MG/2 ML VIAL 100 MG IV PUSH (08:12)
[2019-11-21] MEDS: PANTOPRAZOLE SODIUM IV 40 MG VIAL IV PUSH ×2 (08:12→20:44)
[2019-11-21] MEDS: MAGNESIUM SULF 2 GM/WATER 50ML 2 GM/50 ML BAG IVPB (08:17)
[2019-11-21] MEDS: FOLIC ACID 1 MG/0.2 ML INJ IV PUSH (08:17)
--- NOTE | 2019-11-21 09:31 | PM.IMPN ---
Progress Note: A&P Assessment and Plan (1) Acute hypoxemic respiratory failure: Code(s): J96.01 - Acute respiratory failure with hypoxia Status: Acute Assessment and Plan: Currently on ventilator support, ventilator weaning trial as per CC/ICU. Supportive care. (2) Cardiac mass: Code(s): I51.89 - Other ill-defined heart diseases Status: Acute Assessment and Plan: Unable to further evaluate at this time due to ETT, ETE at later time, as per Cardiology. (3) GI bleed: Code(s): K92.2 - Gastrointestinal hemorrhage, unspecified Status: Acute Assessment and Plan: Stable, H&H q 8 hours. Continue to monitor. (4) Elevated troponin: Code(s): R79.89 - Other specified abnormal findings of blood chemistry Status: Acute Assessment and Plan: Continue to monitor. Demand ischemia likely. (5) Suspected COVID-19 virus infection: Code(s): Z20.828 - Contact with and (suspected) exposure to other viral communicable diseases Status: Acute Assessment and Plan: Continue to monitor, H&H stable. Follow GI recs. (6) COPD exacerbation: Code(s): J44.1 - Chronic obstructive pulmonary disease with (acute) exacerbation Status: Acute Assessment and Plan: No wheezes currently, stable, continue breathing treatments as needed. On vent support. (7) Septic shock: Code(s): A41.9 - Sepsis, unspecified organism; R65.21 - Severe sepsis with septic shock Status: Acute Assessment and Plan: Resolved off of pressors. (8) Pneumonia: Qualifiers: Laterality: bilateral Lung location: unspecified part of lung Pneumonia type: due to unspecified organism Qualified Code(s): J18.9 - Pneumonia, unspecified organism Code(s): J18.9 - Pneumonia, unspecified organism Status: Acute Assessment and Plan: Continue present management. Stable. Continue to monitor (9) Alcoholism: Code(s): F10.20 - Alcohol dependence, uncomplicated Status: Chronic Assessment and Plan: On Diprivan, switching to Precedex as per conveyor man, [facility] protocol. (10) Thrombocytopenia: Code(s): D69.6 - Thrombocytopenia, unspecified Status: Chronic Assessment and Plan: Continue to monitor, on no heparin products. Daily labs. (11) Hypomagnesemia: Code(s): E83.42 - Hypomagnesemia Status: Acute Assessment and Plan: Continue to monitor, replace as needed. (12) Alcohol withdrawal: Qualifiers: Complication of substance-induced condition: uncomplicated Qualified Code(s): F10.230 - Alcohol dependence with withdrawal, uncomplicated Code(s): F10.239 - Alcohol dependence with withdrawal, unspecified Status: Acute Assessment and Plan: Stable, continue to monitor. Subjective Date/time seen: 11/21/19 09:31 Patient is intubated, under sedation, actively moving LLE. Review of Systems Review of Systems: Narrative: Patient is intubated on ventilator support at this time, sedated, unable to give any history. ROS unobtainable: Yes unobtainable due to medical condition Exam Narrative: Exam Narrative: Patient id in avani NAD, intubated, sedated. Const: General: no acute distress Nutritional Appearance: well nourished Other: Under sedation. HENMT: Head: normal to inspection and normocephalic Eyes: General: appearance normal, both eyes and all related structures Eyelids: eyelids normal Sclera: sclerae normal Pupils: Equal, round and reactive pupils present Neck: Neck: no JVD Thyroid: thyroid normal Lymphatic: no lymphadenopathy noted Resp: Auscultation: clear to auscultation bilaterally and bronchial breath sounds Cardio: Heart sounds: S1 normal heart sound present and S2 normal heart sound present GI: Inspection: normal to inspection GI Palp: Yes No hepatosplenomegaly present Auscultation: normal bowel sounds Skin: General skin exam: normal color Traum
--- NOTE | 2019-11-21 11:55 | PCDIET ---
Nutrition Follow-Up Complete: Nutrition Diagnosis: Suboptimal oral intake related to decreased appetite as evidenced by intakes 0-50%. Nutrition Goal: Patient to consume 50% of meals/supplements or greater. Goal not met (no longer applicable). New goal: Patient to meet estimated nutrition needs. New goal being met, as patient tolerating Vital 1.2 at 55mL/hr goal rate. Last recorded weight is 67.9 kg which is stable. Bowel Motility: FMS in place for loose stools. Labs Reviewed: Hgb (8.1), Hct (24.8), Glu (112), Cl (115), Alb (2.2), González Ca (9.44), Mg (1.4), PO4 (1.7) Meds Noted: Albuterol, Oscal, Cefepime, Precedex, Folic Acid, Atrovent, Reglan, Protonix, Thiamine, Vancomycin, KCl, Mg Sulfate, K-Phos Additional Notes: Back and buttocks macerated. No new recommendations at this time. Nutrition Monitoring and Evaluation: Follow up every Wednesday/Wednesday. Follow daily in ICU rounds.
--- NOTE | 2019-11-21 12:36 | WPDGIPROGNO ---
Progress Note: A&P Additional Plan Patient remains intubated and sedated in the ICU. On a propofol drip. Unable to give any additional history. No additional bleeding noted by nursing service. Physical exam reveals abdomen be benign soft nontender with no organomegaly. Labs reveal hemoglobin 8.1, hematocrit 24.8, MCV 93. Impression 1. Anemia. This appears to be chronic multifactorial. 2. Occult blood in stool noted at time of admission. There is concern over GI blood loss. Recent GI endoscopy was essentially unremarkable. Follow-up EGD suggested when she is clinically more stable. Continue proton pump inhibitor for possible stress gastritis. Monitor hemoglobin periodically as we are doing. Will follow with you. 3 Alcohol abuse by history. Continues to be an ongoing problem. 4r. Pneumonia. Respiratory failure currently on the ventilator. [employer] Estate Professional managing currently. Subjective Date/time seen: 11/21/19 12:36 Objective Data Vital Signs Vital Signs: Vital Signs - 24 hr 11/20/19 12:45 11/20/19 12:53 11/20/19 12:55 Temperature Pulse Rate 92 93 92 Respiratory Rate 18 18 14 Blood Pressure Pulse Oximetry 11/20/19 13:12 11/20/19 13:44 11/20/19 13:53 Temperature Pulse Rate 88 92 91 Respiratory Rate 16 19 Blood Pressure Pulse Oximetry 99 11/20/19 13:56 11/20/19 13:57 11/20/19 14:00 Temperature Pulse Rate 95 97 92 Respiratory Rate 19 16 18 Blood Pressure 81/49 L Pulse Oximetry 98 11/20/19 14:03 11/20/19 14:04 11/20/19 15:25 Temperature Pulse Rate 95 98 Respiratory Rate 24 H 15 Blood Pressure 89/59 L Pulse Oximetry 95 11/20/19 16:00 11/20/19 16:27 11/20/19 17:30 Temperature 98 F Pulse Rate 100 99 96 Respiratory Rate 20 19 Blood Pressure 85/58 L Pulse Oximetry 97 100 11/20/19 18:00 11/20/19 18:43 11/20/19 18:44 Temperature Pulse Rate 95 100 99 Respiratory Rate 23 H 38 H 38 H Blood Pressure 101/67 Pulse Oximetry 98 11/20/19 20:00 11/20/19 21:10 11/20/19 21:11 Temperature 98.1 F Pulse Rate 106 H 103 H 103 H Respiratory Rate 26 H 24 H Blood Pressure 107/68 Pulse Oximetry 99 100 11/20/19 21:20 11/20/19 22:00 11/20/19 23:45 Temperature Pulse Rate 108 H 93 105 H Respiratory Rate 22 H 25 H Blood Pressure 113/62 Pulse Oximetry 99 100 11/21/19 00:00 11/21/19 01:36 11/21/19 02:00 Temperature 98.3 F Pulse Rate 108 H 108 H 106 H Respiratory Rate 20 20 18 Blood Pressure 105/65 104/61 Pulse Oximetry 99 96 11/21/19 03:05 11/21/19 03:06 11/21/19 03:17 Temperature Pulse Rate 112 H 112 H 116 H Respiratory Rate 32 H 32 H Blood Pressure Pulse Oximetry 100 11/21/19 04:00 11/21/19 05:22 11/21/19 06:00 Temperature 98.2 F Pulse Rate 115 H 111 H 108 H Respiratory Rate 18 18 Blood Pressure 104/74 118/58 L Pulse Oximetry 97 98 100 11/21/19 07:28 11/21/19 07:43 11/21/19 07:55 Temperature Pulse Rate 114 H 113 H 112 H Respiratory Rate 35 H 20 18 Blood Pressure Pulse Oximetry 11/21/19 07:56 11/21/19 08:00 11/21/19 08:10 Temperature 98.0 F Pulse Rate 112 H 113 H 108 H Respiratory Rate 18 18 18 Blood Pressure 106/62 Pulse Oximetry 98 11/21/19 08:20 11/21/19 08:30 11/21/19 08:35 Temperature Pulse Rate 107 H 107 H 107 H Respiratory Rate 18 18 Blood Pressure Pulse Oximetry 98 11/21/19 08:37 11/21/19 09:14 11/21/19 09:27 Temperature Pulse Rate 108 H 103 H 102 H Respiratory Rate 22 H 18 20 Blood Pressure Pulse Oximetry 11/21/19 09:28 11/21/19 10:00 11/21/19 10:22 Temperature Pulse Rate 103 H 102 H 99 Respiratory Rate 22 H 19 22 H Blood Pressure 100/54 L Pulse Oximetry 99 11/21/19 10:48 11/21/19 11:31 Temperature Pulse Rate 91 84 Respiratory Rate 19 20 Blood Pressure Pulse Oximetry Intake/Output Intake/Output: Intake & Output 11/18/19 11/19/19 11/20/1920 23:59 23:59 23:59 23:59 Sneha
--- NOTE | 2019-11-21 13:07 | WPDINTPN ---
Progress Note: A&P Assessment and Plan (1) Respiratory failure: Code(s): J96.90 - Respiratory failure, unspecified, unspecified whether with hypoxia or hypercapnia Status: Acute Assessment and Plan: acute respiratory failure likely related to bilateral infiltrates, secondary pneumonia, acute lung injury /ARDS - intubated on 11/17/2019 - chest x-ray and ABGs reviewed - withdraw endotracheal tube by 2 cm - continue cefepime and vancomycin - on sedation holiday patient became tachypneic and did not synchronized with the ventilator. I started patient on Precedex infusion Which has allowed us to wean off propofol today. Will try pressure support ventilation now - scopolamine patch added for increased oral secretion - continue Lasix (2) Septic shock: Code(s): A41.9 - Sepsis, unspecified organism; R65.21 - Severe sepsis with septic shock Status: Acute Assessment and Plan: OFF LEVOPHED - likely related to pneumonia, sepsis /infection - Septic shock secondary to pneumonia and UTI, - continue cefepime and vancomycin - urine cultures growing E coli, blood and sputum cultures are negative (3) Urinary tract infection: Qualifiers: Hematuria presence: without hematuria Urinary tract infection type: site unspecified Qualified Code(s): N39.0 - Urinary tract infection, site not specified Code(s): N39.0 - Urinary tract infection, site not specified Status: Acute Assessment and Plan: patient growing E coli from urine culture. miller susceptible, - continue antibiotics as above (4) Pneumonia: Qualifiers: Laterality: bilateral Lung location: unspecified part of lung Pneumonia type: due to unspecified organism Qualified Code(s): J18.9 - Pneumonia, unspecified organism Code(s): J18.9 - Pneumonia, unspecified organism Status: Acute Assessment and Plan: community-acquired pneumonia versus aspiration continue antibiotics as above - sputum cultures negative so far (5) Candidiasis of breast: Code(s): B37.89 - Other sites of candidiasis Status: Acute Assessment and Plan: Antifungal cream has been ordered (6) COPD exacerbation: Code(s): J44.1 - Chronic obstructive pulmonary disease with (acute) exacerbation Status: Acute Assessment and Plan: mechanical ventilation, antibiotics, bronchodilators (7) Alcoholism: Code(s): F10.20 - Alcohol dependence, uncomplicated Status: Chronic Assessment and Plan: patient has history of chronic alcohol abuse and dependence - continue folic acid and thiamine (8) Dysphagia: Code(s): R13.10 - Dysphagia, unspecified Status: Acute Assessment and Plan: currently intubated, on tube feeds (9) Suspected COVID-19 virus infection: Code(s): Z20.828 - Contact with and (suspected) exposure to other viral communicable diseases Status: Acute Assessment and Plan: COVID-19 ruled out. SARS-CoV-2 PCR was negative Patient was on Airborne, Droplet and Contact Isolation which now has been discontinued. (10) Neck pain: Code(s): M54.2 - Cervicalgia Status: Acute Assessment and Plan: CT of C-spine IMPRESSION: Reversal of cervical curvature Degenerative changes No fracture or dislocation Patient also has chronic it is cervical spine related pain which is worse now. Lidoderm patch and p.r.n. analgesic (11) Fall: Code(s): W19.XXXA - Unspecified fall, initial encounter Status: Acute Assessment and Plan: head CT showed IMPRESSION: No skull fracture or acute intracranial finding (12) Chest pain: Code(s): R07.9 - Chest pain, unspecified Status: Acute Assessment and Plan: echocardiogram showed EF of 60-65%, grade 1 diastolic dysfunction, 1.5 x 1.2 cm fixed echogenic mass within the right atrium on the inter-atrial septum. Discussed with Card
[2019-11-21] MEDS: FUROSEMIDE INJ 40 MG/4 ML VIAL IV PUSH (14:27)
[2019-11-21] MEDS: ALBUMIN HUMAN 25% 25 GM/100 ML 200 ML IVPB (14:27)
[2019-11-21] MEDS: PROPOFOL IV EMULSION 100 ML 4.1 MG IV CONT (19:25)
[2019-11-21] MEDS: SERTRALINE HCL 50 MG TABLET 100 MG PO (20:44)
[2019-11-22] VITALS (34 sets, daily range): BP systolic 96–124; BP diastolic 56–96; PULSE 74–96; RESP 18–44; TEMP 36.6–37.2; O2SAT 96–100
[2019-11-22] MEDS: IPRATROPIUM BR 0.02% INH SOLN 0.5 MG/2.5 ML VIAL INHALATION ×4 (01:37→19:40)
[2019-11-22] MEDS: ALBUTEROL SULFATE NEB 2.5 MG/0.5 ML INH INHALATION ×4 (01:37→19:40)
[2019-11-22] MEDS: PROPOFOL IV EMULSION 100 ML 10.2 MG IV CONT (02:43)
[2019-11-22 04:20] LABS: Alveolar/Arterial O2 Gradient 86.2 mmHg; Base Excess ABG -2.7 mEq/l (+/-2.0); Carboxyhemoglobin 0.3 % THb (0-2.0); Fractional Inspired Oxygen 30 %; HCO3 ABG 21.2 mEq/l (22.0-26.0); Methemoglobin ABG 0.3 %THb (0-1.5); Oxygen Content ABG 12.9 %vol (16.0-22.0); Oxyhemoglobin 95.3 % THb (90.0-100.0); PCO2 ABG 33.3 mmHg (35.0-45.0); PO2 ABG 88.6 mmHg (80.0-100.0); PO2 FiO2 Ratio Arterial Blood 2.95 %; Reduced Hemoglobin 4.1 %THb (0-5.0); Total Hemoglobin 9.5 g/dL (12.0-18.0); pH ABG 7.422 (7.350-7.450)
[2019-11-22 04:21] LABS: Arterial Blood Gas PEEP 5 cmH2O; Arterial Blood Gas Tidal Volume 420 ml; Arterial Blood Gas Vent Mode CMV; Arterial Blood Gas Ventilator rate 18 /MIN; Device VENTILATOR; Modified Allen's Test Unable to perform; Site Drawn RIGHT RADIAL
[2019-11-22 05:38] LABS: Hematocrit 22.7 % (37.0-47.0); Hemoglobin 7.5 g/dL (12.0-15.0); Mean Corpuscular Hemoglobin 31.4 pg (26-34); Mean Platelet Volume 10.6 fl (7.4-10.4); Platelet Count Result 98 k/mm3 (150-375); Red Blood Count 2.39 M/mm3 (4.2-5.4); Red Cell Distribution Width 17.5 % (11.5-14.5)
[2019-11-22 05:52] LABS: Alanine Aminotransferase 14 U/L (4-35); Albumin Level 2.7 g/dL (3.5-5.1); Alkaline Phosphatase 108 U/L (38-126); Anion Gap 4 mmol/L (8-16); Aspartate Amino Transferase 27 U/L (14-36); Bilirubin,Total 0.6 mg/dL (0.2-1.3); Blood Urea Nitrogen 19 mg/dL (7-17); Calcium 8.5 mg/dL (8.4-10.2); Carbon Dioxide 24 mmol/L (22-30); Chloride 112 mmol/L (98-107); Estimated CRCL calculation 65 ml/min; Estimated Glomerular Filt Rate > 60; Glucose 118 mg/dL (65-105); Magnesium 1.8 mg/dL (1.6-2.3); Phosphorus 3.6 mg/dL (2.5-4.5); Potassium 3.3 mmol/L (3.4-5.0); Sodium 140 mmol/L (137-145)
--- NOTE | 2019-11-22 07:35 | WPDINTPN ---
Progress Note: A&P Assessment and Plan (1) Respiratory failure: Code(s): J96.90 - Respiratory failure, unspecified, unspecified whether with hypoxia or hypercapnia Status: Acute Assessment and Plan: acute respiratory failure likely related to bilateral infiltrates, secondary pneumonia, acute lung injury /ARDS - intubated on 11/17/2019 - chest x-ray and ABGs reviewed - patient failed SBT trial yesterday due to high RSBI. - Patient was again trialed 5/5 this morning on Precedex infusion. Patient again failed breathing trial due to high RSBI. Pressure support was increased up to 20 but it did not help. - Lasix and albumin given today - continue cefepime but will discontinue vancomycin - continue scopolamine patch for increased oral secretion - continue Lasix (2) Septic shock: Code(s): A41.9 - Sepsis, unspecified organism; R65.21 - Severe sepsis with septic shock Status: Acute Assessment and Plan: OFF LEVOPHED - likely related to pneumonia, sepsis /infection - Septic shock secondary to pneumonia and UTI, - continue cefepime but discontinue vancomycin - urine cultures growing E coli, blood and sputum cultures are negative (3) Urinary tract infection: Qualifiers: Hematuria presence: without hematuria Urinary tract infection type: site unspecified Qualified Code(s): N39.0 - Urinary tract infection, site not specified Code(s): N39.0 - Urinary tract infection, site not specified Status: Acute Assessment and Plan: patient growing E coli from urine culture. miller susceptible, - continue antibiotics as above (4) Pneumonia: Qualifiers: Laterality: bilateral Lung location: unspecified part of lung Pneumonia type: due to unspecified organism Qualified Code(s): J18.9 - Pneumonia, unspecified organism Code(s): J18.9 - Pneumonia, unspecified organism Status: Acute Assessment and Plan: community-acquired pneumonia versus aspiration continue antibiotics as above - sputum cultures negative so far (5) Candidiasis of breast: Code(s): B37.89 - Other sites of candidiasis Status: Acute Assessment and Plan: Antifungal cream has been ordered (6) COPD exacerbation: Code(s): J44.1 - Chronic obstructive pulmonary disease with (acute) exacerbation Status: Acute Assessment and Plan: mechanical ventilation, antibiotics, bronchodilators (7) Alcoholism: Code(s): F10.20 - Alcohol dependence, uncomplicated Status: Chronic Assessment and Plan: patient has history of chronic alcohol abuse and dependence - continue folic acid and thiamine (8) Dysphagia: Code(s): R13.10 - Dysphagia, unspecified Status: Acute Assessment and Plan: currently intubated, on tube feeds (9) Suspected COVID-19 virus infection: Code(s): Z20.828 - Contact with and (suspected) exposure to other viral communicable diseases Status: Acute Assessment and Plan: COVID-19 ruled out. SARS-CoV-2 PCR was negative Patient was on Airborne, Droplet and Contact Isolation which now has been discontinued. (10) Neck pain: Code(s): M54.2 - Cervicalgia Status: Acute Assessment and Plan: CT of C-spine IMPRESSION: Reversal of cervical curvature Degenerative changes No fracture or dislocation Patient also has chronic it is cervical spine related pain which is worse now. Lidoderm patch and p.r.n. analgesic (11) Fall: Code(s): W19.XXXA - Unspecified fall, initial encounter Status: Acute Assessment and Plan: head CT showed IMPRESSION: No skull fracture or acute intracranial finding (12) Chest pain: Code(s): R07.9 - Chest pain, unspecified Status: Acute Assessment and Plan: echocardiogram showed EF of 60-65%, grade 1 diastolic dysfunction, 1.5 x 1.2 cm fixed echogenic mass within the right atrium on
[2019-11-22] MEDS: ALBUMIN HUMAN 25% 25 GM/100 ML 200 ML IVPB (07:46)
[2019-11-22] MEDS: FUROSEMIDE INJ 40 MG/4 ML VIAL IV PUSH (07:48)
[2019-11-22] MEDS: TOLNAFTATE 1% POWDER 45 GM BTL 1 APPLIC TOPICAL ×2 (08:47→20:41)
[2019-11-22] MEDS: THIAMINE HCL 200 MG/2 ML VIAL 100 MG IV PUSH (08:47)
[2019-11-22] MEDS: PANTOPRAZOLE SODIUM IV 40 MG VIAL IV PUSH ×2 (08:47→20:40)
[2019-11-22] MEDS: FOLIC ACID 1 MG/0.2 ML INJ IV PUSH (08:49)
[2019-11-22] MEDS: POTASSIUM CHLORIDE 20 MEQ PACKET (FOR LIQUID) 40 MEQ PO (09:01)
--- NOTE | 2019-11-22 10:28 | WPDGIPROGNO ---
Progress Note: A&P Additional Plan Patient remains in the intensive care unit on the ventilator and sedated. Unable to add any useful history. Nursing staff reports no evidence for active bleeding. Patient no longer on pressor agents. Physical exam reveals ET tube in place. Lungs reveal a few rhonchi. Heart without murmur. Abdomen bowel sounds are present soft nontender no organomegaly. Labs reveal hemoglobin 7.5, hematocrit 22.7, slight decline from yesterday. Impression 1. Anemia. This is chronic. Cannot exclude some component of GI blood loss at the time of admission. Plan is to continue to cover for stress gastritis. She may benefit from transfusion to maintain adequate hemoglobin. Will follow with you. Endoscopy is been deferred because of no active bleeding and other comorbid diseases. Consider this at appropriate interval. 2. Respiratory failure. Patient on ventilator. Known to have underlying pneumonia. Septic shock improving. 3. Alcohol abuse. An ongoing problem. 4. GI bleeding. Patient has occult blood in stool. No significant bleeding noted since that time. Will continue monitor closely. Subjective Date/time seen: 11/22/19 10:28 Objective Data Vital Signs Vital Signs: Vital Signs - 24 hr 11/21/19 10:48 11/21/19 11:31 11/21/19 12:00 Temperature 98.2 F Pulse Rate 91 84 82 Respiratory Rate 19 20 16 Blood Pressure 88/58 L Pulse Oximetry 99 11/21/19 13:00 11/21/19 13:36 11/21/19 13:45 Temperature Pulse Rate 100 84 86 Respiratory Rate 24 H Blood Pressure Pulse Oximetry 99 98 11/21/19 13:48 11/21/19 14:00 11/21/19 14:07 Temperature Pulse Rate 90 90 93 Respiratory Rate 22 H 19 22 H Blood Pressure 85/51 L Pulse Oximetry 98 11/21/19 14:23 11/21/19 16:00 11/21/19 16:03 Temperature 98.3 F Pulse Rate 90 92 84 Respiratory Rate 24 H 15 18 Blood Pressure 102/65 Pulse Oximetry 98 11/21/19 18:00 11/21/19 18:05 11/21/19 18:06 Temperature Pulse Rate 83 91 101 H Respiratory Rate 22 H 20 21 H Blood Pressure 104/89 Pulse Oximetry 100 11/21/19 19:25 11/21/19 19:28 09/15/20 19:30 Temperature Pulse Rate 88 89 78 Respiratory Rate 14 19 Blood Pressure Pulse Oximetry 100 11/21/19 19:35 11/21/19 20:00 11/21/19 21:03 Temperature 97.9 F Pulse Rate 79 81 79 Respiratory Rate 16 18 18 Blood Pressure 107/64 Pulse Oximetry 100 11/21/19 22:00 11/21/19 22:08 11/21/19 22:43 Temperature Pulse Rate 84 84 76 Respiratory Rate 20 22 H Blood Pressure 106/62 Pulse Oximetry 98 100 11/22/19 00:00 11/22/19 01:37 11/22/19 01:41 Temperature 98.5 F Pulse Rate 75 85 82 Respiratory Rate 18 28 H Blood Pressure 115/76 Pulse Oximetry 99 100 11/22/19 01:45 11/22/19 02:00 11/22/19 02:43 Temperature Pulse Rate 82 82 81 Respiratory Rate 19 18 19 Blood Pressure 104/66 Pulse Oximetry 99 11/22/19 04:00 11/22/19 04:04 11/22/19 04:41 Temperature 98.7 F Pulse Rate 77 75 76 Respiratory Rate 20 20 Blood Pressure 105/59 L Pulse Oximetry 99 99 11/22/19 05:18 11/22/19 06:00 11/22/19 08:00 Temperature 98.1 F Pulse Rate 76 74 75 Respiratory Rate 20 18 19 Blood Pressure 106/60 97/59 L Pulse Oximetry 100 100 11/22/19 08:34 11/22/19 08:42 11/22/19 08:56 Temperature Pulse Rate 82 82 81 Respiratory Rate 37 H 44 H Blood Pressure Pulse Oximetry 96 11/22/19 09:38 11/22/19 10:00 Temperature Pulse Rate 89 95 Respiratory Rate 23 H Blood Pressure 101/69 Pulse Oximetry 98 99 Intake/Output Intake/Output: Intake & Output 11/19/19 11/20/19 11/21/19 11/22/19 23:59 23:59 23:59 23:59 Intake Total 2108 1948 3205.6667 1037.8 Output Total 850 2200 2150 1150 Balance 1258 -444 1055.6667 -112.2 Meds/Results Medications: Active Medications Generic Name Dose Route Start Last Admin Trade Name Freq PRN Reason Stop Dose Admin Acetaminophen 650 mg 11/12/19 21:42 11/13/19 04:18
--- NOTE | 2019-11-22 10:57 | PCDIET ---
ICU Rounding Note: Tube feedings held for breathing trial, but tube feedings being resumed due to no plan for extubation. RN reports patient had been tolerating Vital 1.2 at goal rate of 55mL/hr prior to holding. Last recorded weight is 67.8kg which is stable. Bowel Motility: BM x 4 on 11/21/19. Labs Reviewed: Hgb (7.5), Hct (22.7), Glu (118), BUN (19), K (3.3), Alb (2.7) Meds Noted: Albumin, Albuterol, Tums, Cefepime, Precedex, Folic Acid, Atrovent, Protonix, Thiamine, Vancomycin, Lasix, KCl Additional Notes: Celeste/buttocks excoriated, per RN. Following daily in ICU rounds. Assessing/reassessing every Wednesday/Wednesday.
[2019-11-22 12:24] LABS: Glucose Point of Care 111 (65-105)
[2019-11-22] MEDS: PROPOFOL IV EMULSION 100 ML 8.1 MG IV CONT (14:23)
[2019-11-22 14:34] LABS: Anion Gap 6 mmol/L (8-16); Blood Urea Nitrogen 19 mg/dL (7-17); Calcium 8.7 mg/dL (8.4-10.2); Carbon Dioxide 23 mmol/L (22-30); Chloride 110 mmol/L (98-107); Estimated CRCL calculation 65 ml/min; Estimated Glomerular Filt Rate > 60; Glucose 114 mg/dL (65-105); Magnesium 1.5 mg/dL (1.6-2.3); Potassium 3.5 mmol/L (3.4-5.0); Sodium 139 mmol/L (137-145)
[2019-11-22 17:56] LABS: Glucose Point of Care 127 (65-105)
[2019-11-22] MEDS: PROPOFOL IV EMULSION 100 ML 14.3 MG IV CONT (20:30)
[2019-11-22] MEDS: SERTRALINE HCL 50 MG TABLET 100 MG PO (20:41)
[2019-11-23] VITALS (37 sets, daily range): BP systolic 91–105; BP diastolic 51–64; PULSE 72–90; RESP 14–32; TEMP 36.6–37.1; O2SAT 96–100
[2019-11-23 00:02] LABS: Glucose Point of Care 105 (65-105)
[2019-11-23] MEDS: ALBUTEROL SULFATE NEB 2.5 MG/0.5 ML INH INHALATION ×4 (01:23→21:31)
[2019-11-23] MEDS: IPRATROPIUM BR 0.02% INH SOLN 0.5 MG/2.5 ML VIAL INHALATION ×4 (01:24→21:31)
[2019-11-23 04:13] LABS: Alveolar/Arterial O2 Gradient 81.3 mmHg; Base Excess ABG -1.3 mEq/l (+/-2.0); Carboxyhemoglobin 0.3 % THb (0-2.0); Fractional Inspired Oxygen 30 %; HCO3 ABG 22.3 mEq/l (22.0-26.0); Methemoglobin ABG 0.6 %THb (0-1.5); Oxygen Content ABG 10.9 %vol (16.0-22.0); Oxygen Saturation ABG 97.6 % (95.0-100.0); Oxyhemoglobin 95.8 % THb (90.0-100.0); PCO2 ABG 32.5 mmHg (35.0-45.0); PO2 ABG 94.4 mmHg (80.0-100.0); PO2 FiO2 Ratio Arterial Blood 3.15 %; Reduced Hemoglobin 3.3 %THb (0-5.0); pH ABG 7.454 (7.350-7.450)
[2019-11-23 04:14] LABS: Device VENTILATOR; Modified Allen's Test Pass; Site Drawn LEFT RADIAL
[2019-11-23 04:15] LABS: Arterial Blood Gas PEEP 5 cmH2O; Arterial Blood Gas Tidal Volume 380 ml; Arterial Blood Gas Vent Mode CMV; Arterial Blood Gas Ventilator rate 18 /MIN
[2019-11-23 04:29] LABS: Immature Platelet Fraction Pct 5.2 % (0.9-11.2); Mean Corpuscular HGB Conc 32.9 g/dl (32-36); Mean Corpuscular Hemoglobin 30.6 pg (26-34); Mean Corpuscular Volume 93.2 fl (80-100); Mean Platelet Volume 11.1 fl (7.4-10.4); Platelet Count Result 146 k/mm3 (150-375); Red Blood Count 2.22 M/mm3 (4.2-5.4); Red Cell Distribution Width 17.8 % (11.5-14.5); White Blood Count 9.8 K/mm3 (4.5-10.0)
[2019-11-23 04:44] LABS: Potassium 3.3 mmol/L (3.4-5.0)
[2019-11-23 04:48] LABS: Alanine Aminotransferase 19 U/L (4-35); Albumin Level 2.9 g/dL (3.5-5.1); Alkaline Phosphatase 121 U/L (38-126); Anion Gap 4 mmol/L (8-16); Aspartate Amino Transferase 42 U/L (14-36); Bilirubin,Total 0.7 mg/dL (0.2-1.3); Blood Urea Nitrogen 17 mg/dL (7-17); Calcium 8.6 mg/dL (8.4-10.2); Carbon Dioxide 25 mmol/L (22-30); Chloride 111 mmol/L (98-107); Estimated CRCL calculation 65 ml/min; Estimated Glomerular Filt Rate > 60; Glucose 100 mg/dL (65-105); Magnesium 1.6 mg/dL (1.6-2.3); Phosphorus 3.5 mg/dL (2.5-4.5); Sodium 140 mmol/L (137-145)
[2019-11-23] MEDS: PROPOFOL IV EMULSION 100 ML 14.3 MG IV CONT ×2 (05:03→12:14)
[2019-11-23 05:27] LABS: Hematocrit 20.7 % (37.0-47.0); Hemoglobin 6.8 g/dL (12.0-15.0)
--- NOTE | 2019-11-23 07:00 | WPDINTPN ---
Progress Note: A&P Assessment and Plan (1) Respiratory failure: Code(s): J96.90 - Respiratory failure, unspecified, unspecified whether with hypoxia or hypercapnia Status: Acute Assessment and Plan: acute respiratory failure likely related to bilateral infiltrates, secondary pneumonia, acute lung injury /ARDS - intubated on 11/17/2019 - chest x-ray and ABGs reviewed - patient failed SBT trial 11/20 due to high RSBI. - Patient was again trialed on 11/21 on Precedex infusion. Patient again failed breathing trial due to high RSBI. Pressure support was increased up to 20 but it did not help. - patient again failed a trial today this morning due to rapid increase in respiratory rate into 40s. Will try ASV mode - will continue diuresis with Lasix today - continue cefepime but off of vancomycin - continue scopolamine patch for increased oral secretion (2) Septic shock: Code(s): A41.9 - Sepsis, unspecified organism; R65.21 - Severe sepsis with septic shock Status: Acute Assessment and Plan: OFF LEVOPHED - likely related to pneumonia, sepsis /infection - Septic shock secondary to pneumonia and UTI, - continue cefepime but discontinue vancomycin - urine cultures growing E coli, blood and sputum cultures are negative (3) Urinary tract infection: Qualifiers: Hematuria presence: without hematuria Urinary tract infection type: site unspecified Qualified Code(s): N39.0 - Urinary tract infection, site not specified Code(s): N39.0 - Urinary tract infection, site not specified Status: Acute Assessment and Plan: patient growing E coli from urine culture. miller susceptible, - continue antibiotics as above (4) Pneumonia: Qualifiers: Laterality: bilateral Lung location: unspecified part of lung Pneumonia type: due to unspecified organism Qualified Code(s): J18.9 - Pneumonia, unspecified organism Code(s): J18.9 - Pneumonia, unspecified organism Status: Acute Assessment and Plan: community-acquired pneumonia versus aspiration continue antibiotics as above - sputum cultures negative so far (5) GI bleed: Code(s): K92.2 - Gastrointestinal hemorrhage, unspecified Status: Acute Assessment and Plan: patient did mention black stools to admitting physician. positive fecal occult blood but no obvious major bleeding GI is following but no plan for EGD at this time Continue IV PPI q.12 hours. EGD to be performed at some point as per GI - received 1 unit of packed RBC on 11/17/2019, - hemoglobin has trended down and will transfuse 1 unit of PRBC 11/22 (6) Candidiasis of breast: Code(s): B37.89 - Other sites of candidiasis Status: Acute Assessment and Plan: Antifungal cream has been ordered (7) COPD exacerbation: Code(s): J44.1 - Chronic obstructive pulmonary disease with (acute) exacerbation Status: Acute Assessment and Plan: mechanical ventilation, antibiotics, bronchodilators (8) Alcoholism: Code(s): F10.20 - Alcohol dependence, uncomplicated Status: Chronic Assessment and Plan: patient has history of chronic alcohol abuse and dependence - continue folic acid and thiamine (9) Dysphagia: Code(s): R13.10 - Dysphagia, unspecified Status: Acute Assessment and Plan: currently intubated, on tube feeds (10) Suspected COVID-19 virus infection: Code(s): Z20.828 - Contact with and (suspected) exposure to other viral communicable diseases Status: Acute Assessment and Plan: COVID-19 ruled out. SARS-CoV-2 PCR was negative Patient was on Airborne, Droplet and Contact Isolation which now has been discontinued. (11) Neck pain: Code(s): M54.2 - Cervicalgia Status: Acute Assessment and Plan: CT of C-spine IMPRESSION: Reversal of cervical curvature Degenerative changes No fractu
[2019-11-23] MEDS: PANTOPRAZOLE SODIUM IV 40 MG VIAL IV PUSH ×2 (08:34→21:06)
[2019-11-23] MEDS: FOLIC ACID 1 MG/0.2 ML INJ IV PUSH (08:34)
[2019-11-23] MEDS: THIAMINE HCL 200 MG/2 ML VIAL 100 MG IV PUSH (08:34)
[2019-11-23] MEDS: TOLNAFTATE 1% POWDER 45 GM BTL 1 APPLIC TOPICAL ×2 (08:35→21:06)
[2019-11-23] MEDS: MAGNESIUM SULF 2 GM/WATER 50ML 2 GM/50 ML BAG IVPB (09:25)
[2019-11-23] MEDS: POTASSIUM CHLORIDE 20 MEQ PACKET (FOR LIQUID) 40 MEQ PO (09:25)
--- NOTE | 2019-11-23 09:54 | PM.IMPN ---
Progress Note: A&P Assessment and Plan (1) Acute hypoxemic respiratory failure: Code(s): J96.01 - Acute respiratory failure with hypoxia Status: Acute Assessment and Plan: On ventilator, has been undergoing breathing trials for extubation. Continue vent for now, follow Pulm/CC recs, vent management, as per intensitivist. Supportive care. Manage secretions, scopolamine patch on. (2) Respiratory failure: Code(s): J96.90 - Respiratory failure, unspecified, unspecified whether with hypoxia or hypercapnia Status: Acute Assessment and Plan: Currently on vent support. Breathing treatments. (3) Cardiac mass: Code(s): I51.89 - Other ill-defined heart diseases Status: Acute Assessment and Plan: Unable to do KENDALL at the moment. Continue to monitor. Afebrile (4) Occult blood in stools: Code(s): R19.5 - Other fecal abnormalities Status: Acute Assessment and Plan: H&H stable, continue to monitor. GI note appreciated. (5) Suspected COVID-19 virus infection: Code(s): Z20.828 - Contact with and (suspected) exposure to other viral communicable diseases Status: Acute Assessment and Plan: Ruled out. (6) Dysphagia: Code(s): R13.10 - Dysphagia, unspecified Status: Acute Assessment and Plan: No oral feeds at the moment. NG in. Will evaluate at time of extubation. (7) COPD exacerbation: Code(s): J44.1 - Chronic obstructive pulmonary disease with (acute) exacerbation Status: Acute Assessment and Plan: No wheezes currently. Breathing treatments Continuous pulse ox (8) Electrolyte abnormality: Code(s): E87.8 - Other disorders of electrolyte and fluid balance, not elsewhere classified Status: Acute Assessment and Plan: Replace as needed, daily BMP. (9) Septic shock: Code(s): A41.9 - Sepsis, unspecified organism; R65.21 - Severe sepsis with septic shock Status: Acute Assessment and Plan: Resolved. (10) Pneumonia: Qualifiers: Laterality: bilateral Lung location: unspecified part of lung Pneumonia type: due to unspecified organism Qualified Code(s): J18.9 - Pneumonia, unspecified organism Code(s): J18.9 - Pneumonia, unspecified organism Status: Acute Assessment and Plan: Improved, continue iv antibiotic Cefepime. (11) Alcoholism: Code(s): F10.20 - Alcohol dependence, uncomplicated Status: Chronic Assessment and Plan: Continue to monitor. CIWA as needed Precedex and Diprivan Does not appear to be withdrawing (12) Thrombocytopenia: Code(s): D69.6 - Thrombocytopenia, unspecified Status: Chronic Assessment and Plan: Stable, continue to monitor. No heparin products currently (13) Hypomagnesemia: Code(s): E83.42 - Hypomagnesemia Status: Acute Assessment and Plan: Replace as needed. Subjective Date/time seen: 11/23/19 09:54 Patient seen an examined earlier in the morning, was awake undergoing spontaneous breathing trial on pressure support, patient was awake. Review of Systems Review of Systems: Narrative: Unable to obtain as patient is intubated she is making eye contact and signals. Denies any pain when asked. Exam Narrative: Exam Narrative: Awake, alert, NAD, chronically ill looking. On intubated on ventilator. Const: General: comfortable, no acute distress, alert and awake Nutritional Appearance: average body habitus HENMT: Head: normal to inspection and normocephalic Ears: hearing grossly normal bilaterally General nose exam: Normal external nose present Face and sinus: normal facial exam Mouth: Yes Normal oral and palatal mucosa present and Yes other Teeth and gingiva: other (ETT in.) Eyes: General: appearance normal, both eyes and all related structures Conjunctivae: conjunctivae normal Sclera: sclerae normal Pupils: Equal, round and reactive pupil
--- NOTE | 2019-11-23 11:08 | PCDIET ---
ICU Rounding Note: Pt current nutrition is Vital 1.2 at 55ml/hr Nutrition recommendation: Agree, tolerating and meeting 100% of nutrition needs Last recorded weight is 68.6kg, up from 67.8kg yesterday Bowel Motility: BM liquid today Labs Reviewed:Hgb/hct 6.8, 20.7, K 3.3 Meds Noted:Albuterol, oscal, folic acid, precedex. levo, ativan, protonix Additional Notes: Pt was on propofol at 14.3ml/hr providing 377 kcals. Propofol now off. Pt awake and following commands. No plans for extubation today. May add propofol back on as needed to sedate per MD. Plans for one unit of RBCs. Tolerating EN well with 10ml residual. Following daily in ICU rounds. Assessing/reassessing q T/F
--- NOTE | 2019-11-23 11:16 | WPDGIPROGNO ---
Progress Note: A&P Additional Plan Patient alert but remains on the ventilator this morning. Apparently unable to be weaned off the ventilator today. No signs of additional bleeding described. Physical exam reveal abdomen to be soft bowel sounds are present soft nontender with no organomegaly. Labs reveal hemoglobin 6.8, hematocrit 20.7, MCV 93. Slight decline noted. Impression 1. Anemia. Agree with transfusion. No obvious active bleeding. She was Hemoccult positive on admission. EGD will be planned when she is clinically more stable. Continue to treat for empirically for possible stress gastritis. EGD within the last several months revealed no evidence of varices. 2. Respiratory failure. Patient remains on the ventilator. 3. Pneumonia. Resolving sepsis, resolving shock. 4. Alcohol abuse. Long-term problem. Rehab strongly encouraged eventually. Subjective Date/time seen: 11/23/19 11:16 Objective Data Vital Signs Vital Signs: Vital Signs - 24 hr 11/22/19 11:56 11/22/19 12:00 11/22/19 13:36 Temperature 98.9 F Pulse Rate 90 91 90 Respiratory Rate 29 H 30 H 25 H Blood Pressure 124/67 Pulse Oximetry 100 11/22/19 13:38 11/22/19 13:44 11/22/19 14:00 Temperature Pulse Rate 91 92 96 Respiratory Rate 28 H 22 H Blood Pressure 117/96 H Pulse Oximetry 96 98 11/22/19 16:00 11/22/19 17:03 11/22/19 18:00 Temperature 98.3 F Pulse Rate 96 95 96 Respiratory Rate 25 H 25 H Blood Pressure 96/56 L 103/62 Pulse Oximetry 98 98 98 11/22/19 19:41 11/22/19 19:46 11/22/19 19:49 Temperature Pulse Rate 94 93 95 Respiratory Rate 36 H 26 H Blood Pressure Pulse Oximetry 100 11/22/19 20:00 11/22/19 20:30 11/22/19 22:00 Temperature 97.9 F Pulse Rate 93 93 92 Respiratory Rate 29 H 23 H 22 H Blood Pressure 106/65 107/63 Pulse Oximetry 100 99 11/22/19 22:50 11/23/19 00:00 11/23/19 01:20 Temperature 98.0 F Pulse Rate 87 82 82 Respiratory Rate 20 22 H Blood Pressure 105/60 Pulse Oximetry 99 97 11/23/19 01:25 11/23/19 01:27 11/23/19 02:00 Temperature Pulse Rate 82 84 85 Respiratory Rate 24 H 22 H Blood Pressure 102/58 L Pulse Oximetry 98 98 11/23/19 02:39 11/23/19 03:30 11/23/19 04:00 Temperature 98.1 F Pulse Rate 84 81 81 Respiratory Rate 20 22 H Blood Pressure 97/57 L Pulse Oximetry 98 11/23/19 04:30 11/23/19 05:03 11/23/19 06:00 Temperature Pulse Rate 80 81 79 Respiratory Rate 20 20 Blood Pressure 93/52 L Pulse Oximetry 99 99 11/23/19 08:00 11/23/19 08:30 11/23/19 08:45 Temperature 98.3 F Pulse Rate 89 85 85 Respiratory Rate 22 H Blood Pressure 98/57 L Pulse Oximetry 97 98 97 11/23/19 09:06 11/23/19 09:15 11/23/19 10:31 Temperature Pulse Rate 85 83 89 Respiratory Rate 23 H 24 H Blood Pressure Pulse Oximetry 97 Intake/Output Intake/Output: Intake & Output 11/20/19 11/21/19 11/22/19 11/23/19 23:59 23:59 23:59 23:59 Intake Total 1948 3205.6667 2282.1 1111 Output Total 2200 2150 2700 550 Balance -252 1055.6667 -417.9 561 Meds/Results Medications: Active Medications Generic Name Dose Route Start Last Admin Trade Name Freq PRN Reason Stop Dose Admin Acetaminophen 650 mg 11/12/19 21:42 11/13/19 04:18 Tylenol Tablet PO 650 mg Q4H PRN Administration Mild Pain (1-3) or Fever Albuterol 2.5 mg 11/13/19 14:00 11/23/19 09:06 Albuterol Sulf Neb 2.5mg/0.5ml INHALATION 2.5 mg Q6HRT ELLA Administration Calcium Carbonate 500 mg 11/14/19 17:00 11/17/19 18:21 Oscal 500 Mg PO 500 mg BIDWM ELLA Administration Folic Acid 1 mg 11/14/19 09:00 11/23/19 08:34 Folic Acid Inj IV PUSH 1 mg QAM ELLA Administration Norepinephrine Bitartrate 8 mg in 250 mls @ 0 mls/hr 11/15/19 15:45 11/20/19 06:06 Levophed 8 Mg/D5w 250 Ml IV CONT 0 mcg/min .Q0M ELLA 0 mls/hr Titration Protocol 0 MCG/MIN Cefepime HCl 2 gm in 50 ml
[2019-11-23 12:24] LABS: Glucose Point of Care 141 (65-105)
[2019-11-23] MEDS: FUROSEMIDE INJ 40 MG/4 ML VIAL IV PUSH (13:41)
[2019-11-23] MEDS: MAGNESIUM OXIDE 400 MG TABLET 800 MG PO (17:59)
[2019-11-23] MEDS: SERTRALINE HCL 50 MG TABLET 100 MG PO (21:06)
[2019-11-23] MEDS: PROPOFOL IV EMULSION 100 ML 10.2 MG IV CONT (21:18)
[2019-11-24] VITALS (49 sets, daily range): BP systolic 84–103; BP diastolic 47–70; PULSE 70–100; RESP 14–38; TEMP 36.4–36.9; O2SAT 95–100
[2019-11-24 05:15] LABS: HCO3 ABG 20.6 mEq/l (22.0-26.0); PCO2 ABG 31.4 mmHg (35.0-45.0); PO2 ABG 87.4 mmHg (80.0-100.0); pH ABG 7.435 (7.350-7.450)
[2019-11-24 05:16] LABS: Alveolar/Arterial O2 Gradient 89.6 mmHg; Device VENTILATOR; Fractional Inspired Oxygen 30 %; Modified Allen's Test Pass; PO2 FiO2 Ratio Arterial Blood 2.91 %; Site Drawn RIGHT RADIAL; Total Hemoglobin 9.6 g/dL (12.0-18.0)
[2019-11-24 05:18] LABS: Arterial Blood Gas Minute Volume 100 LPM; Arterial Blood Gas PEEP 5 cmH2O; Arterial Blood Gas Vent Mode ASV
--- NOTE | 2019-11-24 07:15 | WPDINTPN ---
Progress Note: A&P Assessment and Plan (1) Respiratory failure: Code(s): J96.90 - Respiratory failure, unspecified, unspecified whether with hypoxia or hypercapnia Status: Acute Assessment and Plan: acute respiratory failure likely related to bilateral infiltrates, secondary pneumonia, acute lung injury /ARDS - intubated on 11/17/2019 - chest x-ray and ABGs reviewed - patient failed SBT trial on last 3 days due to high RSBI despite Precedex infusion - I have placed patient on pressure support ventilation 25/07 which gives a reasonable RSBI and will continue as tolerated. Will trying to wean pressure support as possible - will continue diuresis with Lasix today - continue cefepime but patient is now off of vancomycin - continue scopolamine patch for increased oral secretion (2) Septic shock: Code(s): A41.9 - Sepsis, unspecified organism; R65.21 - Severe sepsis with septic shock Status: Acute Assessment and Plan: OFF LEVOPHED - likely related to pneumonia, sepsis /infection - Septic shock secondary to pneumonia and UTI, - continue cefepime but discontinue vancomycin - urine cultures growing E coli, blood and sputum cultures are negative (3) Urinary tract infection: Qualifiers: Hematuria presence: without hematuria Urinary tract infection type: site unspecified Qualified Code(s): N39.0 - Urinary tract infection, site not specified Code(s): N39.0 - Urinary tract infection, site not specified Status: Acute Assessment and Plan: patient growing E coli from urine culture. miller susceptible, - continue antibiotics as above (4) Pneumonia: Qualifiers: Laterality: bilateral Lung location: unspecified part of lung Pneumonia type: due to unspecified organism Qualified Code(s): J18.9 - Pneumonia, unspecified organism Code(s): J18.9 - Pneumonia, unspecified organism Status: Acute Assessment and Plan: community-acquired pneumonia versus aspiration continue antibiotics as above - sputum cultures negative so far (5) GI bleed: Code(s): K92.2 - Gastrointestinal hemorrhage, unspecified Status: Acute Assessment and Plan: patient did mention black stools to admitting physician. positive fecal occult blood but no obvious major bleeding GI is following but no plan for EGD at this time Continue IV PPI q.12 hours. EGD to be performed at some point as per GI - received 1 unit of packed RBC on 11/17/2019 and on 11/22 (6) Candidiasis of breast: Code(s): B37.89 - Other sites of candidiasis Status: Acute Assessment and Plan: Antifungal cream has been ordered (7) COPD exacerbation: Code(s): J44.1 - Chronic obstructive pulmonary disease with (acute) exacerbation Status: Acute Assessment and Plan: mechanical ventilation, antibiotics, bronchodilators (8) Alcoholism: Code(s): F10.20 - Alcohol dependence, uncomplicated Status: Chronic Assessment and Plan: patient has history of chronic alcohol abuse and dependence - continue folic acid and thiamine (9) Dysphagia: Code(s): R13.10 - Dysphagia, unspecified Status: Acute Assessment and Plan: currently intubated, on tube feeds (10) Suspected COVID-19 virus infection: Code(s): Z20.828 - Contact with and (suspected) exposure to other viral communicable diseases Status: Acute Assessment and Plan: COVID-19 ruled out. SARS-CoV-2 PCR was negative Patient was on Airborne, Droplet and Contact Isolation which now has been discontinued. (11) Neck pain: Code(s): M54.2 - Cervicalgia Status: Acute Assessment and Plan: CT of C-spine IMPRESSION: Reversal of cervical curvature Degenerative changes No fracture or dislocation Patient also has chronic it is cervical spine related pain which is worse now. Lidoderm patch and p.r.n. analgesi
[2019-11-24] MEDS: PANTOPRAZOLE SODIUM IV 40 MG VIAL IV PUSH ×2 (07:52→21:00)
[2019-11-24] MEDS: TOLNAFTATE 1% POWDER 45 GM BTL 1 APPLIC TOPICAL ×2 (07:54→21:01)
[2019-11-24] MEDS: THIAMINE HCL 200 MG/2 ML VIAL 100 MG IV PUSH (07:54)
[2019-11-24] MEDS: SCOPOLAMINE 1.5 MG PATCH TRANSDERM (07:54)
[2019-11-24] MEDS: FUROSEMIDE INJ 40 MG/4 ML VIAL IV PUSH (07:57)
[2019-11-24] MEDS: FOLIC ACID 1 MG/0.2 ML INJ IV PUSH (08:06)
[2019-11-24] MEDS: IPRATROPIUM BR 0.02% INH SOLN 0.5 MG/2.5 ML VIAL INHALATION ×3 (08:07→20:28)
[2019-11-24] MEDS: ALBUTEROL SULFATE NEB 2.5 MG/0.5 ML INH INHALATION ×3 (08:07→20:28)
[2019-11-24 08:11] LABS: Basophils Percent Auto 0.2 % (0.2-1.2); Eosinophils Absolute Auto 0.2 K/mm3 (0-0.3); Eosinophils Percent Auto 1.4 % (0-4.4); Hematocrit 26.3 % (37.0-47.0); Hemoglobin 8.6 g/dL (12.0-15.0); Immature Granulocyte Percent A 0.9 % (0-0.5); Lymphocytes Absolute Auto 1.31 K/mm3 (0.9-3.2); Lymphocytes Percent Auto 12.1 % (18.3-44.2); Mean Corpuscular HGB Conc 32.7 g/dl (32-36); Mean Corpuscular Volume 91.6 fl (80-100); Mean Platelet Volume 10.3 fl (7.4-10.4); Monocytes Absolute Auto 0.7 K/mm3 (0.1-0.6); Monocytes Percent Auto 6.7 % (2.6-8.5); Neutrophils Absolute Auto 8.5 K/mm3 (1.3-6.7); Neutrophils Percent Auto 78.7 % (45.5-73.1); Platelet Count Result 165 k/mm3 (150-375); Red Blood Count 2.87 M/mm3 (4.2-5.4); Red Cell Distribution Width 19.3 % (11.5-14.5); White Blood Count 10.8 K/mm3 (4.5-10.0)
[2019-11-24] MEDS: ALBUMIN HUMAN 25% 25 GM/100 ML 200 ML IVPB (08:13)
[2019-11-24 08:25] LABS: Alanine Aminotransferase 23 U/L (4-35); Albumin Level 2.8 g/dL (3.5-5.1); Alkaline Phosphatase 143 U/L (38-126); Anion Gap 4 mmol/L (8-16); Aspartate Amino Transferase 46 U/L (14-36); Bilirubin,Total 0.9 mg/dL (0.2-1.3); Blood Urea Nitrogen 21 mg/dL (7-17); Calcium 8.7 mg/dL (8.4-10.2); Carbon Dioxide 25 mmol/L (22-30); Chloride 109 mmol/L (98-107); Estimated CRCL calculation 65 ml/min; Estimated Glomerular Filt Rate > 60; Glucose 111 mg/dL (65-105); Magnesium 1.7 mg/dL (1.6-2.3); Potassium 3.8 mmol/L (3.4-5.0); Sodium 138 mmol/L (137-145)
[2019-11-24] MEDS: MAGNESIUM SULF 2 GM/WATER 50ML 2 GM/50 ML BAG IVPB (08:59)
[2019-11-24] MEDS: POTASSIUM CHLORIDE 20 MEQ PACKET (FOR LIQUID) FEED TUBE (08:59)
--- NOTE | 2019-11-24 09:35 | WPDGIPROGNO ---
Progress Note: A&P Additional Plan Patient remains intubated in the intensive care unit. Physical exam reveals her abdomen to be benign and unchanged. No active bleeding described. Labs reveal hemoglobin 8.6, hematocrit 26.3, MCV 91. Patient transfused yesterday to maintain adequate hemoglobin. No active bleeding described. Impression 1. Anemia. Appears chronic. May have a subacute component. Hemoccult-positive at the time presentation. For this reason patient on empiric PPI therapy for possible stress ulceration. EGD recently was essentially unremarkable. Recent colonoscopy showed hemorrhoids. EGD may be prudent at some point. No necessity for emergent scoping at this point. 2. Alcohol abuse. 3. Respiratory failure on ventilator. 4. Pneumonia. 5. COPD. Plan is for continued supportive care. Will maintain patient on PPI. I will follow peripherally. Dr. Ortiz available over the weekend if necessary. Subjective Date/time seen: 11/24/19 09:35 Objective Data Vital Signs Vital Signs: Vital Signs - 24 hr 11/23/19 10:00 11/23/19 10:31 11/23/19 11:41 Temperature 97.8 F Pulse Rate 89 89 90 Respiratory Rate 32 H 19 Blood Pressure 93/52 L 93/52 L Pulse Oximetry 98 97 98 11/23/19 11:57 11/23/19 12:00 11/23/19 12:57 Temperature 98.7 F 98.7 F 98.3 F Pulse Rate 88 87 86 Respiratory Rate 23 H 26 H 21 H Blood Pressure 93/51 L 93/51 L 98/64 L Pulse Oximetry 100 99 99 11/23/19 13:25 11/23/19 13:44 11/23/19 15:25 Temperature 98.3 F Pulse Rate 80 85 83 Respiratory Rate 17 15 Blood Pressure 98/64 L Pulse Oximetry 99 99 11/23/19 15:35 11/23/19 16:00 11/23/19 17:00 Temperature Pulse Rate 86 85 83 Respiratory Rate 15 16 Blood Pressure 91/58 L Pulse Oximetry 98 99 11/23/19 17:58 11/23/19 18:56 11/23/19 19:14 Temperature Pulse Rate 81 80 74 Respiratory Rate 24 H 27 H 15 Blood Pressure 95/54 L Pulse Oximetry 96 11/23/19 20:00 11/23/19 20:33 11/23/19 21:18 Temperature 98 F Pulse Rate 72 75 74 Respiratory Rate 16 15 Blood Pressure 98/59 L Pulse Oximetry 96 99 11/23/19 21:30 11/23/19 22:00 11/23/19 23:20 Temperature Pulse Rate 78 77 75 Respiratory Rate 14 17 Blood Pressure 102/61 Pulse Oximetry 98 99 11/24/19 00:00 11/24/19 02:00 11/24/19 02:08 Temperature 98.3 F Pulse Rate 76 77 75 Respiratory Rate 23 H 21 H Blood Pressure 99/58 L 93/59 L Pulse Oximetry 100 99 99 11/24/19 04:00 11/24/19 04:12 11/24/19 04:57 Temperature 98.0 F Pulse Rate 82 81 75 Respiratory Rate 26 H 22 H Blood Pressure 84/57 L Pulse Oximetry 98 99 11/24/19 06:00 11/24/19 07:47 11/24/19 07:55 Temperature Pulse Rate 80 74 75 Respiratory Rate 18 23 H 16 Blood Pressure 95/58 L Pulse Oximetry 95 11/24/19 08:00 11/24/19 08:03 11/24/19 08:10 Temperature 97.7 F Pulse Rate 74 76 81 Respiratory Rate 19 18 30 H Blood Pressure 99/58 L Pulse Oximetry 98 11/24/19 08:15 11/24/19 08:19 11/24/19 08:23 Temperature Pulse Rate 80 81 83 Respiratory Rate 20 38 H Blood Pressure Pulse Oximetry 98 11/24/19 08:37 Temperature Pulse Rate 100 Respiratory Rate 20 Blood Pressure Pulse Oximetry Intake/Output Intake/Output: Intake & Output 11/21/19 11/22/19 11/23/19 11/24/19 23:59 23:59 23:59 23:59 Intake Total 3205.6667 2282.1 2635 1329 Output Total 4470 6820 2350 875 Balance 1055.6667 -417.9 285 454 Meds/Results Medications: Active Medications Generic Name Dose Route Start Last Admin Trade Name Freq PRN Reason Stop Dose Admin Acetaminophen 650 mg 11/12/19 21:42 11/13/19 04:18 Tylenol Tablet PO 650 mg Q4H PRN Administration Mild Pain (1-3) or Fever Albuterol 2.5 mg 11/13/19 14:00 11/24/19 08:07 Albuterol Sulf Neb 2.5mg/0.5ml INHALATION 2.5 mg Q6HRT ELLA Administration Calcium Carbonate 500 mg 11/14/19 17:00 11/17/19 18:21 Oscal 500 Mg PO 500 mg BIDWM ELLA Administr
[2019-11-24] MEDS: PROPOFOL IV EMULSION 100 ML 2 MG IV CONT (09:44)
--- NOTE | 2019-11-24 11:36 | PCDIET ---
Nutrition Follow-Up Complete: Nutrition Diagnosis: Suboptimal oral intake related to decreased appetite as evidenced by intakes 0-50%. Nutrition Goal: Patient to meet estimated nutritional needs. Goal met. Patient tolerating Vital 1.2 at 55mL/hr goal rate. Last recorded weight is 72 kg which is increased from last review. Bowel Motility: FMS in place for loose stools. Labs Reviewed: Hgb (8.6), Hct (26.3), Glu (111), BUN (21), Cl (109), Alb (2.8) Meds Noted: Albumin, Albuterol, Oscal, Cefepime, Precedex, Folic Acid, Lasix, Atrovent, Magnesium Sulfate, Levophed, Protonix, Thiamine, KCl Additional Notes: Back and buttocks macerated. Will continue to monitor with same goal. Nutrition Monitoring and Evaluation: Follow up every Wednesday/Wednesday. Follow daily in ICU rounds.
--- NOTE | 2019-11-24 13:35 | PM.IMPN ---
Progress Note: A&P Assessment and Plan (1) Acute hypoxemic respiratory failure: Code(s): J96.01 - Acute respiratory failure with hypoxia Status: Acute Assessment and Plan: Patient failed weaning trial today. Continue on vent Vent management as per websphere commerce developer Appreciate websphere commerce developer note. Supportive care (2) Cardiac mass: Code(s): I51.89 - Other ill-defined heart diseases Status: Acute Assessment and Plan: Further evaluation is halted at this point due to patient being on life support, ETT in place. KENDALL can't be done at this time. (3) Occult blood in stools: Code(s): R19.5 - Other fecal abnormalities Status: Acute Assessment and Plan: H&H have remained stable. (4) Elevated troponin: Code(s): R79.89 - Other specified abnormal findings of blood chemistry Status: Acute Assessment and Plan: Stable, coservative management at this point. (5) Suspected COVID-19 virus infection: Code(s): Z20.828 - Contact with and (suspected) exposure to other viral communicable diseases Status: Acute Assessment and Plan: Ruled out. (6) COPD exacerbation: Code(s): J44.1 - Chronic obstructive pulmonary disease with (acute) exacerbation Status: Acute Assessment and Plan: Not actively wheezing. Breathing treatments. Pulmonary toilette. (7) Septic shock: Code(s): A41.9 - Sepsis, unspecified organism; R65.21 - Severe sepsis with septic shock Status: Acute Assessment and Plan: Resolved, off of pressors (8) Candidiasis of breast: Code(s): B37.89 - Other sites of candidiasis Status: Acute Assessment and Plan: Continue local care with antifungal. (9) Pneumonia: Qualifiers: Laterality: bilateral Lung location: unspecified part of lung Pneumonia type: due to unspecified organism Qualified Code(s): J18.9 - Pneumonia, unspecified organism Code(s): J18.9 - Pneumonia, unspecified organism Status: Acute Assessment and Plan: Continue Cefepime. (10) Alcoholism: Code(s): F10.20 - Alcohol dependence, uncomplicated Status: Chronic Assessment and Plan: Does nto appear to be clinically withdrawing. (11) Anemia, unspecified: Qualifiers: Anemia type: unspecified type Qualified Code(s): D64.9 - Anemia, unspecified Code(s): D64.9 - Anemia, unspecified Status: Acute Assessment and Plan: Continue to monitor. Transfuse if below 7 g/dl (12) Thrombocytopenia: Code(s): D69.6 - Thrombocytopenia, unspecified Status: Chronic Assessment and Plan: On no heparin products, continue to monitor, daily labs. (13) Urinary tract infection: Qualifiers: Hematuria presence: without hematuria Urinary tract infection type: site unspecified Qualified Code(s): N39.0 - Urinary tract infection, site not specified Code(s): N39.0 - Urinary tract infection, site not specified Status: Acute Assessment and Plan: On Cefepime. Subjective Date/time seen: 11/24/19 13:35 Patient seen and examined earlier in the morning. Patient on ventilator, will undergo vent weaning trial. Afebrile. No new issues overnight. Review of Systems Review of Systems: Narrative: Unable to obtain as patient has ETT in place and is under sedation. Exam Narrative: Exam Narrative: Chronically ill looking in bed, NAD, on ventilator support. Const: General: no acute distress Other: Generalized edema. HENMT: Head: normocephalic Ears: hearing grossly normal bilaterally General nose exam: Normal external nose present Face and sinus: normal facial exam Other: ETT in place. Eyes: Pupils: Equal, round and reactive pupils present EOM: EOMs intact bilaterally Neck: Neck: normal visual inspection, no lymphadenopathy and no JVD Resp: Auscultation: bronchial breath sounds Cardio: Jugular venous distension: no JVD Hear
[2019-11-24] MEDS: PROPOFOL IV EMULSION 100 ML 12.2 MG IV CONT (16:23)
[2019-11-24] MEDS: SERTRALINE HCL 50 MG TABLET 100 MG PO (21:00)
[2019-11-25] VITALS (37 sets, daily range): BP systolic 72–106; BP diastolic 45–68; PULSE 79–126; RESP 13–47; TEMP 36.8–37.2; O2SAT 96–100
[2019-11-25] MEDS: ALBUTEROL SULFATE NEB 2.5 MG/0.5 ML INH INHALATION ×4 (01:35→19:58)
[2019-11-25] MEDS: IPRATROPIUM BR 0.02% INH SOLN 0.5 MG/2.5 ML VIAL INHALATION ×4 (01:35→19:58)
[2019-11-25] MEDS: PROPOFOL IV EMULSION 100 ML 16.3 MG IV CONT (01:48)
[2019-11-25 05:07] LABS: PCO2 ABG 35.9 mmHg (35.0-45.0); PO2 ABG 77.6 mmHg (80.0-100.0); pH ABG 7.421 (7.350-7.450)
[2019-11-25 05:08] LABS: Alveolar/Arterial O2 Gradient 94.1 mmHg; Base Excess ABG -1.3 mEq/l (+/-2.0); Carboxyhemoglobin 0.3 % THb (0-2.0); HCO3 ABG 22.8 mEq/l (22.0-26.0); Methemoglobin ABG 0.3 %THb (0-1.5); Oxygen Content ABG 14.5 %vol (16.0-22.0); Oxygen Saturation ABG 95.8 % (95.0-100.0); Oxyhemoglobin 93.4 % THb (90.0-100.0)
[2019-11-25 05:09] LABS: Device VENTILATOR; Fractional Inspired Oxygen 30 %; Modified Allen's Test Pass; PO2 FiO2 Ratio Arterial Blood 2.59 %; Site Drawn RIGHT RADIAL
[2019-11-25 05:10] LABS: Arterial Blood Gas Minute Volume 100 LPM; Arterial Blood Gas PEEP 5 cmH2O; Arterial Blood Gas Vent Mode ASV
[2019-11-25 06:13] LABS: Hematocrit 23.9 % (37.0-47.0); Mean Corpuscular HGB Conc 33.5 g/dl (32-36); Mean Corpuscular Hemoglobin 30.1 pg (26-34); Mean Corpuscular Volume 89.8 fl (80-100); Mean Platelet Volume 10.7 fl (7.4-10.4); Platelet Count Result 172 k/mm3 (150-375); Red Blood Count 2.66 M/mm3 (4.2-5.4); Red Cell Distribution Width 18.8 % (11.5-14.5); White Blood Count 10.7 K/mm3 (4.5-10.0)
[2019-11-25 06:23] LABS: Alanine Aminotransferase 25 U/L (4-35); Alkaline Phosphatase 147 U/L (38-126); Anion Gap 7 mmol/L (8-16); Aspartate Amino Transferase 45 U/L (14-36); Bilirubin,Total 0.9 mg/dL (0.2-1.3); Blood Urea Nitrogen 23 mg/dL (7-17); Calcium 8.9 mg/dL (8.4-10.2); Carbon Dioxide 25 mmol/L (22-30); Chloride 106 mmol/L (98-107); Estimated CRCL calculation 65 ml/min; Estimated Glomerular Filt Rate > 60; Glucose 111 mg/dL (65-105); Magnesium 1.9 mg/dL (1.6-2.3); Potassium 3.6 mmol/L (3.4-5.0); Sodium 138 mmol/L (137-145)
--- NOTE | 2019-11-25 07:00 | WPDINTPN ---
Progress Note: A&P Assessment and Plan (1) Respiratory failure: Code(s): J96.90 - Respiratory failure, unspecified, unspecified whether with hypoxia or hypercapnia Status: Acute Assessment and Plan: acute respiratory failure likely related to bilateral infiltrates, secondary pneumonia, acute lung injury /ARDS - intubated on 11/17/2019 - chest x-ray and ABGs reviewed - patient failed SBT trial on last 4 days due to high RSBI despite Precedex infusion - I have placed patient on pressure support ventilation 25/07 which gives a reasonable RSBI and will continue as tolerated. Will trying to wean pressure support as possible - will continue diuresis with Lasix And increase the dose to twice a day - continue cefepime but patient is now off of vancomycin - continue scopolamine patch for increased oral secretion (2) Septic shock: Code(s): A41.9 - Sepsis, unspecified organism; R65.21 - Severe sepsis with septic shock Status: Acute Assessment and Plan: has resolved and patient has been OFF LEVOPHED - likely related to pneumonia, sepsis /infection - Septic shock secondary to pneumonia and UTI, - continue cefepime through 11/25 but patient now off of vancomycin - urine cultures growing E coli, blood and sputum cultures are negative (3) Urinary tract infection: Qualifiers: Hematuria presence: without hematuria Urinary tract infection type: site unspecified Qualified Code(s): N39.0 - Urinary tract infection, site not specified Code(s): N39.0 - Urinary tract infection, site not specified Status: Acute Assessment and Plan: patient growing E coli from urine culture. miller susceptible, - continue antibiotics as above (4) Pneumonia: Qualifiers: Laterality: bilateral Lung location: unspecified part of lung Pneumonia type: due to unspecified organism Qualified Code(s): J18.9 - Pneumonia, unspecified organism Code(s): J18.9 - Pneumonia, unspecified organism Status: Acute Assessment and Plan: community-acquired pneumonia versus aspiration continue antibiotics as above - sputum cultures negative so far (5) GI bleed: Code(s): K92.2 - Gastrointestinal hemorrhage, unspecified Status: Acute Assessment and Plan: patient did mention black stools to admitting physician. positive fecal occult blood but no obvious major bleeding GI is following but no plan for EGD at this time Continue IV PPI q.12 hours. EGD to be performed at some point as per GI - received 1 unit of packed RBC on 11/17/2019 and on 11/22 (6) Candidiasis of breast: Code(s): B37.89 - Other sites of candidiasis Status: Acute Assessment and Plan: Antifungal cream has been ordered (7) COPD exacerbation: Code(s): J44.1 - Chronic obstructive pulmonary disease with (acute) exacerbation Status: Acute Assessment and Plan: mechanical ventilation, antibiotics, bronchodilators (8) Alcoholism: Code(s): F10.20 - Alcohol dependence, uncomplicated Status: Chronic Assessment and Plan: patient has history of chronic alcohol abuse and dependence - continue folic acid and thiamine (9) Dysphagia: Code(s): R13.10 - Dysphagia, unspecified Status: Acute Assessment and Plan: currently intubated, on tube feeds (10) Suspected COVID-19 virus infection: Code(s): Z20.828 - Contact with and (suspected) exposure to other viral communicable diseases Status: Acute Assessment and Plan: COVID-19 ruled out. SARS-CoV-2 PCR was negative Patient was on Airborne, Droplet and Contact Isolation which now has been discontinued. (11) Neck pain: Code(s): M54.2 - Cervicalgia Status: Acute Assessment and Plan: CT of C-spine IMPRESSION: Reversal of cervical curvature Degenerative changes No fracture or dislocation Patient also has chronic it
[2019-11-25] MEDS: ALBUMIN HUMAN 25% 25 GM/100 ML 200 ML IVPB ×2 (08:15→18:31)
[2019-11-25] MEDS: PANTOPRAZOLE SODIUM IV 40 MG VIAL IV PUSH ×2 (08:16→21:41)
[2019-11-25] MEDS: THIAMINE HCL 200 MG/2 ML VIAL 100 MG IV PUSH (08:16)
[2019-11-25] MEDS: FUROSEMIDE INJ 40 MG/4 ML VIAL IV PUSH ×3 (08:16→18:37)
[2019-11-25] MEDS: POTASSIUM CHLORIDE 20 MEQ PACKET (FOR LIQUID) 40 MEQ FEED TUBE (08:17)
[2019-11-25] MEDS: TOLNAFTATE 1% POWDER 45 GM BTL 1 APPLIC TOPICAL ×2 (10:34→21:16)
[2019-11-25] MEDS: FOLIC ACID 1 MG/0.2 ML INJ IV PUSH (12:00)
--- NOTE | 2019-11-25 12:54 | PM.IMPN ---
Progress Note: A&P Assessment and Plan (1) Acute hypoxemic respiratory failure: Code(s): J96.01 - Acute respiratory failure with hypoxia Status: Acute Assessment and Plan: On ventilator support Undergoing vent weaning trial Plan for trach as of now Discussed with intensitivist. (2) Cardiac mass: Code(s): I51.89 - Other ill-defined heart diseases Status: Acute Assessment and Plan: Unable to further evaluate will need KENDALL at some point. Continue to monitor Stable (3) GI bleed: Code(s): K92.2 - Gastrointestinal hemorrhage, unspecified Status: Acute Assessment and Plan: Stable, continue to monitor. Does not appear to be acutely bleeding (4) Elevated troponin: Code(s): R79.89 - Other specified abnormal findings of blood chemistry Status: Acute Assessment and Plan: Stable Continue to monitor (5) Suspected COVID-19 virus infection: Code(s): Z20.828 - Contact with and (suspected) exposure to other viral communicable diseases Status: Acute Assessment and Plan: Ruled out (6) COPD exacerbation: Code(s): J44.1 - Chronic obstructive pulmonary disease with (acute) exacerbation Status: Acute Assessment and Plan: Breathing treatments Not actively wheezing On vent currently (7) Septic shock: Code(s): A41.9 - Sepsis, unspecified organism; R65.21 - Severe sepsis with septic shock Status: Acute Assessment and Plan: Resolved Off of pressors (8) Candidiasis of breast: Code(s): B37.89 - Other sites of candidiasis Status: Acute Assessment and Plan: Continue local care. (9) Pneumonia: Qualifiers: Laterality: bilateral Lung location: unspecified part of lung Pneumonia type: due to unspecified organism Qualified Code(s): J18.9 - Pneumonia, unspecified organism Code(s): J18.9 - Pneumonia, unspecified organism Status: Acute Assessment and Plan: Currently on Cefepime (10) Alcoholism: Code(s): F10.20 - Alcohol dependence, uncomplicated Status: Chronic Assessment and Plan: Unchanged Does not appear to be withdrawing. CIWA in place Continue to monitor (11) Thrombocytopenia: Code(s): D69.6 - Thrombocytopenia, unspecified Status: Chronic Assessment and Plan: On no heparin products Continue to monitor (12) Hypomagnesemia: Code(s): E83.42 - Hypomagnesemia Status: Acute Assessment and Plan: Replace as needed. (13) Alcohol withdrawal: Qualifiers: Complication of substance-induced condition: uncomplicated Qualified Code(s): F10.230 - Alcohol dependence with withdrawal, uncomplicated Code(s): F10.239 - Alcohol dependence with withdrawal, unspecified Status: Acute Assessment and Plan: Appears to have resolved Subjective Date/time seen: 11/25/19 12:54 Patient is undergoing a ventilator weaning trial, no new issues overnight.Afebrile. Review of Systems Review of Systems: Narrative: Unable to get as patient is intubated ETT in place. Exam Narrative: Exam Narrative: Awake, alert, intubated, undergoing a weaning trial, appears comfortable, although chronically ill looking. Const: General: comfortable Nutritional Appearance: average body habitus HENMT: Head: normocephalic Ears: hearing grossly normal bilaterally General nose exam: Normal external nose present Face and sinus: normal facial exam Mouth: Yes Normal oral and palatal mucosa present Eyes: General: appearance normal, both eyes and all related structures Pupils: Equal, round and reactive pupils present EOM: EOMs intact bilaterally Neck: Neck: normal visual inspection, no lymphadenopathy and no JVD Resp: Auscultation: clear to auscultation bilaterally Cardio: Jugular venous distension: no JVD Rate: regular rate Rhythm: regular rhythm Heart sounds: S1 normal heart sound present and S2 n
[2019-11-25] MEDS: PROPOFOL IV EMULSION 100 ML 8.1 MG IV CONT (13:04)
[2019-11-25 18:20] LABS: Basophils Percent Auto 0.2 % (0.2-1.2); Eosinophils Absolute Auto 0.1 K/mm3 (0-0.3); Eosinophils Percent Auto 0.7 % (0-4.4); Hematocrit 23.3 % (37.0-47.0); Hemoglobin 7.6 g/dL (12.0-15.0); Immature Granulocyte Absolute 0.11 K/mm3 (0.00-0.031); Immature Granulocyte Percent A 0.8 % (0-0.5); Lymphocytes Absolute Auto 1.45 K/mm3 (0.9-3.2); Lymphocytes Percent Auto 10.8 % (18.3-44.2); Mean Corpuscular HGB Conc 32.6 g/dl (32-36); Mean Corpuscular Volume 92.1 fl (80-100); Mean Platelet Volume 10.4 fl (7.4-10.4); Monocytes Absolute Auto 0.9 K/mm3 (0.1-0.6); Monocytes Percent Auto 6.6 % (2.6-8.5); Neutrophils Absolute Auto 10.9 K/mm3 (1.3-6.7); Neutrophils Percent Auto 80.9 % (45.5-73.1); Platelet Count Result 204 k/mm3 (150-375); Red Blood Count 2.53 M/mm3 (4.2-5.4); Red Cell Distribution Width 18.7 % (11.5-14.5); White Blood Count 13.4 K/mm3 (4.5-10.0)
[2019-11-25] MEDS: fentaNYL CITRATE INJ (*CRX) 100 MCG/2 ML VIAL 25 MCG IV PUSH ×2 (18:31→18:48)
[2019-11-25 18:45] LABS: Alveolar/Arterial O2 Gradient 102.4 mmHg; Base Excess ABG -3.1 mEq/l (+/-2.0); Device VENTILATOR; Fractional Inspired Oxygen 30 %; HCO3 ABG 20.8 mEq/l (22.0-26.0); Modified Allen's Test Pass; Oxygen Content ABG 11.1 %vol (16.0-22.0); Oxygen Saturation ABG 95.2 % (95.0-100.0); Oxyhemoglobin 92.3 % THb (90.0-100.0); PCO2 ABG 32.7 mmHg (35.0-45.0); PO2 ABG 73.1 mmHg (80.0-100.0); PO2 FiO2 Ratio Arterial Blood 2.44 %; Site Drawn LEFT RADIAL; Total Hemoglobin 8.5 g/dL (12.0-18.0); pH ABG 7.422 (7.350-7.450)
[2019-11-25 18:46] LABS: Arterial Blood Gas Minute Volume 6 LPM; Arterial Blood Gas PEEP 5 cmH2O; Arterial Blood Gas Vent Mode ASV
[2019-11-25] MEDS: SERTRALINE HCL 50 MG TABLET 100 MG PO (21:15)
[2019-11-25] MEDS: PROPOFOL IV EMULSION 100 ML 12.2 MG IV CONT (23:32)
[2019-11-26] VITALS (43 sets, daily range): BP systolic 87–108; BP diastolic 51–74; PULSE 80–97; RESP 18–43; TEMP 37–37.7; O2SAT 84–100
[2019-11-26] MEDS: ALBUTEROL SULFATE NEB 2.5 MG/0.5 ML INH INHALATION ×4 (02:04→19:52)
[2019-11-26] MEDS: IPRATROPIUM BR 0.02% INH SOLN 0.5 MG/2.5 ML VIAL INHALATION ×4 (02:05→19:52)
[2019-11-26 04:44] LABS: Hematocrit 22.8 % (37.0-47.0); Hemoglobin 7.5 g/dL (12.0-15.0); Mean Corpuscular HGB Conc 32.9 g/dl (32-36); Mean Corpuscular Hemoglobin 30.4 pg (26-34); Mean Corpuscular Volume 92.3 fl (80-100); Mean Platelet Volume 9.9 fl (7.4-10.4); Platelet Count Result 203 k/mm3 (150-375); Red Blood Count 2.47 M/mm3 (4.2-5.4); Red Cell Distribution Width 18.9 % (11.5-14.5); White Blood Count 12.6 K/mm3 (4.5-10.0)
[2019-11-26 04:44] LABS: Alveolar/Arterial O2 Gradient 97.6 mmHg; Carboxyhemoglobin 0.3 % THb (0-2.0); Device VENTILATOR; Fractional Inspired Oxygen 30 %; Methemoglobin ABG 0.3 %THb (0-1.5); Modified Allen's Test Pass; Oxygen Content ABG 12.2 %vol (16.0-22.0); Oxygen Saturation ABG 95.4 % (95.0-100.0); Oxyhemoglobin 93.4 % THb (90.0-100.0); PCO2 ABG 36.3 mmHg (35.0-45.0); PO2 ABG 73.7 mmHg (80.0-100.0); PO2 FiO2 Ratio Arterial Blood 2.46 %; Site Drawn RIGHT RADIAL; Total Hemoglobin 9.2 g/dL (12.0-18.0); pH ABG 7.438 (7.350-7.450)
[2019-11-26 04:45] LABS: Arterial Blood Gas Minute Volume 100 LPM; Arterial Blood Gas PEEP 5 cmH2O; Arterial Blood Gas Vent Mode ASV
[2019-11-26 05:02] LABS: Alanine Aminotransferase 25 U/L (4-35); Albumin Level 3.8 g/dL (3.5-5.1); Alkaline Phosphatase 141 U/L (38-126); Anion Gap 8 mmol/L (8-16); Aspartate Amino Transferase 47 U/L (14-36); Bilirubin,Total 1.9 mg/dL (0.2-1.3); Blood Urea Nitrogen 26 mg/dL (7-17); Calcium 9.5 mg/dL (8.4-10.2); Carbon Dioxide 26 mmol/L (22-30); Chloride 105 mmol/L (98-107); Estimated CRCL calculation 51 ml/min; Estimated Glomerular Filt Rate > 60; Glucose 111 mg/dL (65-105); Magnesium 1.7 mg/dL (1.6-2.3); Potassium 3.5 mmol/L (3.4-5.0); Sodium 139 mmol/L (137-145); Triglycerides 98 mg/dL (<150)
--- NOTE | 2019-11-26 07:00 | WPDINTPN ---
Progress Note: A&P Assessment and Plan (1) Respiratory failure: Code(s): J96.90 - Respiratory failure, unspecified, unspecified whether with hypoxia or hypercapnia Status: Acute Assessment and Plan: acute respiratory failure likely related to bilateral infiltrates, secondary pneumonia, acute lung injury /ARDS - intubated on 11/17/2019 - chest x-ray and ABGs reviewed - chest x-ray appears worse today but oxygen requirement has been unchanged patient is afebrile - will repeat sputum culture - patient Has been failing pressure support ventilation trial daily due to high RSBI despite Precedex infusion - I have placed patient on pressure support ventilation 25/07 which gives a reasonable RSBI and will continue as tolerated. Will trying to wean pressure support as possible - patient was given Lasix twice yesterday which she was hypotensive later in the evening - patient has been off of vancomycin and will complete cefepime today - continue scopolamine patch for increased oral secretion (2) Septic shock: Code(s): A41.9 - Sepsis, unspecified organism; R65.21 - Severe sepsis with septic shock Status: Acute Assessment and Plan: has resolved and patient has been OFF LEVOPHED - likely related to pneumonia, sepsis /infection - Septic shock secondary to pneumonia and UTI, - continue cefepime through 11/25 but patient now off of vancomycin - urine cultures growing E coli, blood and sputum cultures are negative 11/24 patient had episode of hypotension which could be secondary sedation or diuresis. Resolved with albumin and did not require resumption of vasopressors (3) Urinary tract infection: Qualifiers: Hematuria presence: without hematuria Urinary tract infection type: site unspecified Qualified Code(s): N39.0 - Urinary tract infection, site not specified Code(s): N39.0 - Urinary tract infection, site not specified Status: Acute Assessment and Plan: patient growing E coli from urine culture. miller susceptible, - continue antibiotics as above (4) Pneumonia: Qualifiers: Laterality: bilateral Lung location: unspecified part of lung Pneumonia type: due to unspecified organism Qualified Code(s): J18.9 - Pneumonia, unspecified organism Code(s): J18.9 - Pneumonia, unspecified organism Status: Acute Assessment and Plan: community-acquired pneumonia versus aspiration continue antibiotics as above - sputum cultures negative so far (5) GI bleed: Code(s): K92.2 - Gastrointestinal hemorrhage, unspecified Status: Acute Assessment and Plan: patient did mention black stools to admitting physician. positive fecal occult blood but no obvious major bleeding GI is following but no plan for EGD at this time Continue IV PPI q.12 hours. EGD to be performed at some point as per GI - received 1 unit of packed RBC on 11/17/2019 and on 11/22 (6) Candidiasis of breast: Code(s): B37.89 - Other sites of candidiasis Status: Acute Assessment and Plan: Antifungal cream has been ordered (7) COPD exacerbation: Code(s): J44.1 - Chronic obstructive pulmonary disease with (acute) exacerbation Status: Acute Assessment and Plan: mechanical ventilation, antibiotics, bronchodilators (8) Alcoholism: Code(s): F10.20 - Alcohol dependence, uncomplicated Status: Chronic Assessment and Plan: patient has history of chronic alcohol abuse and dependence - continue folic acid and thiamine (9) Dysphagia: Code(s): R13.10 - Dysphagia, unspecified Status: Acute Assessment and Plan: currently intubated, on tube feeds (10) Suspected COVID-19 virus infection: Code(s): Z20.828 - Contact with and (suspected) exposure to other viral communicable diseases Status: Acute Assessment and Plan: COVID-19 ruled out. SARS-CoV-2 PCR was
[2019-11-26] MEDS: ALBUMIN HUMAN 25% 25 GM/100 ML 200 ML IVPB (08:33)
[2019-11-26] MEDS: POTASSIUM CHLORIDE 20 MEQ PACKET (FOR LIQUID) 40 MEQ FEED TUBE (08:34)
[2019-11-26] MEDS: MAGNESIUM SULF 2 GM/WATER 50ML 2 GM/50 ML BAG IVPB (08:34)
[2019-11-26] MEDS: FOLIC ACID 1 MG/0.2 ML INJ IV PUSH (08:35)
[2019-11-26] MEDS: PANTOPRAZOLE SODIUM IV 40 MG VIAL IV PUSH ×2 (08:36→20:33)
[2019-11-26] MEDS: TOLNAFTATE 1% POWDER 45 GM BTL 1 APPLIC TOPICAL ×2 (10:40→20:42)
[2019-11-26] MEDS: THIAMINE HCL 200 MG/2 ML VIAL 100 MG IV PUSH (10:41)
[2019-11-26] MEDS: PROPOFOL IV EMULSION 100 ML 4.1 MG IV CONT ×2 (12:30→17:26)
[2019-11-26] MEDS: fentaNYL CITRATE INJ (*CRX) 100 MCG/2 ML VIAL 25 MCG IV PUSH ×2 (13:13→16:15)
--- NOTE | 2019-11-26 16:36 | PM.IMPN ---
Progress Note: A&P Assessment and Plan (1) Acute hypoxemic respiratory failure: Code(s): J96.01 - Acute respiratory failure with hypoxia Status: Acute Assessment and Plan: Failing vent weaning trials Trach if family agrees Supportive care (2) Cardiac mass: Code(s): I51.89 - Other ill-defined heart diseases Status: Acute Assessment and Plan: Unable to do further evaluation due to ETT Continue to monitor (3) Elevated troponin: Code(s): R79.89 - Other specified abnormal findings of blood chemistry Status: Acute Assessment and Plan: Supportive care. (4) COPD exacerbation: Code(s): J44.1 - Chronic obstructive pulmonary disease with (acute) exacerbation Status: Acute Assessment and Plan: Does not appear to be on exacerbation. Breathing treatments. (5) Septic shock: Code(s): A41.9 - Sepsis, unspecified organism; R65.21 - Severe sepsis with septic shock Status: Acute Assessment and Plan: Resolved. (6) Pneumonia: Qualifiers: Laterality: bilateral Lung location: unspecified part of lung Pneumonia type: due to unspecified organism Qualified Code(s): J18.9 - Pneumonia, unspecified organism Code(s): J18.9 - Pneumonia, unspecified organism Status: Acute Assessment and Plan: On Cefepime currently. Vanco has been stopped (7) Thrombocytopenia: Code(s): D69.6 - Thrombocytopenia, unspecified Status: Chronic Assessment and Plan: On no heparin products (8) Alcoholism: Code(s): F10.20 - Alcohol dependence, uncomplicated Status: Chronic Assessment and Plan: Does not appear to be withdrawing. Continue to monitor Precedex (9) Suspected COVID-19 virus infection: Code(s): Z20.828 - Contact with and (suspected) exposure to other viral communicable diseases Status: Acute Assessment and Plan: Ruled out. Subjective Date/time seen: 11/26/19 16:36 Patient seen and examined earlier in the morning. Review of Systems Review of Systems: Narrative: Unable to obtain, patient is sedated. Currently on pressure support.ETT in place Exam Narrative: Exam Narrative: On ventilator, sedated. Const: General: comfortable and no acute distress Nutritional Appearance: average body habitus Other: Chronically ill looking, edematous. HENMT: Head: normocephalic Throat: other (ETT in place.) Eyes: General: appearance normal, both eyes and all related structures Pupils: Equal, round and reactive pupils present EOM: EOMs intact bilaterally Neck: Neck: no lymphadenopathy and no JVD Resp: Auscultation: clear to auscultation bilaterally Cardio: Jugular venous distension: no JVD Rate: regular rate Rhythm: regular rhythm Heart sounds: S1 normal heart sound present and S2 normal heart sound present GI: Inspection: distended GI Palp: Yes Firmness to palpation present (GI) and Yes No hepatosplenomegaly present Percussion: Yes tympanic to percussion Skin: General skin exam: pallor Neuro: Other: Sedated, moves limbs spontaneously. Extrem: Other: Edema of both Upper and Lower extremities. Objective Data Vital Signs Vital Signs: Vital Signs - 24 hr 11/25/19 16:39 11/25/19 18:00 11/25/19 19:59 Temperature Pulse Rate 87 96 90 Respiratory Rate 21 H 23 H Blood Pressure 93/59 L Pulse Oximetry 100 99 11/25/19 20:00 11/25/19 20:02 11/25/19 20:05 Temperature 99.0 F Pulse Rate 91 93 93 Respiratory Rate 19 28 H Blood Pressure 104/65 Pulse Oximetry 100 100 11/25/19 21:47 11/25/19 22:00 11/25/19 22:43 Temperature Pulse Rate 92 126 H 90 Respiratory Rate 27 H 19 Blood Pressure 106/68 Pulse Oximetry 98 98 11/26/19 00:00 11/26/19 00:16 11/26/19 00:18 Temperature 98.6 F Pulse Rate 86 88 88 Respiratory Rate 27 H 40 H 40 H Blood Pressure 95/58 L Pulse Oximetry 98 11/26/19 01:11 11/26/19 02:00 11/26/19 02:05 [place]
--- NOTE | 2019-11-26 16:41 | PC.NURSE ---
Patient's tube feeding held per policy r/t 360mL gastric residual volume.
[2019-11-26] MEDS: FENTANYL 2,500MCG/NS250ML(*CRX 2,500 MCG/250 ML BAG IV CONT (18:56)
--- NOTE | 2019-11-26 19:26 | PC.NURSE ---
Start of shift, drips were verified. Propofol last documented as running at 10mcg/min, upon verifying the propofol was running at 45mcg/min. Documentation reflects in MAR.
[2019-11-26 19:41] LABS: Alveolar/Arterial O2 Gradient 118.4 mmHg; Base Excess ABG -2.5 mEq/l (+/-2.0); Fractional Inspired Oxygen 30 %; HCO3 ABG 21.2 mEq/l (22.0-26.0); Oxygen Content ABG 11.1 %vol (16.0-22.0); Oxygen Saturation ABG 91.1 % (95.0-100.0); Oxyhemoglobin 86.7 % THb (90.0-100.0); PCO2 ABG 32.4 mmHg (35.0-45.0); PO2 ABG 57.4 mmHg (80.0-100.0); PO2 FiO2 Ratio Arterial Blood 1.91 %; Total Hemoglobin 9.1 g/dL (12.0-18.0); pH ABG 7.434 (7.350-7.450)
[2019-11-26 19:42] LABS: Device VENTILATOR; Modified Allen's Test Pass; Site Drawn RIGHT RADIAL
[2019-11-26 19:43] LABS: Arterial Blood Gas PEEP 5 cmH2O; Arterial Blood Gas Tidal Volume 320 ml; Arterial Blood Gas Vent Mode CMV; Arterial Blood Gas Ventilator rate 20 /MIN
[2019-11-26] MEDS: SERTRALINE HCL 50 MG TABLET 100 MG PO (20:33)
[2019-11-26] MEDS: ALBUMIN HUMAN 25% 25 GM/100 ML 100 ML IVPB ×2 (20:35→20:36)
[2019-11-26] MEDS: PROPOFOL IV EMULSION 100 ML 18.3 MG IV CONT (23:29)
[2019-11-27] VITALS (31 sets, daily range): BP systolic 83–96; BP diastolic 52–61; PULSE 75–113; RESP 20–32; TEMP 36.8–37.3; O2SAT 89–97
[2019-11-27] MEDS: IPRATROPIUM BR 0.02% INH SOLN 0.5 MG/2.5 ML VIAL INHALATION ×3 (01:12→13:45)
[2019-11-27] MEDS: ALBUTEROL SULFATE NEB 2.5 MG/0.5 ML INH INHALATION ×3 (01:12→13:45)
[2019-11-27] MEDS: PROPOFOL IV EMULSION 100 ML 16.3 MG IV CONT (04:10)
[2019-11-27 04:20] LABS: Alveolar/Arterial O2 Gradient 311.3 mmHg; Base Excess ABG -3.9 mEq/l (+/-2.0); Carboxyhemoglobin 0.6 % THb (0-2.0); Fractional Inspired Oxygen 60 %; HCO3 ABG 21.1 mEq/l (22.0-26.0); Methemoglobin ABG 0.6 %THb (0-1.5); Oxygen Content ABG 10.6 %vol (16.0-22.0); Oxygen Saturation ABG 94.7 % (95.0-100.0); Oxyhemoglobin 91.9 % THb (90.0-100.0); PCO2 ABG 37.8 mmHg (35.0-45.0); PO2 ABG 74.9 mmHg (80.0-100.0); PO2 FiO2 Ratio Arterial Blood 1.25 %; Reduced Hemoglobin 6.9 %THb (0-5.0); Site Drawn RIGHT RADIAL; Total Hemoglobin 8.1 g/dL (12.0-18.0); pH ABG 7.365 (7.350-7.450)
[2019-11-27 04:21] LABS: Arterial Blood Gas PEEP 5 cmH2O; Arterial Blood Gas Tidal Volume 320 ml; Arterial Blood Gas Vent Mode CMV; Arterial Blood Gas Ventilator rate 20 /MIN; Device VENTILATOR; Modified Allen's Test Pass
[2019-11-27 04:22] LABS: Arterial Blood Gas Pressure Support 0 cmH2O
[2019-11-27 04:27] LABS: Hematocrit 21.8 % (37.0-47.0); Hemoglobin 7.1 g/dL (12.0-15.0); Mean Corpuscular HGB Conc 32.6 g/dl (32-36); Mean Corpuscular Hemoglobin 30.6 pg (26-34); Mean Platelet Volume 10.1 fl (7.4-10.4); Platelet Count Result 232 k/mm3 (150-375); Red Blood Count 2.32 M/mm3 (4.2-5.4); Red Cell Distribution Width 19.4 % (11.5-14.5); White Blood Count 13.1 K/mm3 (4.5-10.0)
[2019-11-27 04:39] LABS: Alanine Aminotransferase 23 U/L (4-35); Alkaline Phosphatase 139 U/L (38-126); Anion Gap 10 mmol/L (8-16); Aspartate Amino Transferase 42 U/L (14-36); Bilirubin,Total 2.2 mg/dL (0.2-1.3); Blood Urea Nitrogen 34 mg/dL (7-17); Calcium 9.9 mg/dL (8.4-10.2); Carbon Dioxide 23 mmol/L (22-30); Chloride 104 mmol/L (98-107); Estimated CRCL calculation 39 ml/min; Estimated Glomerular Filt Rate 45; Glucose 98 mg/dL (65-105); Magnesium 2.2 mg/dL (1.6-2.3); Potassium 3.9 mmol/L (3.4-5.0); Sodium 137 mmol/L (137-145)
[2019-11-27 06:17] LABS: Add Urine Microscopic? YES; Amorphous Sediment Urine Few; Appearance Urine Turbid (Clear); Bacteria Urine 1+ /hpf; Bilirubin Urine Negative (Negative); Blood Urine 1+ (Negative); Color Urine Amber (Yellow); Glucose Urine UA Negative (Negative); Hyaline Casts Urine 20-29 /lpf; Ketones Urine Trace mg/dL (Negative); Leukocyte Esterase Ur 2+ LEU/UL (Negative); Mucus Urine Heavy /lpf; Nitrate Urine Negative (Negative); Protein Urine 2+ mg/dL (Negative); RBC Urine 21-50 /hpf (0-2); Specific Grav Ur 1.024 (1.001-1.035); Squamous Epithelial Cell Urine Many /hpf (Few); Urobilinogen Urine Negative mg/dL (<2.0); WBC Urine >75 /hpf
[2019-11-27] MEDS: FUROSEMIDE INJ 40 MG/4 ML VIAL IV PUSH (08:03)
[2019-11-27] MEDS: THIAMINE HCL 200 MG/2 ML VIAL 100 MG IV PUSH (08:03)
[2019-11-27] MEDS: PANTOPRAZOLE SODIUM IV 40 MG VIAL IV PUSH (08:03)
[2019-11-27] MEDS: SCOPOLAMINE 1.5 MG PATCH TRANSDERM (08:04)
[2019-11-27] MEDS: TOLNAFTATE 1% POWDER 45 GM BTL 1 APPLIC TOPICAL (08:05)
[2019-11-27] MEDS: ALBUMIN HUMAN 25% 25 GM/100 ML 200 ML IVPB (08:11)
--- NOTE | 2019-11-27 09:19 | WPDINTPN ---
Progress Note: A&P Assessment and Plan (1) Respiratory failure: Code(s): J96.90 - Respiratory failure, unspecified, unspecified whether with hypoxia or hypercapnia Status: Acute Assessment and Plan: acute respiratory failure likely related to bilateral infiltrates, secondary pneumonia, acute lung injury /ARDS - intubated on 11/17/2019 - patient otis been failing pressure support ventilation trial daily due to high RSBI despite Precedex infusion. Patient was on ASV mode until yesterday. - Yesterday in the evening patient had worsening of hypoxia in desaturation. AC mode was changed back to CMV to allow sedation and prevent patient ventilator dyssynchrony - FiO2 increased to 60% and peep increased to 8 - chest x-ray is significantly worse today showing diffuse bilateral infiltrates. - Patient is afebrile and white count has not significantly increased over last few days suggesting against pneumonia - respiratory secretions are also not significantly changed - sputum culture was recent 11/25 - check BNP. - I will give patient Lasix twice . Will use vasopressor if needed for low blood pressure - patient has completed course of antibiotics as she was on cefepime for UTI for close to 10 days - recheck blood cultures - continue scopolamine patch for increased oral secretion (2) Septic shock: Code(s): A41.9 - Sepsis, unspecified organism; R65.21 - Severe sepsis with septic shock Status: Acute Assessment and Plan: has resolved and patient has been OFF LEVOPHED - likely related to pneumonia, sepsis /infection - Septic shock secondary to pneumonia and UTI, - continue cefepime through 11/25 but patient now off of vancomycin - urine cultures growing E coli, blood and sputum cultures are negative 11/24 patient had episode of hypotension which could be secondary sedation or diuresis. Resolved with albumin and did not require resumption of vasopressors (3) Urinary tract infection: Qualifiers: Hematuria presence: without hematuria Urinary tract infection type: site unspecified Qualified Code(s): N39.0 - Urinary tract infection, site not specified Code(s): N39.0 - Urinary tract infection, site not specified Status: Acute Assessment and Plan: patient growing E coli from urine culture. miller susceptible, - continue antibiotics as above (4) Pneumonia: Qualifiers: Laterality: bilateral Lung location: unspecified part of lung Pneumonia type: due to unspecified organism Qualified Code(s): J18.9 - Pneumonia, unspecified organism Code(s): J18.9 - Pneumonia, unspecified organism Status: Acute Assessment and Plan: community-acquired pneumonia versus aspiration continue antibiotics as above - sputum cultures negative so far (5) GI bleed: Code(s): K92.2 - Gastrointestinal hemorrhage, unspecified Status: Acute Assessment and Plan: patient did mention black stools to admitting physician. positive fecal occult blood but no obvious major bleeding GI is following but no plan for EGD at this time Continue IV PPI q.12 hours. EGD to be performed at some point as per GI - received 1 unit of packed RBC on 11/17/2019 and on 11/22 (6) Candidiasis of breast: Code(s): B37.89 - Other sites of candidiasis Status: Acute Assessment and Plan: Antifungal cream has been ordered (7) COPD exacerbation: Code(s): J44.1 - Chronic obstructive pulmonary disease with (acute) exacerbation Status: Acute Assessment and Plan: mechanical ventilation, antibiotics, bronchodilators (8) Alcoholism: Code(s): F10.20 - Alcohol dependence, uncomplicated Status: Chronic Assessment and Plan: patient has history of chronic alcohol abuse and dependence - continue folic acid and thiamine (9) Dysphagia: Code(s): R13.10 - Dysphagia, unspecified Status: Acute
--- NOTE | 2019-11-27 10:26 | WPDGIPROGNO ---
Progress Note: A&P Additional Plan Patient remains intubated on the ventilator in the ICU. Currently sedated unable to add any useful history. Nursing staff reports some high gastric residuals. No evidence for recent bleeding. He has been unable to be weaned from the ventilator. Physical exam reveals lungs to have a few rhonchi. Heart without murmur. Abdomen is bowel sounds are diminished soft no organomegaly evident. Impression 1. Anemia with occult blood in stool. Hemoglobin has remained stable. Plan is to continue empiric proton pump inhibitor for possible stress ulcer. Consider EGD electively. 2. Ventilator dependent. Respiratory failure. Patient known to have underlying pneumonia. Septic shock at the time of admission. Patient remains on antibiotics. 3. Alcohol and drug abuse. 4. Dysphagia. Before patient was intubated she had difficulty swallowing along with state that dysarthria. 5. Nutritional support. Currently nutrition via NG tube. She has had some diminished bowel sounds agree with trial of Reglan and slowly reintroducing NG tube feedings. 6. COPD. Subjective Date/time seen: 11/27/19 10:26 Objective Data Vital Signs Vital Signs: Vital Signs - 24 hr 11/26/19 10:30 11/26/19 12:00 11/26/19 12:50 Temperature 99.5 F Pulse Rate 89 91 84 Respiratory Rate 35 H Blood Pressure 98/70 L Pulse Oximetry 95 96 94 11/26/19 14:00 11/26/19 14:55 11/26/19 16:00 Temperature 99.8 F H Pulse Rate 85 86 91 Respiratory Rate 30 H 30 H 36 H Blood Pressure 108/67 92/51 L Pulse Oximetry 94 95 11/26/19 16:50 11/26/19 17:26 11/26/19 18:00 Temperature Pulse Rate 87 85 84 Respiratory Rate 31 H 32 H Blood Pressure 101/72 Pulse Oximetry 96 84 L 11/26/19 18:52 11/26/19 18:56 11/26/19 18:58 Temperature Pulse Rate 82 83 83 Respiratory Rate 39 H 37 H Blood Pressure Pulse Oximetry 94 11/26/19 19:23 11/26/19 19:25 11/26/19 19:53 Temperature Pulse Rate 82 82 81 Respiratory Rate 36 H 35 H 36 H Blood Pressure Pulse Oximetry 11/26/19 20:00 11/26/19 20:10 11/26/19 22:00 Temperature 99.5 F Pulse Rate 80 90 87 Respiratory Rate 35 H 36 H Blood Pressure 95/61 L Pulse Oximetry 92 11/26/19 23:09 11/26/19 23:12 11/26/19 23:14 Temperature Pulse Rate 85 85 85 Respiratory Rate 43 H 40 H 39 H Blood Pressure 87/53 L Pulse Oximetry 88 L 11/26/19 23:25 11/27/19 00:00 11/27/19 01:13 Temperature 99.2 F Pulse Rate 84 84 83 Respiratory Rate 32 H 24 H Blood Pressure 95/61 L Pulse Oximetry 97 93 96 11/27/19 01:30 11/27/19 02:00 11/27/19 02:44 Temperature Pulse Rate 90 90 88 Respiratory Rate 25 H 26 H 27 H Blood Pressure 96/59 L Pulse Oximetry 97 11/27/19 02:50 11/27/19 04:00 11/27/19 04:10 Temperature 98.3 F Pulse Rate 88 81 82 Respiratory Rate 27 H 23 H 27 H Blood Pressure 92/54 L Pulse Oximetry 93 11/27/19 04:29 11/27/19 04:34 11/27/19 04:35 Temperature Pulse Rate 81 81 81 Respiratory Rate 23 H 23 H Blood Pressure Pulse Oximetry 93 11/27/19 04:36 11/27/19 05:06 11/27/19 05:17 Temperature Pulse Rate 81 81 Respiratory Rate 23 H 24 H 25 H Blood Pressure Pulse Oximetry 94 11/27/19 06:00 11/27/19 06:03 11/27/19 06:07 Temperature Pulse Rate 80 80 80 Respiratory Rate 24 H 29 H 29 H Blood Pressure 90/52 L Pulse Oximetry 92 11/27/19 06:27 11/27/19 08:00 11/27/19 08:11 Temperature 98.3 F Pulse Rate 80 79 79 Respiratory Rate 26 H 26 H 23 H Blood Pressure 85/52 L Pulse Oximetry 95 11/27/19 08:13 11/27/19 08:28 11/27/19 08:35 Temperature Pulse Rate 79 80 85 Respiratory Rate 24 H 25 H 25 H Blood Pressure Pulse Oximetry 94 11/27/19 09:28 Temperature Pulse Rate 86 Respiratory Rate Blood Pressure Pulse Oximetry Intake/Output Intake/Output: Intake & Output 11/24/19 11/25/19 11/26/19 11/27/19 23:59 23:59 23:59 23:59 Intake Total 0437
[2019-11-27] MEDS: METOCLOPRAMIDE HCL 5 MG TABLET PO (10:48)
[2019-11-27] MEDS: FOLIC ACID 1 MG/0.2 ML INJ IV PUSH (10:48)
[2019-11-27 10:58] LABS: Lipase 36 U/L (23-300)
[2019-11-27 11:08] LABS: NT Pro B Type Natriuretic Pept 8460 PG/ML (5-100)
--- NOTE | 2019-11-27 11:18 | PM.IMPN ---
Progress Note: A&P Assessment and Plan (1) Acute hypoxemic respiratory failure: Code(s): J96.01 - Acute respiratory failure with hypoxia Status: Acute Assessment and Plan: On ventilator support. Has failed weaning trials. Appreciate diver tender note. Likely multifactorial (2) Cardiac mass: Code(s): I51.89 - Other ill-defined heart diseases Status: Acute Assessment and Plan: No further evaluation currently as patient is on ventilator Appreciate Cardiology note. (3) Occult blood in stools: Code(s): R19.5 - Other fecal abnormalities Status: Acute Assessment and Plan: Stable hemoglobin and hematocrit (4) Elevated troponin: Code(s): R79.89 - Other specified abnormal findings of blood chemistry Status: Acute Assessment and Plan: Conservative management. Positive occult blood Appreciate Cardiology note. (5) COPD exacerbation: Code(s): J44.1 - Chronic obstructive pulmonary disease with (acute) exacerbation Status: Acute Assessment and Plan: Continue breathing treatments On full vent support. Does not appear to be exacerbated (6) Septic shock: Code(s): A41.9 - Sepsis, unspecified organism; R65.21 - Severe sepsis with septic shock Status: Acute Assessment and Plan: Resolved off of pressors Long course of antibiotics Afebrile No leukocytosis (7) Pneumonia: Qualifiers: Laterality: bilateral Lung location: unspecified part of lung Pneumonia type: due to unspecified organism Qualified Code(s): J18.9 - Pneumonia, unspecified organism Code(s): J18.9 - Pneumonia, unspecified organism Status: Acute Assessment and Plan: Received Cefepime for 10 days Less likely (8) Alcoholism: Code(s): F10.20 - Alcohol dependence, uncomplicated Status: Chronic Assessment and Plan: Does not appear to be withdrawing. Precedex for sedation Subjective Date/time seen: 11/27/19 11:18 Patient was seen and examined earlier today. Was under sedation and full ventilator support.Has pressure support weaning trials. Review of Systems Review of Systems: Narrative: Unable to obtain as patient is intubated and sedated. Exam Narrative: Exam Narrative: Sedated NAD under sedation. Const: General: no acute distress Nutritional Appearance: average body habitus HENMT: Other: ETT in place. Eyes: General: appearance normal, both eyes and all related structures Pupils: Equal, round and reactive pupils present EOM: EOMs intact bilaterally Neck: Neck: no JVD Lymphatic: no lymphadenopathy noted Resp: Auscultation: bronchial breath sounds Cardio: Jugular venous distension: no JVD Rate: regular rate Rhythm: regular rhythm Heart sounds: S1 normal heart sound present and S2 normal heart sound present GI: Inspection: distended GI Palp: Yes Soft to palpation Percussion: Yes tympanic to percussion Auscultation: normal bowel sounds Skin: Lesions: no lesions Rashes: no rashes Wounds: no wounds Other: Generalized pallor. Neuro: Other: Sedated. Extrem: Other: B/L UE/LE edema. Objective Data Vital Signs Vital Signs: Vital Signs - 24 hr 11/26/19 12:00 11/26/19 12:50 11/26/19 14:00 Temperature 99.5 F Pulse Rate 91 84 85 Respiratory Rate 35 H 30 H Blood Pressure 98/70 L 108/67 Pulse Oximetry 96 94 94 11/26/19 14:55 11/26/19 16:00 11/26/19 16:50 Temperature 99.8 F H Pulse Rate 86 91 87 Respiratory Rate 30 H 36 H Blood Pressure 92/51 L Pulse Oximetry 95 96 11/26/19 17:26 11/26/19 18:00 11/26/19 18:52 Temperature Pulse Rate 85 84 82 Respiratory Rate 31 H 32 H Blood Pressure 101/72 Pulse Oximetry 84 L 94 11/26/19 18:56 11/26/19 18:58 11/26/19 19:23 Temperature Pulse Rate 83 83 82 Respiratory Rate 39 H 37 H 36 H Blood Pressure Pulse Oximetry 11/26/19 19:25 11/26/19 19:53 11/26/19 20:00 Temperature 99.5 F Pulse
--- NOTE | 2019-11-27 11:31 | PM.PNCARD ---
Progress Note: A&P Assessment and Plan (1) Elevated troponin: Code(s): R79.89 - Other specified abnormal findings of blood chemistry Status: Acute Assessment and Plan: Pt anemic. relatively stable. continue to monitor likely type 2 infarction secondary to hypotension and sepsis/shock. COVID negative. 2D echocardiogram with Doppler. No aspirin because she is guaiac-positive. Resume lisinopril when able. continue pressors for now. 2D echocardiogram today personally reviewed EF 60-65%, 1.5 x 1.2 cm fixed echogenic mass at the interatrial septum within the right atrium. Consider KENDALL. No evidence of valvular vegetation/endocarditis. (2) Cardiac mass: Code(s): I51.89 - Other ill-defined heart diseases Status: Acute Assessment and Plan: Noted on surface echocardiogram fixed echogenic mass on the interatrial septum right atrial wall. While vegetation cannot be excluded this appears to be more consistent with a fixed mass. KENDALL for further clarification. (3) Alcoholism: Code(s): F10.20 - Alcohol dependence, uncomplicated Status: Chronic Assessment and Plan: Ongoing , per primary service. (4) Septic shock: Code(s): A41.9 - Sepsis, unspecified organism; R65.21 - Severe sepsis with septic shock Status: Acute Assessment and Plan: urosepsis +/- pneumonia COVID Negative. (5) Electrolyte abnormality: Code(s): E87.8 - Other disorders of electrolyte and fluid balance, not elsewhere classified Status: Acute Assessment and Plan: Continue to replace electrolytes to a potassium greater than 4 and magnesium greater than 2. Additional Plan agree with diuretics Subjective Date/time seen: 11/27/19 11:31 Interval history: reason for consult: septic shock, pneumonia and UTI, use urine culture growing E coli. Alcohol withdrawal, COPD exacerbation,, GI bleed - melena with anemia - SARS-CoV-2 PCR negative continued respiratory failure requiring re-intubation yesterday. Patient appears to be critically ill with a variety of noncardiac problems. Echocardiogram did not suggest this is primarily a cardiac event. She does have a small sessile right atrial mass which may need to be evaluated in the future depending on her recovery from her critical illness that is going on now. Obviously this right atrial mass has nothing to do with current hospitalization Date of service 11/27/2019: Intubated sedated Review of Systems Review of Systems: All systems reviewed & are unremarkable except as noted in HPI and below ROS unobtainable: Yes unobtainable due to endotracheal tube Constitutional: Constitutional: Denies excessive sweating ENT: Denies neck pain Cardiovascular: Cardiovascular: Reports dyspnea Neurologic: Reports Normal hearing present, Denies behavioral changes and Reports weakness Exam Narrative: Exam Narrative: Lethargic, somewhat difficult to arouse but arousable. Once awake answering questions appropriately, but delayed. NAD Const: General: comfortable and no acute distress; No confusion Orientation/consciousness: No confusion Other: intubated sedated patient in the ICU on ventilator support HENMT: General nose exam: Normal nares present Eyes: Sclera: sclerae normal Neck: Neck: no JVD Thyroid: thyroid normal Other: carotid impulses are intact bilaterally Chest: Other: no reproducible chest wall pain to palpation Resp: Effort & Inspection: normal respiratory effort Auscultation: wheezes and diminished lung sounds Other: coarse breath sounds centrally Cardio: Rate: regular rate Rhythm: regular rhythm Heart sounds: S1 normal heart sound present, S2 normal heart sound present and no murmurs Skin: General skin exam: normal color Neuro: General: No confusion Cranial nerves: Yes Normal hearing present Cognition (Neuro): normal cognition Speech: normal speech Other: patient sedated on ventilator support Ex
[2019-11-27] MEDS: PROPOFOL IV EMULSION 100 ML 14.3 MG IV CONT (12:15)
--- NOTE | 2019-11-27 13:45 | PM.EVENT ---
Event Note Event Note Event Note: Patient's daughter Radha and patient's sister are here and they would like patient to be palliatively extubated and kept comfortable. They told me that patient's Deven who is in [place] will not be able to come his poor health but is aware and in agreement with the plan. They do not wish to continue mechanical ventilation and other aggressive therapies at this time. I have explained them the process of palliative extubation which will include discontinuing all antibiotics and other medical therapies. Patient is already DNR. . I will use opioids, anxiolytics and other agents on as needed basis to promote comfort and discontinue all medical therapy, lab testing and invasive monitoring.
--- NOTE | 2019-11-27 13:54 | PC.NURSE ---
Pt. two yellow metal rings with white stones returned to daughter, Radha and witness by patients sisterEboni Morgan returned witness by Karyn George direct care worker GIFTY.
[2019-11-27] MEDS: MORPHINE SULFATE (*CRX) 4 MG/ML INJ IV PUSH ×4 (14:07→16:10)
[2019-11-27] MEDS: LORazepam INJ (*CRX) 2 MG/ML VIAL IV PUSH ×2 (14:08→15:35)
--- NOTE | 2019-11-27 14:45 | PCDIET ---
ICU Rounding Note: Patient with elevated gastric residuals up to 400mL. Plan was to add Reglan, but now family has decided for palliative extubation. Last recorded weight is 70.7kg which is down from last review. Bowel Motility: Last documented BM on 11/25/19. Labs Reviewed: WBC (13.1), Hgb (7.1), Hct (21.8), BUN (34), Cr (1.2), TG (98), Alb (4.0) Meds Noted: Albumin, Precedex, Atrovent, Albuterol, Fentanyl, Levophed, Protonix, Oscal, Folic Acid, Cefepime, Lasix, Thiamine, Propofol Additional Notes: Agree with NPO. If plan of care changes and aggressive therapy is continued, agree with previous plan of prokinetic agent/resuming tube feedings. Following daily in ICU rounds. Assessing/reassessing Wednesday/Wednesday.
--- NOTE | 2019-11-27 14:47 | PC.NURSE ---
1400- pt. extubated and placed on comfort care according to pt. daughter and husbands wishes. Pt. given morphine and ativan for comfort as ordered. 1430- pt. daughter and sister at bedside.
[2019-11-27] MEDS: MORPHINE SULFATE INJ (*CRX) 50 MG in SODIUM CHLORIDE 0.9% IV 95 ML IV CONT (16:19)
--- NOTE | 2019-11-27 17:40 | PC.NURSE ---
clothes and patient belonging bag returned to patients daughter.
--- NOTE | 2019-12-11 16:10 | P.DN_ITS ---
Discharge Sum: Prov Provider Primary care physician: Nura Puente MD Admitting provider: Yaar Farley DO Consults: 11/13/19 Consult to Physician Routine Comment: called exchange and left message for consult Consulting Provider: Ricky Ricketts orthopedically impaired teacher/MD group to consult: GI Reason for consultation: UGI Bleed Has provider been notified: Yes Consult to Physician Routine Comment: hypotension Consulting Provider: Dequan Beard orthopedically impaired teacher/MD group to consult: ICU Reason for consultation: Hypotension Has provider been notified: Yes Consult to Physician Routine Comment: physician is aware of the pt. Consulting Provider: Raffi Berger orthopedically impaired teacher/MD group to consult: Cardiology/Dr. Berger Reason for consultation: NSTEMI Has provider been notified: Yes 11/20/19 Wound/ET Consult Routine Reason for Consult:: wound on sacrum Discharge Sum: Diag Contributing Factors (1) Acute hypoxemic respiratory failure: (2) Elevated troponin: (3) COPD exacerbation: (4) Septic shock: (5) Pneumonia: (6) Alcoholism: (7) Alcohol withdrawal: Discharge Sum: Summary Date and Time Date of admission: 11/12/19 21:42 Additional Data Attending physician: Mela Ramirez MD
== END 2019-11-27 17:17 | disposition expired | DRG 870 ==
LOC: ANHED 21:42 → ANHICU 23:43
PROVIDERS: Internal Medicine; Admitting Provider Internal Medicine; Emergency Provider Family Medicine; PCP Family Medicine; Visit Provider Internal Medicine
DX: A41.9 Sepsis, unspecified organism (principal); J18.9 Pneumonia, unspecified organism; R65.21 Severe sepsis with septic shock; I21.A1 Myocardial infarction type 2; J96.01 Acute respiratory failure with hypoxia; F10.239 Alcohol dependence with withdrawal, unspecified; J44.1 Chronic obstructive pulmonary disease with (acute) exacerbation; N39.0 Urinary tract infection, site not specified; K92.2 Gastrointestinal hemorrhage, unspecified; E87.6 Hypokalemia; E83.42 Hypomagnesemia; B37.2 Candidiasis of skin and nail; I10 Essential (primary) hypertension; D64.9 Anemia, unspecified; K21.9 Gastro-esophageal reflux disease without esophagitis; Z20.828 Contact with and (suspected) exposure to other viral communicable diseases; F17.210 Nicotine dependence, cigarettes, uncomplicated; B96.20 Unspecified Escherichia coli [E. coli] as the cause of diseases classified elsewhere; R13.12 Dysphagia, oropharyngeal phase; Z66 Do not resuscitate; D69.6 Thrombocytopenia, unspecified; I51.89 Other ill-defined heart diseases
CPT/HCPCS: 36415; 36430; 36600; 51701; 70450; 71045; 72125; 80048; 80053; 80202; 81001; 82274; 82375; 82805; 83050; 83605; 83690; 83735; 83880; 84100; 84132; 84478; 84484; 85014; 85018; 85025; 85027; 85055; 85610; 86850; 86900; 86901; 86923; 87040; 87070; 87077; 87086; 87088; 87186; 87205; 87635; 92610; 92611; 93005; 94002; 94003; 94640; 96361; 96365; 96366; 96375; 99285; A9270; C1751; C8929; C9113; C9803; J0330; J0610; J0692; J1940; J2060; J2250; J2270; J2543; J2704; J2765; J2930; J3010; J3370; J3411; J3475; J3480; J7030; J7050; J7120; P9016; P9047; Q9957; U0003